=== PATIENT | female | born 1945 | race Caucasian/White ===

== ENCOUNTER 2023-10-20 17:28 | Inpatient (IN) | payer MEDICARE, SELFPAY ==
[2023-10-20 18:25] VITALS: BP 146/78; PULSE 89; RESP 18; TEMP 36.1; O2SAT 97
[2023-10-20 18:26] VITALS: BMI 17.8
--- NOTE | 2023-10-20 19:06 | PC.NURSE ---
Patient from [facility], presented with altered mental status, paranoid thoughts, concerned of her neighbor threatening to kill her. To the unit arrived via stretcher at 17:50. Signed VS. Patient 78 y.o.alert, oriented to self, date, day of the week, and situation. VS: 146/78, P 89, T 97.0, O2sat 97% on RA, Wwt 103.6 lbs, Ht 5 feet 4 inches. Speech clear. Denies pain. Denies psych symptoms. Initially anxious upon assessment then calmed done little bit after eating. Said she was hungry and thirsty. Consumed sandwiches, pudding and drank 360 ml of fluids. D/C diagnosis of HTN, Paranoid delusions, Depression, Psychosis. Patient signed consents to release info to her daughter, PCP, insurance and pharmacy. Stated, she doesn't have a psychiatrist. Skin assessment completed, bruising on upper extr. from IVs. Pt ambulates with a waker, gait steady.
[2023-10-20 20:33] VITALS: BP 105/59; PULSE 90; RESP 20; TEMP 36.2; O2SAT 97
[2023-10-20 21:49] VITALS: BP 105/59; PULSE 90; RESP 18; TEMP 36.2; O2SAT 97
[2023-10-20] MEDS: Sulfamethox/Trimeth 800/160 TABLET 1 TAB PO (22:16)
[2023-10-20] MEDS: QUEtiapine Fumarate 25 MG TABLET PO (22:16)
[2023-10-21 08:16] LABS: Estimated Average Glucose 114 mg/dL; Hemoglobin A1c % 5.6 % (<6.0)
[2023-10-21 08:25] LABS: Alanine Aminotransferase 17 U/L (0-31); Albumin Level 3.9 g/dL (3.5-5.0); Alkaline Phosphatase 51 U/L (39-117); Anion Gap 13 (12-20); Aspartate Amino Transferase 22 U/L (5-31); Bilirubin Total 0.3 mg/dL (0.0-1.0); Blood Urea Nitrogen 23 mg/dL (9-16); Calcium 9.6 mg/dL (8.4-10.2); Carbon Dioxide 23 mmol/L (22-29); Chloride 109 mmol/L (96-108); Cholesterol 169 mg/dL (<200); Creatinine Clr Calc Pharmacy 39.7; Estimated Glomerular Filt Rate > 60; Glucose Fasting 82 mg/dL (60-99); HDL Cholesterol 66 mg/dL (>40); LDL Cholesterol Calculated 87 mg/dL (<100); Potassium 4.4 mmol/L (3.3-5.1); Sodium 141 mmol/L (135-145); Total Protein 6.9 g/dL (6.5-8.0); Triglycerides 82 mg/dL (<150)
[2023-10-21 09:19] VITALS: BP 128/64; PULSE 87; RESP 16; TEMP 36.2; O2SAT 97
[2023-10-21] MEDS: Sulfamethox/Trimeth 800/160 TABLET 1 TAB PO ×2 (09:20→20:33)
[2023-10-21] MEDS: Metoprolol Succinate ER 100 MG TAB.ER.24H PO (09:20)
--- NOTE | 2023-10-21 11:15 | P.HPPS_ITS ---
HPI Date of Service: 10/21/23 Chief Complaint: Unspecified depressive disorder with psychotic fea Sources of Information: patient interviewed, chart reviewed and crisis/core team assessment reviewed HPI Subjective Notes: Briones Warning and 3 Day Medical Problems Affecting Mental Status: No Narrative: 78-year-old female direct admission from [facility]. Depression, anxiety, significant paranoia and hallucinations regarding neighbor. For psychiatric admission. Lab work and CT brain unremarkable. There has been increasing paranoia in recent months as per transfer paperwork according to daughter, Joanna. Patient has been calling the police on her neighbor. Today reports that she came from [facility], clearly aware of timeline and no obvious cognitive impairment. Feels that she is being treated okay here. Also reports wanting to go home at some point. States her something going on with her neighbor and it is not her imagination. Reports calling the police and that they know everything that is happening. Reports she can hear messages from her neighbor through the air compressor that are targeting her with a goal of getting her to leave her apartment, so her neighbor can get patient's apartment for neighbor's girlfriend. As we were talking, patient reports that she can hear people saying and repeating what is being said and therefore does not want to elaborate or talk too much. reported this has been happening since before . Has been feeling stressed. Sleep is less. Fearful that now she is in the hospital, they are in her apartment, taking over it. Did explain 3 day notice (same submitted), briones warning given. Is open to a low-dose of medications for sleep, anxiety and potential misinterpretations. Discussed Risperdal. Past Psychiatric History: First admission. Lab work and CT scans unremarkable. Experiencing psychosis for at least 6 months now. Medical Evaluation Reviewed: [facility] Medical History (Updated 10/21/23 @ 19:30 by Wallace Guthrie MD) HTN (hypertension) Social History: Lives alone. 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 Enjoys hiking and biking. Did not want to discuss family into much detail as she was concerned they might be in danger. Substance History: denied Diagnostics Vital Signs (24Hr): Vital Signs - 24 hr 10/20/23 18:25 10/20/23 20:33 10/20/23 21:49 Temperature 97.0 F 97.2 F 97.2 F Pulse Rate 89 90 90 Respiratory Rate 18 20 18 Blood Pressure 146/78 H 105/59 L 105/59 L Pulse Oximetry 97 97 97 Oxygen Delivery Method Room Air Room Air Room Air 10/21/23 09:19 Temperature 97.2 F Pulse Rate 87 Respiratory Rate 16 Blood Pressure 128/64 Pulse Oximetry 97 Oxygen Delivery Method Room Air BMI result Body Mass Index 17.8 Labs 10/21/23 07:27 Labs: Laboratory Results - last 48 hr 10/21/23 07:27 Sodium 141 Potassium 4.4 Chloride 109 H Carbon Dioxide 23 Anion Gap 13 BUN 23 H Creatinine 0.88 Estim Creat Clear Calc 39.7 Estimated GFR > 60 Fasting Glucose 82 Estimat Average Glucose 114 Hemoglobin A1c % 5.6 Calcium 9.6 Total Bilirubin 0.3 AST 22 ALT 17 Alkaline Phosphatase 51 Total Protein 6.9 Albumin 3.9 Triglycerides 82 Cholesterol 169 LDL Cholesterol, Calc 87 HDL Cholesterol 66 Meds/Allergies Meds Home Medications ?Medication ?Instructions ?Recorded ?Confirmed ?Type cyanocobalamin (vitamin B-12) 1XD 10/20/23 History metoprolol succinate 100 mg 100 mg PO DAILY 10/20/23 10/20/23 History tablet,extended release 24 hr quetiapine 25 mg tablet 25 mg PO BEDTIME 10/20/23 10/20/23 History sulfamethoxazole 800 1 tab PO BID 10/20/23 10/20/23 History mg-trimethoprim 160 mg tablet (Bactrim DS) Allergies Allergies Allergy/AdvReac Type Severity Reaction Status Date / Time No Known Allergies Allergy Verified 10/20/23 20:47 Mental Status Exam Mental Status Exam Narrative: Pleasant. Engaged. Hospital clothing. Fair self-care. Organized. No cognitive impairment. Is anxious and fearful in the context of paranoia and hallucinations. Denies depressed. No SI or HI. Insight and judgment is slightly limited Assessment & Plan Assessment & Plan (1) Psychosis: Status: Acute Code(s): F29 - Unspecified psychosis not due to a substance or known physiological condition Plan Presents with clear psychotic symptoms and time and unclear, as collateral from transfer paperwork states a few months, but patient reports perhaps longer. Also appears to be 1st episode of psychosis, but collateral will be important in confirming this. Regardless, patient has no cognitive impairment, understands 3 day notice and Briones warning. Agreed to low-dose Risperdal. Patient educated on: medication risk/benefits Reason for continued inpatient stay Substantial Risk for: inability to function Statement Statement: I have reviewed the history and physical and performed a pertinent examination on my patient. No changes have occurred unless specified. If the History and Physical was not performed prior to admission, the Hospitalist's service will be consulted for completing the admission physical. Time Spent With Patient Time: Total time managing care of this patient today ____ minutes.
--- NOTE | 2023-10-21 11:26 | P.CONHOSP_ITS ---
History of Present Illness Data of Consult Service Date: 10/21/23 Primary Care Provider: Fritz Meza MD HPI Reason for consult: Admission H&P Pt is a 78-year-old female with a PMH significant for?HTN who is admitted to [facility] for for concerns of psychotic and paranoid behavior. Patient apparently has been perseverating on her neighbor who she believes has sending her threatening messages through an air compressor. Apparently contacted police multiple times complaining of this neighbor who she could not name when asked. Medical consult for admission H&P. ?Patient approached in her room where she is sitting in a chair looking out the window in no acute distress. Patient declines interview and exam, stating ?my history has already been taken? and ?I do not want to talk right now and just want to call my daughter and go home . Of note, review of medical records indicates patient tested positive for UA and as currently being treated for UTI. Labs reviewed, grossly unremarkable. Review of Systems 2 Review of Systems: Patient declines interview and examination [facility] Medical History (Updated 10/21/23 @ 13:02 by TOMÁS Malhotra) HTN (hypertension) Social History Household Members: None Housing: Apartment Do you presently have visiting nurse or other home services: No Patient Tobacco Use Status: Never used Tobacco Use of substances other than those prescribed or required for medical reasons: No Currently Displaying Signs/Symptoms of Drug Intoxication Withdrawal: No Have you been hit, kicked, punched, or otherwise hurt by someone within the past year? If so, by whom?: No Do you feel safe in your current relationship?: No Current Relationship Is there a partner from a previous relationship who is making you feel unsafe now?: No Advance Directives: No Advance Directives Information Provided: No Do you have thoughts of harming others: None Do you have a plan to hurt others: No Plan Recently lost weight without trying: Unsure How much weight loss: Unsure Eating poorly because of decreased appetite: No Nutrition screen score: 4 Patient : No : No Poor oral hygiene: No Meds Allergies Allergy/AdvReac Type Severity Reaction Status Date / Time No Known Allergies Allergy Verified 10/20/23 20:47 Active Medications: Current Medications Acetaminophen (Acetaminophen 325 Mg Tablet) 650 mg PO Q6H PRN PRN Reason: Headache/Pain Mild Scale (1-3) Al Hydroxide/Mg Hydroxide (Magnesium Hydrox/Alum Hydrox 30 Ml Oral.Susp) 30 ml PO Q6H PRN PRN Reason: Heartburn/Nausea Magnesium Hydroxide (Milk Of Magnesia 30 Ml Oral.Susp) 30 ml PO DAILY PRN PRN Reason: Constipation Metoprolol Succinate (Metoprolol Succinate Er 100 Mg Tab.Er.24h) 100 mg PO DAILY LUPE; Protocol Last Admin: 10/21/23 09:20 Dose: 100 mg Nicotine Polacrilex (Nicotine Polacrilex 2 Mg Gum) 4 mg BUCCAL Q2H PRN PRN Reason: Nicotine Cravings Risperidone (Risperidone 0.5 Mg Tablet) 0.5 mg PO BEDTIME LUPE Risperidone (Risperidone 0.5 Mg Tablet) 0.5 mg PO BID PRN PRN Reason: paranoia Trazodone HCl (Trazodone Hcl 25 Mg Halftab) 25 mg PO BEDTIME MRX1 PRN PRN Reason: Insomnia Trimethoprim/Sulfamethoxazole (Sulfamethox/Trimeth 800/160 Tablet) 1 tab PO BID LUPE Stop: 10/23/23 23:00 Last Admin: 10/21/23 09:20 Dose: 1 tab Home Medications ?Medication ?Instructions ?Recorded ?Confirmed ?Last Taken ?Type cyanocobalamin (vitamin B-12) 1XD 10/20/23 10/20/23 History metoprolol succinate 100 mg 100 mg PO DAILY 10/20/23 10/20/23 10/20/23 History tablet,extended release 24 hr quetiapine 25 mg tablet 25 mg PO BEDTIME 10/20/23 10/20/23 10/19/23 History sulfamethoxazole 800 1 tab PO BID 10/20/23 10/20/23 10/20/23 History mg-trimethoprim 160 mg tablet (Bactrim DS) Physical Exam 2 Vital Signs and Narrative: Vital Signs: Last Vital Signs Temp 97.2 F 10/21/23 09:19 Pulse 87 10/21/23 09:19 Resp 16 10/21/23 09:19 BP 128/64 10/21/23 09:19 Pulse Ox 97 10/21/23 09:19 O2 Del Method Room Air 10/21/23 09:19 BMI result Body Mass Index 17.8 Patient declines physical Results Labs 10/21/23 07:27 Labs: Laboratory Results - last 24 hr 10/21/23 07:27 Anion Gap 13 Estim Creat Clear Calc 39.7 Estimated GFR > 60 Fasting Glucose 82 Estimat Average Glucose 114 Hemoglobin A1c % 5.6 Calcium 9.6 Total Bilirubin 0.3 AST 22 ALT 17 Alkaline Phosphatase 51 Total Protein 6.9 Albumin 3.9 Triglycerides 82 Cholesterol 169 LDL Cholesterol, Calc 87 HDL Cholesterol 66 Assessment and Plan (1) Medical clearance for psychiatric admission: Status: Acute Plan Pt is a 78-year-old female with a PMH significant for?HTN who is admitted to [facility] for for concerns of psychotic and paranoid behavior. Patient apparently has been perseverating on her neighbor who she believes has sending her threatening messages through an air compressor. Apparently contacted police multiple times complaining of this neighbor who she could not name when asked. Medical consult for admission H&P. ?Patient approached in her room where she is sitting in a chair looking out the window in no acute distress. Patient declines interview and exam. Mood disorder Plan as per Psychiatry UTI UA positive for UTI at [facility] Continue Bactrim HTN Continue metoprolol Thank you for allowing us to participate in the care of this patient. Signing off at this time. Please re-consult if any acute complaints or issues arise.
[2023-10-21 18:00] VITALS: BP 145/70; PULSE 89; RESP 17; TEMP 36.6; O2SAT 97
[2023-10-21] MEDS: risperiDONE 0.5 MG TABLET PO (20:40)
[2023-10-21] MEDS: traZODone HCL 25 MG HALFTAB PO (20:41)
[2023-10-21] MEDS: Magnesium Hydrox/Alum Hydrox 30 ML ORAL.SUSP PO (20:41)
[2023-10-22 08:15] VITALS: BP 136/63; PULSE 88; RESP 16; TEMP 36.4; O2SAT 97
[2023-10-22] MEDS: Metoprolol Succinate ER 100 MG TAB.ER.24H PO (08:51)
[2023-10-22] MEDS: Sulfamethox/Trimeth 800/160 TABLET 1 TAB PO ×2 (08:51→21:01)
--- NOTE | 2023-10-22 09:57 | HO.PSYCHPN ---
Subjective Subjective Date of Service: 10/22/23 Reason For Visit: Unspecified depressive disorder with psychosis Subjective Notes: 3 Day Interim History: met with patient. Discussed with Nursing. Overall no management issues. Adherent with medications. Year for discharge. Sleep poor. Reports today ongoing concerns around the neighbor plan to take over her apartment. Feeling that her life is in danger. Not wanting to speak with her family in case her neighbor can hear her at the hospital. adamant that she is not misinterpreting anything. No medication side effects. No SI or HI feeling supported by staff Review of Systems Review of Systems Yes all other systems are reviewed and are negative Mental Status Exam Mental Status Exam Narrative: Pleasant. Engaged. Hospital clothing. Fair self-care. Organized. No cognitive impairment. Is anxious and fearful in the context of paranoia and hallucinations. Denies depressed. No SI or HI. Insight and judgment is limited Diagnostics Vital Signs (24Hr): Vital Signs - 24 hr 10/21/23 18:00 Temperature 97.9 F Pulse Rate 89 Respiratory Rate 17 Blood Pressure 145/70 H Pulse Oximetry 97 Oxygen Delivery Method Room Air BMI result Body Mass Index 17.8 Labs 10/21/23 07:27 Labs: Laboratory Results - last 48 hr 10/21/23 07:27 Sodium 141 Potassium 4.4 Chloride 109 H Carbon Dioxide 23 Anion Gap 13 BUN 23 H Creatinine 0.88 Estim Creat Clear Calc 39.7 Estimated GFR > 60 Fasting Glucose 82 Estimat Average Glucose 114 Hemoglobin A1c % 5.6 Calcium 9.6 Total Bilirubin 0.3 AST 22 ALT 17 Alkaline Phosphatase 51 Total Protein 6.9 Albumin 3.9 Triglycerides 82 Cholesterol 169 LDL Cholesterol, Calc 87 HDL Cholesterol 66 Medications Medications Current Medications Acetaminophen (Acetaminophen 325 Mg Tablet) 650 mg PO Q6H PRN PRN Reason: Headache/Pain Mild Scale (1-3) Al Hydroxide/Mg Hydroxide (Magnesium Hydrox/Alum Hydrox 30 Ml Oral.Susp) 30 ml PO Q6H PRN PRN Reason: Heartburn/Nausea Last Admin: 10/21/23 20:41 Dose: 30 ml Magnesium Hydroxide (Milk Of Magnesia 30 Ml Oral.Susp) 30 ml PO DAILY PRN PRN Reason: Constipation Metoprolol Succinate (Metoprolol Succinate Er 100 Mg Tab.Er.24h) 100 mg PO DAILY LUPE; Protocol Last Admin: 10/22/23 08:51 Dose: 100 mg Nicotine Polacrilex (Nicotine Polacrilex 2 Mg Gum) 4 mg BUCCAL Q2H PRN PRN Reason: Nicotine Cravings Risperidone (Risperidone 0.5 Mg Tablet) 0.5 mg PO BEDTIME LUPE Last Admin: 10/21/23 20:40 Dose: 0.5 mg Risperidone (Risperidone 0.5 Mg Tablet) 0.5 mg PO BID PRN PRN Reason: paranoia Trazodone HCl (Trazodone Hcl 25 Mg Halftab) 25 mg PO BEDTIME MRX1 PRN PRN Reason: Insomnia Last Admin: 10/21/23 20:41 Dose: 25 mg Trimethoprim/Sulfamethoxazole (Sulfamethox/Trimeth 800/160 Tablet) 1 tab PO BID LUPE Stop: 10/23/23 23:00 Last Admin: 10/22/23 08:51 Dose: 1 tab Allergies Allergies Allergy/AdvReac Type Severity Reaction Status Date / Time No Known Allergies Allergy Verified 10/20/23 20:47 Assessment & Plan Assessment & Plan (1) Psychosis: Status: Acute Code(s): F29 - Unspecified psychosis not due to a substance or known physiological condition Plan Presents with clear psychotic symptoms and time and unclear, as collateral from transfer paperwork states a few months, but patient reports perhaps longer. Also appears to be 1st episode of psychosis, but collateral will be important in confirming this. Regardless, patient has no cognitive impairment, understands 3 day notice and Briones warning. Agreed to low-dose Risperdal. 10/21:no changes- just started risperdal Reason for continued inpatient stay Substantial Risk for: inability to function Time Spent With Patient Time: Total time managing care of this patient today ____ minutes.
[2023-10-22 18:00] VITALS: BP 122/76; PULSE 99; RESP 18; TEMP 36.2; O2SAT 99
[2023-10-22] MEDS: risperiDONE 0.5 MG TABLET PO (21:01)
[2023-10-22] MEDS: traZODone HCL 25 MG HALFTAB PO (21:02)
[2023-10-23 08:00] VITALS: BP 137/69; PULSE 111; RESP 18; TEMP 36.2; O2SAT 94
--- NOTE | 2023-10-23 08:26 | HO.PSYCHPN ---
Subjective Subjective Date of Service: 10/23/23 Reason For Visit: Unspecified depressive disorder with psychosis Subjective Notes: Conditional Voluntary Interim History: Per nursing, pt slept most of the night but presented as very anxious, guarded, and paranoid. She reported paranoid ideas thinking staff trying to harm her. She denies SI/HI. She was up this morning and participated in group. She appeared calmer. Diagnostics Vital Signs (24Hr): Vital Signs - 24 hr 10/22/23 18:00 Temperature 97.1 F Pulse Rate 99 Respiratory Rate 18 Blood Pressure 122/76 Pulse Oximetry 99 Oxygen Delivery Method Room Air BMI result Body Mass Index 17.8 Labs 10/21/23 07:27 Medications Medications Current Medications Acetaminophen (Acetaminophen 325 Mg Tablet) 650 mg PO Q6H PRN PRN Reason: Headache/Pain Mild Scale (1-3) Al Hydroxide/Mg Hydroxide (Magnesium Hydrox/Alum Hydrox 30 Ml Oral.Susp) 30 ml PO Q6H PRN PRN Reason: Heartburn/Nausea Last Admin: 10/21/23 20:41 Dose: 30 ml Magnesium Hydroxide (Milk Of Magnesia 30 Ml Oral.Susp) 30 ml PO DAILY PRN PRN Reason: Constipation Metoprolol Succinate (Metoprolol Succinate Er 100 Mg Tab.Er.24h) 100 mg PO DAILY LUPE; Protocol Last Admin: 10/22/23 08:51 Dose: 100 mg Nicotine Polacrilex (Nicotine Polacrilex 2 Mg Gum) 4 mg BUCCAL Q2H PRN PRN Reason: Nicotine Cravings Risperidone (Risperidone 0.5 Mg Tablet) 0.5 mg PO BEDTIME LUPE Last Admin: 10/22/23 21:01 Dose: 0.5 mg Risperidone (Risperidone 0.5 Mg Tablet) 0.5 mg PO BID PRN PRN Reason: paranoia Trazodone HCl (Trazodone Hcl 25 Mg Halftab) 25 mg PO BEDTIME MRX1 PRN PRN Reason: Insomnia Last Admin: 10/22/23 21:02 Dose: 25 mg Trimethoprim/Sulfamethoxazole (Sulfamethox/Trimeth 800/160 Tablet) 1 tab PO BID LUPE Stop: 10/23/23 23:00 Last Admin: 10/22/23 21:01 Dose: 1 tab Allergies Allergies Allergy/AdvReac Type Severity Reaction Status Date / Time No Known Allergies Allergy Verified 10/20/23 20:47 Assessment & Plan Assessment & Plan (1) Psychosis: Status: Acute Code(s): F29 - Unspecified psychosis not due to a substance or known physiological condition Plan Presents with clear psychotic symptoms and time and unclear, as collateral from transfer paperwork states a few months, but patient reports perhaps longer. Also appears to be 1st episode of psychosis, but collateral will be important in confirming this. Regardless, patient has no cognitive impairment, understands 3 day notice and Briones warning. Agreed to low-dose Risperdal. 10/22 increase risperidone 1mg po BID. may benefit from low dose clonazepam as she is less psychotic. Reason for continued inpatient stay Substantial Risk for: inability to function Time Spent With Patient Time: Total time managing care of this patient today ____ minutes.
[2023-10-23] MEDS: risperiDONE 0.5 MG TABLET PO ×2 (08:42→16:48)
[2023-10-23] MEDS: Metoprolol Succinate ER 100 MG TAB.ER.24H PO (08:42)
[2023-10-23] MEDS: Sulfamethox/Trimeth 800/160 TABLET 1 TAB PO ×2 (08:42→20:58)
[2023-10-23 13:44] VITALS: BMI 19.6
[2023-10-23 18:00] VITALS: BP 132/68; PULSE 101; RESP 18; TEMP 36.2; O2SAT 97
[2023-10-23] MEDS: risperiDONE 1 MG TABLET PO (20:58)
[2023-10-23] MEDS: traZODone HCL 25 MG HALFTAB PO (20:58)
[2023-10-24 08:35] VITALS: BP 125/60; PULSE 94; RESP 18; TEMP 36.1; O2SAT 98
[2023-10-24] MEDS: risperiDONE 1 MG TABLET PO (08:39)
[2023-10-24] MEDS: Metoprolol Succinate ER 100 MG TAB.ER.24H PO (08:39)
--- NOTE | 2023-10-24 16:30 | P.PNPSI_ITS ---
Subjective Subjective Date of Service: 10/24/23 Reason For Visit: Unspecified depressive disorder with psychosis Subjective Notes: Section 12B Interim History: The nursing staff reported the patient had been paranoid against some peers and staff. She stated that she wants to go home. The occupational therapist reported that she had auditory hallucinations suggesting that there were voices in the intercom. Her 12 be expires next . On interview the patient reports that she is doing fairly well and she wants to go back home, no insight into her condition. We will try to gather more collateral information. Mental Status Exam Mental Status Exam Patient Appearance: Appropriate Patient Orientation: Person and Situation Level of Consciousness: Awake and Appropriate Patient Behavior: Guarded and Passive Mood Description: Withdrawn Affect Description: Constricted Patient Cognition Impaired: Yes Ability to Follow Directions: Good Speech Pattern: Clear Hallucinations: None Delusions: Ideas of Reference Thought Process: Distracted and Slowed Thinking Thought Content: positive for [place] and positive for Poverty of Content Judgement: Fair Diagnostics Vital Signs (24Hr): Vital Signs - 24 hr 10/23/23 18:00 10/24/23 08:35 Temperature 97.1 F 97.0 F Pulse Rate 101 H 94 Respiratory Rate 18 18 Blood Pressure 132/68 125/60 Pulse Oximetry 97 98 Oxygen Delivery Method Room Air Room Air BMI result Body Mass Index 19.6 Labs 10/21/23 07:27 Medications Medications Current Medications Acetaminophen (Acetaminophen 325 Mg Tablet) 650 mg PO Q6H PRN PRN Reason: Headache/Pain Mild Scale (1-3) Al Hydroxide/Mg Hydroxide (Magnesium Hydrox/Alum Hydrox 30 Ml Oral.Susp) 30 ml PO Q6H PRN PRN Reason: Heartburn/Nausea Last Admin: 10/21/23 20:41 Dose: 30 ml Magnesium Hydroxide (Milk Of Magnesia 30 Ml Oral.Susp) 30 ml PO DAILY PRN PRN Reason: Constipation Metoprolol Succinate (Metoprolol Succinate Er 100 Mg Tab.Er.24h) 100 mg PO DAILY LUPE; Protocol Last Admin: 10/24/23 08:39 Dose: 100 mg Nicotine Polacrilex (Nicotine Polacrilex 2 Mg Gum) 4 mg BUCCAL Q2H PRN PRN Reason: Nicotine Cravings Risperidone (Risperidone 0.5 Mg Tablet) 0.5 mg PO BID PRN PRN Reason: paranoia Last Admin: 10/23/23 16:48 Dose: 0.5 mg Risperidone (Risperidone 1 Mg Tablet) 1 mg PO BID LUPE Last Admin: 10/24/23 08:39 Dose: 1 mg Trazodone HCl (Trazodone Hcl 25 Mg Halftab) 25 mg PO BEDTIME MRX1 PRN PRN Reason: Insomnia Last Admin: 10/23/23 20:58 Dose: 25 mg Allergies Allergies Allergy/AdvReac Type Severity Reaction Status Date / Time No Known Allergies Allergy Verified 10/20/23 20:47 Assessment & Plan Assessment & Plan (1) Psychosis: Status: Acute Code(s): F29 - Unspecified psychosis not due to a substance or known physiological condition Plan Presents with clear psychotic symptoms and time and unclear, as collateral from transfer paperwork states a few months, but patient reports perhaps longer. Also appears to be 1st episode of psychosis, but collateral will be important in confirming this. Regardless, patient has no cognitive impairment, understands 3 day notice and Briones warning. Agreed to low-dose Risperdal. Plan 1. Continue with Risperdal 1 mg p.o. b.i.d. to target psychosis. 2. Gather more collateral information. Reason for continued inpatient stay Substantial Risk for: inability to function, rapid decompensation and med/psych decompensation Time Spent With Patient Time: Total time managing care of this patient today __20__ minutes.
[2023-10-24 22:02] VITALS: BP 141/68; PULSE 97; RESP 16; TEMP 36.6; O2SAT 96
[2023-10-25 06:00] VITALS: BP 129/68; PULSE 105; RESP 16; TEMP 36.4; O2SAT 99
[2023-10-25] MEDS: Metoprolol Succinate ER 100 MG TAB.ER.24H PO (08:26)
[2023-10-25] MEDS: risperiDONE 1 MG TABLET PO ×3 (08:26→20:39)
--- NOTE | 2023-10-25 12:04 | HO.PSYCHPN ---
Subjective Subjective Date of Service: 10/25/23 Reason For Visit: Unspecified depressive disorder with psychosis Subjective Notes: Conditional Voluntary and 3 Day Interim History: The nursing staff reported the patient had been confused but less paranoid. She slept 7 hours. The occupational therapist reported that she score 4.2 on the Ghulam test and 16/30 on the [place]. She is still having auditory hallucinations. The social welfare administrator will call her daughter, apparently, according to previous contact with her daughter, the patient suffer from borderline personality disorder. On interview the patient is very anxious still paranoid, very increasing Risperdal up to 1 mg p.o. t.i.d.. Her 3 day notice expires tomorrow and she decided recanted. Mental Status Exam Mental Status Exam Patient Appearance: Appropriate Patient Orientation: Person and Situation Level of Consciousness: Awake and Restless Patient Behavior: Appropriate and Passive Mood Description: Withdrawn Affect Description: Constricted Patient Cognition Impaired: Yes Ability to Follow Directions: Good Speech Pattern: Clear Hallucinations: None Delusions: Paranoid Ideation and Ideas of Reference Thought Process: Distracted and Slowed Thinking Thought Content: positive for [place], positive for [place], positive for Poverty of Content and positive for Thought Blocking Judgement: Poor Diagnostics Vital Signs (24Hr): Vital Signs - 24 hr 10/24/23 22:02 10/25/23 06:00 Temperature 97.8 F 97.5 F Pulse Rate 97 105 H Respiratory Rate 16 16 Blood Pressure 141/68 H 129/68 Pulse Oximetry 96 99 Oxygen Delivery Method Room Air Room Air BMI result Body Mass Index 19.6 Labs 10/21/23 07:27 Medications Medications Current Medications Acetaminophen (Acetaminophen 325 Mg Tablet) 650 mg PO Q6H PRN PRN Reason: Headache/Pain Mild Scale (1-3) Al Hydroxide/Mg Hydroxide (Magnesium Hydrox/Alum Hydrox 30 Ml Oral.Susp) 30 ml PO Q6H PRN PRN Reason: Heartburn/Nausea Last Admin: 10/21/23 20:41 Dose: 30 ml Magnesium Hydroxide (Milk Of Magnesia 30 Ml Oral.Susp) 30 ml PO DAILY PRN PRN Reason: Constipation Metoprolol Succinate (Metoprolol Succinate Er 100 Mg Tab.Er.24h) 100 mg PO DAILY [facility]; Protocol Last Admin: 10/25/23 08:26 Dose: 100 mg Nicotine Polacrilex (Nicotine Polacrilex 2 Mg Gum) 4 mg BUCCAL Q2H PRN PRN Reason: Nicotine Cravings Risperidone (Risperidone 0.5 Mg Tablet) 0.5 mg PO BID PRN PRN Reason: paranoia Last Admin: 10/23/23 16:48 Dose: 0.5 mg Risperidone (Risperidone 1 Mg Tablet) 1 mg PO TID LUPE Trazodone HCl (Trazodone Hcl 25 Mg Halftab) 25 mg PO BEDTIME MRX1 PRN PRN Reason: Insomnia Last Admin: 10/23/23 20:58 Dose: 25 mg Allergies Allergies Allergy/AdvReac Type Severity Reaction Status Date / Time No Known Allergies Allergy Verified 10/20/23 20:47 Assessment & Plan Assessment & Plan (1) Psychosis: Status: Acute Code(s): F29 - Unspecified psychosis not due to a substance or known physiological condition Plan Presents with clear psychotic symptoms and time and unclear, as collateral from transfer paperwork states a few months, but patient reports perhaps longer. Also appears to be 1st episode of psychosis, but collateral will be important in confirming this. Regardless, patient has no cognitive impairment, understands 3 day notice and Briones warning. Agreed to low-dose Risperdal. Plan 1. Continue with Risperdal 1 mg p.o. b.i.d. to target psychosis. On October 24 we are increasing up to 1 mg p.o. t.i.d. since she still have some psychotic symptoms. 2. Gather more collateral information. Reason for continued inpatient stay Substantial Risk for: inability to function, rapid decompensation and med/psych decompensation Time Spent With Patient Time: Total time managing care of this patient today __20__ minutes.
[2023-10-25 20:00] VITALS: BP 127/74; PULSE 92; RESP 17; TEMP 36.1; O2SAT 96
[2023-10-26] MEDS: traZODone HCL 25 MG HALFTAB PO (00:46)
[2023-10-26 03:55] VITALS: BP 139/69; PULSE 90; RESP 20; TEMP 36.2; O2SAT 98
[2023-10-26 07:00] VITALS: BMI 17.9
[2023-10-26 09:03] VITALS: BP 137/88; PULSE 104; RESP 16; TEMP 36.6; O2SAT 98
[2023-10-26] MEDS: Metoprolol Succinate ER 100 MG TAB.ER.24H PO (09:05)
[2023-10-26] MEDS: risperiDONE 1 MG TABLET PO ×2 (09:05→16:41)
--- NOTE | 2023-10-26 11:43 | P.PNPSI_ITS ---
Subjective Subjective Date of Service: 10/26/23 Reason For Visit: Unspecified depressive disorder with psychosis Subjective Notes: Conditional Voluntary Interim History: The nursing staff reported the patient looks less paranoid. Yesterday in the evening she was tearful and self dialogue in but easily redirectable. The family welfare social work professor reported that we are going to have a family meeting tomorrow at 11:00 o'clock. She remains paranoid against her neighbor. On interview the patient is pleasant and cooperative she is aware that we are having a family meeting with her daughter tomorrow. No evidence of auditory or visual hallucinations. Mental Status Exam Mental Status Exam Patient Appearance: Well Grooomed and Appropriate Patient Orientation: Person and Situation Level of Consciousness: Awake Patient Behavior: Guarded and Passive Mood Description: Calm Affect Description: Constricted Patient Cognition Impaired: Yes Ability to Follow Directions: Good Speech Pattern: Clear Hallucinations: None Delusions: Ideas of Reference Thought Process: Distracted and Evasive Thought Content: positive for [place], positive for Poverty of Content and positive for Thought Blocking Judgement: Fair Diagnostics Vital Signs (24Hr): Vital Signs - 24 hr 10/25/23 20:00 10/26/23 09:03 Temperature 97 F 97.9 F Pulse Rate 92 104 H Respiratory Rate 17 16 Blood Pressure 127/74 137/88 Pulse Oximetry 96 98 Oxygen Delivery Method Room Air Room Air BMI result Body Mass Index 19.6 Labs 10/21/23 07:27 Medications Medications Current Medications Acetaminophen (Acetaminophen 325 Mg Tablet) 650 mg PO Q6H PRN PRN Reason: Headache/Pain Mild Scale (1-3) Al Hydroxide/Mg Hydroxide (Magnesium Hydrox/Alum Hydrox 30 Ml Oral.Susp) 30 ml PO Q6H PRN PRN Reason: Heartburn/Nausea Last Admin: 10/21/23 20:41 Dose: 30 ml Magnesium Hydroxide (Milk Of Magnesia 30 Ml Oral.Susp) 30 ml PO DAILY PRN PRN Reason: Constipation Metoprolol Succinate (Metoprolol Succinate Er 100 Mg Tab.Er.24h) 100 mg PO DAILY [facility]; Protocol Last Admin: 10/26/23 09:05 Dose: 100 mg Nicotine Polacrilex (Nicotine Polacrilex 2 Mg Gum) 4 mg BUCCAL Q2H PRN PRN Reason: Nicotine Cravings Risperidone (Risperidone 0.5 Mg Tablet) 0.5 mg PO BID PRN PRN Reason: paranoia Last Admin: 10/23/23 16:48 Dose: 0.5 mg Risperidone (Risperidone 1 Mg Tablet) 1 mg PO TID LUPE Last Admin: 10/26/23 09:05 Dose: 1 mg Trazodone HCl (Trazodone Hcl 25 Mg Halftab) 25 mg PO BEDTIME MRX1 PRN PRN Reason: Insomnia Last Admin: 10/26/23 00:46 Dose: 25 mg Allergies Allergies Allergy/AdvReac Type Severity Reaction Status Date / Time No Known Allergies Allergy Verified 10/20/23 20:47 Assessment & Plan Assessment & Plan (1) Psychosis: Status: Acute Code(s): F29 - Unspecified psychosis not due to a substance or known physiological condition Plan Presents with clear psychotic symptoms and time and unclear, as collateral from transfer paperwork states a few months, but patient reports perhaps longer. Also appears to be 1st episode of psychosis, but collateral will be important in confirming this. Regardless, patient has no cognitive impairment, understands 3 day notice and Briones warning. Agreed to low-dose Risperdal. Plan 1. Continue with Risperdal 1 mg p.o. b.i.d. to target psychosis. On October 24 we are increasing up to 1 mg p.o. t.i.d. since she still have some psychotic symptoms. 2. Gather more collateral information. Reason for continued inpatient stay Substantial Risk for: inability to function, rapid decompensation and med/psych decompensation Time Spent With Patient Time: Total time managing care of this patient today _20___ minutes.
[2023-10-26 19:40] VITALS: BP 130/61; PULSE 101; RESP 16; TEMP 36.3; O2SAT 95
[2023-10-26] MEDS: Acetaminophen 325 MG TABLET 650 MG PO (20:25)
[2023-10-27 03:50] VITALS: BP 131/67; PULSE 90; RESP 24; TEMP 36.5; O2SAT 98
--- NOTE | 2023-10-27 04:27 | PC.NURSE ---
with assistance pt was ambulated to bathroom. when returning from bathroom pt became unsteady and c/o of nausea. on examination pt is recumbent in bed and sipping on water. she states she had an episode in which she felt very weak and was briefly nauseated. pt is soft spoken and articulating herself well. she is hearing impaired. her skin is warm and dry. she is slightly tachypneic rr 22-24 bpm. sao2 98%. denies sob. denies chest discomfort. abdomen benign. pt reports nausea has gone. vital signs are stable. will continue to monitor.
[2023-10-27 08:23] VITALS: BP 130/64; PULSE 112; RESP 16; TEMP 36.8; O2SAT 96
[2023-10-27 08:25] VITALS: BP 130/64; PULSE 112
[2023-10-27] MEDS: Metoprolol Succinate ER 100 MG TAB.ER.24H PO (08:25)
[2023-10-27] MEDS: risperiDONE 1 MG TABLET PO (08:26)
--- NOTE | 2023-10-27 13:40 | HO.PSYCHPN ---
Subjective Subjective Date of Service: 10/27/23 Reason For Visit: Unspecified depressive disorder with psychosis Subjective Notes: Conditional Voluntary Interim History: The nursing staff reported the patient had being more organized less paranoid. She was asking today to the staff regarding her medications it seems that Risperdal makes her more sedated and she does not like it. On interview the patient reports some side-effects I explained the changes in her medications to minimized her side-effects. Today we had a family meeting with her daughter and explained her diagnosis of dementia and psychosis. The plan is to continue to keep her on 3 mg of risperidone a day and start Monday on Namenda since she has not eligible for anti cholinesterase as due to her advanced dementia. Mental Status Exam Mental Status Exam Patient Appearance: Appropriate Patient Orientation: Person and Situation Level of Consciousness: Awake and Appropriate Patient Behavior: Appropriate Mood Description: Calm Affect Description: Constricted Patient Cognition Impaired: Yes Ability to Follow Directions: Good Speech Pattern: Clear Hallucinations: None Delusions: Paranoid Ideation and Ideas of Reference Thought Process: Distracted Thought Content: positive for [place] and positive for Poverty of Content Judgement: Poor Diagnostics Vital Signs (24Hr): Vital Signs - 24 hr 10/26/23 19:40 10/27/23 03:50 10/27/23 08:23 Temperature 97.4 F 97.7 F 98.2 F Pulse Rate 101 H 90 112 H Respiratory Rate 16 24 H 16 Blood Pressure 130/61 131/67 130/64 Pulse Oximetry 95 98 96 Oxygen Delivery Method Room Air Room Air Room Air 10/27/23 08:25 Temperature Pulse Rate 112 H Respiratory Rate Blood Pressure 130/64 Pulse Oximetry Oxygen Delivery Method BMI result Body Mass Index 19.8 Labs 10/21/23 07:27 Medications Medications Current Medications Acetaminophen (Acetaminophen 325 Mg Tablet) 650 mg PO Q6H PRN PRN Reason: Headache/Pain Mild Scale (1-3) Last Admin: 10/26/23 20:25 Dose: 650 mg Al Hydroxide/Mg Hydroxide (Magnesium Hydrox/Alum Hydrox 30 Ml Oral.Susp) 30 ml PO Q6H PRN PRN Reason: Heartburn/Nausea Last Admin: 10/21/23 20:41 Dose: 30 ml Magnesium Hydroxide (Milk Of Magnesia 30 Ml Oral.Susp) 30 ml PO DAILY PRN PRN Reason: Constipation Metoprolol Succinate (Metoprolol Succinate Er 100 Mg Tab.Er.24h) 100 mg PO DAILY [facility]; Protocol Last Admin: 10/27/23 08:25 Dose: 100 mg Nicotine Polacrilex (Nicotine Polacrilex 2 Mg Gum) 4 mg BUCCAL Q2H PRN PRN Reason: Nicotine Cravings Risperidone (Risperidone 0.5 Mg Tablet) 0.5 mg PO BID PRN PRN Reason: paranoia Last Admin: 10/23/23 16:48 Dose: 0.5 mg Risperidone (Risperidone 1 Mg Tablet) 1 mg PO DAILY [facility] Risperidone (Risperidone 2 Mg Tablet) 2 mg PO BEDTIME [facility] Trazodone HCl (Trazodone Hcl 25 Mg Halftab) 25 mg PO BEDTIME MRX1 PRN PRN Reason: Insomnia Last Admin: 10/26/23 00:46 Dose: 25 mg Allergies Allergies Allergy/AdvReac Type Severity Reaction Status Date / Time No Known Allergies Allergy Verified 10/20/23 20:47 Assessment & Plan Assessment & Plan (1) Psychosis: Status: Acute Code(s): F29 - Unspecified psychosis not due to a substance or known physiological condition Plan Presents with clear psychotic symptoms and time and unclear, as collateral from transfer paperwork states a few months, but patient reports perhaps longer. Also appears to be 1st episode of psychosis, but collateral will be important in confirming this. Regardless, patient has no cognitive impairment, understands 3 day notice and Briones warning. Agreed to low-dose Risperdal. Plan 1. Continue with Risperdal 1 mg p.o. b.i.d. to target psychosis. On October 24 we are increasing up to 1 mg p.o. t.i.d. since she still have some psychotic symptoms. Her psychotic symptoms improved with Risperdal 3 mg a day so we are changing to 1 mg p.o. q.a.m. and 2 mg p.o. q.h.s. on October 26 due to over-sedation during the day and risperidone. 2. Gather more collateral information. 3. We had a family meeting with her daughter and we discussed treatment options and aftercare. Reason for continued inpatient stay Substantial Risk for: inability to function, rapid decompensation and med/psych decompensation Time Spent With Patient Time: Total time managing care of this patient today __20__ minutes.
[2023-10-27 20:00] VITALS: BP 124/58; PULSE 63; RESP 16; TEMP 36.3; O2SAT 94
[2023-10-28 08:00] VITALS: BP 129/64; PULSE 100; RESP 16; TEMP 36.7; O2SAT 98
[2023-10-28 08:29] VITALS: BP 175/75; PULSE 100
[2023-10-28] MEDS: Metoprolol Succinate ER 100 MG TAB.ER.24H PO (08:29)
[2023-10-28] MEDS: risperiDONE 1 MG TABLET PO (08:29)
--- NOTE | 2023-10-28 10:53 | P.PNPSI_ITS ---
Subjective Subjective Date of Service: 10/28/23 Reason For Visit: Unspecified depressive disorder with psychosis Subjective Notes: Conditional Voluntary Interim History: Patient was seen and discussed in rounds today. Records and plans were reviewed. She has been stable, compliant with medications. She had some questions about her blood pressure which was high this morning and went down to normal level after she took her medication. Eating and sleeping adequately. No changes were made today Medication Compliance: Yes Side effects from medications: No Attending Groups: Yes Review of Systems Review of Systems Yes all other systems are reviewed and are negative Mental Status Exam Mental Status Exam Patient Appearance: Appropriate Patient Orientation: Person and Situation Level of Consciousness: Awake and Appropriate Patient Behavior: Appropriate Mood Description: Calm Affect Description: Constricted Patient Cognition Impaired: Yes Ability to Follow Directions: Good Speech Pattern: Clear Hallucinations: None Delusions: Paranoid Ideation and Ideas of Reference Thought Process: Distracted Thought Content: positive for [place] and positive for Poverty of Content Judgement: Poor Diagnostics Vital Signs (24Hr): Vital Signs - 24 hr 10/27/23 20:00 10/28/23 08:00 10/28/23 08:29 Temperature 97.3 F 98.1 F Pulse Rate 63 100 100 Respiratory Rate 16 16 Blood Pressure 124/58 L 129/64 175/75 H Pulse Oximetry 94 98 Oxygen Delivery Method Room Air Room Air BMI result Body Mass Index 19.8 Labs 10/21/23 07:27 Medications Medications Current Medications Acetaminophen (Acetaminophen 325 Mg Tablet) 650 mg PO Q6H PRN PRN Reason: Headache/Pain Mild Scale (1-3) Last Admin: 10/26/23 20:25 Dose: 650 mg Al Hydroxide/Mg Hydroxide (Magnesium Hydrox/Alum Hydrox 30 Ml Oral.Susp) 30 ml PO Q6H PRN PRN Reason: Heartburn/Nausea Last Admin: 10/21/23 20:41 Dose: 30 ml Magnesium Hydroxide (Milk Of Magnesia 30 Ml Oral.Susp) 30 ml PO DAILY PRN PRN Reason: Constipation Metoprolol Succinate (Metoprolol Succinate Er 100 Mg Tab.Er.24h) 100 mg PO DAILY [facility]; Protocol Last Admin: 10/28/23 08:29 Dose: 100 mg Nicotine Polacrilex (Nicotine Polacrilex 2 Mg Gum) 4 mg BUCCAL Q2H PRN PRN Reason: Nicotine Cravings Risperidone (Risperidone 0.5 Mg Tablet) 0.5 mg PO BID PRN PRN Reason: paranoia Last Admin: 10/23/23 16:48 Dose: 0.5 mg Risperidone (Risperidone 1 Mg Tablet) 1 mg PO DAILY [facility] Last Admin: 10/28/23 08:29 Dose: 1 mg Risperidone (Risperidone 2 Mg Tablet) 2 mg PO BEDTIME LUPE Last Admin: 10/27/23 21:21 Dose: Not Given Trazodone HCl (Trazodone Hcl 25 Mg Halftab) 25 mg PO BEDTIME MRX1 PRN PRN Reason: Insomnia Last Admin: 10/26/23 00:46 Dose: 25 mg Allergies Allergies Allergy/AdvReac Type Severity Reaction Status Date / Time No Known Allergies Allergy Verified 10/20/23 20:47 Assessment & Plan Assessment & Plan (1) Psychosis: Status: Acute Code(s): F29 - Unspecified psychosis not due to a substance or known physiological condition Plan Presents with clear psychotic symptoms and time and unclear, as collateral from transfer paperwork states a few months, but patient reports perhaps longer. Also appears to be 1st episode of psychosis, but collateral will be important in confirming this. Regardless, patient has no cognitive impairment, understands 3 day notice and Briones warning. Agreed to low-dose Risperdal. Plan 1. Continue with Risperdal 1 mg p.o. b.i.d. to target psychosis. On October 24 we are increasing up to 1 mg p.o. t.i.d. since she still have some psychotic symptoms. Her psychotic symptoms improved with Risperdal 3 mg a day so we are changing to 1 mg p.o. q.a.m. and 2 mg p.o. q.h.s. on October 26 due to over- sedation during the day and risperidone. 2. Gather more collateral information. 3. We had a family meeting with her daughter and we discussed treatment options and aftercare. 10/28/2023: Continue current regimen and plans Reason for continued inpatient stay Substantial Risk for: med/psych decompensation Time Spent With Patient Time: Total time managing care of this patient today ____ minutes.
[2023-10-28 20:00] VITALS: BP 153/79; PULSE 80; RESP 16; TEMP 36.9; O2SAT 98
[2023-10-28] MEDS: risperiDONE 2 MG TABLET PO (20:31)
[2023-10-29 08:00] VITALS: BP 121/57; PULSE 88; RESP 16; TEMP 36.7; O2SAT 97
[2023-10-29 08:15] VITALS: BP 121/57; PULSE 88
[2023-10-29] MEDS: Metoprolol Succinate ER 100 MG TAB.ER.24H PO (08:15)
[2023-10-29] MEDS: risperiDONE 1 MG TABLET PO (08:16)
--- NOTE | 2023-10-29 10:04 | P.PNPSI_ITS ---
Subjective Subjective Date of Service: 10/29/23 Reason For Visit: Unspecified depressive disorder with psychosis Subjective Notes: Conditional Voluntary Interim History: Patient was seen and discussed in rounds today. Records and plans were reviewed. She has is doing well and has been stable but continues to be quite confused. Eating and sleeping adequately vital signs within range. No complaints or side effects. No behavioral issues. No changes were made today Medication Compliance: Yes Side effects from medications: No Attending Groups: Yes Review of Systems Review of Systems Yes all other systems are reviewed and are negative Mental Status Exam Mental Status Exam Patient Appearance: Appropriate Patient Orientation: Person and Situation Level of Consciousness: Awake and Appropriate Patient Behavior: Appropriate Mood Description: Calm Affect Description: Constricted Patient Cognition Impaired: Yes Ability to Follow Directions: Good Speech Pattern: Clear Hallucinations: None Delusions: Paranoid Ideation and Ideas of Reference Thought Process: Distracted Thought Content: positive for [place] and positive for Poverty of Content Judgement: Poor Diagnostics Vital Signs (24Hr): Vital Signs - 24 hr 10/28/23 20:00 10/29/23 08:00 10/29/23 08:15 Temperature 98.4 F 98.0 F Pulse Rate 80 88 88 Respiratory Rate 16 16 Blood Pressure 153/79 H 121/57 L 121/57 L Pulse Oximetry 98 97 Oxygen Delivery Method Room Air Room Air BMI result Body Mass Index 17.9 Labs 10/21/23 07:27 Medications Medications Current Medications Acetaminophen (Acetaminophen 325 Mg Tablet) 650 mg PO Q6H PRN PRN Reason: Headache/Pain Mild Scale (1-3) Last Admin: 10/26/23 20:25 Dose: 650 mg Al Hydroxide/Mg Hydroxide (Magnesium Hydrox/Alum Hydrox 30 Ml Oral.Susp) 30 ml PO Q6H PRN PRN Reason: Heartburn/Nausea Last Admin: 10/21/23 20:41 Dose: 30 ml Magnesium Hydroxide (Milk Of Magnesia 30 Ml Oral.Susp) 30 ml PO DAILY PRN PRN Reason: Constipation Metoprolol Succinate (Metoprolol Succinate Er 100 Mg Tab.Er.24h) 100 mg PO DAILY [facility]; Protocol Last Admin: 10/29/23 08:15 Dose: 100 mg Nicotine Polacrilex (Nicotine Polacrilex 2 Mg Gum) 4 mg BUCCAL Q2H PRN PRN Reason: Nicotine Cravings Risperidone (Risperidone 0.5 Mg Tablet) 0.5 mg PO BID PRN PRN Reason: paranoia Last Admin: 10/23/23 16:48 Dose: 0.5 mg Risperidone (Risperidone 1 Mg Tablet) 1 mg PO DAILY [facility] Last Admin: 10/29/23 08:16 Dose: 1 mg Risperidone (Risperidone 2 Mg Tablet) 2 mg PO BEDTIME LUPE Last Admin: 10/28/23 20:31 Dose: 2 mg Trazodone HCl (Trazodone Hcl 25 Mg Halftab) 25 mg PO BEDTIME MRX1 PRN PRN Reason: Insomnia Last Admin: 10/26/23 00:46 Dose: 25 mg Allergies Allergies Allergy/AdvReac Type Severity Reaction Status Date / Time No Known Allergies Allergy Verified 10/20/23 20:47 Assessment & Plan Assessment & Plan (1) Psychosis: Status: Acute Code(s): F29 - Unspecified psychosis not due to a substance or known physiological condition Plan Presents with clear psychotic symptoms and time and unclear, as collateral from transfer paperwork states a few months, but patient reports perhaps longer. Also appears to be 1st episode of psychosis, but collateral will be important in confirming this. Regardless, patient has no cognitive impairment, understands 3 day notice and Briones warning. Agreed to low-dose Risperdal. Plan 1. Continue with Risperdal 1 mg p.o. b.i.d. to target psychosis. On October 24 we are increasing up to 1 mg p.o. t.i.d. since she still have some psychotic symptoms. Her psychotic symptoms improved with Risperdal 3 mg a day so we are changing to 1 mg p.o. q.a.m. and 2 mg p.o. q.h.s. on October 26 due to over- sedation during the day and risperidone. 2. Gather more collateral information. 3. We had a family meeting with her daughter and we discussed treatment options and aftercare. 10/28/2023: Continue current regimen and plans 10/29/2023: Continue current regimen and plans Reason for continued inpatient stay Substantial Risk for: med/psych decompensation Time Spent With Patient Time: Total time managing care of this patient today ____ minutes.
[2023-10-29 20:00] VITALS: BP 119/67; PULSE 97; RESP 18; TEMP 36.6; O2SAT 97
[2023-10-29] MEDS: risperiDONE 2 MG TABLET PO (20:40)
[2023-10-29] MEDS: Acetaminophen 325 MG TABLET 650 MG PO (21:16)
[2023-10-30 07:55] VITALS: BP 120/62; PULSE 87; RESP 14; TEMP 36.1; O2SAT 95
[2023-10-30] MEDS: Metoprolol Succinate ER 100 MG TAB.ER.24H PO (08:20)
[2023-10-30] MEDS: risperiDONE 1 MG TABLET PO (08:21)
--- NOTE | 2023-10-30 13:58 | HO.PSYCHPN ---
Subjective Subjective Date of Service: 10/30/23 Reason For Visit: Unspecified depressive disorder with psychosis Subjective Notes: Conditional Voluntary Interim History: The nursing staff reported the patient had good appetite, he was pleasant social eating well slept 6 hours. On interview the patient reported that she is doing fine we are starting Namenda 5 mg p.o. b.i.d. to target dementia as per the plan. No evidence of EPS with Risperdal 3 mg a day. Compliant with medications. Mental Status Exam Mental Status Exam Patient Appearance: Appropriate Patient Orientation: Person and Situation Level of Consciousness: Awake and Appropriate Patient Behavior: Appropriate and Cooperative Mood Description: Withdrawn Affect Description: Constricted Patient Cognition Impaired: Yes Ability to Follow Directions: Good Speech Pattern: Clear Hallucinations: None Delusions: Not Present Thought Process: Distracted and Slowed Thinking Thought Content: positive for [place] and positive for Poverty of Content Judgement: Fair Diagnostics Vital Signs (24Hr): Vital Signs - 24 hr 10/29/23 20:00 10/30/23 07:55 Temperature 97.8 F 97 F Pulse Rate 97 87 Respiratory Rate 18 14 Blood Pressure 119/67 120/62 Pulse Oximetry 97 95 Oxygen Delivery Method Room Air Room Air BMI result Body Mass Index 17.9 Labs 10/21/23 07:27 Medications Medications Current Medications Acetaminophen (Acetaminophen 325 Mg Tablet) 650 mg PO Q6H PRN PRN Reason: Headache/Pain Mild Scale (1-3) Last Admin: 10/29/23 21:16 Dose: 650 mg Al Hydroxide/Mg Hydroxide (Magnesium Hydrox/Alum Hydrox 30 Ml Oral.Susp) 30 ml PO Q6H PRN PRN Reason: Heartburn/Nausea Last Admin: 10/21/23 20:41 Dose: 30 ml Magnesium Hydroxide (Milk Of Magnesia 30 Ml Oral.Susp) 30 ml PO DAILY PRN PRN Reason: Constipation Memantine (Memantine Hcl 5 Mg Tablet) 5 mg PO BID [facility] Last Admin: 10/30/23 09:39 Dose: Not Given Metoprolol Succinate (Metoprolol Succinate Er 100 Mg Tab.Er.24h) 100 mg PO DAILY [facility]; Protocol Last Admin: 10/30/23 08:20 Dose: 100 mg Nicotine Polacrilex (Nicotine Polacrilex 2 Mg Gum) 4 mg BUCCAL Q2H PRN PRN Reason: Nicotine Cravings Risperidone (Risperidone 0.5 Mg Tablet) 0.5 mg PO BID PRN PRN Reason: paranoia Last Admin: 10/23/23 16:48 Dose: 0.5 mg Risperidone (Risperidone 1 Mg Tablet) 1 mg PO DAILY [facility] Last Admin: 10/30/23 08:21 Dose: 1 mg Risperidone (Risperidone 2 Mg Tablet) 2 mg PO BEDTIME [facility] Last Admin: 10/29/23 20:40 Dose: 2 mg Trazodone HCl (Trazodone Hcl 25 Mg Halftab) 25 mg PO BEDTIME MRX1 PRN PRN Reason: Insomnia Last Admin: 10/26/23 00:46 Dose: 25 mg Allergies Allergies Allergy/AdvReac Type Severity Reaction Status Date / Time No Known Allergies Allergy Verified 10/20/23 20:47 Assessment & Plan Assessment & Plan (1) Psychosis: Status: Acute Code(s): F29 - Unspecified psychosis not due to a substance or known physiological condition Plan Presents with clear psychotic symptoms and time and unclear, as collateral from transfer paperwork states a few months, but patient reports perhaps longer. Also appears to be 1st episode of psychosis, but collateral will be important in confirming this. Regardless, patient has no cognitive impairment, understands 3 day notice and Briones warning. Agreed to low-dose Risperdal. Plan 1. Continue with Risperdal 1 mg p.o. b.i.d. to target psychosis. On October 24 we are increasing up to 1 mg p.o. t.i.d. since she still have some psychotic symptoms. Her psychotic symptoms improved with Risperdal 3 mg a day so we are changing to 1 mg p.o. q.a.m. and 2 mg p.o. q.h.s. on October 26 due to over-sedation during the day and risperidone. 2. Gather more collateral information. 3. We had a family meeting with her daughter and we discussed treatment options and aftercare. 4. Start Namenda 5 mg p.o. b.i.d. on October 29 Reason for continued inpatient stay Substantial Risk for: inability to function, rapid decompensation and med/psych decompensation Time Spent With Patient Time: Total time managing care of this patient today __20__ minutes.
[2023-10-30 20:00] VITALS: BP 144/70; PULSE 93; RESP 18; TEMP 36.3; O2SAT 94
[2023-10-30] MEDS: risperiDONE 2 MG TABLET PO (20:46)
[2023-10-30] MEDS: Memantine HCl 5 MG TABLET PO (20:46)
[2023-10-31 08:00] VITALS: BP 116/62; PULSE 83; RESP 18; TEMP 35.9; O2SAT 98
[2023-10-31] MEDS: Memantine HCl 5 MG TABLET PO ×2 (08:44→20:34)
[2023-10-31] MEDS: risperiDONE 1 MG TABLET PO (08:44)
[2023-10-31] MEDS: Metoprolol Succinate ER 100 MG TAB.ER.24H PO (08:44)
--- NOTE | 2023-10-31 11:48 | HO.PSYCHPN ---
Subjective Subjective Date of Service: 10/31/23 Reason For Visit: Unspecified depressive disorder with psychosis Subjective Notes: Conditional Voluntary Interim History: Pt slept through the night. She has been visible on the unit. She reports she is doing well, some concern about peer entering her room. She asks about discharged. She reports for the most part feels safe here. She reports that she has noticed that with medications, I'm less hyper. She is oriented to place, month and year. Review of Systems Review of Systems Patient declines interview and examination Yes all other systems are reviewed and are negative Mental Status Exam Mental Status Exam Patient Appearance: Appropriate Patient Orientation: Person and Situation Level of Consciousness: Awake and Appropriate Patient Behavior: Appropriate and Cooperative Mood Description: Withdrawn Affect Description: Constricted Patient Cognition Impaired: Yes Ability to Follow Directions: Good Speech Pattern: Clear Diagnostics Vital Signs (24Hr): Vital Signs - 24 hr 10/30/23 20:00 10/31/23 08:00 Temperature 97.3 F 96.7 F L Pulse Rate 93 83 Respiratory Rate 18 18 Blood Pressure 144/70 H 116/62 Pulse Oximetry 94 98 Oxygen Delivery Method Room Air Room Air BMI result Body Mass Index 17.9 Labs 10/21/23 07:27 Medications Medications Current Medications Acetaminophen (Acetaminophen 325 Mg Tablet) 650 mg PO Q6H PRN PRN Reason: Headache/Pain Mild Scale (1-3) Last Admin: 10/29/23 21:16 Dose: 650 mg Al Hydroxide/Mg Hydroxide (Magnesium Hydrox/Alum Hydrox 30 Ml Oral.Susp) 30 ml PO Q6H PRN PRN Reason: Heartburn/Nausea Last Admin: 10/21/23 20:41 Dose: 30 ml Magnesium Hydroxide (Milk Of Magnesia 30 Ml Oral.Susp) 30 ml PO DAILY PRN PRN Reason: Constipation Memantine (Memantine Hcl 5 Mg Tablet) 5 mg PO BID [facility] Last Admin: 10/31/23 08:44 Dose: 5 mg Metoprolol Succinate (Metoprolol Succinate Er 100 Mg Tab.Er.24h) 100 mg PO DAILY [facility]; Protocol Last Admin: 10/31/23 08:44 Dose: 100 mg Nicotine Polacrilex (Nicotine Polacrilex 2 Mg Gum) 4 mg BUCCAL Q2H PRN PRN Reason: Nicotine Cravings Risperidone (Risperidone 0.5 Mg Tablet) 0.5 mg PO BID PRN PRN Reason: paranoia Last Admin: 10/23/23 16:48 Dose: 0.5 mg Risperidone (Risperidone 1 Mg Tablet) 1 mg PO DAILY [facility] Last Admin: 10/31/23 08:44 Dose: 1 mg Risperidone (Risperidone 2 Mg Tablet) 2 mg PO BEDTIME [facility] Last Admin: 10/30/23 20:46 Dose: 2 mg Trazodone HCl (Trazodone Hcl 25 Mg Halftab) 25 mg PO BEDTIME MRX1 PRN PRN Reason: Insomnia Last Admin: 10/26/23 00:46 Dose: 25 mg Allergies Allergies Allergy/AdvReac Type Severity Reaction Status Date / Time No Known Allergies Allergy Verified 10/20/23 20:47 Assessment & Plan Assessment & Plan (1) Major neurocognitive disorder: Status: Acute Code(s): F03.90 - Unspecified dementia, unspecified severity, without behavioral disturbance, psychotic disturbance, mood disturbance, and anxiety Plan Presents with clear psychotic symptoms and time and unclear, as collateral from transfer paperwork states a few months, but patient reports perhaps longer. Also appears to be 1st episode of psychosis, but collateral will be important in confirming this. Regardless, patient has no cognitive impairment, understands 3 day notice and Briones warning. Agreed to low-dose Risperdal. Plan 10/30 continue current tx. Reason for continued inpatient stay Substantial Risk for: inability to function Time Spent With Patient Time: Total time managing care of this patient today ____ minutes.
[2023-10-31 20:00] VITALS: BP 116/61; PULSE 100; RESP 17; TEMP 36.2; O2SAT 95
[2023-10-31] MEDS: traZODone HCL 25 MG HALFTAB PO (20:34)
[2023-10-31] MEDS: risperiDONE 2 MG TABLET PO (20:34)
[2023-11-01 08:00] VITALS: BP 115/59; PULSE 87; RESP 16; TEMP 36.6; O2SAT 97
[2023-11-01 08:07] VITALS: BP 115/59; PULSE 87
[2023-11-01] MEDS: Metoprolol Succinate ER 100 MG TAB.ER.24H PO (08:07)
[2023-11-01] MEDS: Memantine HCl 5 MG TABLET PO ×2 (08:07→21:02)
[2023-11-01] MEDS: risperiDONE 1 MG TABLET PO (08:08)
--- NOTE | 2023-11-01 08:44 | P.PNPSI_ITS ---
Subjective Subjective Date of Service: 11/01/23 Reason For Visit: Unspecified depressive disorder with psychosis Interim History: Pt slept through the night. She has been visible on the unit. She reports she is doing well, some concern about peer entering her room. She asks about discharged. She reports for the most part feels safe here. She reports that she has noticed that with medications, I'm less hyper. She is oriented to place, month and year. Review of Systems Review of Systems Patient declines interview and examination Yes all other systems are reviewed and are negative Mental Status Exam Mental Status Exam Narrative: Pleasant. Engaged. casual clothing. good self-care. Organized. No cognitive impairment. No overt delusional or psychosis noted. Denies depressed. No SI or HI. Insight and judgment is improving. Diagnostics Vital Signs (24Hr): Vital Signs - 24 hr 10/31/23 20:00 11/01/23 08:00 11/01/23 08:07 Temperature 97.2 F 97.9 F Pulse Rate 100 87 87 Respiratory Rate 17 16 Blood Pressure 116/61 115/59 L 115/59 L Pulse Oximetry 95 97 Oxygen Delivery Method Room Air Room Air BMI result Body Mass Index 17.9 Labs 10/21/23 07:27 Medications Medications Current Medications Acetaminophen (Acetaminophen 325 Mg Tablet) 650 mg PO Q6H PRN PRN Reason: Headache/Pain Mild Scale (1-3) Last Admin: 10/29/23 21:16 Dose: 650 mg Al Hydroxide/Mg Hydroxide (Magnesium Hydrox/Alum Hydrox 30 Ml Oral.Susp) 30 ml PO Q6H PRN PRN Reason: Heartburn/Nausea Last Admin: 10/21/23 20:41 Dose: 30 ml Magnesium Hydroxide (Milk Of Magnesia 30 Ml Oral.Susp) 30 ml PO DAILY PRN PRN Reason: Constipation Memantine (Memantine Hcl 5 Mg Tablet) 5 mg PO BID [facility] Last Admin: 11/01/23 08:07 Dose: 5 mg Metoprolol Succinate (Metoprolol Succinate Er 100 Mg Tab.Er.24h) 100 mg PO DAILY [facility]; Protocol Last Admin: 11/01/23 08:07 Dose: 100 mg Nicotine Polacrilex (Nicotine Polacrilex 2 Mg Gum) 4 mg BUCCAL Q2H PRN PRN Reason: Nicotine Cravings Risperidone (Risperidone 0.5 Mg Tablet) 0.5 mg PO BID PRN PRN Reason: paranoia Last Admin: 10/23/23 16:48 Dose: 0.5 mg Risperidone (Risperidone 1 Mg Tablet) 1 mg PO DAILY [facility] Last Admin: 11/01/23 08:08 Dose: 1 mg Risperidone (Risperidone 2 Mg Tablet) 2 mg PO BEDTIME [facility] Last Admin: 10/31/23 20:34 Dose: 2 mg Trazodone HCl (Trazodone Hcl 25 Mg Halftab) 25 mg PO BEDTIME MRX1 PRN PRN Reason: Insomnia Last Admin: 10/31/23 20:34 Dose: 25 mg Allergies Allergies Allergy/AdvReac Type Severity Reaction Status Date / Time No Known Allergies Allergy Verified 10/20/23 20:47 Assessment & Plan Assessment & Plan (1) Major neurocognitive disorder: Status: Acute Code(s): F03.90 - Unspecified dementia, unspecified severity, without behavioral disturbance, psychotic disturbance, mood disturbance, and anxiety Plan Presents with clear psychotic symptoms and time and unclear, as collateral from transfer paperwork states a few months, but patient reports perhaps longer. Also appears to be 1st episode of psychosis, but collateral will be important in confirming this. Regardless, patient has no cognitive impairment, understands 3 day notice and Briones warning. Agreed to low-dose Risperdal. Plan 10/30 continue current tx. 10/31 continue tx. Reason for continued inpatient stay Substantial Risk for: inability to function Time Spent With Patient Time: Total time managing care of this patient today ____ minutes.
[2023-11-01 11:32] VITALS: BMI 19.8
[2023-11-01 20:00] VITALS: BP 159/65; PULSE 65; RESP 18; O2SAT 98
[2023-11-01] MEDS: traZODone HCL 25 MG HALFTAB PO (21:02)
[2023-11-01] MEDS: risperiDONE 2 MG TABLET PO (21:02)
[2023-11-02 07:00] VITALS: BMI 20.6
[2023-11-02 08:00] VITALS: BP 113/58; PULSE 95; RESP 18; TEMP 36.4; O2SAT 98
[2023-11-02 09:47] VITALS: BP 113/58; PULSE 95
[2023-11-02] MEDS: Memantine HCl 5 MG TABLET PO ×2 (09:47→21:11)
[2023-11-02] MEDS: Metoprolol Succinate ER 100 MG TAB.ER.24H PO (09:47)
[2023-11-02] MEDS: risperiDONE 1 MG TABLET PO (09:47)
--- NOTE | 2023-11-02 14:50 | P.PNPSI_ITS ---
Subjective Subjective Date of Service: 11/02/23 Reason For Visit: Unspecified depressive disorder with psychosis Subjective Notes: Conditional Voluntary Interim History: The nursing staff reported that she has been compliant with medications, no side effects. On interview, she feels better, aware of discharge tomorrow. Mental Status Exam Mental Status Exam Patient Appearance: Appropriate Patient Orientation: Person and Situation Level of Consciousness: Awake and Appropriate Patient Behavior: Guarded and Passive Mood Description: Withdrawn Affect Description: Constricted Patient Cognition Impaired: Yes Ability to Follow Directions: Good Speech Pattern: Clear Hallucinations: None Delusions: Not Present Thought Process: Distracted and Slowed Thinking Thought Content: positive for [place] Judgement: Fair Diagnostics Vital Signs (24Hr): Vital Signs - 24 hr 11/01/23 20:00 11/02/23 08:00 11/02/23 09:47 Temperature 97.5 F Pulse Rate 65 95 95 Respiratory Rate 18 18 Blood Pressure 159/65 H 113/58 L 113/58 L Pulse Oximetry 98 98 Oxygen Delivery Method Room Air Room Air BMI result Body Mass Index 20.6 Labs 10/21/23 07:27 Medications Medications Current Medications Acetaminophen (Acetaminophen 325 Mg Tablet) 650 mg PO Q6H PRN PRN Reason: Headache/Pain Mild Scale (1-3) Last Admin: 10/29/23 21:16 Dose: 650 mg Al Hydroxide/Mg Hydroxide (Magnesium Hydrox/Alum Hydrox 30 Ml Oral.Susp) 30 ml PO Q6H PRN PRN Reason: Heartburn/Nausea Last Admin: 10/21/23 20:41 Dose: 30 ml Magnesium Hydroxide (Milk Of Magnesia 30 Ml Oral.Susp) 30 ml PO DAILY PRN PRN Reason: Constipation Memantine (Memantine Hcl 5 Mg Tablet) 5 mg PO BID [facility] Last Admin: 11/02/23 09:47 Dose: 5 mg Metoprolol Succinate (Metoprolol Succinate Er 100 Mg Tab.Er.24h) 100 mg PO DAILY [facility]; Protocol Last Admin: 11/02/23 09:47 Dose: 100 mg Nicotine Polacrilex (Nicotine Polacrilex 2 Mg Gum) 4 mg BUCCAL Q2H PRN PRN Reason: Nicotine Cravings Risperidone (Risperidone 0.5 Mg Tablet) 0.5 mg PO BID PRN PRN Reason: paranoia Last Admin: 10/23/23 16:48 Dose: 0.5 mg Risperidone (Risperidone 1 Mg Tablet) 1 mg PO DAILY [facility] Last Admin: 11/02/23 09:47 Dose: 1 mg Risperidone (Risperidone 2 Mg Tablet) 2 mg PO BEDTIME [facility] Last Admin: 11/01/23 21:02 Dose: 2 mg Trazodone HCl (Trazodone Hcl 25 Mg Halftab) 25 mg PO BEDTIME MRX1 PRN PRN Reason: Insomnia Last Admin: 11/01/23 21:02 Dose: 25 mg Allergies Allergies Allergy/AdvReac Type Severity Reaction Status Date / Time No Known Allergies Allergy Verified 10/20/23 20:47 Assessment & Plan Assessment & Plan (1) Major neurocognitive disorder: Status: Acute Code(s): F03.90 - Unspecified dementia, unspecified severity, without behavioral disturbance, psychotic disturbance, mood disturbance, and anxiety Plan Presents with clear psychotic symptoms and time and unclear, as collateral from transfer paperwork states a few months, but patient reports perhaps longer. Also appears to be 1st episode of psychosis, but collateral will be important in confirming this. Regardless, patient has no cognitive impairment, understands 3 day notice and Briones warning. Agreed to low-dose Risperdal. Plan 1. Keep same treament. 2. Discharge tomorrow. Reason for continued inpatient stay Substantial Risk for: inability to function, rapid decompensation and med/psych decompensation Time Spent With Patient Time: Total time managing care of this patient today __20__ minutes.
[2023-11-02 20:00] VITALS: BP 108/56; PULSE 90; RESP 16; TEMP 36.2; O2SAT 93
[2023-11-02] MEDS: risperiDONE 2 MG TABLET PO (21:11)
[2023-11-03 08:00] VITALS: BP 100/55; PULSE 90; RESP 16; TEMP 36.1; O2SAT 98
[2023-11-03 08:38] VITALS: BP 100/55; PULSE 90
[2023-11-03] MEDS: Metoprolol Succinate ER 100 MG TAB.ER.24H PO (08:38)
[2023-11-03] MEDS: Memantine HCl 5 MG TABLET PO (08:39)
[2023-11-03] MEDS: risperiDONE 1 MG TABLET PO (08:39)
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
--- NOTE | 2023-11-03 12:13 | PC.NURSE ---
Patient alert and oriented. Expressed readiness for discharge. All instructions reviewed with patient and daughter. Patient denied SI/HI/AVH. Denies pain. Escorted off unit by TW at 1040.
== END 2023-11-03 10:40 | disposition home or self-care (01) | DRG 884 ==
PROVIDERS: Psychiatry & Neurology Psychiatry; Admitting Provider Psychiatry & Neurology Psychiatry; PCP Internal Medicine; Visit Provider Psychiatry & Neurology Psychiatry
DX: F03.90 Unspecified dementia, unspecified severity, without behavioral disturbance, psychotic disturbance, mood disturbance, and anxiety (principal); N39.0 Urinary tract infection, site not specified; F29 Unspecified psychosis not due to a substance or known physiological condition; I10 Essential (primary) hypertension; Z79.899 Other long term (current) drug therapy
CPT/HCPCS: 36415; 80053; 80061; 83036

== ENCOUNTER → 2023-10-20 17:28 | Outpatient (BNV) | payer MEDICARE, SELFPAY | PROVIDERS: Admitting Provider Psychiatry & Neurology Psychiatry; PCP Internal Medicine; Visit Provider Psychiatry & Neurology Psychiatry | DX: F29 Unspecified psychosis not due to a substance or known physiological condition (principal); F03.90 Unspecified dementia, unspecified severity, without behavioral disturbance, psychotic disturbance, mood disturbance, and anxiety | CPT/HCPCS: 90792; 99231; 99232; 99238 ==

== ENCOUNTER → 2023-10-20 17:28 | Outpatient (BNV) | payer MEDICARE, SELFPAY | PROVIDERS: Admitting Provider Psychiatry & Neurology Psychiatry; PCP Internal Medicine; Visit Provider Student in an Organized Health Care Education/Training Program | DX: Z02.2 Encounter for examination for admission to residential institution (principal) | CPT/HCPCS: 99429 ==

== ENCOUNTER 2024-02-13 13:30 | Inpatient (IN) | payer MEDICARE, SELFPAY ==
[2024-02-13 14:01] VITALS: BMI 16.9
[2024-02-13 15:15] LABS: Appearance Urine Clear; Color Urine Yellow; Glucose Urine UA Negative (Negative); Leukocyte Esterase Urine Negative (Negative); Nitrite Urine Negative (Negative); PH 5.5 (5.0-9.0); Specific Gravity - Urine 1.015 (1.005-1.025); UMIC TRIGGER UACC YES; Urine Blood Trace (Negative); Urine Ketones Negative (Negative); Urine Protein Negative (Neg-Trace)
[2024-02-13 15:20] LABS: Bacteria Urine None Seen (None Seen); Hyaline Casts Urine 0-2 /LPF (0-2); RBC Urine 0-2 /HPF (0-2); Squamous Epithelial Cell Urine 0-2 /HPF (0-2); WBC Urine 0-5 /HPF (0-5)
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
--- NOTE | 2024-02-13 17:13 | PC.ADMIT ---
Pt arrived on the unit at 1330 via stretcher and was a transfer from [facility]. Pt brought in due to confusion, psychosis and anxiety. When pt arrived on the unit, she was highly anxious about her bills and how they were going to get paid while she is here. During assessment, pt began to make paranoid statements: They blast things on the speakers in the apartment about me , I need to smell the water first, before I drink it . Pt then told this caption writer one minute that she doesn't have any sleep concerns, and the next that she hasn't slept in two months . After pt became less anxious, she was able to calmly complete the admission process. Pt is A&Ox2, lacks insight into situation. She is here on a 12b. UA-negative.
--- NOTE | 2024-02-13 17:56 | PHA.MEDREC ---
Addendum entered by Genoveva Viveros [facility] 02/13/24 20:23: Nursing could not confirm Namenda. Reached out to provider, alerted them according to claims this was last filled in October for a 2 week supply. Provider told us they would like to continue this medication here. Addendum entered by Genoveva Viveros [facility] 02/13/24 18:06: [facility] reviewed Original Note: Pharmacy Consult ? Medication Reconciliation Pharmacy has completed the medication reconciliation. Med rec reviewed done by nursing. Nurse (Ebony Charles) confirmed patient is on Risperidone 0.25 mg daily and 0.25 mg as needed, Trazadone 25 mg at bedtime prn , and Metoprolol succ 100 mg daily, however she couldn't confirm Memantine 5 mg bid. left unconfirmed and will notify the
[2024-02-13 20:00] VITALS: BP 173/87; PULSE 100; RESP 16; TEMP 37.3; O2SAT 97
[2024-02-13 20:02] VITALS: BP 145/74; PULSE 100
[2024-02-13] MEDS: risperiDONE 1 MG TABLET PO (20:50)
[2024-02-13] MEDS: Memantine HCl 5 MG TABLET PO (20:50)
[2024-02-13 21:45] VITALS: BP 122/70; PULSE 100
[2024-02-14 08:00] VITALS: BP 130/60; PULSE 92; RESP 18; TEMP 37.2; O2SAT 96
--- NOTE | 2024-02-14 09:35 | HO.PSYCHPN ---
Subjective Subjective Date of Service: 02/14/24 Reason For Visit: Psychosis Subjective Notes: Section 12B Interim History: The nursing staff reported the patient made paranoid statements and she was confused at times. Her outpatient provider was contacted and she reported that she has not been compliant with follow-up after discharge last October. Mental Status Exam Mental Status Exam Patient Appearance: Appropriate (On hospital gowns) Patient Orientation: Person and Situation Level of Consciousness: Awake Patient Behavior: Guarded and Passive Mood Description: Withdrawn Affect Description: Constricted and Labile Patient Cognition Impaired: Yes Ability to Follow Directions: Good Speech Pattern: Clear Hallucinations: None Delusions: Ideas of Reference Thought Process: Distracted and Slowed Thinking Thought Content: positive for [place], positive for Poverty of Content and positive for Thought Blocking Judgement: Poor Diagnostics Vital Signs (24Hr): Vital Signs - 24 hr 02/13/24 20:00 02/13/24 20:02 02/13/24 21:45 Temperature 99.1 F Pulse Rate 100 100 100 Respiratory Rate 16 Blood Pressure 173/87 H 145/74 H 122/70 Pulse Oximetry 97 Oxygen Delivery Method Room Air 02/14/24 08:00 Temperature 99.0 F Pulse Rate 92 Respiratory Rate 18 Blood Pressure 130/60 Pulse Oximetry 96 Oxygen Delivery Method Room Air BMI result Body Mass Index 16.9 Labs 02/14/24 10:14 Labs: Laboratory Results - last 48 hr 02/13/24 15:08 Urine Color Yellow Urine Appearance Clear Urine pH 5.5 Ur Specific [place] 1.015 Urine Protein Negative Urine Glucose (UA) Negative Urine Ketones Negative Urine Blood Trace H Urine Nitrite Negative Ur Leukocyte Esterase Negative Urine RBC 0-2 Urine WBC 0-5 Ur Squamous Epith Cells 0-2 Urine Bacteria None Seen Hyaline Casts 0-2 Medications Medications Current Medications Acetaminophen (Acetaminophen 325 Mg Tablet) 650 mg PO Q6H PRN PRN Reason: Headache/Pain Mild Scale (1-3) Al Hydroxide/Mg Hydroxide (Magnesium Hydrox/Alum Hydrox 30 Ml Oral.Susp) 30 ml PO Q6H PRN PRN Reason: Heartburn/Nausea Hydroxyzine HCl (Hydroxyzine Hcl 25 Mg Tablet) 25 mg PO Q6H PRN PRN Reason: Anxiety Magnesium Hydroxide (Milk Of Magnesia 30 Ml Oral.Susp) 30 ml PO DAILY PRN PRN Reason: Constipation Memantine (Memantine Hcl 5 Mg Tablet) 5 mg PO BID [facility] Last Admin: 02/13/24 20:50 Dose: 5 mg Metoprolol Succinate (Metoprolol Succinate Er 100 Mg Tab.Er.24h) 100 mg PO DAILY [facility]; Protocol Risperidone (Risperidone 0.25 Mg Tablet) 0.25 mg PO DAILY PRN PRN Reason: Anxiety Risperidone (Risperidone 0.25 Mg Tablet) 0.25 mg PO DAILY [facility] Risperidone (Risperidone 1 Mg Tablet) 1 mg PO BEDTIME [facility] Last Admin: 02/13/24 20:50 Dose: 1 mg Trazodone HCl (Trazodone Hcl 50 Mg Tablet) 50 mg PO BEDTIME MRX1 PRN PRN Reason: Insomnia Allergies Allergies Allergy/AdvReac Type Severity Reaction Status Date / Time No Known Allergies Allergy Verified 10/20/23 20:47 Assessment & Plan Assessment & Plan (1) Routine medical exam: Status: Acute Code(s): Z00.00 - Encounter for general adult medical examination without abnormal findings Plan 79-year-old female with history of hypertension admitted to Geriatric Psychiatry with consult placed hospitalist service for medical H and P. #Mood disorder/paranoia -plan per Psychiatry #Dementia -plan per Psychiatry # CKD stage 3 -renal function baseline #HTN -resume metoprolol am Plan 1. Continue 15 minute checks since the patient is able to come tract for safety. 2. Gather collateral information, we will call her daughter to get more information. Apparently her outpatient provider was contacted and she was not fully compliant with follow-up and treatment. 3. Continue with Risperdal 0.25 in the morning and 1 at night. 4. Restart Namenda 5 mg p.o. b.i.d. Reason for continued inpatient stay Substantial Risk for: inability to function, rapid decompensation and med/psych decompensation Time Spent With Patient Time: Total time managing care of this patient today __20__ minutes.
[2024-02-14 10:37] LABS: Alanine Aminotransferase 13 U/L (0-31); Alkaline Phosphatase 50 U/L (39-117); Anion Gap 13 (12-20); Aspartate Amino Transferase 17 U/L (5-31); Bilirubin Total 0.3 mg/dL (0.0-1.0); Blood Urea Nitrogen 21 mg/dL (9-16); Calcium 9.9 mg/dL (8.4-10.2); Carbon Dioxide 27 mmol/L (22-29); Chloride 102 mmol/L (96-108); Cholesterol 136 mg/dL (<200); Estimated Glomerular Filt Rate > 60; Glucose Fasting 123 mg/dL (60-99); HDL Cholesterol 53 mg/dL (>40); LDL Cholesterol Calculated 71 mg/dL (<100); Sodium 138 mmol/L (135-145); Total Protein 7.1 g/dL (6.5-8.0); Triglycerides 60 mg/dL (<150)
[2024-02-14 15:08] VITALS: BMI 18.9
[2024-02-14 15:30] VITALS: BP 122/66; PULSE 104; RESP 20; TEMP 37.3; O2SAT 98
[2024-02-14 15:51] VITALS: BMI 18.9
--- NOTE | 2024-02-14 15:57 | MHC.CLN ---
NUTRITION CONSULT FOR POOR PO AND DECREASED APPETITE. DIET=REGULAR. WEIGHT OVERALL STABLE X 4 MONTHS. ATE 100% AT LUNCH TODAY. BMI=18.9, UNDERWEIGHT. DOES NOT APPEAR TO BE MALNOURISHED. FOLLOW FOR INTAKE AND WEIGHT. SEE CLINICAL NUTRITION ASSESSMENT 02/14/24.
[2024-02-14 20:00] VITALS: BP 132/62; PULSE 92; TEMP 37.2; O2SAT 96
[2024-02-15 09:04] VITALS: BMI 19.0
[2024-02-15 09:30] VITALS: RESP 16; TEMP 36.6; O2SAT 95
[2024-02-15 10:01] VITALS: BP 117/57; PULSE 100
[2024-02-15] MEDS: Metoprolol Succinate ER 100 MG TAB.ER.24H PO (10:01)
--- NOTE | 2024-02-15 16:00 | HO.PSYCHPN ---
Subjective Subjective Date of Service: 02/15/24 Reason For Visit: Psychosis Subjective Notes: Section 12B Interim History: The nursing staff reported the patient was on one-to-one in the morning for fall risk. She had a panic attack and she refused all his medications in the morning. She has complained of auditory hallucinations and she has unsteady gait. Later on, we assessed her and she will be on 5 minutes checks. On interview the patient remains paranoid and disorganized and she wants to leave. Mental Status Exam Mental Status Exam Patient Appearance: Appropriate Patient Orientation: Person and Situation Level of Consciousness: Awake Patient Behavior: Guarded and Passive Mood Description: Withdrawn Affect Description: Constricted Patient Cognition Impaired: Yes Ability to Follow Directions: Fair Speech Pattern: Clear Hallucinations: Auditory Delusions: Paranoid Ideation Thought Process: Distracted Thought Content: positive for [place] and positive for Poverty of Content Judgement: Poor Diagnostics Vital Signs (24Hr): Vital Signs - 24 hr 02/14/24 20:00 02/15/24 09:30 02/15/24 10:01 Temperature 99 F 98 F Pulse Rate 92 100 Respiratory Rate 16 Blood Pressure 132/62 117/57 L Pulse Oximetry 96 95 Oxygen Delivery Method Room Air Room Air BMI result Body Mass Index 19.0 Labs 02/14/24 10:14 Labs: Laboratory Results - last 48 hr 02/14/24 10:14 Sodium 138 Potassium 4.0 Chloride 102 Carbon Dioxide 27 Anion Gap 13 BUN 21 H Creatinine 0.81 Estim Creat Clear Calc 41.0 Estimated GFR > 60 Fasting Glucose 123 H Calcium 9.9 Total Bilirubin 0.3 AST 17 ALT 13 Alkaline Phosphatase 50 Total Protein 7.1 Albumin 4.0 Triglycerides 60 Cholesterol 136 LDL Cholesterol, Calc 71 HDL Cholesterol 53 Medications Medications Current Medications Acetaminophen (Acetaminophen 325 Mg Tablet) 650 mg PO Q6H PRN PRN Reason: Headache/Pain Mild Scale (1-3) Al Hydroxide/Mg Hydroxide (Magnesium Hydrox/Alum Hydrox 30 Ml Oral.Susp) 30 ml PO Q6H PRN PRN Reason: Heartburn/Nausea Hydroxyzine HCl (Hydroxyzine Hcl 25 Mg Tablet) 25 mg PO Q6H PRN PRN Reason: Anxiety Magnesium Hydroxide (Milk Of Magnesia 30 Ml Oral.Susp) 30 ml PO DAILY PRN PRN Reason: Constipation Memantine (Memantine Hcl 5 Mg Tablet) 5 mg PO BID [facility] Last Admin: 02/15/24 10:03 Dose: Not Given Metoprolol Succinate (Metoprolol Succinate Er 100 Mg Tab.Er.24h) 100 mg PO DAILY [facility]; Protocol Last Admin: 02/15/24 10:01 Dose: 100 mg Risperidone (Risperidone 0.25 Mg Tablet) 0.25 mg PO DAILY PRN PRN Reason: Anxiety Risperidone (Risperidone 0.25 Mg Tablet) 0.25 mg PO DAILY [facility] Last Admin: 02/15/24 10:03 Dose: Not Given Risperidone (Risperidone 1 Mg Tablet) 1 mg PO BEDTIME [facility] Last Admin: 02/14/24 21:56 Dose: Not Given Trazodone HCl (Trazodone Hcl 50 Mg Tablet) 50 mg PO BEDTIME MRX1 PRN PRN Reason: Insomnia Allergies Allergies Allergy/AdvReac Type Severity Reaction Status Date / Time No Known Allergies Allergy Verified 10/20/23 20:47 Assessment & Plan Assessment & Plan (1) Routine medical exam: Status: Acute Code(s): Z00.00 - Encounter for general adult medical examination without abnormal findings Plan 79-year-old female with history of hypertension admitted to Geriatric Psychiatry with consult placed hospitalist service for medical H and P. #Mood disorder/paranoia -plan per Psychiatry #Dementia -plan per Psychiatry # CKD stage 3 -renal function baseline #HTN -resume metoprolol am Plan 1. Continue 15 minute checks since the patient is able to come tract for safety. 2. Gather collateral information, we will call her daughter to get more information. Apparently her outpatient provider was contacted and she was not fully compliant with follow-up and treatment. 3. Continue with Risperdal 0.25 in the morning and 1 at night. 4. Restart Namenda 5 mg p.o. b.i.d. Reason for continued inpatient stay Substantial Risk for: inability to function, rapid decompensation and med/psych decompensation Time Spent With Patient Time: Total time managing care of this patient today __20__ minutes.
[2024-02-15 20:00] VITALS: BP 118/62; PULSE 91; RESP 16; TEMP 36.8; O2SAT 98
[2024-02-16 08:00] VITALS: BP 109/64; PULSE 88; RESP 20; TEMP 36.3; O2SAT 97
[2024-02-16] MEDS: Metoprolol Succinate ER 100 MG TAB.ER.24H PO (09:59)
--- NOTE | 2024-02-16 13:19 | HO.PSYCHPN ---
Subjective Subjective Date of Service: 02/16/24 Reason For Visit: Psychosis Subjective Notes: Section 7 and Section 8 Interim History: The nursing staff reported the patient had been unable to collect a UA. She looks pale but vital signs are okay. The psychiatric social worker supervisor reported that she tried to call her daughter and left a message. She remains isolated and confused. On interview the patient looks tearful, confused stating that she has not doing well and that she has lesions in her feet but there is no injuries at all. She looks more disorganized. Today we are filing for Section 7 and 8. Mental Status Exam Mental Status Exam Patient Appearance: Appropriate Patient Orientation: Person and Situation Level of Consciousness: Awake Patient Behavior: Guarded and Passive Mood Description: Withdrawn Affect Description: Labile Patient Cognition Impaired: Yes Ability to Follow Directions: Poor Speech Pattern: Impoverished and Monotone Hallucinations: None Delusions: Paranoid Ideation and Ideas of Reference Thought Process: Illogical and Distracted Thought Content: positive for [place] and positive for Poverty of Content Judgement: Poor Diagnostics Vital Signs (24Hr): Vital Signs - 24 hr 02/15/24 20:00 02/16/24 08:00 Temperature 98.3 F 97.4 F Pulse Rate 91 88 Respiratory Rate 16 20 Blood Pressure 118/62 109/64 Pulse Oximetry 98 97 Oxygen Delivery Method Room Air Room Air BMI result Body Mass Index 19.0 Labs 02/14/24 10:14 Medications Medications Current Medications Acetaminophen (Acetaminophen 325 Mg Tablet) 650 mg PO Q6H PRN PRN Reason: Headache/Pain Mild Scale (1-3) Al Hydroxide/Mg Hydroxide (Magnesium Hydrox/Alum Hydrox 30 Ml Oral.Susp) 30 ml PO Q6H PRN PRN Reason: Heartburn/Nausea Hydroxyzine HCl (Hydroxyzine Hcl 25 Mg Tablet) 25 mg PO Q6H PRN PRN Reason: Anxiety Magnesium Hydroxide (Milk Of Magnesia 30 Ml Oral.Susp) 30 ml PO DAILY PRN PRN Reason: Constipation Memantine (Memantine Hcl 5 Mg Tablet) 5 mg PO BID [facility] Last Admin: 02/16/24 10:03 Dose: Not Given Metoprolol Succinate (Metoprolol Succinate Er 100 Mg Tab.Er.24h) 100 mg PO DAILY [facility]; Protocol Last Admin: 02/16/24 09:59 Dose: 100 mg Risperidone (Risperidone 0.25 Mg Tablet) 0.25 mg PO DAILY PRN PRN Reason: Anxiety Risperidone (Risperidone 0.25 Mg Tablet) 0.25 mg PO DAILY [facility] Last Admin: 02/16/24 10:03 Dose: Not Given Risperidone (Risperidone 1 Mg Tablet) 1 mg PO BEDTIME [facility] Last Admin: 02/15/24 22:46 Dose: Not Given Trazodone HCl (Trazodone Hcl 50 Mg Tablet) 50 mg PO BEDTIME MRX1 PRN PRN Reason: Insomnia Allergies Allergies Allergy/AdvReac Type Severity Reaction Status Date / Time No Known Allergies Allergy Verified 10/20/23 20:47 Assessment & Plan Assessment & Plan (1) Routine medical exam: Status: Acute Code(s): Z00.00 - Encounter for general adult medical examination without abnormal findings Plan 79-year-old female with history of hypertension admitted to Geriatric Psychiatry with consult placed hospitalist service for medical H and P. #Mood disorder/paranoia -plan per Psychiatry #Dementia -plan per Psychiatry # CKD stage 3 -renal function baseline #HTN -resume metoprolol am Plan 1. Continue 15 minute checks since the patient is able to come tract for safety. 2. Gather collateral information, we will call her daughter to get more information. Apparently her outpatient provider was contacted and she was not fully compliant with follow-up and treatment. 3. Continue with Risperdal 0.25 in the morning and 1 at night. On February 15 we are going to increase the Risperdal 0.5 in the morning for the next day. 4. Restart Namenda 5 mg p.o. b.i.d. 5. Filing for Section 7 and 8 since the patient can not sign herself into the hospital but she wants to leave Reason for continued inpatient stay Substantial Risk for: inability to function, rapid decompensation and med/psych decompensation Time Spent With Patient Time: Total time managing care of this patient today __20__ minutes.
--- NOTE | 2024-02-16 13:51 | MHC.CLN ---
F/U DIET=REGULAR. ATE 100% AT BREAKFAST TODAY AND DID NOT EAT LUNCH. BMI=19.0. FOLLOW FOR INTAKE AND WEIGHT. RD TO FOLLOW UP WEEKLY.
[2024-02-16 20:00] VITALS: BP 154/85; PULSE 94; RESP 18; TEMP 37.3; O2SAT 97
--- NOTE | 2024-02-16 21:57 | PC.NURSE ---
patient had refused lab draw at 1000, phlebotomy tried again at 2130. patient refused again, patient too confused, delusional and deregulated to respond to education.
[2024-02-17 08:00] VITALS: BP 154/84; PULSE 111; RESP 18; TEMP 36; O2SAT 96
--- NOTE | 2024-02-17 08:47 | HO.PSYCHPN ---
Subjective Subjective Date of Service: 02/17/24 Reason For Visit: Psychosis Subjective Notes: Section 7 and Section 8 Interim History: The nursing staff reported the patient had been confused and disorganized exit seeking. She has refused her medications in the blood work. She slept 7 hours. Yesterday we filed for Section 7 and 8 still disorganized wanted to be discharged. On interview the patient looks confused and psychotic. She wants to be discharged and she signed a 3 day notice letter eventhough that she has not signed CV. Mental Status Exam Mental Status Exam Patient Appearance: Unkempt Patient Orientation: Person and Situation Level of Consciousness: Awake Patient Behavior: Guarded Mood Description: Withdrawn Affect Description: Labile Patient Cognition Impaired: Yes Ability to Follow Directions: Fair Speech Pattern: Clear Hallucinations: None Delusions: Paranoid Ideation and Ideas of Reference Thought Process: Distracted and Slowed Thinking Thought Content: positive for [place], positive for [place], positive for Poverty of Content and positive for Thought Blocking Judgement: Poor Diagnostics Vital Signs (24Hr): Vital Signs - 24 hr 02/16/24 20:00 Temperature 99.1 F Pulse Rate 94 Respiratory Rate 18 Blood Pressure 154/85 H Pulse Oximetry 97 Oxygen Delivery Method Room Air BMI result Body Mass Index 19.0 Labs 02/14/24 10:14 Medications Medications Current Medications Acetaminophen (Acetaminophen 325 Mg Tablet) 650 mg PO Q6H PRN PRN Reason: Headache/Pain Mild Scale (1-3) Al Hydroxide/Mg Hydroxide (Magnesium Hydrox/Alum Hydrox 30 Ml Oral.Susp) 30 ml PO Q6H PRN PRN Reason: Heartburn/Nausea Hydroxyzine HCl (Hydroxyzine Hcl 25 Mg Tablet) 25 mg PO Q6H PRN PRN Reason: Anxiety Magnesium Hydroxide (Milk Of Magnesia 30 Ml Oral.Susp) 30 ml PO DAILY PRN PRN Reason: Constipation Memantine (Memantine Hcl 5 Mg Tablet) 5 mg PO BID [facility] Last Admin: 02/16/24 20:44 Dose: Not Given Metoprolol Succinate (Metoprolol Succinate Er 100 Mg Tab.Er.24h) 100 mg PO DAILY [facility]; Protocol Last Admin: 02/16/24 09:59 Dose: 100 mg Risperidone (Risperidone 0.25 Mg Tablet) 0.25 mg PO DAILY PRN PRN Reason: Anxiety Risperidone (Risperidone 1 Mg Tablet) 1 mg PO BEDTIME [facility] Last Admin: 02/16/24 20:44 Dose: Not Given Risperidone (Risperidone 0.25 Mg Tablet) 0.5 mg PO DAILY [facility] Trazodone HCl (Trazodone Hcl 50 Mg Tablet) 50 mg PO BEDTIME MRX1 PRN PRN Reason: Insomnia Allergies Allergies Allergy/AdvReac Type Severity Reaction Status Date / Time No Known Allergies Allergy Verified 10/20/23 20:47 Assessment & Plan Assessment & Plan (1) Routine medical exam: Status: Acute Code(s): Z00.00 - Encounter for general adult medical examination without abnormal findings Plan 79-year-old female with history of hypertension admitted to [facility] Psych[facility]ry with consult placed hospitalist service for medical H and P. #Mood disorder/paranoia -plan per Psychiatry #Dementia -plan per Psychiatry # CKD stage 3 -renal function baseline #HTN -resume metoprolol am Plan 1. Continue 15 minute checks since the patient is able to come tract for safety. 2. Gather collateral information, we will call her daughter to get more information. Apparently her outpatient provider was contacted and she was not fully compliant with follow-up and treatment. 3. Continue with Risperdal 0.25 in the morning and 1 at night. On February 15 we are going to increase the Risperdal 0.5 in the morning for the next day. 4. Restart Namenda 5 mg p.o. b.i.d. 5. Filing for Section 7 and 8 since the patient can not sign herself into the hospital but she wants to leave Reason for continued inpatient stay Substantial Risk for: inability to function, rapid decompensation and med/psych decompensation Time Spent With Patient Time: Total time managing care of this patient today __20__ minutes.
[2024-02-17 10:12] VITALS: BP 154/84; PULSE 111
[2024-02-17] MEDS: Metoprolol Succinate ER 100 MG TAB.ER.24H PO (10:12)
--- NOTE | 2024-02-17 10:16 | PC.NURSE ---
Patient refused all her am medications, then after several attempts decided to take Metoprolol. Exit seeking, frequently standing in a hallway wanting to leave. At times irritable. Pt pleasant on approach, delusional and disorganized. VS: 96.8, P 111, BP 154/84, O2sat 96% on RA. Dr Boyd notified. Will continue to monitor.
[2024-02-17 16:46] LABS: Appearance Urine Clear; Color Urine Yellow; Glucose Urine UA Negative (Negative); Leukocyte Esterase Urine Negative (Negative); Nitrite Urine Negative (Negative); PH 5.5 (5.0-9.0); Specific Gravity - Urine 1.015 (1.005-1.025); Urine Blood Negative (Negative); Urine Ketones 15 mg/dL (Negative); Urine Protein Negative (Neg-Trace)
[2024-02-17 16:48] LABS: Bacteria Urine None Seen (None Seen); RBC Urine 0-2 /HPF (0-2); Squamous Epithelial Cell Urine 0-2 /HPF (0-2); WBC Urine 0-5 /HPF (0-5)
--- NOTE | 2024-02-17 17:03 | PC.NURSE ---
Urine sample collected for U/A, awaiting results.
[2024-02-17 20:00] VITALS: BP 127/66; PULSE 92; RESP 18; TEMP 36.8; O2SAT 97
[2024-02-18 08:06] VITALS: BP 123/65; PULSE 85; RESP 18; TEMP 36; O2SAT 95
--- NOTE | 2024-02-18 08:06 | P.PNPSI_ITS ---
Subjective Subjective Date of Service: 02/18/24 Reason For Visit: Psychosis Subjective Notes: Section 7 and Section 8 Interim History: The nursing staff reported the patient refused his medications night, she was seen crying in her room. She had been looking for her daughter. The staff has noticed the patient had been responding to internal stimuli talking in the hallway by herself. She is also nonsensical when people approach to her. On interview the patient reported that she wants to leave, she can not understand why she is here she looks grossly disorganized. Mental Status Exam Mental Status Exam Patient Appearance: Appropriate Patient Orientation: Person and Situation Level of Consciousness: Awake and Appropriate Patient Behavior: Guarded Mood Description: Withdrawn and Hostile Affect Description: Labile Patient Cognition Impaired: Yes Ability to Follow Directions: Good Speech Pattern: Difficulty Finding Words and Rapid Hallucinations: Auditory Delusions: Paranoid Ideation Thought Process: Distracted and Slowed Thinking Thought Content: positive for [place] and positive for Circumstantial Judgement: Poor Diagnostics Vital Signs (24Hr): Vital Signs - 24 hr 02/17/24 10:12 02/17/24 20:00 Temperature 98.3 F Pulse Rate 111 H 92 Respiratory Rate 18 Blood Pressure 154/84 H 127/66 Pulse Oximetry 97 Oxygen Delivery Method Room Air BMI result Body Mass Index 19.0 Labs 02/14/24 10:14 Labs: Laboratory Results - last 48 hr 02/17/24 16:25 Urine Color Yellow Urine Appearance Clear Urine pH 5.5 Ur Specific [place] 1.015 Urine Protein Negative Urine Glucose (UA) Negative Urine Ketones 15 Urine Blood Negative Urine Nitrite Negative Ur Leukocyte Esterase Negative Urine RBC 0-2 Urine WBC 0-5 Ur Squamous Epith Cells 0-2 Urine Bacteria None Seen Hyaline Casts 3-5 Medications Medications Current Medications Acetaminophen (Acetaminophen 325 Mg Tablet) 650 mg PO Q6H PRN PRN Reason: Headache/Pain Mild Scale (1-3) Al Hydroxide/Mg Hydroxide (Magnesium Hydrox/Alum Hydrox 30 Ml Oral.Susp) 30 ml PO Q6H PRN PRN Reason: Heartburn/Nausea Hydroxyzine HCl (Hydroxyzine Hcl 25 Mg Tablet) 25 mg PO Q6H PRN PRN Reason: Anxiety Magnesium Hydroxide (Milk Of Magnesia 30 Ml Oral.Susp) 30 ml PO DAILY PRN PRN Reason: Constipation Memantine (Memantine Hcl 5 Mg Tablet) 5 mg PO BID [facility] Last Admin: 02/17/24 21:13 Dose: Not Given Metoprolol Succinate (Metoprolol Succinate Er 100 Mg Tab.Er.24h) 100 mg PO DAILY [facility]; Protocol Last Admin: 02/17/24 10:12 Dose: 100 mg Risperidone (Risperidone 0.25 Mg Tablet) 0.25 mg PO DAILY PRN PRN Reason: Anxiety Risperidone (Risperidone 1 Mg Tablet) 1 mg PO BEDTIME [facility] Last Admin: 02/17/24 21:14 Dose: Not Given Risperidone (Risperidone 0.25 Mg Tablet) 0.5 mg PO DAILY [facility] Last Admin: 02/17/24 09:59 Dose: Not Given Trazodone HCl (Trazodone Hcl 50 Mg Tablet) 50 mg PO BEDTIME MRX1 PRN PRN Reason: Insomnia Allergies Allergies Allergy/AdvReac Type Severity Reaction Status Date / Time No Known Allergies Allergy Verified 10/20/23 20:47 Assessment & Plan Assessment & Plan (1) Routine medical exam: Status: Acute Code(s): Z00.00 - Encounter for general adult medical examination without abnormal findings Plan 79-year-old female with history of hypertension admitted to Geriatric Psychiatry with consult placed hospitalist service for medical H and P. #Mood disorder/paranoia -plan per Psychiatry #Dementia -plan per Psychiatry # CKD stage 3 -renal function baseline #HTN -resume metoprolol am Plan 1. Continue 15 minute checks since the patient is able to come tract for safety. 2. Gather collateral information, we will call her daughter to get more information. Apparently her outpatient provider was contacted and she was not fully compliant with follow-up and treatment. 3. Continue with Risperdal 0.25 in the morning and 1 at night. On February 15 we are going to increase the Risperdal 0.5 in the morning for the next day. 4. Restart Namenda 5 mg p.o. b.i.d. 5. Filing for Section 7 and 8 since the patient can not sign herself into the hospital but she wants to leave Reason for continued inpatient stay Substantial Risk for: inability to function, rapid decompensation and med/psych decompensation Time Spent With Patient Time: Total time managing care of this patient today __20__ minutes.
[2024-02-18] MEDS: Metoprolol Succinate ER 100 MG TAB.ER.24H PO (08:09)
--- NOTE | 2024-02-18 08:30 | PC.NURSE ---
Carly declined Risperdal and Namenda despite encouragement and education. She is quite paranoid and continued to decline medications. Dr. Richter notified.
[2024-02-18 20:00] VITALS: BP 165/81; PULSE 80; RESP 18; TEMP 36.4; O2SAT 97
[2024-02-19 08:00] VITALS: BP 124/56; PULSE 84; RESP 18; TEMP 36.3; O2SAT 99
[2024-02-19] MEDS: Metoprolol Succinate ER 100 MG TAB.ER.24H PO (09:10)
--- NOTE | 2024-02-19 14:53 | P.PNPSI_ITS ---
Subjective Subjective Date of Service: 02/19/24 Reason For Visit: Psychosis Subjective Notes: Section 7 and Section 8 Interim History: The patient remains very confused, she had been refusing her Risperdal in the morning. She is guarded confused. On interview the patient is unable to process she denies any medical or psychiatric problems and she wants to be discharged. We are filing for Section 7 and 8. Mental Status Exam Mental Status Exam Patient Appearance: Appropriate Patient Orientation: Person and Situation Level of Consciousness: Awake and Appropriate Patient Behavior: Guarded and Passive Mood Description: Withdrawn Affect Description: Constricted Patient Cognition Impaired: Yes Ability to Follow Directions: Good Speech Pattern: Clear Hallucinations: Auditory Delusions: Paranoid Ideation and Ideas of Reference Thought Process: Distracted and Slowed Thinking Thought Content: positive for [place] and positive for Poverty of Content Judgement: Poor Diagnostics Vital Signs (24Hr): Vital Signs - 24 hr 02/18/24 20:00 02/19/24 08:00 Temperature 97.6 F 97.4 F Pulse Rate 80 84 Respiratory Rate 18 18 Blood Pressure 165/81 H 124/56 L Pulse Oximetry 97 99 Oxygen Delivery Method Room Air Room Air BMI result Body Mass Index 19.0 Labs 02/14/24 10:14 Labs: Laboratory Results - last 48 hr 02/17/24 16:25 Urine Color Yellow Urine Appearance Clear Urine pH 5.5 Ur Specific [place] 1.015 Urine Protein Negative Urine Glucose (UA) Negative Urine Ketones 15 Urine Blood Negative Urine Nitrite Negative Ur Leukocyte Esterase Negative Urine RBC 0-2 Urine WBC 0-5 Ur Squamous Epith Cells 0-2 Urine Bacteria None Seen Hyaline Casts 3-5 Medications Medications Current Medications Acetaminophen (Acetaminophen 325 Mg Tablet) 650 mg PO Q6H PRN PRN Reason: Headache/Pain Mild Scale (1-3) Al Hydroxide/Mg Hydroxide (Magnesium Hydrox/Alum Hydrox 30 Ml Oral.Susp) 30 ml PO Q6H PRN PRN Reason: Heartburn/Nausea Hydroxyzine HCl (Hydroxyzine Hcl 25 Mg Tablet) 25 mg PO Q6H PRN PRN Reason: Anxiety Magnesium Hydroxide (Milk Of Magnesia 30 Ml Oral.Susp) 30 ml PO DAILY PRN PRN Reason: Constipation Memantine (Memantine Hcl 5 Mg Tablet) 5 mg PO BID [facility] Last Admin: 02/19/24 09:12 Dose: Not Given Metoprolol Succinate (Metoprolol Succinate Er 100 Mg Tab.Er.24h) 100 mg PO DAILY [facility]; Protocol Last Admin: 02/19/24 09:10 Dose: 100 mg Risperidone (Risperidone 0.25 Mg Tablet) 0.25 mg PO DAILY PRN PRN Reason: Anxiety Risperidone (Risperidone 1 Mg Tablet) 1 mg PO BEDTIME [facility] Last Admin: 02/18/24 19:41 Dose: Not Given Risperidone (Risperidone 0.25 Mg Tablet) 0.5 mg PO DAILY [facility] Last Admin: 02/19/24 09:12 Dose: Not Given Trazodone HCl (Trazodone Hcl 50 Mg Tablet) 50 mg PO BEDTIME MRX1 PRN PRN Reason: Insomnia Allergies Allergies Allergy/AdvReac Type Severity Reaction Status Date / Time No Known Allergies Allergy Verified 10/20/23 20:47 Assessment & Plan Assessment & Plan (1) Routine medical exam: Status: Acute Code(s): Z00.00 - Encounter for general adult medical examination without abnormal findings Plan 79-year-old female with history of hypertension admitted to Geriatric Psychiatry with consult placed hospitalist service for medical H and P. #Mood disorder/paranoia -plan per Psychiatry #Dementia -plan per Psychiatry # CKD stage 3 -renal function baseline #HTN -resume metoprolol am Plan 1. Continue 15 minute checks since the patient is able to come tract for safety. 2. Gather collateral information, we will call her daughter to get more information. Apparently her outpatient provider was contacted and she was not fully compliant with follow-up and treatment. 3. Continue with Risperdal 0.25 in the morning and 1 at night. On February 15 we are going to increase the Risperdal 0.5 in the morning for the next day. 4. Restart Namenda 5 mg p.o. b.i.d. 5. Filing for Section 7 and 8 since the patient can not sign herself into the hospital but she wants to leave Reason for continued inpatient stay Substantial Risk for: inability to function, rapid decompensation and med/psych decompensation Time Spent With Patient Time: Total time managing care of this patient today __20__ minutes.
[2024-02-19 20:00] VITALS: BP 139/71; PULSE 80; RESP 18; TEMP 36.6; O2SAT 95
[2024-02-19] MEDS: Memantine HCl 5 MG TABLET PO (20:49)
[2024-02-19] MEDS: risperiDONE 1 MG TABLET PO (20:49)
[2024-02-20 08:31] VITALS: BP 137/70; PULSE 100; RESP 15; TEMP 36.6; O2SAT 100
[2024-02-20] MEDS: risperiDONE 0.25 MG TABLET 0.5 MG PO (08:33)
[2024-02-20] MEDS: Metoprolol Succinate ER 100 MG TAB.ER.24H PO (08:33)
[2024-02-20] MEDS: Memantine HCl 5 MG TABLET PO ×2 (08:34→20:32)
--- NOTE | 2024-02-20 16:37 | HO.PSYCHPN ---
Subjective Subjective Date of Service: 02/20/24 Reason For Visit: Psychosis Subjective Notes: Section 7 and Section 8 Interim History: The nursing staff reported the patient had been compliant with medications since last night. For the 1st time she started taking antipsychotics. On interview the patient was confused and redirectable she stated that she had been taking all her medications and wants to go back home. Still confused. We will try to stabilize the patient and start working on discharge planning. Mental Status Exam Mental Status Exam Patient Appearance: Appropriate Patient Orientation: Person and Situation Level of Consciousness: Awake Patient Behavior: Guarded and Passive Mood Description: Withdrawn Affect Description: Constricted Patient Cognition Impaired: Yes Ability to Follow Directions: Good Speech Pattern: Clear Hallucinations: None Delusions: Paranoid Ideation and Ideas of Reference Thought Process: Distracted and Slowed Thinking Thought Content: positive for [place] and positive for Poverty of Content Judgement: Poor Diagnostics Vital Signs (24Hr): Vital Signs - 24 hr 02/19/24 20:00 02/20/24 08:31 Temperature 97.8 F 97.9 F Pulse Rate 80 100 Respiratory Rate 18 15 Blood Pressure 139/71 137/70 Pulse Oximetry 95 100 Oxygen Delivery Method Room Air Room Air BMI result Body Mass Index 19.0 Labs 02/14/24 10:14 Medications Medications Current Medications Acetaminophen (Acetaminophen 325 Mg Tablet) 650 mg PO Q6H PRN PRN Reason: Headache/Pain Mild Scale (1-3) Al Hydroxide/Mg Hydroxide (Magnesium Hydrox/Alum Hydrox 30 Ml Oral.Susp) 30 ml PO Q6H PRN PRN Reason: Heartburn/Nausea Hydroxyzine HCl (Hydroxyzine Hcl 25 Mg Tablet) 25 mg PO Q6H PRN PRN Reason: Anxiety Magnesium Hydroxide (Milk Of Magnesia 30 Ml Oral.Susp) 30 ml PO DAILY PRN PRN Reason: Constipation Memantine (Memantine Hcl 5 Mg Tablet) 5 mg PO BID [facility] Last Admin: 02/20/24 08:34 Dose: 5 mg Metoprolol Succinate (Metoprolol Succinate Er 100 Mg Tab.Er.24h) 100 mg PO DAILY [facility]; Protocol Last Admin: 02/20/24 08:33 Dose: 100 mg Risperidone (Risperidone 0.25 Mg Tablet) 0.25 mg PO DAILY PRN PRN Reason: Anxiety Risperidone (Risperidone 1 Mg Tablet) 1 mg PO BEDTIME [facility] Last Admin: 02/19/24 20:49 Dose: 1 mg Risperidone (Risperidone 0.25 Mg Tablet) 0.5 mg PO DAILY [facility] Last Admin: 02/20/24 08:33 Dose: 0.5 mg Trazodone HCl (Trazodone Hcl 50 Mg Tablet) 50 mg PO BEDTIME MRX1 PRN PRN Reason: Insomnia Allergies Allergies Allergy/AdvReac Type Severity Reaction Status Date / Time No Known Allergies Allergy Verified 10/20/23 20:47 Assessment & Plan Assessment & Plan (1) Routine medical exam: Status: Acute Code(s): Z00.00 - Encounter for general adult medical examination without abnormal findings Plan 79-year-old female with history of hypertension admitted to Geriatric Psychiatry with consult placed hospitalist service for medical H and P. #Mood disorder/paranoia -plan per Psychiatry #Dementia -plan per Psychiatry # CKD stage 3 -renal function baseline #HTN -resume metoprolol am Plan 1. Continue 15 minute checks since the patient is able to come tract for safety. 2. Gather collateral information, we will call her daughter to get more information. Apparently her outpatient provider was contacted and she was not fully compliant with follow-up and treatment. 3. Continue with Risperdal 0.25 in the morning and 1 at night. On February 15 we are going to increase the Risperdal 0.5 in the morning for the next day. 4. Restart Namenda 5 mg p.o. b.i.d. 5. Filing for Section 7 and 8 since the patient can not sign herself into the hospital but she wants to leave Reason for continued inpatient stay Substantial Risk for: inability to function, rapid decompensation and med/psych decompensation Time Spent With Patient Time: Total time managing care of this patient today __20__ minutes.
[2024-02-20 20:00] VITALS: BP 146/75; PULSE 87; RESP 17; TEMP 36.4; O2SAT 97
[2024-02-20] MEDS: risperiDONE 1 MG TABLET PO (20:32)
[2024-02-21 07:55] VITALS: BP 143/77; PULSE 81; RESP 18; TEMP 36.8; O2SAT 98
[2024-02-21] MEDS: Memantine HCl 5 MG TABLET PO ×2 (08:05→20:02)
[2024-02-21] MEDS: risperiDONE 0.25 MG TABLET 0.5 MG PO (08:05)
[2024-02-21] MEDS: Metoprolol Succinate ER 100 MG TAB.ER.24H PO (08:05)
--- NOTE | 2024-02-21 13:46 | MHC.CLN ---
F/U DIET=REGULAR. INTAKE AT MEALS USUALLY GOOD, 50-100%. FOLLOW FOR INTAKE AND WEIGHT. NO NEW NUTRITION INTERVENTIONS AT THIS TIME. RD TO FOLLOW UP WEEKLY.
--- NOTE | 2024-02-21 15:19 | HO.PSYCHPN ---
Subjective Subjective Date of Service: 02/21/24 Reason For Visit: Psychosis Subjective Notes: Section 7 and Section 8 Interim History: The nursing staff reported the patient had been compliant with her Risperdal today. She remains very confused and irritable. She slept 8 hours. On interview the patient stated that she wants to go home, she is unable to understand that we filed for Section 7 and 8. The social media manager reported will have a family meeting tomorrow. Mental Status Exam Mental Status Exam Patient Appearance: Appropriate Patient Orientation: Person and Situation Level of Consciousness: Awake and Appropriate Patient Behavior: Guarded and Passive Mood Description: Withdrawn Affect Description: Labile Patient Cognition Impaired: Yes Ability to Follow Directions: Good Speech Pattern: Clear Hallucinations: None Delusions: Paranoid Ideation and Ideas of Reference Thought Process: Distracted and Slowed Thinking Thought Content: positive for [place] and positive for Poverty of Content Judgement: Poor Diagnostics Vital Signs (24Hr): Vital Signs - 24 hr 02/20/24 20:00 02/21/24 07:55 Temperature 97.6 F 98.2 F Pulse Rate 87 81 Respiratory Rate 17 18 Blood Pressure 146/75 H 143/77 H Pulse Oximetry 97 98 Oxygen Delivery Method Room Air Room Air BMI result Body Mass Index 19.0 Labs 02/14/24 10:14 Medications Medications Current Medications Acetaminophen (Acetaminophen 325 Mg Tablet) 650 mg PO Q6H PRN PRN Reason: Headache/Pain Mild Scale (1-3) Al Hydroxide/Mg Hydroxide (Magnesium Hydrox/Alum Hydrox 30 Ml Oral.Susp) 30 ml PO Q6H PRN PRN Reason: Heartburn/Nausea Magnesium Hydroxide (Milk Of Magnesia 30 Ml Oral.Susp) 30 ml PO DAILY PRN PRN Reason: Constipation Memantine (Memantine Hcl 5 Mg Tablet) 5 mg PO BID [facility] Last Admin: 02/21/24 08:05 Dose: 5 mg Metoprolol Succinate (Metoprolol Succinate Er 100 Mg Tab.Er.24h) 100 mg PO DAILY [facility]; Protocol Last Admin: 02/21/24 08:05 Dose: 100 mg Risperidone (Risperidone 0.25 Mg Tablet) 0.25 mg PO DAILY PRN PRN Reason: Anxiety Risperidone (Risperidone 1 Mg Tablet) 1 mg PO BEDTIME [facility] Last Admin: 02/20/24 20:32 Dose: 1 mg Risperidone (Risperidone 0.25 Mg Tablet) 0.5 mg PO DAILY [facility] Last Admin: 02/21/24 08:05 Dose: 0.25 mg Trazodone HCl (Trazodone Hcl 50 Mg Tablet) 50 mg PO BEDTIME MRX1 PRN PRN Reason: Insomnia Allergies Allergies Allergy/AdvReac Type Severity Reaction Status Date / Time No Known Allergies Allergy Verified 10/20/23 20:47 Assessment & Plan Assessment & Plan (1) Routine medical exam: Status: Acute Code(s): Z00.00 - Encounter for general adult medical examination without abnormal findings Plan 79-year-old female with history of hypertension admitted to Geriatric Psychiatry with consult placed hospitalist service for medical H and P. #Mood disorder/paranoia -plan per Psychiatry #Dementia -plan per Psychiatry # CKD stage 3 -renal function baseline #HTN -resume metoprolol am Plan 1. Continue 15 minute checks since the patient is able to come tract for safety. 2. Gather collateral information, we will call her daughter to get more information. Apparently her outpatient provider was contacted and she was not fully compliant with follow-up and treatment. 3. Continue with Risperdal 0.25 in the morning and 1 at night. On February 15 we are going to increase the Risperdal 0.5 in the morning for the next day. 4. Restart Namenda 5 mg p.o. b.i.d. 5. Filing for Section 7 and 8 since the patient can not sign herself into the hospital but she wants to leave Reason for continued inpatient stay Substantial Risk for: inability to function, rapid decompensation and med/psych decompensation Time Spent With Patient Time: Total time managing care of this patient today __20__ minutes.
[2024-02-21 19:39] VITALS: BP 144/79; PULSE 86; RESP 18; TEMP 36.1; O2SAT 94
[2024-02-21] MEDS: risperiDONE 1 MG TABLET PO (20:02)
[2024-02-22 07:00] VITALS: BMI 19.5
[2024-02-22 07:42] VITALS: BP 133/63; PULSE 70; RESP 16; TEMP 36.3; O2SAT 96
[2024-02-22] MEDS: Metoprolol Succinate ER 100 MG TAB.ER.24H PO (07:52)
[2024-02-22] MEDS: Memantine HCl 5 MG TABLET PO ×2 (07:52→20:18)
[2024-02-22] MEDS: risperiDONE 0.25 MG TABLET 0.5 MG PO (07:53)
--- NOTE | 2024-02-22 12:53 | HO.PSYCHPN ---
Subjective Subjective Date of Service: 02/22/24 Reason For Visit: Psychosis Subjective Notes: Conditional Voluntary Interim History: The nursing staff reported the patient remains paranoid but she is eating well compliant with medications for the last 3 days. Overall she looks better today in the morning as per the occupational therapist. Today we had a family meeting with her daughter who is overwhelmed and stated that after discharge in October she was noncompliant with medications and her disorganization and psychosis worsen it with police involvement. On interview the patient was asking about her discharge unable to process information. Mental Status Exam Mental Status Exam Patient Appearance: Appropriate Patient Orientation: Person and Situation Level of Consciousness: Awake and Appropriate Patient Behavior: Guarded and Passive Mood Description: Withdrawn Affect Description: Constricted Patient Cognition Impaired: Yes Ability to Follow Directions: Good Speech Pattern: Clear Hallucinations: None Delusions: Paranoid Ideation Thought Process: Distracted and Slowed Thinking Thought Content: positive for [place] and positive for Poverty of Content Judgement: Poor Diagnostics Vital Signs (24Hr): Vital Signs - 24 hr 02/21/24 19:39 02/22/24 07:42 Temperature 97 F 97.4 F Pulse Rate 86 70 Respiratory Rate 18 16 Blood Pressure 144/79 H 133/63 Pulse Oximetry 94 96 Oxygen Delivery Method Room Air Room Air BMI result Body Mass Index 19.0 Labs 02/14/24 10:14 Medications Medications Current Medications Acetaminophen (Acetaminophen 325 Mg Tablet) 650 mg PO Q6H PRN PRN Reason: Headache/Pain Mild Scale (1-3) Al Hydroxide/Mg Hydroxide (Magnesium Hydrox/Alum Hydrox 30 Ml Oral.Susp) 30 ml PO Q6H PRN PRN Reason: Heartburn/Nausea Magnesium Hydroxide (Milk Of Magnesia 30 Ml Oral.Susp) 30 ml PO DAILY PRN PRN Reason: Constipation Memantine (Memantine Hcl 5 Mg Tablet) 5 mg PO BID [facility] Last Admin: 02/22/24 07:52 Dose: 5 mg Metoprolol Succinate (Metoprolol Succinate Er 100 Mg Tab.Er.24h) 100 mg PO DAILY [facility]; Protocol Last Admin: 02/22/24 07:52 Dose: 100 mg Risperidone (Risperidone 0.25 Mg Tablet) 0.25 mg PO DAILY PRN PRN Reason: Anxiety Risperidone (Risperidone 1 Mg Tablet) 1 mg PO BEDTIME [facility] Last Admin: 02/21/24 20:02 Dose: 1 mg Risperidone (Risperidone 0.25 Mg Tablet) 0.5 mg PO DAILY [facility] Last Admin: 02/22/24 07:53 Dose: 0.5 mg Trazodone HCl (Trazodone Hcl 50 Mg Tablet) 50 mg PO BEDTIME MRX1 PRN PRN Reason: Insomnia Allergies Allergies Allergy/AdvReac Type Severity Reaction Status Date / Time No Known Allergies Allergy Verified 10/20/23 20:47 Assessment & Plan Assessment & Plan (1) Routine medical exam: Status: Acute Code(s): Z00.00 - Encounter for general adult medical examination without abnormal findings Plan 79-year-old female with history of hypertension admitted to Geriatric Psychiatry with consult placed hospitalist service for medical H and P. #Mood disorder/paranoia -plan per Psychiatry #Dementia -plan per Psychiatry # CKD stage 3 -renal function baseline #HTN -resume metoprolol am Plan 1. Continue 15 minute checks since the patient is able to come tract for safety. 2. Gather collateral information, we will call her daughter to get more information. Apparently her outpatient provider was contacted and she was not fully compliant with follow-up and treatment. 3. Continue with Risperdal 0.25 in the morning and 1 at night. On February 15 we are going to increase the Risperdal 0.5 in the morning for the next day. 4. Restart Namenda 5 mg p.o. b.i.d. 5. Filing for Section 7 and 8 since the patient can not sign herself into the hospital but she wants to leave. 6. We are going to file for fear mention of healthcare proxy and conservatorship. Reason for continued inpatient stay Substantial Risk for: inability to function, rapid decompensation and med/psych decompensation Time Spent With Patient Time: Total time managing care of this patient today ___20_ minutes.
[2024-02-22 19:51] VITALS: BP 147/71; PULSE 92; RESP 16; TEMP 36.4; O2SAT 96
[2024-02-22] MEDS: risperiDONE 1 MG TABLET PO (20:18)
[2024-02-23 08:01] VITALS: BP 106/62; PULSE 81; RESP 16; TEMP 35.8; O2SAT 95
--- NOTE | 2024-02-23 08:40 | HO.PSYCHPN ---
Subjective Subjective Date of Service: 02/23/24 Reason For Visit: Psychosis Subjective Notes: Section 7 Interim History: Pt sleeping most of the night. She continues to present as paranoid and guarded. She asks about discharge. She is selective as to what medications she takes. No behavioral concerns. Review of Systems Review of Systems Yes all other systems are reviewed and are negative and Other (Unable to obtain) Mental Status Exam Mental Status Exam Patient Appearance: Appropriate Patient Orientation: Person and Situation Level of Consciousness: Awake and Appropriate Patient Behavior: Guarded and Passive Mood Description: Withdrawn Affect Description: Constricted Patient Cognition Impaired: Yes Ability to Follow Directions: Good Speech Pattern: Clear Diagnostics Vital Signs (24Hr): Vital Signs - 24 hr 02/22/24 19:51 02/23/24 08:01 Temperature 97.5 F 96.4 F L Pulse Rate 92 81 Respiratory Rate 16 16 Blood Pressure 147/71 H 106/62 Pulse Oximetry 96 95 Oxygen Delivery Method Room Air Room Air BMI result Body Mass Index 19.5 Labs 02/14/24 10:14 Medications Medications Current Medications Acetaminophen (Acetaminophen 325 Mg Tablet) 650 mg PO Q6H PRN PRN Reason: Headache/Pain Mild Scale (1-3) Al Hydroxide/Mg Hydroxide (Magnesium Hydrox/Alum Hydrox 30 Ml Oral.Susp) 30 ml PO Q6H PRN PRN Reason: Heartburn/Nausea Magnesium Hydroxide (Milk Of Magnesia 30 Ml Oral.Susp) 30 ml PO DAILY PRN PRN Reason: Constipation Memantine (Memantine Hcl 5 Mg Tablet) 5 mg PO BID [facility] Last Admin: 02/22/24 20:18 Dose: 5 mg Metoprolol Succinate (Metoprolol Succinate Er 100 Mg Tab.Er.24h) 100 mg PO DAILY [facility]; Protocol Last Admin: 02/22/24 07:52 Dose: 100 mg Risperidone (Risperidone 0.25 Mg Tablet) 0.25 mg PO DAILY PRN PRN Reason: Anxiety Risperidone (Risperidone 1 Mg Tablet) 1 mg PO BEDTIME [facility] Last Admin: 02/22/24 20:18 Dose: 1 mg Risperidone (Risperidone 0.25 Mg Tablet) 0.5 mg PO DAILY [facility] Last Admin: 02/22/24 07:53 Dose: 0.5 mg Trazodone HCl (Trazodone Hcl 50 Mg Tablet) 50 mg PO BEDTIME MRX1 PRN PRN Reason: Insomnia Allergies Allergies Allergy/AdvReac Type Severity Reaction Status Date / Time No Known Allergies Allergy Verified 10/20/23 20:47 Assessment & Plan Assessment & Plan (1) Major neurocognitive disorder: Status: Acute Code(s): F03.90 - Unspecified dementia, unspecified severity, without behavioral disturbance, psychotic disturbance, mood disturbance, and anxiety Plan 79-year-old female with history of hypertension admitted to Geriatric Psychiatry with consult placed hospitalist service for medical H and P. #Mood disorder/paranoia -plan per Psychiatry #Dementia -plan per Psychiatry # CKD stage 3 -renal function baseline #HTN -resume metoprolol am Plan 1. Continue 15 minute checks 2. continue tx. Reason for continued inpatient stay Substantial Risk for: inability to function Time Spent With Patient Time: Total time managing care of this patient today ____ minutes.
[2024-02-23] MEDS: Metoprolol Succinate ER 100 MG TAB.ER.24H PO (08:58)
[2024-02-23] MEDS: Memantine HCl 5 MG TABLET PO ×2 (08:58→20:36)
[2024-02-23] MEDS: risperiDONE 0.25 MG TABLET 0.5 MG PO (08:58)
[2024-02-23] MEDS: bisacodyL 10 MG SUPP.RECT PR (10:05)
[2024-02-23 20:34] VITALS: BP 127/78; PULSE 74; RESP 16; TEMP 36.4; O2SAT 94
[2024-02-23] MEDS: risperiDONE 1 MG TABLET PO (20:36)
[2024-02-24 07:55] VITALS: BP 145/74; PULSE 69; RESP 18; TEMP 36.6; O2SAT 98
[2024-02-24] MEDS: risperiDONE 0.25 MG TABLET 0.5 MG PO (08:10)
[2024-02-24] MEDS: Memantine HCl 5 MG TABLET PO ×2 (08:10→20:22)
[2024-02-24] MEDS: Metoprolol Succinate ER 100 MG TAB.ER.24H PO (08:10)
--- NOTE | 2024-02-24 16:07 | P.PNPSI_ITS ---
Subjective Subjective Date of Service: 02/24/24 Reason For Visit: Psychosis Interim History: observed wandering the unit yelling about leaving. calm and cooperative with MD, but focussed on discharge. per staff, irritable, angey, wants D/C. awaiting commitment hearing. psychotic. Mental Status Exam Mental Status Exam Patient Appearance: Appropriate Patient Orientation: Person and Situation Level of Consciousness: Awake and Appropriate Patient Behavior: Guarded, Restless and Wandering Mood Description: Withdrawn Affect Description: Constricted Patient Cognition Impaired: Yes Ability to Follow Directions: Good Speech Pattern: Clear Diagnostics Vital Signs (24Hr): Vital Signs - 24 hr 02/23/24 20:34 02/24/24 07:55 Temperature 97.5 F 97.9 F Pulse Rate 74 69 Respiratory Rate 16 18 Blood Pressure 127/78 145/74 H Pulse Oximetry 94 98 Oxygen Delivery Method Room Air Room Air BMI result Body Mass Index 19.5 Labs 02/14/24 10:14 Medications Medications Current Medications Acetaminophen (Acetaminophen 325 Mg Tablet) 650 mg PO Q6H PRN PRN Reason: Headache/Pain Mild Scale (1-3) Al Hydroxide/Mg Hydroxide (Magnesium Hydrox/Alum Hydrox 30 Ml Oral.Susp) 30 ml PO Q6H PRN PRN Reason: Heartburn/Nausea Bisacodyl (Bisacodyl 10 Mg Supp.Rect) 10 mg [place] BEDTIME PRN PRN Reason: Constipation Last Admin: 02/23/24 10:05 Dose: 10 mg Magnesium Hydroxide (Milk Of Magnesia 30 Ml Oral.Susp) 30 ml PO DAILY PRN PRN Reason: Constipation Memantine (Memantine Hcl 5 Mg Tablet) 5 mg PO BID [facility] Last Admin: 02/24/24 08:10 Dose: 5 mg Metoprolol Succinate (Metoprolol Succinate Er 100 Mg Tab.Er.24h) 100 mg PO DAILY [facility]; Protocol Last Admin: 02/24/24 08:10 Dose: 100 mg Risperidone (Risperidone 0.25 Mg Tablet) 0.25 mg PO DAILY PRN PRN Reason: Anxiety Risperidone (Risperidone 1 Mg Tablet) 1 mg PO BEDTIME [facility] Last Admin: 02/23/24 20:36 Dose: 1 mg Risperidone (Risperidone 0.25 Mg Tablet) 0.5 mg PO DAILY [facility] Last Admin: 02/24/24 08:10 Dose: 0.5 mg Trazodone HCl (Trazodone Hcl 50 Mg Tablet) 50 mg PO BEDTIME MRX1 PRN PRN Reason: Insomnia Allergies Allergies Allergy/AdvReac Type Severity Reaction Status Date / Time No Known Allergies Allergy Verified 10/20/23 20:47 Assessment & Plan Assessment & Plan (1) Major neurocognitive disorder: Status: Acute Code(s): F03.90 - Unspecified dementia, unspecified severity, without behavioral disturbance, psychotic disturbance, mood disturbance, and anxiety Assessment and Plan: 79-year-old female with history of hypertension admitted to Geriatric Psychiatry with consult placed hospitalist service for medical H and P. #Mood disorder/paranoia -plan per Psychiatry #Dementia -plan per Psychiatry # CKD stage 3 -renal function baseline #HTN -resume metoprolol am Plan Plan 1. Continue 15 minute checks 2. continue current mgmt. 3. commitment hearing pending. Reason for continued inpatient stay Substantial Risk for: inability to function Time Spent With Patient Time: Total time managing care of this patient today ____ minutes.
[2024-02-24 20:00] VITALS: BP 116/55; PULSE 73; RESP 16; TEMP 36.7; O2SAT 96
[2024-02-24] MEDS: risperiDONE 1 MG TABLET PO (20:22)
[2024-02-25 07:50] VITALS: BP 128/56; PULSE 71; RESP 18; TEMP 36.8; O2SAT 97
[2024-02-25] MEDS: risperiDONE 0.25 MG TABLET 0.5 MG PO (08:19)
[2024-02-25] MEDS: Memantine HCl 5 MG TABLET PO ×2 (08:19→20:38)
[2024-02-25] MEDS: Metoprolol Succinate ER 100 MG TAB.ER.24H PO (08:46)
--- NOTE | 2024-02-25 15:35 | P.PNPSI_ITS ---
Subjective Subjective Date of Service: 02/25/24 Reason For Visit: Psychosis Interim History: pleasant, asking about discharge. no other complaints or requests. per staff, no issues. has calmed a lot since yesterday. slept 8 hours. Mental Status Exam Mental Status Exam Patient Appearance: Appropriate Patient Orientation: Person and Situation Level of Consciousness: Awake and Appropriate Patient Behavior: Guarded, Restless and Wandering Mood Description: Withdrawn Affect Description: Constricted Patient Cognition Impaired: Yes Ability to Follow Directions: Good Speech Pattern: Clear Diagnostics Vital Signs (24Hr): Vital Signs - 24 hr 02/24/24 20:00 02/25/24 07:50 Temperature 98.1 F 98.2 F Pulse Rate 73 71 Respiratory Rate 16 18 Blood Pressure 116/55 L 128/56 L Pulse Oximetry 96 97 Oxygen Delivery Method Room Air Room Air BMI result Body Mass Index 19.5 Labs 02/14/24 10:14 Medications Medications Current Medications Acetaminophen (Acetaminophen 325 Mg Tablet) 650 mg PO Q6H PRN PRN Reason: Headache/Pain Mild Scale (1-3) Al Hydroxide/Mg Hydroxide (Magnesium Hydrox/Alum Hydrox 30 Ml Oral.Susp) 30 ml PO Q6H PRN PRN Reason: Heartburn/Nausea Bisacodyl (Bisacodyl 10 Mg Supp.Rect) 10 mg [place] BEDTIME PRN PRN Reason: Constipation Last Admin: 02/23/24 10:05 Dose: 10 mg Magnesium Hydroxide (Milk Of Magnesia 30 Ml Oral.Susp) 30 ml PO DAILY PRN PRN Reason: Constipation Memantine (Memantine Hcl 5 Mg Tablet) 5 mg PO BID [facility] Last Admin: 02/25/24 08:19 Dose: 5 mg Metoprolol Succinate (Metoprolol Succinate Er 100 Mg Tab.Er.24h) 100 mg PO DAILY [facility]; Protocol Last Admin: 02/25/24 08:46 Dose: 100 mg Risperidone (Risperidone 0.25 Mg Tablet) 0.25 mg PO DAILY PRN PRN Reason: Anxiety Risperidone (Risperidone 1 Mg Tablet) 1 mg PO BEDTIME [facility] Last Admin: 02/24/24 20:22 Dose: 1 mg Risperidone (Risperidone 0.25 Mg Tablet) 0.5 mg PO DAILY [facility] Last Admin: 02/25/24 08:19 Dose: 0.5 mg Trazodone HCl (Trazodone Hcl 50 Mg Tablet) 50 mg PO BEDTIME MRX1 PRN PRN Reason: Insomnia Allergies Allergies Allergy/AdvReac Type Severity Reaction Status Date / Time No Known Allergies Allergy Verified 10/20/23 20:47 Assessment & Plan Assessment & Plan (1) Major neurocognitive disorder: Status: Acute Code(s): F03.90 - Unspecified dementia, unspecified severity, without behavioral disturbance, psychotic disturbance, mood disturbance, and anxiety Assessment and Plan: 79-year-old female with history of hypertension admitted to Geriatric Psychiatry with consult placed hospitalist service for medical H and P. #Mood disorder/paranoia -plan per Psychiatry #Dementia -plan per Psychiatry # CKD stage 3 -renal function baseline #HTN -resume metoprolol am Plan Plan 1. Continue 15 minute checks 2. continue current mgmt. 3. commitment hearing pending. Reason for continued inpatient stay Substantial Risk for: inability to function Time Spent With Patient Time: Total time managing care of this patient today ____ minutes.
[2024-02-25 20:00] VITALS: BP 139/77; PULSE 83; RESP 18; TEMP 36.4; O2SAT 96
[2024-02-25] MEDS: risperiDONE 1 MG TABLET PO (20:38)
[2024-02-25] MEDS: traZODone HCL 50 MG TABLET PO (20:38)
[2024-02-26 08:00] VITALS: BP 113/58; PULSE 70; RESP 16; TEMP 36.5; O2SAT 95
[2024-02-26] MEDS: risperiDONE 0.25 MG TABLET 0.5 MG PO (08:42)
[2024-02-26] MEDS: Memantine HCl 5 MG TABLET PO ×2 (08:43→20:28)
[2024-02-26] MEDS: Metoprolol Succinate ER 100 MG TAB.ER.24H PO (08:43)
--- NOTE | 2024-02-26 13:33 | HO.PSYCHPN ---
Subjective Subjective Date of Service: 02/26/24 Reason For Visit: Psychosis Subjective Notes: Section 7 and Section 8 Interim History: The nursing staff reported the patient stated that she wants to go home, she remains paranoid. The occupational therapist reported that on Monday she was threatening to leave and had been difficult to redirect. Today we decided to affirmed healthcare proxy and we filed the affidavit. On interview the patient remains paranoid, disorganized very increasing Risperdal up to 2 mg p.o. q.h.s. today Mental Status Exam Mental Status Exam Patient Appearance: Appropriate Patient Orientation: Person and Situation Level of Consciousness: Awake and Appropriate Patient Behavior: Guarded and Passive Mood Description: Withdrawn Affect Description: Constricted Patient Cognition Impaired: Yes Ability to Follow Directions: Good Speech Pattern: Clear Hallucinations: None Delusions: Ideas of Reference Thought Process: Illogical and Distracted Thought Content: positive for [place], positive for Poverty of Content and positive for Thought Blocking Judgement: Poor Diagnostics Vital Signs (24Hr): Vital Signs - 24 hr 02/25/24 20:00 02/26/24 08:00 Temperature 97.6 F 97.7 F Pulse Rate 83 70 Respiratory Rate 18 16 Blood Pressure 139/77 113/58 L Pulse Oximetry 96 95 Oxygen Delivery Method Room Air Room Air BMI result Body Mass Index 19.5 Labs 02/14/24 10:14 Medications Medications Current Medications Acetaminophen (Acetaminophen 325 Mg Tablet) 650 mg PO Q6H PRN PRN Reason: Headache/Pain Mild Scale (1-3) Al Hydroxide/Mg Hydroxide (Magnesium Hydrox/Alum Hydrox 30 Ml Oral.Susp) 30 ml PO Q6H PRN PRN Reason: Heartburn/Nausea Bisacodyl (Bisacodyl 10 Mg Supp.Rect) 10 mg [place] BEDTIME PRN PRN Reason: Constipation Last Admin: 02/23/24 10:05 Dose: 10 mg Magnesium Hydroxide (Milk Of Magnesia 30 Ml Oral.Susp) 30 ml PO DAILY PRN PRN Reason: Constipation Memantine (Memantine Hcl 5 Mg Tablet) 5 mg PO BID [facility] Last Admin: 02/26/24 08:43 Dose: 5 mg Metoprolol Succinate (Metoprolol Succinate Er 100 Mg Tab.Er.24h) 100 mg PO DAILY [facility]; Protocol Last Admin: 02/26/24 08:43 Dose: 100 mg Risperidone (Risperidone 0.25 Mg Tablet) 0.25 mg PO DAILY PRN PRN Reason: Anxiety Risperidone (Risperidone 0.25 Mg Tablet) 0.5 mg PO DAILY [facility] Last Admin: 02/26/24 08:42 Dose: 0.5 mg Risperidone (Risperidone 2 Mg Tablet) 2 mg PO BEDTIME [facility] Trazodone HCl (Trazodone Hcl 50 Mg Tablet) 50 mg PO BEDTIME MRX1 PRN PRN Reason: Insomnia Last Admin: 02/25/24 20:38 Dose: 50 mg Allergies Allergies Allergy/AdvReac Type Severity Reaction Status Date / Time No Known Allergies Allergy Verified 10/20/23 20:47 Assessment & Plan Assessment & Plan (1) Major neurocognitive disorder: Status: Acute Code(s): F03.90 - Unspecified dementia, unspecified severity, without behavioral disturbance, psychotic disturbance, mood disturbance, and anxiety Assessment and Plan: 79-year-old female with history of hypertension admitted to Geriatric Psychiatry with consult placed hospitalist service for medical H and P. #Mood disorder/paranoia -plan per Psychiatry #Dementia -plan per Psychiatry # CKD stage 3 -renal function baseline #HTN -resume metoprolol am Plan Plan 1. Continue 15 minute checks 2. continue current mgmt. 3. commitment hearing pending. 4. Increase Risperdal to 2 mg p.o. q.h.s. and keep 0.5 in the morning on February 25. Patient educated on: diagnosis Reason for continued inpatient stay Substantial Risk for: inability to function, rapid decompensation and med/psych decompensation Time Spent With Patient Time: Total time managing care of this patient today __20__ minutes.
[2024-02-26 20:00] VITALS: BP 121/64; PULSE 67; RESP 18; TEMP 36.6; O2SAT 96
[2024-02-26] MEDS: traZODone HCL 50 MG TABLET PO (20:28)
[2024-02-26] MEDS: risperiDONE 2 MG TABLET PO (20:28)
[2024-02-27 08:18] VITALS: BP 118/55; PULSE 62; RESP 16; TEMP 36.3; O2SAT 97
[2024-02-27] MEDS: Memantine HCl 5 MG TABLET PO ×2 (08:21→20:45)
[2024-02-27] MEDS: risperiDONE 0.25 MG TABLET 0.5 MG PO (08:21)
--- NOTE | 2024-02-27 13:15 | HO.PSYCHPN ---
Subjective Subjective Date of Service: 02/27/24 Reason For Visit: Psychosis Subjective Notes: Conditional Voluntary Interim History: The nursing staff reports that she has been paranoid, guarded, took medications. She slept 6 hours. The child welfare social worker reported that we started the affirmation of HCP and the family is working for [facility] referral. On interview, she denies active suicidal thoughts, she has been compliant with medications with Risperdal 2 mg that was increased yesterday. Mental Status Exam Mental Status Exam Patient Appearance: Well Grooomed Patient Orientation: Person and Situation Level of Consciousness: Awake Patient Behavior: Guarded and Passive Mood Description: Withdrawn Affect Description: Constricted Patient Cognition Impaired: Yes Ability to Follow Directions: Good Speech Pattern: Clear Hallucinations: None Delusions: Ideas of Reference Thought Process: Distracted and Slowed Thinking Thought Content: positive for [place] and positive for Poverty of Content Judgement: Fair Diagnostics Vital Signs (24Hr): Vital Signs - 24 hr 02/26/24 20:00 02/27/24 08:18 Temperature 97.8 F 97.3 F Pulse Rate 67 62 Respiratory Rate 18 16 Blood Pressure 121/64 118/55 L Pulse Oximetry 96 97 Oxygen Delivery Method Room Air Room Air BMI result Body Mass Index 19.5 Labs 02/14/24 10:14 Medications Medications Current Medications Acetaminophen (Acetaminophen 325 Mg Tablet) 650 mg PO Q6H PRN PRN Reason: Headache/Pain Mild Scale (1-3) Al Hydroxide/Mg Hydroxide (Magnesium Hydrox/Alum Hydrox 30 Ml Oral.Susp) 30 ml PO Q6H PRN PRN Reason: Heartburn/Nausea Bisacodyl (Bisacodyl 10 Mg Supp.Rect) 10 mg [place] BEDTIME PRN PRN Reason: Constipation Last Admin: 02/23/24 10:05 Dose: 10 mg Magnesium Hydroxide (Milk Of Magnesia 30 Ml Oral.Susp) 30 ml PO DAILY PRN PRN Reason: Constipation Memantine (Memantine Hcl 5 Mg Tablet) 5 mg PO BID [facility] Last Admin: 02/27/24 08:21 Dose: 5 mg Metoprolol Succinate (Metoprolol Succinate Er 100 Mg Tab.Er.24h) 100 mg PO DAILY [facility]; Protocol Last Admin: 02/27/24 08:23 Dose: Not Given Risperidone (Risperidone 0.25 Mg Tablet) 0.25 mg PO DAILY PRN PRN Reason: Anxiety Risperidone (Risperidone 0.25 Mg Tablet) 0.5 mg PO DAILY [facility] Last Admin: 02/27/24 08:21 Dose: 0.5 mg Risperidone (Risperidone 2 Mg Tablet) 2 mg PO BEDTIME [facility] Last Admin: 02/26/24 20:28 Dose: 2 mg Trazodone HCl (Trazodone Hcl 50 Mg Tablet) 50 mg PO BEDTIME MRX1 PRN PRN Reason: Insomnia Last Admin: 02/26/24 20:28 Dose: 50 mg Allergies Allergies Allergy/AdvReac Type Severity Reaction Status Date / Time No Known Allergies Allergy Verified 10/20/23 20:47 Assessment & Plan Assessment & Plan (1) Major neurocognitive disorder: Status: Acute Code(s): F03.90 - Unspecified dementia, unspecified severity, without behavioral disturbance, psychotic disturbance, mood disturbance, and anxiety Assessment and Plan: 79-year-old female with history of hypertension admitted to Geriatric Psychiatry with consult placed hospitalist service for medical H and P. #Mood disorder/paranoia -plan per Psychiatry #Dementia -plan per Psychiatry # CKD stage 3 -renal function baseline #HTN -resume metoprolol am Plan Plan 1. Continue 15 minute checks 2. continue current mgmt. 3. commitment hearing pending. 4. Increase Risperdal to 2 mg p.o. q.h.s. and keep 0.5 in the morning on February 25. Reason for continued inpatient stay Substantial Risk for: inability to function, rapid decompensation and med/psych decompensation Time Spent With Patient Time: Total time managing care of this patient today __20__ minutes.
[2024-02-27 20:00] VITALS: BP 144/69; PULSE 75; RESP 18; TEMP 36.2; O2SAT 97
[2024-02-27] MEDS: risperiDONE 2 MG TABLET PO (20:45)
[2024-02-28 08:00] VITALS: BP 113/65; PULSE 75; RESP 18; TEMP 36.8; O2SAT 97
[2024-02-28] MEDS: risperiDONE 0.25 MG TABLET 0.5 MG PO (08:06)
[2024-02-28] MEDS: Metoprolol Succinate ER 100 MG TAB.ER.24H PO (08:06)
[2024-02-28] MEDS: Memantine HCl 5 MG TABLET PO ×2 (08:06→20:47)
--- NOTE | 2024-02-28 12:26 | MHC.CLN ---
F/U DIET=REGULAR. INTAKE AT MEALS USUALLY GOOD, 50-100%. SHOWS FAVORABLE WEIGHT GAIN WITH BMI=19.5. RD TO FOLLOW POTENTIAL NUTRITIONAL RISK.
--- NOTE | 2024-02-28 16:08 | P.PNPSI_ITS ---
Subjective Subjective Date of Service: 02/28/24 Reason For Visit: Psychosis Subjective Notes: Conditional Voluntary Interim History: The nursing staff reported the patient had been paranoid isolative in her room. The social work coordinator reported that they are waiting for the information of the healthcare proxy. On interview the patient remains internally preoccupied but with some signs and symptoms of EPS. We are going to lower the Risperdal to 2 mg a day. Mental Status Exam Mental Status Exam Patient Appearance: Appropriate Patient Orientation: Person and Situation Level of Consciousness: Awake and Appropriate Patient Behavior: Guarded and Passive Mood Description: Withdrawn Affect Description: Constricted Patient Cognition Impaired: Yes Ability to Follow Directions: Good Speech Pattern: Clear Hallucinations: None Delusions: Paranoid Ideation Thought Process: Distracted Thought Content: positive for [place], positive for [place], positive for Poverty of Content and positive for Thought Blocking Judgement: Poor Diagnostics Vital Signs (24Hr): Vital Signs - 24 hr 02/27/24 20:00 02/28/24 08:00 Temperature 97.1 F 98.2 F Pulse Rate 75 75 Respiratory Rate 18 18 Blood Pressure 144/69 H 113/65 Pulse Oximetry 97 97 Oxygen Delivery Method Room Air Room Air BMI result Body Mass Index 19.5 Labs 02/14/24 10:14 Medications Medications Current Medications Acetaminophen (Acetaminophen 325 Mg Tablet) 650 mg PO Q6H PRN PRN Reason: Headache/Pain Mild Scale (1-3) Al Hydroxide/Mg Hydroxide (Magnesium Hydrox/Alum Hydrox 30 Ml Oral.Susp) 30 ml PO Q6H PRN PRN Reason: Heartburn/Nausea Bisacodyl (Bisacodyl 10 Mg Supp.Rect) 10 mg [place] BEDTIME PRN PRN Reason: Constipation Last Admin: 02/23/24 10:05 Dose: 10 mg Magnesium Hydroxide (Milk Of Magnesia 30 Ml Oral.Susp) 30 ml PO DAILY PRN PRN Reason: Constipation Memantine (Memantine Hcl 5 Mg Tablet) 5 mg PO BID [facility] Last Admin: 02/28/24 08:06 Dose: 5 mg Metoprolol Succinate (Metoprolol Succinate Er 100 Mg Tab.Er.24h) 100 mg PO DAILY [facility]; Protocol Last Admin: 02/28/24 08:06 Dose: 100 mg Risperidone (Risperidone 0.25 Mg Tablet) 0.25 mg PO DAILY PRN PRN Reason: Anxiety Risperidone (Risperidone 2 Mg Tablet) 2 mg PO BEDTIME [facility] Last Admin: 02/27/24 20:45 Dose: 2 mg Trazodone HCl (Trazodone Hcl 50 Mg Tablet) 50 mg PO BEDTIME MRX1 PRN PRN Reason: Insomnia Last Admin: 02/26/24 20:28 Dose: 50 mg Allergies Allergies Allergy/AdvReac Type Severity Reaction Status Date / Time No Known Allergies Allergy Verified 10/20/23 20:47 Assessment & Plan Assessment & Plan (1) Major neurocognitive disorder: Status: Acute Code(s): F03.90 - Unspecified dementia, unspecified severity, without behavioral disturbance, psychotic disturbance, mood disturbance, and anxiety Assessment and Plan: 79-year-old female with history of hypertension admitted to Geriatric Psychiatry with consult placed hospitalist service for medical H and P. #Mood disorder/paranoia -plan per Psychiatry #Dementia -plan per Psychiatry # CKD stage 3 -renal function baseline #HTN -resume metoprolol am Plan Plan 1. Continue 15 minute checks 2. continue current mgmt. 3. Information of healthcare proxy hearing pending. 4. Increase Risperdal to 2 mg p.o. q.h.s. and keep 0.5 in the morning on February 25. On February 27 we kept it only on Risperdal 2 mg at bedtime and discontinue Risperdal in the morning due to over-sedation. Reason for continued inpatient stay Substantial Risk for: inability to function, rapid decompensation and med/psych decompensation Time Spent With Patient Time: Total time managing care of this patient today __20__ minutes.
[2024-02-28 20:00] VITALS: BP 150/86; PULSE 90; RESP 16; TEMP 35.9; O2SAT 93
[2024-02-28] MEDS: risperiDONE 2 MG TABLET PO (20:47)
[2024-02-29 07:00] VITALS: BMI 19.3
[2024-02-29 07:55] VITALS: BP 120/62; PULSE 71; RESP 18; TEMP 36.6; O2SAT 97
[2024-02-29] MEDS: Memantine HCl 5 MG TABLET PO ×2 (08:18→20:03)
[2024-02-29] MEDS: Metoprolol Succinate ER 100 MG TAB.ER.24H PO (08:18)
--- NOTE | 2024-02-29 09:11 | P.PNPSI_ITS ---
Subjective Subjective Date of Service: 02/29/24 Reason For Visit: Psychosis Subjective Notes: Section 7 Interim History: Pt slept through the night. She asks this telegraphic typewriter operator chief why she has been here for so long, this telegraphic typewriter operator chief explained concern in terms of her memory/cog and confusion and safety in the community. Pt continues to report that here is a girl who keeps following her and trying to harm her but she is able to care for myself. She has been taking medications. No side effects noted or reported. she met with deputy attorney general. Diagnostics Vital Signs (24Hr): Vital Signs - 24 hr 02/28/24 20:00 Temperature 96.6 F L Pulse Rate 90 Respiratory Rate 16 Blood Pressure 150/86 H Pulse Oximetry 93 Oxygen Delivery Method Room Air BMI result Body Mass Index 19.5 Labs 02/14/24 10:14 Medications Medications Current Medications Acetaminophen (Acetaminophen 325 Mg Tablet) 650 mg PO Q6H PRN PRN Reason: Headache/Pain Mild Scale (1-3) Al Hydroxide/Mg Hydroxide (Magnesium Hydrox/Alum Hydrox 30 Ml Oral.Susp) 30 ml PO Q6H PRN PRN Reason: Heartburn/Nausea Bisacodyl (Bisacodyl 10 Mg Supp.Rect) 10 mg [place] BEDTIME PRN PRN Reason: Constipation Last Admin: 02/23/24 10:05 Dose: 10 mg Magnesium Hydroxide (Milk Of Magnesia 30 Ml Oral.Susp) 30 ml PO DAILY PRN PRN Reason: Constipation Memantine (Memantine Hcl 5 Mg Tablet) 5 mg PO BID [facility] Last Admin: 02/29/24 08:18 Dose: 5 mg Metoprolol Succinate (Metoprolol Succinate Er 100 Mg Tab.Er.24h) 100 mg PO DAILY [facility]; Protocol Last Admin: 02/29/24 08:18 Dose: 100 mg Risperidone (Risperidone 0.25 Mg Tablet) 0.25 mg PO DAILY PRN PRN Reason: Anxiety Risperidone (Risperidone 2 Mg Tablet) 2 mg PO BEDTIME [facility] Last Admin: 02/28/24 20:47 Dose: 2 mg Trazodone HCl (Trazodone Hcl 50 Mg Tablet) 50 mg PO BEDTIME MRX1 PRN PRN Reason: Insomnia Last Admin: 02/26/24 20:28 Dose: 50 mg Allergies Allergies Allergy/AdvReac Type Severity Reaction Status Date / Time No Known Allergies Allergy Verified 10/20/23 20:47 Assessment & Plan Assessment & Plan (1) Major neurocognitive disorder: Status: Acute Code(s): F03.90 - Unspecified dementia, unspecified severity, without behavioral disturbance, psychotic disturbance, mood disturbance, and anxiety Assessment and Plan: 79-year-old female with history of hypertension admitted to Geriatric Psychiatry with consult placed hospitalist service for medical H and P. #Mood disorder/paranoia -plan per Psychiatry #Dementia -plan per Psychiatry # CKD stage 3 -renal function baseline #HTN -resume metoprolol am Plan Plan 02/28 continue current medications. VS stable. Reason for continued inpatient stay Substantial Risk for: inability to function Time Spent With Patient Time: Total time managing care of this patient today ____ minutes.
[2024-02-29] MEDS: risperiDONE 2 MG TABLET PO (20:03)
[2024-02-29 20:04] VITALS: BP 127/64; PULSE 86; RESP 16; TEMP 36; O2SAT 96
--- NOTE | 2024-03-01 08:29 | P.PNPSI_ITS ---
Subjective Subjective Date of Service: 03/01/24 Reason For Visit: Psychosis Subjective Notes: Section 7 Interim History: Pt slept through the night. She asks this medical underwriter why she has been here for so long, this medical underwriter explained concern in terms of her memory/cog and confusion and safety in the community. Pt continues to report that here is a girl who keeps following her and trying to harm her but she is able to care for myself. She has been taking medications. No side effects noted or reported. she met with loom overhauler. Review of Systems Review of Systems Yes all other systems are reviewed and are negative and Other (Unable to obtain) Mental Status Exam Mental Status Exam Patient Appearance: Appropriate Patient Orientation: Person and Situation Level of Consciousness: Awake and Appropriate Patient Behavior: Guarded and Passive Mood Description: Withdrawn Affect Description: Constricted Patient Cognition Impaired: Yes Ability to Follow Directions: Good Speech Pattern: Clear Diagnostics Vital Signs (24Hr): Vital Signs - 24 hr 02/29/24 20:04 Temperature 96.8 F Pulse Rate 86 Respiratory Rate 16 Blood Pressure 127/64 Pulse Oximetry 96 Oxygen Delivery Method Room Air BMI result Body Mass Index 19.3 Labs 02/14/24 10:14 Medications Medications Current Medications Acetaminophen (Acetaminophen 325 Mg Tablet) 650 mg PO Q6H PRN PRN Reason: Headache/Pain Mild Scale (1-3) Al Hydroxide/Mg Hydroxide (Magnesium Hydrox/Alum Hydrox 30 Ml Oral.Susp) 30 ml PO Q6H PRN PRN Reason: Heartburn/Nausea Bisacodyl (Bisacodyl 10 Mg Supp.Rect) 10 mg [place] BEDTIME PRN PRN Reason: Constipation Last Admin: 02/23/24 10:05 Dose: 10 mg Magnesium Hydroxide (Milk Of Magnesia 30 Ml Oral.Susp) 30 ml PO DAILY PRN PRN Reason: Constipation Memantine (Memantine Hcl 5 Mg Tablet) 5 mg PO BID [facility] Last Admin: 02/29/24 20:03 Dose: 5 mg Metoprolol Succinate (Metoprolol Succinate Er 100 Mg Tab.Er.24h) 100 mg PO DAILY [facility]; Protocol Last Admin: 02/29/24 08:18 Dose: 100 mg Risperidone (Risperidone 0.25 Mg Tablet) 0.25 mg PO DAILY PRN PRN Reason: Anxiety Risperidone (Risperidone 2 Mg Tablet) 2 mg PO BEDTIME [facility] Last Admin: 02/29/24 20:03 Dose: 2 mg Trazodone HCl (Trazodone Hcl 50 Mg Tablet) 50 mg PO BEDTIME MRX1 PRN PRN Reason: Insomnia Last Admin: 02/26/24 20:28 Dose: 50 mg Allergies Allergies Allergy/AdvReac Type Severity Reaction Status Date / Time No Known Allergies Allergy Verified 10/20/23 20:47 Assessment & Plan Assessment & Plan (1) Major neurocognitive disorder: Status: Acute Code(s): F03.90 - Unspecified dementia, unspecified severity, without behavioral disturbance, psychotic disturbance, mood disturbance, and anxiety Assessment and Plan: 79-year-old female with history of hypertension admitted to Geriatric Psychiatry with consult placed hospitalist service for medical H and P. #Mood disorder/paranoia -plan per Psychiatry #Dementia -plan per Psychiatry # CKD stage 3 -renal function baseline #HTN -resume metoprolol am Plan Plan 03/01 continue current medications. VS stable. Reason for continued inpatient stay Substantial Risk for: inability to function Time Spent With Patient Time: Total time managing care of this patient today ____ minutes.
[2024-03-01 08:58] VITALS: BP 103/59; PULSE 82; RESP 20; TEMP 36.1; O2SAT 97
[2024-03-01] MEDS: Metoprolol Succinate ER 100 MG TAB.ER.24H PO (09:02)
[2024-03-01] MEDS: Memantine HCl 5 MG TABLET PO ×2 (09:03→20:21)
[2024-03-01 20:00] VITALS: BP 149/72; PULSE 78; RESP 16; TEMP 36.2; O2SAT 98
[2024-03-01] MEDS: risperiDONE 2 MG TABLET PO (20:21)
[2024-03-02 08:20] VITALS: BP 136/70; PULSE 73; RESP 20; TEMP 36.6; O2SAT 98
[2024-03-02 09:14] VITALS: BP 136/70; PULSE 73
[2024-03-02] MEDS: Metoprolol Succinate ER 100 MG TAB.ER.24H PO (09:14)
[2024-03-02] MEDS: Memantine HCl 5 MG TABLET PO ×2 (09:14→20:43)
[2024-03-02] MEDS: Loratadine 10 MG TABLET PO (16:26)
--- NOTE | 2024-03-02 17:54 | HO.PSYCHPN ---
Subjective Subjective Date of Service: 03/02/24 Reason For Visit: Psychosis Interim History: Met with patient; discussed with team Patient pleasant and calm on approach. Talked about how she has allergies and would like to take an allergy pill; agreed to Claritin. Staff reports that she has been pleasant and taking medications. She says she is dying to get the Heck out of here... But that the food is good Mental Status Exam Mental Status Exam Patient Appearance: Appropriate Patient Orientation: Person and Situation Level of Consciousness: Awake and Appropriate Patient Behavior: Guarded and Passive Mood Description: Withdrawn Affect Description: Constricted Patient Cognition Impaired: Yes Ability to Follow Directions: Good Speech Pattern: Clear Diagnostics Vital Signs (24Hr): Vital Signs - 24 hr 03/01/24 20:00 03/02/24 08:20 03/02/24 09:14 Temperature 97.1 F 97.8 F Pulse Rate 78 73 73 Respiratory Rate 16 20 Blood Pressure 149/72 H 136/70 136/70 Pulse Oximetry 98 98 Oxygen Delivery Method Room Air Room Air BMI result Body Mass Index 19.3 Labs 02/14/24 10:14 Medications Medications Current Medications Acetaminophen (Acetaminophen 325 Mg Tablet) 650 mg PO Q6H PRN PRN Reason: Headache/Pain Mild Scale (1-3) Al Hydroxide/Mg Hydroxide (Magnesium Hydrox/Alum Hydrox 30 Ml Oral.Susp) 30 ml PO Q6H PRN PRN Reason: Heartburn/Nausea Bisacodyl (Bisacodyl 10 Mg Supp.Rect) 10 mg [place] BEDTIME PRN PRN Reason: Constipation Last Admin: 02/23/24 10:05 Dose: 10 mg Loratadine (Loratadine 10 Mg Tablet) 10 mg PO DAILY [facility] Magnesium Hydroxide (Milk Of Magnesia 30 Ml Oral.Susp) 30 ml PO DAILY PRN PRN Reason: Constipation Memantine (Memantine Hcl 5 Mg Tablet) 5 mg PO BID [facility] Last Admin: 03/02/24 09:14 Dose: 5 mg Metoprolol Succinate (Metoprolol Succinate Er 100 Mg Tab.Er.24h) 100 mg PO DAILY [facility]; Protocol Last Admin: 03/02/24 09:14 Dose: 100 mg Risperidone (Risperidone 0.25 Mg Tablet) 0.25 mg PO DAILY PRN PRN Reason: Anxiety Risperidone (Risperidone 2 Mg Tablet) 2 mg PO BEDTIME [facility] Last Admin: 03/01/24 20:21 Dose: 2 mg Trazodone HCl (Trazodone Hcl 50 Mg Tablet) 50 mg PO BEDTIME MRX1 PRN PRN Reason: Insomnia Last Admin: 02/26/24 20:28 Dose: 50 mg Allergies Allergies Allergy/AdvReac Type Severity Reaction Status Date / Time No Known Allergies Allergy Verified 10/20/23 20:47 Assessment & Plan Assessment & Plan (1) Major neurocognitive disorder: Status: Acute Code(s): F03.90 - Unspecified dementia, unspecified severity, without behavioral disturbance, psychotic disturbance, mood disturbance, and anxiety Assessment and Plan: 79-year-old female with history of hypertension admitted to Geriatric Psychiatry with consult placed hospitalist service for medical H and P. #Mood disorder/paranoia -plan per Psychiatry #Dementia -plan per Psychiatry # CKD stage 3 -renal function baseline #HTN -resume metoprolol am Plan Plan 03/01 continue current medications. VS stable. 03/02 added Claritin Patient educated on: diagnosis and medical condition Informed Consent: understands, does not understand and further education needed Reason for continued inpatient stay Substantial Risk for: rapid decompensation Time Spent With Patient Time: Total time managing care of this patient today ____ minutes.
[2024-03-02 20:00] VITALS: BP 144/71; PULSE 83; RESP 17; TEMP 36.6; O2SAT 97
[2024-03-02] MEDS: risperiDONE 2 MG TABLET PO (20:43)
[2024-03-03 10:42] VITALS: BP 117/57; PULSE 77; RESP 18; TEMP 36.5; O2SAT 97
[2024-03-03] MEDS: Memantine HCl 5 MG TABLET PO ×2 (10:59→20:12)
[2024-03-03] MEDS: Loratadine 10 MG TABLET PO (10:59)
--- NOTE | 2024-03-03 18:38 | HO.PSYCHPN ---
Subjective Subjective Date of Service: 03/03/24 Reason For Visit: Psychosis Interim History: Met with patient; discussed with team Patient remains pleasant and calm on approach. Taking medication. Thankful for Carmela added Mental Status Exam Mental Status Exam Patient Appearance: Appropriate Patient Orientation: Person and Situation Level of Consciousness: Awake and Appropriate Patient Behavior: Guarded and Passive Mood Description: Withdrawn Affect Description: Constricted Patient Cognition Impaired: Yes Ability to Follow Directions: Good Speech Pattern: Clear Diagnostics Vital Signs (24Hr): Vital Signs - 24 hr 03/02/24 20:00 03/03/24 10:42 Temperature 97.8 F 97.7 F Pulse Rate 83 77 Respiratory Rate 17 18 Blood Pressure 144/71 H 117/57 L Pulse Oximetry 97 97 Oxygen Delivery Method Room Air Room Air BMI result Body Mass Index 19.3 Labs 02/14/24 10:14 Medications Medications Current Medications Acetaminophen (Acetaminophen 325 Mg Tablet) 650 mg PO Q6H PRN PRN Reason: Headache/Pain Mild Scale (1-3) Al Hydroxide/Mg Hydroxide (Magnesium Hydrox/Alum Hydrox 30 Ml Oral.Susp) 30 ml PO Q6H PRN PRN Reason: Heartburn/Nausea Bisacodyl (Bisacodyl 10 Mg Supp.Rect) 10 mg [place] BEDTIME PRN PRN Reason: Constipation Last Admin: 02/23/24 10:05 Dose: 10 mg Loratadine (Loratadine 10 Mg Tablet) 10 mg PO DAILY [facility] Last Admin: 03/03/24 10:59 Dose: 10 mg Magnesium Hydroxide (Milk Of Magnesia 30 Ml Oral.Susp) 30 ml PO DAILY PRN PRN Reason: Constipation Memantine (Memantine Hcl 5 Mg Tablet) 5 mg PO BID [facility] Last Admin: 03/03/24 10:59 Dose: 5 mg Metoprolol Succinate (Metoprolol Succinate Er 100 Mg Tab.Er.24h) 100 mg PO DAILY [facility]; Protocol Last Admin: 03/03/24 11:00 Dose: Not Given Risperidone (Risperidone 0.25 Mg Tablet) 0.25 mg PO DAILY PRN PRN Reason: Anxiety Risperidone (Risperidone 2 Mg Tablet) 2 mg PO BEDTIME [facility] Last Admin: 03/02/24 20:43 Dose: 2 mg Trazodone HCl (Trazodone Hcl 50 Mg Tablet) 50 mg PO BEDTIME MRX1 PRN PRN Reason: Insomnia Last Admin: 02/26/24 20:28 Dose: 50 mg Allergies Allergies Allergy/AdvReac Type Severity Reaction Status Date / Time No Known Allergies Allergy Verified 10/20/23 20:47 Assessment & Plan Assessment & Plan (1) Major neurocognitive disorder: Status: Acute Code(s): F03.90 - Unspecified dementia, unspecified severity, without behavioral disturbance, psychotic disturbance, mood disturbance, and anxiety Assessment and Plan: 79-year-old female with history of hypertension admitted to Geriatric Psychiatry with consult placed hospitalist service for medical H and P. #Mood disorder/paranoia -plan per Psychiatry #Dementia -plan per Psychiatry # CKD stage 3 -renal function baseline #HTN -resume metoprolol am Plan Plan 03/01 continue current medications. VS stable. 03/02 added Claritin Patient educated on: medical condition Informed Consent: understands Reason for continued inpatient stay Substantial Risk for: rapid decompensation Time Spent With Patient Time: Total time managing care of this patient today ____ minutes.
[2024-03-03] MEDS: risperiDONE 2 MG TABLET PO (20:12)
[2024-03-03 20:40] VITALS: BP 115/59; PULSE 82; RESP 16; TEMP 36.1; O2SAT 97
[2024-03-04 08:27] VITALS: BP 130/62; PULSE 77; RESP 16; TEMP 36; O2SAT 97
[2024-03-04] MEDS: Loratadine 10 MG TABLET PO (08:29)
[2024-03-04] MEDS: Memantine HCl 5 MG TABLET PO ×2 (08:29→19:43)
[2024-03-04] MEDS: Metoprolol Succinate ER 100 MG TAB.ER.24H PO (08:29)
--- NOTE | 2024-03-04 14:52 | P.PNPSI_ITS ---
Subjective Subjective Date of Service: 03/04/24 Reason For Visit: Psychosis Subjective Notes: Section 7, Section 8 and Conditional Voluntary Interim History: The nursing staff reported the patient remains suspicious but less psychotic than before. Information of healthcare proxy soon process. On interview the patient denies new symptoms, she wants to be discharged looks confused at times. Mental Status Exam Mental Status Exam Patient Appearance: Appropriate Patient Orientation: Person and Situation Level of Consciousness: Awake and Appropriate Patient Behavior: Guarded and Passive Mood Description: Withdrawn Affect Description: Constricted Patient Cognition Impaired: Yes Ability to Follow Directions: Good Speech Pattern: Clear Hallucinations: None Delusions: Paranoid Ideation Thought Process: Distracted and Slowed Thinking Thought Content: positive for [employer] and positive for Poverty of Content Judgement: Fair Diagnostics Vital Signs (24Hr): Vital Signs - 24 hr 03/03/24 20:40 03/04/24 08:27 Temperature 97 F 96.8 F Pulse Rate 82 77 Respiratory Rate 16 16 Blood Pressure 115/59 L 130/62 Pulse Oximetry 97 97 Oxygen Delivery Method Room Air Room Air BMI result Body Mass Index 19.3 Labs 02/14/24 10:14 Medications Medications Current Medications Acetaminophen (Acetaminophen 325 Mg Tablet) 650 mg PO Q6H PRN PRN Reason: Headache/Pain Mild Scale (1-3) Al Hydroxide/Mg Hydroxide (Magnesium Hydrox/Alum Hydrox 30 Ml Oral.Susp) 30 ml PO Q6H PRN PRN Reason: Heartburn/Nausea Bisacodyl (Bisacodyl 10 Mg Supp.Rect) 10 mg [place] BEDTIME PRN PRN Reason: Constipation Last Admin: 02/23/24 10:05 Dose: 10 mg Loratadine (Loratadine 10 Mg Tablet) 10 mg PO DAILY [facility] Last Admin: 03/04/24 08:29 Dose: 10 mg Magnesium Hydroxide (Milk Of Magnesia 30 Ml Oral.Susp) 30 ml PO DAILY PRN PRN Reason: Constipation Memantine (Memantine Hcl 5 Mg Tablet) 5 mg PO BID [facility] Last Admin: 03/04/24 08:29 Dose: 5 mg Metoprolol Succinate (Metoprolol Succinate Er 100 Mg Tab.Er.24h) 100 mg PO DAILY [facility]; Protocol Last Admin: 03/04/24 08:29 Dose: 100 mg Risperidone (Risperidone 0.25 Mg Tablet) 0.25 mg PO DAILY PRN PRN Reason: Anxiety Risperidone (Risperidone 2 Mg Tablet) 2 mg PO BEDTIME [facility] Last Admin: 03/03/24 20:12 Dose: 2 mg Trazodone HCl (Trazodone Hcl 50 Mg Tablet) 50 mg PO BEDTIME MRX1 PRN PRN Reason: Insomnia Last Admin: 02/26/24 20:28 Dose: 50 mg Allergies Allergies Allergy/AdvReac Type Severity Reaction Status Date / Time No Known Allergies Allergy Verified 10/20/23 20:47 Assessment & Plan Assessment & Plan (1) Major neurocognitive disorder: Status: Acute Code(s): F03.90 - Unspecified dementia, unspecified severity, without behavioral disturbance, psychotic disturbance, mood disturbance, and anxiety Assessment and Plan: 79-year-old female with history of hypertension admitted to Geriatric Psychiatry with consult placed hospitalist service for medical H and P. #Mood disorder/paranoia -plan per Psychiatry #Dementia -plan per Psychiatry # CKD stage 3 -renal function baseline #HTN -resume metoprolol am Plan Plan 1. Continue with Risperdal and Namenda. 2. Information of healthcare proxy. 3. Start working on discharge planning. Reason for continued inpatient stay Substantial Risk for: inability to function, rapid decompensation and med/psych decompensation Time Spent With Patient Time: Total time managing care of this patient today _20___ minutes.
[2024-03-04] MEDS: risperiDONE 2 MG TABLET PO (19:43)
[2024-03-04] MEDS: traZODone HCL 50 MG TABLET PO (19:44)
[2024-03-04 20:00] VITALS: BP 135/65; PULSE 82; RESP 16; TEMP 35.9; O2SAT 97
[2024-03-05 09:33] VITALS: BP 110/59; PULSE 74; RESP 18; TEMP 36; O2SAT 94
[2024-03-05] MEDS: Metoprolol Succinate ER 100 MG TAB.ER.24H PO (09:35)
[2024-03-05] MEDS: Loratadine 10 MG TABLET PO (09:36)
[2024-03-05] MEDS: Memantine HCl 5 MG TABLET PO ×2 (09:36→20:43)
--- NOTE | 2024-03-05 16:41 | HO.PSYCHPN ---
Subjective Subjective Date of Service: 03/05/24 Reason For Visit: Psychosis Subjective Notes: Conditional Voluntary Interim History: The nursing staff reported the patient showed a better affect brighter confused at times but easily redirectable. She slept 8 hours. The psychiatric social worker reported that we are still working on information her healthcare proxy. On interview the patient denies new symptoms, pleasantly confused easily redirectable. Mental Status Exam Mental Status Exam Patient Appearance: Appropriate Patient Orientation: Person and Situation Level of Consciousness: Awake and Appropriate Patient Behavior: Guarded and Passive Mood Description: Withdrawn Affect Description: Constricted Patient Cognition Impaired: Yes Ability to Follow Directions: Good Speech Pattern: Clear Hallucinations: None Delusions: Ideas of Reference Thought Process: Distracted and Slowed Thinking Thought Content: positive for [place] and positive for Poverty of Content Judgement: Fair Diagnostics Vital Signs (24Hr): Vital Signs - 24 hr 03/04/24 20:00 03/05/24 09:33 Temperature 96.6 F L 96.8 F Pulse Rate 82 74 Respiratory Rate 16 18 Blood Pressure 135/65 110/59 L Pulse Oximetry 97 94 Oxygen Delivery Method Room Air Room Air BMI result Body Mass Index 19.3 Labs 02/14/24 10:14 Medications Medications Current Medications Acetaminophen (Acetaminophen 325 Mg Tablet) 650 mg PO Q6H PRN PRN Reason: Headache/Pain Mild Scale (1-3) Al Hydroxide/Mg Hydroxide (Magnesium Hydrox/Alum Hydrox 30 Ml Oral.Susp) 30 ml PO Q6H PRN PRN Reason: Heartburn/Nausea Bisacodyl (Bisacodyl 10 Mg Supp.Rect) 10 mg [place] BEDTIME PRN PRN Reason: Constipation Last Admin: 02/23/24 10:05 Dose: 10 mg Loratadine (Loratadine 10 Mg Tablet) 10 mg PO DAILY [facility] Last Admin: 03/05/24 09:36 Dose: 10 mg Magnesium Hydroxide (Milk Of Magnesia 30 Ml Oral.Susp) 30 ml PO DAILY PRN PRN Reason: Constipation Memantine (Memantine Hcl 5 Mg Tablet) 5 mg PO BID [facility] Last Admin: 03/05/24 09:36 Dose: 5 mg Metoprolol Succinate (Metoprolol Succinate Er 100 Mg Tab.Er.24h) 100 mg PO DAILY [facility]; Protocol Last Admin: 03/05/24 09:35 Dose: 100 mg Risperidone (Risperidone 0.25 Mg Tablet) 0.25 mg PO DAILY PRN PRN Reason: Anxiety Risperidone (Risperidone 2 Mg Tablet) 2 mg PO BEDTIME [facility] Last Admin: 03/04/24 19:43 Dose: 2 mg Trazodone HCl (Trazodone Hcl 50 Mg Tablet) 50 mg PO BEDTIME MRX1 PRN PRN Reason: Insomnia Last Admin: 03/04/24 19:44 Dose: 50 mg Allergies Allergies Allergy/AdvReac Type Severity Reaction Status Date / Time No Known Allergies Allergy Verified 10/20/23 20:47 Assessment & Plan Assessment & Plan (1) Major neurocognitive disorder: Status: Acute Code(s): F03.90 - Unspecified dementia, unspecified severity, without behavioral disturbance, psychotic disturbance, mood disturbance, and anxiety Assessment and Plan: 79-year-old female with history of hypertension admitted to Geriatric Psychiatry with consult placed hospitalist service for medical H and P. #Mood disorder/paranoia -plan per Psychiatry #Dementia -plan per Psychiatry # CKD stage 3 -renal function baseline #HTN -resume metoprolol am Plan Plan 1. Continue with Risperdal and Namenda. 2. Information of healthcare proxy. 3. Start working on discharge planning. Reason for continued inpatient stay Substantial Risk for: inability to function, rapid decompensation and med/psych decompensation Time Spent With Patient Time: Total time managing care of this patient today __20__ minutes.
[2024-03-05 20:00] VITALS: BP 112/60; PULSE 81; RESP 16; TEMP 36.4; O2SAT 94
[2024-03-05] MEDS: risperiDONE 2 MG TABLET PO (20:43)
[2024-03-06 08:39] VITALS: BP 115/56; PULSE 82; RESP 15; TEMP 36.9; O2SAT 97
[2024-03-06] MEDS: Memantine HCl 5 MG TABLET PO ×2 (08:40→20:15)
[2024-03-06] MEDS: Metoprolol Succinate ER 100 MG TAB.ER.24H PO (08:40)
[2024-03-06] MEDS: Loratadine 10 MG TABLET PO (08:40)
--- NOTE | 2024-03-06 14:13 | HO.PSYCHPN ---
Subjective Subjective Date of Service: 03/06/24 Reason For Visit: Psychosis Subjective Notes: Conditional Voluntary Interim History: The nursing staff reported the patient has brighter affect she looks more organized. The occupational therapist reported that she has participate much better on groups. On interview the patient is pleasantly confused easily redirectable. Mental Status Exam Mental Status Exam Patient Appearance: Appropriate Patient Orientation: Person and Situation Level of Consciousness: Awake and Appropriate Patient Behavior: Guarded and Passive Mood Description: Withdrawn Affect Description: Constricted Patient Cognition Impaired: Yes Ability to Follow Directions: Good Speech Pattern: Clear Hallucinations: None Delusions: Paranoid Ideation and Ideas of Reference Thought Process: Distracted and Slowed Thinking Thought Content: positive for [place] and positive for Poverty of Content Judgement: Fair Diagnostics Vital Signs (24Hr): Vital Signs - 24 hr 03/05/24 20:00 03/06/24 08:39 Temperature 97.5 F 98.5 F Pulse Rate 81 82 Respiratory Rate 16 15 Blood Pressure 112/60 115/56 L Pulse Oximetry 94 97 Oxygen Delivery Method Room Air Room Air BMI result Body Mass Index 19.3 Labs 02/14/24 10:14 Medications Medications Current Medications Acetaminophen (Acetaminophen 325 Mg Tablet) 650 mg PO Q6H PRN PRN Reason: Headache/Pain Mild Scale (1-3) Al Hydroxide/Mg Hydroxide (Magnesium Hydrox/Alum Hydrox 30 Ml Oral.Susp) 30 ml PO Q6H PRN PRN Reason: Heartburn/Nausea Bisacodyl (Bisacodyl 10 Mg Supp.Rect) 10 mg [place] BEDTIME PRN PRN Reason: Constipation Last Admin: 02/23/24 10:05 Dose: 10 mg Loratadine (Loratadine 10 Mg Tablet) 10 mg PO DAILY [facility] Last Admin: 03/06/24 08:40 Dose: 10 mg Magnesium Hydroxide (Milk Of Magnesia 30 Ml Oral.Susp) 30 ml PO DAILY PRN PRN Reason: Constipation Memantine (Memantine Hcl 5 Mg Tablet) 5 mg PO BID [facility] Last Admin: 03/06/24 08:40 Dose: 5 mg Metoprolol Succinate (Metoprolol Succinate Er 100 Mg Tab.Er.24h) 100 mg PO DAILY [facility]; Protocol Last Admin: 03/06/24 08:40 Dose: 100 mg Risperidone (Risperidone 0.25 Mg Tablet) 0.25 mg PO DAILY PRN PRN Reason: Anxiety Risperidone (Risperidone 2 Mg Tablet) 2 mg PO BEDTIME [facility] Last Admin: 03/05/24 20:43 Dose: 2 mg Trazodone HCl (Trazodone Hcl 50 Mg Tablet) 50 mg PO BEDTIME MRX1 PRN PRN Reason: Insomnia Last Admin: 03/04/24 19:44 Dose: 50 mg Allergies Allergies Allergy/AdvReac Type Severity Reaction Status Date / Time No Known Allergies Allergy Verified 10/20/23 20:47 Assessment & Plan Assessment & Plan (1) Major neurocognitive disorder: Status: Acute Code(s): F03.90 - Unspecified dementia, unspecified severity, without behavioral disturbance, psychotic disturbance, mood disturbance, and anxiety Assessment and Plan: 79-year-old female with history of hypertension admitted to Geriatric Psychiatry with consult placed hospitalist service for medical H and P. #Mood disorder/paranoia -plan per Psychiatry #Dementia -plan per Psychiatry # CKD stage 3 -renal function baseline #HTN -resume metoprolol am Plan Plan 1. Continue with Risperdal and Namenda. 2. Information of healthcare proxy. 3. Start working on discharge planning. Reason for continued inpatient stay Substantial Risk for: inability to function, rapid decompensation and med/psych decompensation Time Spent With Patient Time: Total time managing care of this patient today _20___ minutes.
[2024-03-06 20:00] VITALS: BP 145/70; PULSE 72; RESP 16; TEMP 36.1; O2SAT 96
[2024-03-06] MEDS: risperiDONE 2 MG TABLET PO (20:15)
[2024-03-07 07:00] VITALS: BMI 20.4
[2024-03-07 08:05] VITALS: BP 111/61; PULSE 74; RESP 16; TEMP 36.3; O2SAT 95
[2024-03-07 08:55] VITALS: BP 111/61; PULSE 74
[2024-03-07] MEDS: Metoprolol Succinate ER 100 MG TAB.ER.24H PO (08:55)
[2024-03-07] MEDS: Loratadine 10 MG TABLET PO (08:55)
[2024-03-07] MEDS: Memantine HCl 5 MG TABLET PO ×2 (08:55→20:17)
--- NOTE | 2024-03-07 15:15 | P.PNPSI_ITS ---
Subjective Subjective Date of Service: 03/07/24 Reason For Visit: Psychosis Interim History: no questions or complaints. calm, pleasant. per staff, psychotic. variable affect. cheerful, social. awaiting placement. Mental Status Exam Mental Status Exam Patient Appearance: Appropriate Patient Orientation: Person and Situation Level of Consciousness: Awake and Appropriate Patient Behavior: Guarded and Passive Mood Description: Withdrawn Affect Description: Constricted Patient Cognition Impaired: Yes Ability to Follow Directions: Good Speech Pattern: Clear Hallucinations: None Delusions: Paranoid Ideation and Ideas of Reference Thought Process: Distracted and Slowed Thinking Thought Content: positive for [place] and positive for Poverty of Content Judgement: Fair Diagnostics Vital Signs (24Hr): Vital Signs - 24 hr 03/06/24 20:00 03/07/24 08:05 03/07/24 08:55 Temperature 96.9 F 97.4 F Pulse Rate 72 74 74 Respiratory Rate 16 16 Blood Pressure 145/70 H 111/61 111/61 Pulse Oximetry 96 95 Oxygen Delivery Method Room Air Room Air BMI result Body Mass Index 20.4 Labs 02/14/24 10:14 Medications Medications Current Medications Acetaminophen (Acetaminophen 325 Mg Tablet) 650 mg PO Q6H PRN PRN Reason: Headache/Pain Mild Scale (1-3) Al Hydroxide/Mg Hydroxide (Magnesium Hydrox/Alum Hydrox 30 Ml Oral.Susp) 30 ml PO Q6H PRN PRN Reason: Heartburn/Nausea Bisacodyl (Bisacodyl 10 Mg Supp.Rect) 10 mg [place] BEDTIME PRN PRN Reason: Constipation Last Admin: 02/23/24 10:05 Dose: 10 mg Loratadine (Loratadine 10 Mg Tablet) 10 mg PO DAILY [facility] Last Admin: 03/07/24 08:55 Dose: 10 mg Magnesium Hydroxide (Milk Of Magnesia 30 Ml Oral.Susp) 30 ml PO DAILY PRN PRN Reason: Constipation Memantine (Memantine Hcl 5 Mg Tablet) 5 mg PO BID [facility] Last Admin: 03/07/24 08:55 Dose: 5 mg Metoprolol Succinate (Metoprolol Succinate Er 100 Mg Tab.Er.24h) 100 mg PO DAILY [facility]; Protocol Last Admin: 03/07/24 08:55 Dose: 100 mg Risperidone (Risperidone 0.25 Mg Tablet) 0.25 mg PO DAILY PRN PRN Reason: Anxiety Risperidone (Risperidone 2 Mg Tablet) 2 mg PO BEDTIME [facility] Last Admin: 03/06/24 20:15 Dose: 2 mg Trazodone HCl (Trazodone Hcl 50 Mg Tablet) 50 mg PO BEDTIME MRX1 PRN PRN Reason: Insomnia Last Admin: 03/04/24 19:44 Dose: 50 mg Allergies Allergies Allergy/AdvReac Type Severity Reaction Status Date / Time No Known Allergies Allergy Verified 10/20/23 20:47 Assessment & Plan Assessment & Plan (1) Major neurocognitive disorder: Status: Acute Code(s): F03.90 - Unspecified dementia, unspecified severity, without behavioral disturbance, psychotic disturbance, mood disturbance, and anxiety Assessment and Plan: 79-year-old female with history of hypertension admitted to Geriatric Psychiatry with consult placed hospitalist service for medical H and P. #Mood disorder/paranoia -plan per Psychiatry #Dementia -plan per Psychiatry # CKD stage 3 -renal function baseline #HTN -resume metoprolol am Plan Plan 1. Continue with Risperdal and Namenda. 2. Information of healthcare proxy. 3. Start working on discharge planning. Reason for continued inpatient stay Substantial Risk for: inability to function Time Spent With Patient Time: Total time managing care of this patient today ____ minutes.
[2024-03-07 20:00] VITALS: BP 116/55; PULSE 76; RESP 16; TEMP 36.2; O2SAT 96
[2024-03-07] MEDS: risperiDONE 2 MG TABLET PO (20:17)
[2024-03-07] MEDS: traZODone HCL 50 MG TABLET PO (20:17)
--- NOTE | 2024-03-08 07:52 | HO.PSYCHPN ---
Subjective Subjective Date of Service: 03/08/24 Reason For Visit: Psychosis Subjective Notes: Conditional Voluntary Healthcare Proxy: Yes Interim History: Pt slept through the night. She presents as much less psychotic and paranoid. She smiles and is pleasant on approach. No insight into cognitive impairments but agreeing with tx. No behavioral concerns. takes medications as prescribed. Review of Systems Review of Systems Yes all other systems are reviewed and are negative and Other (Unable to obtain) Mental Status Exam Mental Status Exam Patient Appearance: Appropriate Patient Orientation: Person and Situation Level of Consciousness: Awake and Appropriate Patient Behavior: Guarded and Passive Mood Description: Withdrawn Affect Description: Constricted Patient Cognition Impaired: Yes Ability to Follow Directions: Good Speech Pattern: Clear Diagnostics Vital Signs (24Hr): Vital Signs - 24 hr 03/07/24 08:05 03/07/24 08:55 03/07/24 20:00 Temperature 97.4 F 97.1 F Pulse Rate 74 74 76 Respiratory Rate 16 16 Blood Pressure 111/61 111/61 116/55 L Pulse Oximetry 95 96 Oxygen Delivery Method Room Air Room Air BMI result Body Mass Index 20.4 Labs 02/14/24 10:14 Medications Medications Current Medications Acetaminophen (Acetaminophen 325 Mg Tablet) 650 mg PO Q6H PRN PRN Reason: Headache/Pain Mild Scale (1-3) Al Hydroxide/Mg Hydroxide (Magnesium Hydrox/Alum Hydrox 30 Ml Oral.Susp) 30 ml PO Q6H PRN PRN Reason: Heartburn/Nausea Bisacodyl (Bisacodyl 10 Mg Supp.Rect) 10 mg [place] BEDTIME PRN PRN Reason: Constipation Last Admin: 02/23/24 10:05 Dose: 10 mg Loratadine (Loratadine 10 Mg Tablet) 10 mg PO DAILY [facility] Last Admin: 03/07/24 08:55 Dose: 10 mg Magnesium Hydroxide (Milk Of Magnesia 30 Ml Oral.Susp) 30 ml PO DAILY PRN PRN Reason: Constipation Memantine (Memantine Hcl 5 Mg Tablet) 5 mg PO BID [facility] Last Admin: 03/07/24 20:17 Dose: 5 mg Metoprolol Succinate (Metoprolol Succinate Er 100 Mg Tab.Er.24h) 100 mg PO DAILY [facility]; Protocol Last Admin: 03/07/24 08:55 Dose: 100 mg Risperidone (Risperidone 0.25 Mg Tablet) 0.25 mg PO DAILY PRN PRN Reason: Anxiety Risperidone (Risperidone 2 Mg Tablet) 2 mg PO BEDTIME [facility] Last Admin: 03/07/24 20:17 Dose: 2 mg Trazodone HCl (Trazodone Hcl 50 Mg Tablet) 50 mg PO BEDTIME MRX1 PRN PRN Reason: Insomnia Last Admin: 03/07/24 20:17 Dose: 50 mg Allergies Allergies Allergy/AdvReac Type Severity Reaction Status Date / Time No Known Allergies Allergy Verified 10/20/23 20:47 Assessment & Plan Assessment & Plan (1) Major neurocognitive disorder: Status: Acute Code(s): F03.90 - Unspecified dementia, unspecified severity, without behavioral disturbance, psychotic disturbance, mood disturbance, and anxiety Assessment and Plan: 79-year-old female with history of hypertension admitted to Geriatric Psychiatry with consult placed hospitalist service for medical H and P. #Mood disorder/paranoia -plan per Psychiatry #Dementia -plan per Psychiatry # CKD stage 3 -renal function baseline #HTN -resume metoprolol am Plan Plan 1. Continue with Risperdal and Namenda. 2. Information of healthcare proxy. 3. Start working on discharge planning. Reason for continued inpatient stay Substantial Risk for: inability to function Time Spent With Patient Time: Total time managing care of this patient today ____ minutes.
[2024-03-08 08:56] VITALS: BP 115/61; PULSE 78; RESP 18; TEMP 36.4; O2SAT 96
[2024-03-08] MEDS: Metoprolol Succinate ER 100 MG TAB.ER.24H PO (08:57)
[2024-03-08] MEDS: Loratadine 10 MG TABLET PO (08:57)
[2024-03-08] MEDS: Memantine HCl 5 MG TABLET PO ×2 (08:57→20:20)
[2024-03-08 20:00] VITALS: BP 140/66; PULSE 72; RESP 16; TEMP 36.8; O2SAT 97
[2024-03-08] MEDS: risperiDONE 2 MG TABLET PO (20:20)
[2024-03-09 08:47] VITALS: BP 106/58; PULSE 76; RESP 16; TEMP 36.1; O2SAT 97
--- NOTE | 2024-03-09 09:10 | P.PNPSI_ITS ---
Subjective Subjective Date of Service: 03/09/24 Reason For Visit: Psychosis Interim History: No behavioral concerns. Compliant with treatment. Guarded but pleasant and cooperative. Takes medications as prescribed. Sleep is good. No SI. Review of Systems Review of Systems Yes all other systems are reviewed and are negative and Other (Unable to obtain) Mental Status Exam Mental Status Exam Patient Appearance: Appropriate Patient Orientation: Person and Situation Level of Consciousness: Awake and Appropriate Patient Behavior: Guarded and Passive Mood Description: Withdrawn Affect Description: Constricted Patient Cognition Impaired: Yes Ability to Follow Directions: Good Speech Pattern: Clear Diagnostics Vital Signs (24Hr): Vital Signs - 24 hr 03/08/24 20:00 03/09/24 08:47 Temperature 98.2 F 96.9 F Pulse Rate 72 76 Respiratory Rate 16 16 Blood Pressure 140/66 H 106/58 L Pulse Oximetry 97 97 Oxygen Delivery Method Room Air Room Air BMI result Body Mass Index 20.4 Labs 02/14/24 10:14 Medications Medications Current Medications Acetaminophen (Acetaminophen 325 Mg Tablet) 650 mg PO Q6H PRN PRN Reason: Headache/Pain Mild Scale (1-3) Al Hydroxide/Mg Hydroxide (Magnesium Hydrox/Alum Hydrox 30 Ml Oral.Susp) 30 ml PO Q6H PRN PRN Reason: Heartburn/Nausea Bisacodyl (Bisacodyl 10 Mg Supp.Rect) 10 mg [place] BEDTIME PRN PRN Reason: Constipation Last Admin: 02/23/24 10:05 Dose: 10 mg Loratadine (Loratadine 10 Mg Tablet) 10 mg PO DAILY [facility] Last Admin: 03/08/24 08:57 Dose: 10 mg Magnesium Hydroxide (Milk Of Magnesia 30 Ml Oral.Susp) 30 ml PO DAILY PRN PRN Reason: Constipation Memantine (Memantine Hcl 5 Mg Tablet) 5 mg PO BID [facility] Last Admin: 03/08/24 20:20 Dose: 5 mg Metoprolol Succinate (Metoprolol Succinate Er 100 Mg Tab.Er.24h) 100 mg PO DAILY [facility]; Protocol Last Admin: 03/08/24 08:57 Dose: 100 mg Risperidone (Risperidone 0.25 Mg Tablet) 0.25 mg PO DAILY PRN PRN Reason: Anxiety Risperidone (Risperidone 2 Mg Tablet) 2 mg PO BEDTIME [facility] Last Admin: 03/08/24 20:20 Dose: 2 mg Trazodone HCl (Trazodone Hcl 50 Mg Tablet) 50 mg PO BEDTIME MRX1 PRN PRN Reason: Insomnia Last Admin: 03/07/24 20:17 Dose: 50 mg Allergies Allergies Allergy/AdvReac Type Severity Reaction Status Date / Time No Known Allergies Allergy Verified 10/20/23 20:47 Assessment & Plan Assessment & Plan (1) Major neurocognitive disorder: Status: Acute Code(s): F03.90 - Unspecified dementia, unspecified severity, without behavioral disturbance, psychotic disturbance, mood disturbance, and anxiety Assessment and Plan: 79-year-old female with history of hypertension admitted to Geriatric Psychiatry with consult placed hospitalist service for medical H and P. #Mood disorder/paranoia -plan per Psychiatry #Dementia -plan per Psychiatry # CKD stage 3 -renal function baseline #HTN -resume metoprolol am Plan Plan 1. Continue with Risperdal and Namenda. 2. Information of healthcare proxy. 3. Start working on discharge planning. 03/09: continue current management and treatment plan. Reason for continued inpatient stay Substantial Risk for: inability to function, rapid decompensation and med/psych decompensation Time Spent With Patient Time: Total time managing care of this patient today ____ minutes.
[2024-03-09] MEDS: Metoprolol Succinate ER 100 MG TAB.ER.24H PO (09:19)
[2024-03-09] MEDS: Loratadine 10 MG TABLET PO (09:19)
[2024-03-09] MEDS: Memantine HCl 5 MG TABLET PO ×2 (09:19→20:22)
[2024-03-09 20:00] VITALS: BP 152/68; PULSE 82; RESP 16; TEMP 36.4; O2SAT 93
[2024-03-09] MEDS: risperiDONE 2 MG TABLET PO (20:22)
[2024-03-10 09:03] VITALS: BP 140/66; PULSE 80; RESP 18; TEMP 36; O2SAT 96
[2024-03-10] MEDS: Loratadine 10 MG TABLET PO (09:12)
[2024-03-10] MEDS: Memantine HCl 5 MG TABLET PO ×2 (09:12→20:16)
[2024-03-10] MEDS: Metoprolol Succinate ER 100 MG TAB.ER.24H PO (09:12)
--- NOTE | 2024-03-10 11:39 | HO.PSYCHPN ---
Subjective Subjective Date of Service: 03/10/24 Reason For Visit: Psychosis Interim History: No behavioral concerns. Compliant with treatment. More visible on the unit. Guarded but pleasant and cooperative. Takes medications as prescribed. Sleep is good. No SI. Review of Systems Review of Systems Yes all other systems are reviewed and are negative and Other (Unable to obtain) Mental Status Exam Mental Status Exam Patient Appearance: Appropriate Patient Orientation: Person and Situation Level of Consciousness: Awake and Appropriate Patient Behavior: Guarded and Passive Mood Description: Withdrawn Affect Description: Constricted Patient Cognition Impaired: Yes Ability to Follow Directions: Good Speech Pattern: Clear Diagnostics Vital Signs (24Hr): Vital Signs - 24 hr 03/09/24 20:00 03/10/24 09:03 Temperature 97.6 F 96.8 F Pulse Rate 82 80 Respiratory Rate 16 18 Blood Pressure 152/68 H 140/66 H Pulse Oximetry 93 96 Oxygen Delivery Method Room Air Room Air BMI result Body Mass Index 20.4 Labs 02/14/24 10:14 Medications Medications Current Medications Acetaminophen (Acetaminophen 325 Mg Tablet) 650 mg PO Q6H PRN PRN Reason: Headache/Pain Mild Scale (1-3) Al Hydroxide/Mg Hydroxide (Magnesium Hydrox/Alum Hydrox 30 Ml Oral.Susp) 30 ml PO Q6H PRN PRN Reason: Heartburn/Nausea Bisacodyl (Bisacodyl 10 Mg Supp.Rect) 10 mg [place] BEDTIME PRN PRN Reason: Constipation Last Admin: 02/23/24 10:05 Dose: 10 mg Loratadine (Loratadine 10 Mg Tablet) 10 mg PO DAILY [facility] Last Admin: 03/10/24 09:12 Dose: 10 mg Magnesium Hydroxide (Milk Of Magnesia 30 Ml Oral.Susp) 30 ml PO DAILY PRN PRN Reason: Constipation Memantine (Memantine Hcl 5 Mg Tablet) 5 mg PO BID [facility] Last Admin: 03/10/24 09:12 Dose: 5 mg Metoprolol Succinate (Metoprolol Succinate Er 100 Mg Tab.Er.24h) 100 mg PO DAILY [facility]; Protocol Last Admin: 03/10/24 09:12 Dose: 100 mg Risperidone (Risperidone 0.25 Mg Tablet) 0.25 mg PO DAILY PRN PRN Reason: Anxiety Risperidone (Risperidone 2 Mg Tablet) 2 mg PO BEDTIME [facility] Last Admin: 03/09/24 20:22 Dose: 2 mg Trazodone HCl (Trazodone Hcl 50 Mg Tablet) 50 mg PO BEDTIME MRX1 PRN PRN Reason: Insomnia Last Admin: 03/07/24 20:17 Dose: 50 mg Allergies Allergies Allergy/AdvReac Type Severity Reaction Status Date / Time No Known Allergies Allergy Verified 10/20/23 20:47 Assessment & Plan Assessment & Plan (1) Major neurocognitive disorder: Status: Acute Code(s): F03.90 - Unspecified dementia, unspecified severity, without behavioral disturbance, psychotic disturbance, mood disturbance, and anxiety Assessment and Plan: 79-year-old female with history of hypertension admitted to Geriatric Psychiatry with consult placed hospitalist service for medical H and P. #Mood disorder/paranoia -plan per Psychiatry #Dementia -plan per Psychiatry # CKD stage 3 -renal function baseline #HTN -resume metoprolol am Plan Plan 1. Continue with Risperdal and Namenda. 2. Information of healthcare proxy. 3. Start working on discharge planning. 03/09: continue current management and treatment plan. 03/10: Continue current management and treatment plan. Reason for continued inpatient stay Substantial Risk for: inability to function and rapid decompensation Time Spent With Patient Time: Total time managing care of this patient today ____ minutes.
[2024-03-10 20:00] VITALS: BP 127/73; PULSE 84; RESP 16; TEMP 36.1; O2SAT 95
[2024-03-10] MEDS: risperiDONE 2 MG TABLET PO (20:16)
[2024-03-11 08:13] VITALS: BP 142/72; PULSE 71; RESP 16; TEMP 36.2; O2SAT 96
[2024-03-11] MEDS: Metoprolol Succinate ER 100 MG TAB.ER.24H PO (08:14)
[2024-03-11] MEDS: Memantine HCl 5 MG TABLET PO ×2 (08:14→20:30)
[2024-03-11] MEDS: Loratadine 10 MG TABLET PO (08:14)
--- NOTE | 2024-03-11 16:14 | P.PNPSI_ITS ---
Subjective Subjective Date of Service: 03/11/24 Reason For Visit: Psychosis Interim History: No behavioral concerns. Compliant with treatment. More visible on the unit. Asking about going home because she wants to take care of bills. Then remembers you are trying to find me a place to live.. Pleasant and cooperative. Takes medications as prescribed. Sleep is good. No SI. Review of Systems Review of Systems Yes all other systems are reviewed and are negative and Other (Unable to obtain) Mental Status Exam Mental Status Exam Patient Appearance: Appropriate Patient Orientation: Person and Situation Level of Consciousness: Awake and Appropriate Patient Behavior: Guarded and Passive Mood Description: Withdrawn Affect Description: Constricted Patient Cognition Impaired: Yes Ability to Follow Directions: Good Speech Pattern: Clear Diagnostics Vital Signs (24Hr): Vital Signs - 24 hr 03/10/24 20:00 03/11/24 08:13 Temperature 97 F 97.1 F Pulse Rate 84 71 Respiratory Rate 16 16 Blood Pressure 127/73 142/72 H Pulse Oximetry 95 96 Oxygen Delivery Method Room Air Room Air BMI result Body Mass Index 20.4 Labs 02/14/24 10:14 Medications Medications Current Medications Acetaminophen (Acetaminophen 325 Mg Tablet) 650 mg PO Q6H PRN PRN Reason: Headache/Pain Mild Scale (1-3) Al Hydroxide/Mg Hydroxide (Magnesium Hydrox/Alum Hydrox 30 Ml Oral.Susp) 30 ml PO Q6H PRN PRN Reason: Heartburn/Nausea Bisacodyl (Bisacodyl 10 Mg Supp.Rect) [address] BEDTIME PRN PRN Reason: Constipation Last Admin: 02/23/24 10:05 Dose: 10 mg Loratadine (Loratadine 10 Mg Tablet) 10 mg PO DAILY [facility] Last Admin: 03/11/24 08:14 Dose: 10 mg Magnesium Hydroxide (Milk Of Magnesia 30 Ml Oral.Susp) 30 ml PO DAILY PRN PRN Reason: Constipation Memantine (Memantine Hcl 5 Mg Tablet) 5 mg PO BID [facility] Last Admin: 03/11/24 08:14 Dose: 5 mg Metoprolol Succinate (Metoprolol Succinate Er 100 Mg Tab.Er.24h) 100 mg PO DAILY [facility]; Protocol Last Admin: 03/11/24 08:14 Dose: 100 mg Risperidone (Risperidone 0.25 Mg Tablet) 0.25 mg PO DAILY PRN PRN Reason: Anxiety Risperidone (Risperidone 2 Mg Tablet) 2 mg PO BEDTIME [facility] Last Admin: 03/10/24 20:16 Dose: 2 mg Trazodone HCl (Trazodone Hcl 50 Mg Tablet) 50 mg PO BEDTIME MRX1 PRN PRN Reason: Insomnia Last Admin: 03/07/24 20:17 Dose: 50 mg Allergies Allergies Allergy/AdvReac Type Severity Reaction Status Date / Time No Known Allergies Allergy Verified 10/20/23 20:47 Assessment & Plan Assessment & Plan (1) Major neurocognitive disorder: Status: Acute Code(s): F03.90 - Unspecified dementia, unspecified severity, without behavioral disturbance, psychotic disturbance, mood disturbance, and anxiety Assessment and Plan: 79-year-old female with history of hypertension admitted to Geriatric Psychiatry with consult placed hospitalist service for medical H and P. #Mood disorder/paranoia -plan per Psychiatry #Dementia -plan per Psychiatry # CKD stage 3 -renal function baseline #HTN -resume metoprolol am Plan Plan 1. Continue with Risperdal and Namenda. 2. Information of healthcare proxy. 3. Start working on discharge planning. 03/09: continue current management and treatment plan. 03/10: Continue current management and treatment plan. 03/11: Continue current management and treatment plan. Reason for continued inpatient stay Substantial Risk for: inability to function and rapid decompensation Time Spent With Patient Time: Total time managing care of this patient today ____ minutes.
[2024-03-11 20:00] VITALS: BP 127/68; PULSE 75; RESP 17; TEMP 36.6; O2SAT 94
[2024-03-11] MEDS: risperiDONE 2 MG TABLET PO (20:30)
[2024-03-12 08:41] VITALS: BP 146/71; PULSE 71; RESP 16; TEMP 36.6; O2SAT 97
[2024-03-12] MEDS: Memantine HCl 5 MG TABLET PO ×2 (08:42→20:15)
[2024-03-12] MEDS: Metoprolol Succinate ER 100 MG TAB.ER.24H PO (08:42)
[2024-03-12] MEDS: Loratadine 10 MG TABLET PO (08:43)
--- NOTE | 2024-03-12 12:41 | HO.PSYCHPN ---
Subjective Subjective Date of Service: 03/12/24 Reason For Visit: Psychosis Subjective Notes: Conditional Voluntary Healthcare Proxy: Yes Interim History: The nursing staff reported the patient slept 8 hours she had been compliant with treatment. The occupational therapist reported that she has been pleasant engaging attending to groups. The marriage and family social worker reported the information of healthcare proxy still in process but we do not have a day of the hearing. On interview the patient is pleasantly confused, easily redirectable. Mental Status Exam Mental Status Exam Patient Appearance: Appropriate Patient Orientation: Person and Situation Level of Consciousness: Awake and Appropriate Patient Behavior: Guarded Mood Description: Calm Affect Description: Constricted Patient Cognition Impaired: Yes Ability to Follow Directions: Good Speech Pattern: Clear Hallucinations: None Delusions: Ideas of Reference Thought Process: Distracted and Slowed Thinking Thought Content: positive for [place] and positive for Thought Blocking Judgement: Fair Diagnostics Vital Signs (24Hr): Vital Signs - 24 hr 03/11/24 20:00 03/12/24 08:41 Temperature 97.8 F 97.9 F Pulse Rate 75 71 Respiratory Rate 17 16 Blood Pressure 127/68 146/71 H Pulse Oximetry 94 97 Oxygen Delivery Method Room Air Room Air BMI result Body Mass Index 20.4 Labs 02/14/24 10:14 Medications Medications Current Medications Acetaminophen (Acetaminophen 325 Mg Tablet) 650 mg PO Q6H PRN PRN Reason: Headache/Pain Mild Scale (1-3) Al Hydroxide/Mg Hydroxide (Magnesium Hydrox/Alum Hydrox 30 Ml Oral.Susp) 30 ml PO Q6H PRN PRN Reason: Heartburn/Nausea Bisacodyl (Bisacodyl 10 Mg Supp.Rect) 10 mg [place] BEDTIME PRN PRN Reason: Constipation Last Admin: 02/23/24 10:05 Dose: 10 mg Loratadine (Loratadine 10 Mg Tablet) 10 mg PO DAILY [facility] Last Admin: 03/12/24 08:43 Dose: 10 mg Magnesium Hydroxide (Milk Of Magnesia 30 Ml Oral.Susp) 30 ml PO DAILY PRN PRN Reason: Constipation Memantine (Memantine Hcl 5 Mg Tablet) 5 mg PO BID [facility] Last Admin: 03/12/24 08:42 Dose: 5 mg Metoprolol Succinate (Metoprolol Succinate Er 100 Mg Tab.Er.24h) 100 mg PO DAILY [facility]; Protocol Last Admin: 03/12/24 08:42 Dose: 100 mg Risperidone (Risperidone 0.25 Mg Tablet) 0.25 mg PO DAILY PRN PRN Reason: Anxiety Risperidone (Risperidone 2 Mg Tablet) 2 mg PO BEDTIME [facility] Last Admin: 03/11/24 20:30 Dose: 2 mg Trazodone HCl (Trazodone Hcl 50 Mg Tablet) 50 mg PO BEDTIME MRX1 PRN PRN Reason: Insomnia Last Admin: 03/07/24 20:17 Dose: 50 mg Allergies Allergies Allergy/AdvReac Type Severity Reaction Status Date / Time No Known Allergies Allergy Verified 10/20/23 20:47 Assessment & Plan Assessment & Plan (1) Major neurocognitive disorder: Status: Acute Code(s): F03.90 - Unspecified dementia, unspecified severity, without behavioral disturbance, psychotic disturbance, mood disturbance, and anxiety Assessment and Plan: 79-year-old female with history of hypertension admitted to Geriatric Psychiatry with consult placed hospitalist service for medical H and P. #Mood disorder/paranoia -plan per Psychiatry #Dementia -plan per Psychiatry # CKD stage 3 -renal function baseline #HTN -resume metoprolol am Plan Plan 1. Continue with Risperdal and Namenda. 2. Information of healthcare proxy. We have filed for a fair admission of healthcare proxy 3. Start working on discharge planning. Reason for continued inpatient stay Substantial Risk for: inability to function, rapid decompensation and med/psych decompensation Time Spent With Patient Time: Total time managing care of this patient today _20___ minutes.
[2024-03-12 20:00] VITALS: BP 141/79; PULSE 80; RESP 18; TEMP 36.7; O2SAT 96
[2024-03-12] MEDS: risperiDONE 2 MG TABLET PO (20:15)
[2024-03-12] MEDS: traZODone HCL 50 MG TABLET PO (20:15)
[2024-03-13 08:04] VITALS: BP 110/55; PULSE 70; RESP 19; TEMP 36.3; O2SAT 95
[2024-03-13] MEDS: Loratadine 10 MG TABLET PO (08:21)
[2024-03-13] MEDS: Metoprolol Succinate ER 100 MG TAB.ER.24H PO (08:21)
[2024-03-13] MEDS: Memantine HCl 5 MG TABLET PO ×2 (08:21→20:32)
[2024-03-13] MEDS: Acetaminophen 325 MG TABLET 650 MG PO (12:03)
--- NOTE | 2024-03-13 14:21 | P.PNPSI_ITS ---
Subjective Subjective Date of Service: 03/13/24 Reason For Visit: Psychosis Subjective Notes: Conditional Voluntary Interim History: The nursing staff reported the patient had been pleasantly confused, easily redirectable. She slept 8 hours. On interview the patient was confused, she asked about going to a facility, I explained her that the social services analyst and her family are working on a safe discharge plan. Mental Status Exam Mental Status Exam Patient Appearance: Appropriate Patient Orientation: Person and Situation Level of Consciousness: Awake and Appropriate Patient Behavior: Guarded and Passive Mood Description: Calm Affect Description: Constricted Patient Cognition Impaired: Yes Ability to Follow Directions: Good Speech Pattern: Clear Hallucinations: None Delusions: Ideas of Reference Thought Process: Distracted and Slowed Thinking Thought Content: positive for [place] and positive for Poverty of Content Judgement: Fair Diagnostics Vital Signs (24Hr): Vital Signs - 24 hr 03/12/24 20:00 03/13/24 08:04 Temperature 98.0 F 97.3 F Pulse Rate 80 70 Respiratory Rate 18 19 Blood Pressure 141/79 H 110/55 L Pulse Oximetry 96 95 Oxygen Delivery Method Room Air Room Air BMI result Body Mass Index 20.4 Labs 02/14/24 10:14 Medications Medications Current Medications Acetaminophen (Acetaminophen 325 Mg Tablet) 650 mg PO Q6H PRN PRN Reason: Headache/Pain Mild Scale (1-3) Last Admin: 03/13/24 12:03 Dose: 650 mg Al Hydroxide/Mg Hydroxide (Magnesium Hydrox/Alum Hydrox 30 Ml Oral.Susp) 30 ml PO Q6H PRN PRN Reason: Heartburn/Nausea Bisacodyl (Bisacodyl 10 Mg Supp.Rect) 10 mg [place] BEDTIME PRN PRN Reason: Constipation Last Admin: 02/23/24 10:05 Dose: 10 mg Loratadine (Loratadine 10 Mg Tablet) 10 mg PO DAILY [facility] Last Admin: 03/13/24 08:21 Dose: 10 mg Magnesium Hydroxide (Milk Of Magnesia 30 Ml Oral.Susp) 30 ml PO DAILY PRN PRN Reason: Constipation Memantine (Memantine Hcl 5 Mg Tablet) 5 mg PO BID [facility] Last Admin: 03/13/24 08:21 Dose: 5 mg Metoprolol Succinate (Metoprolol Succinate Er 100 Mg Tab.Er.24h) 100 mg PO DAILY [facility]; Protocol Last Admin: 03/13/24 08:21 Dose: 100 mg Risperidone (Risperidone 0.25 Mg Tablet) 0.25 mg PO DAILY PRN PRN Reason: Anxiety Risperidone (Risperidone 2 Mg Tablet) 2 mg PO BEDTIME [facility] Last Admin: 03/12/24 20:15 Dose: 2 mg Trazodone HCl (Trazodone Hcl 50 Mg Tablet) 50 mg PO BEDTIME MRX1 PRN PRN Reason: Insomnia Last Admin: 03/12/24 20:15 Dose: 50 mg Allergies Allergies Allergy/AdvReac Type Severity Reaction Status Date / Time No Known Allergies Allergy Verified 10/20/23 20:47 Assessment & Plan Assessment & Plan (1) Major neurocognitive disorder: Status: Acute Code(s): F03.90 - Unspecified dementia, unspecified severity, without behavioral disturbance, psychotic disturbance, mood disturbance, and anxiety Assessment and Plan: 79-year-old female with history of hypertension admitted to Geriatric Psychiatry with consult placed hospitalist service for medical H and P. #Mood disorder/paranoia -plan per Psychiatry #Dementia -plan per Psychiatry # CKD stage 3 -renal function baseline #HTN -resume metoprolol am Plan Plan 1. Continue with Risperdal and Namenda. 2. Information of healthcare proxy. We have filed for a fair admission of healthcare proxy 3. Start working on discharge planning. Reason for continued inpatient stay Substantial Risk for: inability to function, rapid decompensation and med/psych decompensation Time Spent With Patient Time: Total time managing care of this patient today __20__ minutes.
[2024-03-13 20:00] VITALS: BP 102/55; PULSE 75; RESP 18; TEMP 36.9; O2SAT 93
[2024-03-13] MEDS: risperiDONE 2 MG TABLET PO (20:32)
[2024-03-14 08:00] VITALS: BP 109/61; PULSE 82; RESP 18; TEMP 2.7; TEMP 36.9; O2SAT 94
[2024-03-14] MEDS: Memantine HCl 5 MG TABLET PO ×2 (08:44→20:54)
[2024-03-14] MEDS: Metoprolol Succinate ER 100 MG TAB.ER.24H PO (08:44)
[2024-03-14] MEDS: Loratadine 10 MG TABLET PO (08:44)
[2024-03-14 11:30] VITALS: BMI 20.9
--- NOTE | 2024-03-14 13:14 | P.PNPSI_ITS ---
Subjective Subjective Date of Service: 03/14/24 Reason For Visit: Psychosis Subjective Notes: Conditional Voluntary Interim History: The nursing staff reported the patient had been pleasant, cooperative cheerful attending to groups and slept 8 hours. The social and human services assistant reported that they have hold at least 6 [place] [facility] facilities and waiting for proper placement. On interview the patient denies new symptoms, waiting for placement. Mental Status Exam Mental Status Exam Patient Appearance: Appropriate Patient Orientation: Person and Situation Level of Consciousness: Awake and Appropriate Patient Behavior: Guarded and Passive Mood Description: Withdrawn Affect Description: Constricted Patient Cognition Impaired: Yes Ability to Follow Directions: Good Speech Pattern: Clear Hallucinations: None Delusions: Ideas of Reference Thought Process: Distracted and Slowed Thinking Thought Content: positive for [place] and positive for Poverty of Content Judgement: Fair Diagnostics Vital Signs (24Hr): Vital Signs - 24 hr 03/13/24 20:00 03/14/24 08:00 Temperature 98.4 F 36.9 F L Pulse Rate 75 82 Respiratory Rate 18 18 Blood Pressure 102/55 L 109/61 Pulse Oximetry 93 94 Oxygen Delivery Method Room Air Room Air BMI result Body Mass Index 20.9 Labs 02/14/24 10:14 Medications Medications Current Medications Acetaminophen (Acetaminophen 325 Mg Tablet) 650 mg PO Q6H PRN PRN Reason: Headache/Pain Mild Scale (1-3) Last Admin: 03/13/24 12:03 Dose: 650 mg Al Hydroxide/Mg Hydroxide (Magnesium Hydrox/Alum Hydrox 30 Ml Oral.Susp) 30 ml PO Q6H PRN PRN Reason: Heartburn/Nausea Bisacodyl (Bisacodyl 10 Mg Supp.Rect) 10 mg [place] BEDTIME PRN PRN Reason: Constipation Last Admin: 02/23/24 10:05 Dose: 10 mg Loratadine (Loratadine 10 Mg Tablet) 10 mg PO DAILY [facility] Last Admin: 03/14/24 08:44 Dose: 10 mg Magnesium Hydroxide (Milk Of Magnesia 30 Ml Oral.Susp) 30 ml PO DAILY PRN PRN Reason: Constipation Memantine (Memantine Hcl 5 Mg Tablet) 5 mg PO BID [facility] Last Admin: 03/14/24 08:44 Dose: 5 mg Metoprolol Succinate (Metoprolol Succinate Er 100 Mg Tab.Er.24h) 100 mg PO DAILY [facility]; Protocol Last Admin: 03/14/24 08:44 Dose: 100 mg Risperidone (Risperidone 0.25 Mg Tablet) 0.25 mg PO DAILY PRN PRN Reason: Anxiety Risperidone (Risperidone 2 Mg Tablet) 2 mg PO BEDTIME [facility] Last Admin: 03/13/24 20:32 Dose: 2 mg Trazodone HCl (Trazodone Hcl 50 Mg Tablet) 50 mg PO BEDTIME MRX1 PRN PRN Reason: Insomnia Last Admin: 03/12/24 20:15 Dose: 50 mg Allergies Allergies Allergy/AdvReac Type Severity Reaction Status Date / Time No Known Allergies Allergy Verified 10/20/23 20:47 Assessment & Plan Assessment & Plan (1) Major neurocognitive disorder: Status: Acute Code(s): F03.90 - Unspecified dementia, unspecified severity, without behavioral disturbance, psychotic disturbance, mood disturbance, and anxiety Assessment and Plan: 79-year-old female with history of hypertension admitted to Geriatric Psychiatry with consult placed hospitalist service for medical H and P. #Mood disorder/paranoia -plan per Psychiatry #Dementia -plan per Psychiatry # CKD stage 3 -renal function baseline #HTN -resume metoprolol am Plan Plan 1. Continue with Risperdal and Namenda. 2. Information of healthcare proxy. We have filed for a fair admission of healthcare proxy 3. Start working on discharge planning. Reason for continued inpatient stay Substantial Risk for: inability to function, rapid decompensation and med/psych decompensation Time Spent With Patient Time: Total time managing care of this patient today __20__ minutes.
[2024-03-14 20:00] VITALS: BP 102/50; PULSE 77; RESP 18; TEMP 36.2; O2SAT 95
[2024-03-14] MEDS: traZODone HCL 50 MG TABLET PO (20:54)
[2024-03-14] MEDS: risperiDONE 2 MG TABLET PO (20:54)
[2024-03-15 08:00] VITALS: BP 130/67; PULSE 73; RESP 16; TEMP 36.4; O2SAT 95
[2024-03-15] MEDS: Loratadine 10 MG TABLET PO (08:36)
[2024-03-15] MEDS: Metoprolol Succinate ER 100 MG TAB.ER.24H PO (08:36)
[2024-03-15] MEDS: Memantine HCl 5 MG TABLET PO ×2 (08:36→20:19)
--- NOTE | 2024-03-15 14:50 | HO.PSYCHPN ---
Subjective Subjective Date of Service: 03/15/24 Reason For Visit: Psychosis Subjective Notes: Conditional Voluntary Interim History: The nursing staff reported the patient had been pleasant cooperative, attended to groups slept 8 hours. The information of her healthcare proxy would be on March 21. On interview the patient denies new symptoms easily redirectable. Mental Status Exam Mental Status Exam Patient Appearance: Well Grooomed and Appropriate Patient Orientation: Person and Situation Level of Consciousness: Awake and Appropriate Patient Behavior: Guarded and Passive Mood Description: Withdrawn and Constricted Affect Description: Calm Patient Cognition Impaired: Yes Ability to Follow Directions: Good Speech Pattern: Clear Hallucinations: None Delusions: Not Present Thought Process: Distracted and Evasive Thought Content: positive for [place] and positive for Poverty of Content Judgement: Fair Diagnostics Vital Signs (24Hr): Vital Signs - 24 hr 03/14/24 20:00 03/15/24 08:00 Temperature 97.2 F 97.6 F Pulse Rate 77 73 Respiratory Rate 18 16 Blood Pressure 102/50 L 130/67 Pulse Oximetry 95 95 Oxygen Delivery Method Room Air Room Air BMI result Body Mass Index 20.9 Labs 02/14/24 10:14 Medications Medications Current Medications Acetaminophen (Acetaminophen 325 Mg Tablet) 650 mg PO Q6H PRN PRN Reason: Headache/Pain Mild Scale (1-3) Last Admin: 03/13/24 12:03 Dose: 650 mg Al Hydroxide/Mg Hydroxide (Magnesium Hydrox/Alum Hydrox 30 Ml Oral.Susp) 30 ml PO Q6H PRN PRN Reason: Heartburn/Nausea Bisacodyl (Bisacodyl 10 Mg Supp.Rect) 10 mg [place] BEDTIME PRN PRN Reason: Constipation Last Admin: 02/23/24 10:05 Dose: 10 mg Loratadine (Loratadine 10 Mg Tablet) 10 mg PO DAILY [facility] Last Admin: 03/15/24 08:36 Dose: 10 mg Magnesium Hydroxide (Milk Of Magnesia 30 Ml Oral.Susp) 30 ml PO DAILY PRN PRN Reason: Constipation Memantine (Memantine Hcl 5 Mg Tablet) 5 mg PO BID [facility] Last Admin: 03/15/24 08:36 Dose: 5 mg Metoprolol Succinate (Metoprolol Succinate Er 100 Mg Tab.Er.24h) 100 mg PO DAILY [facility]; Protocol Last Admin: 03/15/24 08:36 Dose: 100 mg Risperidone (Risperidone 0.25 Mg Tablet) 0.25 mg PO DAILY PRN PRN Reason: Anxiety Risperidone (Risperidone 2 Mg Tablet) 2 mg PO BEDTIME [facility] Last Admin: 03/14/24 20:54 Dose: 2 mg Trazodone HCl (Trazodone Hcl 50 Mg Tablet) 50 mg PO BEDTIME MRX1 PRN PRN Reason: Insomnia Last Admin: 03/14/24 20:54 Dose: 50 mg Allergies Allergies Allergy/AdvReac Type Severity Reaction Status Date / Time No Known Allergies Allergy Verified 10/20/23 20:47 Assessment & Plan Assessment & Plan (1) Major neurocognitive disorder: Status: Acute Code(s): F03.90 - Unspecified dementia, unspecified severity, without behavioral disturbance, psychotic disturbance, mood disturbance, and anxiety Assessment and Plan: 79-year-old female with history of hypertension admitted to Geriatric Psychiatry with consult placed hospitalist service for medical H and P. #Mood disorder/paranoia -plan per Psychiatry #Dementia -plan per Psychiatry # CKD stage 3 -renal function baseline #HTN -resume metoprolol am Plan Plan 1. Continue with Risperdal and Namenda. 2. Information of healthcare proxy. We have filed for a fair admission of healthcare proxy 3. Start working on discharge planning. Reason for continued inpatient stay Substantial Risk for: inability to function, rapid decompensation and med/psych decompensation Time Spent With Patient Time: Total time managing care of this patient today __20__ minutes.
[2024-03-15 20:00] VITALS: BP 118/57; PULSE 75; RESP 16; TEMP 36.6; O2SAT 95
[2024-03-15] MEDS: risperiDONE 2 MG TABLET PO (20:19)
[2024-03-15] MEDS: traZODone HCL 50 MG TABLET PO (20:19)
[2024-03-16 08:49] VITALS: BP 110/57; PULSE 70; RESP 16; TEMP 36.5; O2SAT 95
[2024-03-16] MEDS: Loratadine 10 MG TABLET PO (08:52)
[2024-03-16] MEDS: Metoprolol Succinate ER 100 MG TAB.ER.24H PO (08:52)
[2024-03-16] MEDS: Memantine HCl 5 MG TABLET PO ×2 (08:52→20:08)
--- NOTE | 2024-03-16 09:51 | P.PNPSI_ITS ---
Subjective Subjective Date of Service: 03/16/24 Reason For Visit: Psychosis Subjective Notes: Conditional Voluntary Interim History: The nursing staff reported that she had been fully compliant with treatment, she was not bed yesterday but today she is more active and awake. She denies new symptoms waiting for placement. Mental Status Exam Mental Status Exam Patient Appearance: Well Grooomed and Appropriate Patient Orientation: Person and Situation Level of Consciousness: Awake and Appropriate Patient Behavior: Guarded and Passive Mood Description: Withdrawn Affect Description: Constricted Patient Cognition Impaired: Yes Ability to Follow Directions: Good Speech Pattern: Clear Hallucinations: None Delusions: Ideas of Reference Thought Process: Distracted and Slowed Thinking Thought Content: positive for [place] and positive for Poverty of Content Judgement: Fair Diagnostics Vital Signs (24Hr): Vital Signs - 24 hr 03/15/24 20:00 03/16/24 08:49 Temperature 97.9 F 97.7 F Pulse Rate 75 70 Respiratory Rate 16 16 Blood Pressure 118/57 L 110/57 L Pulse Oximetry 95 95 Oxygen Delivery Method Room Air Room Air BMI result Body Mass Index 20.9 Labs 02/14/24 10:14 Medications Medications Current Medications Acetaminophen (Acetaminophen 325 Mg Tablet) 650 mg PO Q6H PRN PRN Reason: Headache/Pain Mild Scale (1-3) Last Admin: 03/13/24 12:03 Dose: 650 mg Al Hydroxide/Mg Hydroxide (Magnesium Hydrox/Alum Hydrox 30 Ml Oral.Susp) 30 ml PO Q6H PRN PRN Reason: Heartburn/Nausea Bisacodyl (Bisacodyl 10 Mg Supp.Rect) [address] BEDTIME PRN PRN Reason: Constipation Last Admin: 02/23/24 10:05 Dose: 10 mg Loratadine (Loratadine 10 Mg Tablet) 10 mg PO DAILY [facility] Last Admin: 03/16/24 08:52 Dose: 10 mg Magnesium Hydroxide (Milk Of Magnesia 30 Ml Oral.Susp) 30 ml PO DAILY PRN PRN Reason: Constipation Memantine (Memantine Hcl 5 Mg Tablet) 5 mg PO BID [facility] Last Admin: 03/16/24 08:52 Dose: 5 mg Metoprolol Succinate (Metoprolol Succinate Er 100 Mg Tab.Er.24h) 100 mg PO DAILY [facility]; Protocol Last Admin: 03/16/24 08:52 Dose: 100 mg Risperidone (Risperidone 0.25 Mg Tablet) 0.25 mg PO DAILY PRN PRN Reason: Anxiety Risperidone (Risperidone 2 Mg Tablet) 2 mg PO BEDTIME [facility] Last Admin: 03/15/24 20:19 Dose: 2 mg Trazodone HCl (Trazodone Hcl 50 Mg Tablet) 50 mg PO BEDTIME MRX1 PRN PRN Reason: Insomnia Last Admin: 03/15/24 20:19 Dose: 50 mg Allergies Allergies Allergy/AdvReac Type Severity Reaction Status Date / Time No Known Allergies Allergy Verified 10/20/23 20:47 Assessment & Plan Assessment & Plan (1) Major neurocognitive disorder: Status: Acute Code(s): F03.90 - Unspecified dementia, unspecified severity, without behavioral disturbance, psychotic disturbance, mood disturbance, and anxiety Assessment and Plan: 79-year-old female with history of hypertension admitted to Geriatric Psychiatry with consult placed hospitalist service for medical H and P. #Mood disorder/paranoia -plan per Psychiatry #Dementia -plan per Psychiatry # CKD stage 3 -renal function baseline #HTN -resume metoprolol am Plan Plan 1. Continue with Risperdal and Namenda. 2. Information of healthcare proxy. We have filed for a fair admission of healthcare proxy 3. Start working on discharge planning. Reason for continued inpatient stay Substantial Risk for: inability to function, rapid decompensation and med/psych decompensation Time Spent With Patient Time: Total time managing care of this patient today __20__ minutes.
[2024-03-16 20:00] VITALS: BP 116/58; PULSE 83; RESP 16; TEMP 36.2; O2SAT 94
[2024-03-16] MEDS: risperiDONE 2 MG TABLET PO (20:08)
[2024-03-16] MEDS: traZODone HCL 50 MG TABLET PO (20:08)
[2024-03-17] MEDS: Loratadine 10 MG TABLET PO (08:33)
[2024-03-17] MEDS: Memantine HCl 5 MG TABLET PO ×2 (08:33→20:17)
[2024-03-17] MEDS: Metoprolol Succinate ER 100 MG TAB.ER.24H PO (08:33)
--- NOTE | 2024-03-17 10:51 | P.PNPSI_ITS ---
Subjective Subjective Date of Service: 03/17/24 Reason For Visit: Psychosis Subjective Notes: Conditional Voluntary Interim History: The nursing staff reported the patient had been pleasant cooperative easily redirectable. On interview the patient denies new symptoms, waiting for placement Mental Status Exam Mental Status Exam Patient Appearance: Well Grooomed and Appropriate Patient Orientation: Person and Situation Level of Consciousness: Awake and Appropriate Patient Behavior: Guarded and Passive Mood Description: Withdrawn Affect Description: Constricted Patient Cognition Impaired: Yes Ability to Follow Directions: Good Speech Pattern: Clear Hallucinations: None Delusions: Not Present Thought Process: Distracted and Slowed Thinking Thought Content: positive for [place] and positive for Poverty of Content Judgement: Fair Diagnostics Vital Signs (24Hr): Vital Signs - 24 hr 03/16/24 20:00 03/17/24 08:31 Temperature 97.1 F Pulse Rate 83 Respiratory Rate 16 Blood Pressure 116/58 L Pulse Oximetry 94 Oxygen Delivery Method Room Air Room Air BMI result Body Mass Index 20.9 Labs 02/14/24 10:14 Medications Medications Current Medications Acetaminophen (Acetaminophen 325 Mg Tablet) 650 mg PO Q6H PRN PRN Reason: Headache/Pain Mild Scale (1-3) Last Admin: 03/13/24 12:03 Dose: 650 mg Al Hydroxide/Mg Hydroxide (Magnesium Hydrox/Alum Hydrox 30 Ml Oral.Susp) 30 ml PO Q6H PRN PRN Reason: Heartburn/Nausea Bisacodyl (Bisacodyl 10 Mg Supp.Rect) 10 mg [place] BEDTIME PRN PRN Reason: Constipation Last Admin: 02/23/24 10:05 Dose: 10 mg Loratadine (Loratadine 10 Mg Tablet) 10 mg PO DAILY [facility] Last Admin: 03/17/24 08:33 Dose: 10 mg Magnesium Hydroxide (Milk Of Magnesia 30 Ml Oral.Susp) 30 ml PO DAILY PRN PRN Reason: Constipation Memantine (Memantine Hcl 5 Mg Tablet) 5 mg PO BID [facility] Last Admin: 03/17/24 08:33 Dose: 5 mg Metoprolol Succinate (Metoprolol Succinate Er 100 Mg Tab.Er.24h) 100 mg PO DAILY [facility]; Protocol Last Admin: 03/17/24 08:33 Dose: 100 mg Risperidone (Risperidone 0.25 Mg Tablet) 0.25 mg PO DAILY PRN PRN Reason: Anxiety Risperidone (Risperidone 2 Mg Tablet) 2 mg PO BEDTIME [facility] Last Admin: 03/16/24 20:08 Dose: 2 mg Trazodone HCl (Trazodone Hcl 50 Mg Tablet) 50 mg PO BEDTIME MRX1 PRN PRN Reason: Insomnia Last Admin: 03/16/24 20:08 Dose: 50 mg Allergies Allergies Allergy/AdvReac Type Severity Reaction Status Date / Time No Known Allergies Allergy Verified 10/20/23 20:47 Assessment & Plan Assessment & Plan (1) Major neurocognitive disorder: Status: Acute Code(s): F03.90 - Unspecified dementia, unspecified severity, without behavioral disturbance, psychotic disturbance, mood disturbance, and anxiety Assessment and Plan: 79-year-old female with history of hypertension admitted to Geriatric Psychiatry with consult placed hospitalist service for medical H and P. #Mood disorder/paranoia -plan per Psychiatry #Dementia -plan per Psychiatry # CKD stage 3 -renal function baseline #HTN -resume metoprolol am Plan Plan 1. Continue with Risperdal and Namenda. 2. Information of healthcare proxy. We have filed for a fair admission of healthcare proxy 3. Start working on discharge planning. Reason for continued inpatient stay Substantial Risk for: inability to function, rapid decompensation and med/psych decompensation Time Spent With Patient Time: Total time managing care of this patient today _20___ minutes.
[2024-03-17 20:00] VITALS: BP 141/78; PULSE 75; RESP 18; TEMP 36.4; O2SAT 94
[2024-03-17] MEDS: risperiDONE 2 MG TABLET PO (20:17)
[2024-03-17] MEDS: traZODone HCL 50 MG TABLET PO (20:17)
[2024-03-18 08:11] VITALS: BP 111/56; PULSE 71; RESP 20; TEMP 36.4; O2SAT 95
[2024-03-18] MEDS: Loratadine 10 MG TABLET PO (08:14)
[2024-03-18] MEDS: Metoprolol Succinate ER 100 MG TAB.ER.24H PO (08:14)
[2024-03-18] MEDS: Memantine HCl 5 MG TABLET PO ×2 (08:14→20:33)
[2024-03-18 13:42] LABS: Appearance Urine Clear; Color Urine Yellow; Glucose Urine UA Negative (Negative); Leukocyte Esterase Urine Negative (Negative); Nitrite Urine Negative (Negative); PH 5.5 (5.0-9.0); Urine Blood Negative (Negative); Urine Ketones Negative (Negative); Urine Protein Negative (Neg-Trace)
[2024-03-18 13:44] LABS: Bacteria Urine None Seen (None Seen); Hyaline Casts Urine 0-2 /LPF (0-2); RBC Urine 0-2 /HPF (0-2); Squamous Epithelial Cell Urine 0-2 /HPF (0-2); WBC Urine 0-5 /HPF (0-5)
--- NOTE | 2024-03-18 15:42 | HO.PSYCHPN ---
Subjective Subjective Date of Service: 03/18/24 Reason For Visit: Psychosis Subjective Notes: Conditional Voluntary Interim History: The nursing staff reported no changes in her mental status she slept 6 hours. The high school social science teacher is working on placement and has contact the family. On interview the patient denies new symptoms, waiting for placement Mental Status Exam Mental Status Exam Patient Appearance: Appropriate Patient Orientation: Person and Situation Level of Consciousness: Awake and Appropriate Patient Behavior: Guarded and Passive Mood Description: Withdrawn Affect Description: Constricted Patient Cognition Impaired: Yes Ability to Follow Directions: Good Speech Pattern: Clear Hallucinations: None Delusions: Not Present Thought Process: Distracted and Slowed Thinking Thought Content: positive for [place] and positive for Poverty of Content Judgement: Fair Diagnostics Vital Signs (24Hr): Vital Signs - 24 hr 03/17/24 20:00 03/18/24 08:11 Temperature 97.6 F 97.5 F Pulse Rate 75 71 Respiratory Rate 18 20 Blood Pressure 141/78 H 111/56 L Pulse Oximetry 94 95 Oxygen Delivery Method Room Air Room Air BMI result Body Mass Index 20.9 Labs 02/14/24 10:14 Labs: Laboratory Results - last 48 hr 03/18/24 13:30 Urine Color Yellow Urine Appearance Clear Urine pH 5.5 Ur Specific [place] 1.010 Urine Protein Negative Urine Glucose (UA) Negative Urine Ketones Negative Urine Blood Negative Urine Nitrite Negative Ur Leukocyte Esterase Negative Urine RBC 0-2 Urine WBC 0-5 Ur Squamous Epith Cells 0-2 Urine Bacteria None Seen Hyaline Casts 0-2 Medications Medications Current Medications Acetaminophen (Acetaminophen 325 Mg Tablet) 650 mg PO Q6H PRN PRN Reason: Headache/Pain Mild Scale (1-3) Last Admin: 03/13/24 12:03 Dose: 650 mg Al Hydroxide/Mg Hydroxide (Magnesium Hydrox/Alum Hydrox 30 Ml Oral.Susp) 30 ml PO Q6H PRN PRN Reason: Heartburn/Nausea Bisacodyl (Bisacodyl 10 Mg Supp.Rect) 10 mg [place] BEDTIME PRN PRN Reason: Constipation Last Admin: 02/23/24 10:05 Dose: 10 mg Loratadine (Loratadine 10 Mg Tablet) 10 mg PO DAILY [facility] Last Admin: 03/18/24 08:14 Dose: 10 mg Magnesium Hydroxide (Milk Of Magnesia 30 Ml Oral.Susp) 30 ml PO DAILY PRN PRN Reason: Constipation Memantine (Memantine Hcl 5 Mg Tablet) 5 mg PO BID [facility] Last Admin: 03/18/24 08:14 Dose: 5 mg Metoprolol Succinate (Metoprolol Succinate Er 100 Mg Tab.Er.24h) 100 mg PO DAILY [facility]; Protocol Last Admin: 03/18/24 08:14 Dose: 100 mg Risperidone (Risperidone 0.25 Mg Tablet) 0.25 mg PO DAILY PRN PRN Reason: Anxiety Risperidone (Risperidone 2 Mg Tablet) 2 mg PO BEDTIME [facility] Last Admin: 03/17/24 20:17 Dose: 2 mg Trazodone HCl (Trazodone Hcl 50 Mg Tablet) 50 mg PO BEDTIME MRX1 PRN PRN Reason: Insomnia Last Admin: 03/17/24 20:17 Dose: 50 mg Allergies Allergies Allergy/AdvReac Type Severity Reaction Status Date / Time No Known Allergies Allergy Verified 10/20/23 20:47 Assessment & Plan Assessment & Plan (1) Major neurocognitive disorder: Status: Acute Code(s): F03.90 - Unspecified dementia, unspecified severity, without behavioral disturbance, psychotic disturbance, mood disturbance, and anxiety Assessment and Plan: 79-year-old female with history of hypertension admitted to Geriatric Psychiatry with consult placed hospitalist service for medical H and P. #Mood disorder/paranoia -plan per Psychiatry #Dementia -plan per Psychiatry # CKD stage 3 -renal function baseline #HTN -resume metoprolol am Plan Plan 1. Continue with Risperdal and Namenda. 2. Information of healthcare proxy. We have filed for a fair admission of healthcare proxy 3. Start working on discharge planning. Reason for continued inpatient stay Substantial Risk for: inability to function, rapid decompensation and med/psych decompensation Time Spent With Patient Time: Total time managing care of this patient today __20__ minutes.
[2024-03-18 20:00] VITALS: BP 108/52; PULSE 71; RESP 18; TEMP 36.6; O2SAT 95
[2024-03-18] MEDS: traZODone HCL 50 MG TABLET PO (20:33)
[2024-03-18] MEDS: risperiDONE 2 MG TABLET PO (20:33)
[2024-03-19 08:00] VITALS: BP 97/55; PULSE 73; RESP 18; TEMP 36.1; O2SAT 94
[2024-03-19] MEDS: Loratadine 10 MG TABLET PO (08:49)
[2024-03-19] MEDS: Memantine HCl 5 MG TABLET PO ×2 (08:49→20:10)
[2024-03-19] MEDS: Acetaminophen 325 MG TABLET 650 MG PO ×2 (10:08→20:10)
--- NOTE | 2024-03-19 12:43 | HO.PSYCHPN ---
Subjective Subjective Date of Service: 03/19/24 Reason For Visit: Psychosis Subjective Notes: Conditional Voluntary Interim History: The nursing staff reported no change on mental status, her U/A came back negative. On interview, she is pleasantly confused, easily redirectable, waiting for placement. Mental Status Exam Mental Status Exam Patient Appearance: Well Grooomed and Appropriate Patient Orientation: Person and Situation Level of Consciousness: Awake and Appropriate Patient Behavior: Guarded and Passive Mood Description: Withdrawn Affect Description: Constricted Patient Cognition Impaired: Yes Ability to Follow Directions: Good Speech Pattern: Clear Hallucinations: None Delusions: Not Present Thought Process: Distracted Thought Content: positive for [place] and positive for Poverty of Content Judgement: Fair Diagnostics Vital Signs (24Hr): Vital Signs - 24 hr 03/18/24 20:00 03/19/24 08:00 Temperature 97.8 F 96.9 F Pulse Rate 71 73 Respiratory Rate 18 18 Blood Pressure 108/52 L 97/55 L Pulse Oximetry 95 94 Oxygen Delivery Method Room Air Room Air BMI result Body Mass Index 20.9 Labs 02/14/24 10:14 Labs: Laboratory Results - last 48 hr 03/18/24 13:30 Urine Color Yellow Urine Appearance Clear Urine pH 5.5 Ur Specific [place] 1.010 Urine Protein Negative Urine Glucose (UA) Negative Urine Ketones Negative Urine Blood Negative Urine Nitrite Negative Ur Leukocyte Esterase Negative Urine RBC 0-2 Urine WBC 0-5 Ur Squamous Epith Cells 0-2 Urine Bacteria None Seen Hyaline Casts 0-2 Medications Medications Current Medications Acetaminophen (Acetaminophen 325 Mg Tablet) 650 mg PO Q6H PRN PRN Reason: Headache/Pain Mild Scale (1-3) Last Admin: 03/19/24 10:08 Dose: 650 mg Al Hydroxide/Mg Hydroxide (Magnesium Hydrox/Alum Hydrox 30 Ml Oral.Susp) 30 ml PO Q6H PRN PRN Reason: Heartburn/Nausea Bisacodyl (Bisacodyl 10 Mg Supp.Rect) 10 mg [place] BEDTIME PRN PRN Reason: Constipation Last Admin: 02/23/24 10:05 Dose: 10 mg Loratadine (Loratadine 10 Mg Tablet) 10 mg PO DAILY COUNTS [facility]CLUDE 234 BEDS AT THE [facility] Last Admin: 03/19/24 08:49 Dose: 10 mg Magnesium Hydroxide (Milk Of Magnesia 30 Ml Oral.Susp) 30 ml PO DAILY PRN PRN Reason: Constipation Memantine (Memantine Hcl 5 Mg Tablet) 5 mg PO BID COUNTS INCLUDE 234 BEDS AT THE [facility] Last Admin: 03/19/24 08:49 Dose: 5 mg Metoprolol Succinate (Metoprolol Succinate Er 100 Mg Tab.Er.24h) 100 mg PO DAILY [facility]; Protocol Last Admin: 03/19/24 08:57 Dose: Not Given Risperidone (Risperidone 0.25 Mg Tablet) 0.25 mg PO DAILY PRN PRN Reason: Anxiety Risperidone (Risperidone 2 Mg Tablet) 2 mg PO BEDTIME [facility] Last Admin: 03/18/24 20:33 Dose: 2 mg Trazodone HCl (Trazodone Hcl 50 Mg Tablet) 50 mg PO BEDTIME MRX1 PRN PRN Reason: Insomnia Last Admin: 03/18/24 20:33 Dose: 50 mg Allergies Allergies Allergy/AdvReac Type Severity Reaction Status Date / Time No Known Allergies Allergy Verified 10/20/23 20:47 Assessment & Plan Assessment & Plan (1) Major neurocognitive disorder: Status: Acute Code(s): F03.90 - Unspecified dementia, unspecified severity, without behavioral disturbance, psychotic disturbance, mood disturbance, and anxiety Assessment and Plan: 79-year-old female with history of hypertension admitted to Geriatric Psychiatry with consult placed hospitalist service for medical H and P. #Mood disorder/paranoia -plan per Psychiatry #Dementia -plan per Psychiatry # CKD stage 3 -renal function baseline #HTN -resume metoprolol am Plan Plan 1. Continue with Risperdal and Namenda. 2. Information of healthcare proxy. We have filed for a fair admission of healthcare proxy 3. Start working on discharge planning. Reason for continued inpatient stay Substantial Risk for: inability to function, rapid decompensation and med/psych decompensation Time Spent With Patient Time: Total time managing care of this patient today __20__ minutes.
[2024-03-19 20:00] VITALS: BP 99/55; PULSE 79; RESP 16; TEMP 36.2; O2SAT 94
[2024-03-19] MEDS: traZODone HCL 50 MG TABLET PO (20:10)
[2024-03-19] MEDS: risperiDONE 2 MG TABLET PO (20:10)
[2024-03-20 08:15] VITALS: BP 141/68; PULSE 83; RESP 16; TEMP 36.4; O2SAT 93
[2024-03-20] MEDS: Metoprolol Succinate ER 100 MG TAB.ER.24H PO (08:25)
[2024-03-20] MEDS: Loratadine 10 MG TABLET PO (08:25)
[2024-03-20] MEDS: Memantine HCl 5 MG TABLET PO ×2 (08:25→20:20)
[2024-03-20] MEDS: Acetaminophen 325 MG TABLET 650 MG PO ×2 (12:30→20:20)
--- NOTE | 2024-03-20 12:40 | P.PNPSI_ITS ---
Subjective Subjective Date of Service: 03/20/24 Reason For Visit: Psychosis Subjective Notes: Conditional Voluntary Interim History: The nursing staff reported the patient complained of pain due to her arthritis. She was brighter in the afternoon yesterday. Slept 6 hours. The social media marketer reported that her daughter was contacted and they are working with discharge planning. The staff has noticed the patient had been very hypoactive so we are ordering a CBC with basic metabolic panel today. On interview the patient denies new symptoms she attended to the morning group. Waiting for placement. Mental Status Exam Mental Status Exam Patient Appearance: Well Grooomed and Appropriate Patient Orientation: Person and Situation Level of Consciousness: Awake and Appropriate Patient Behavior: Guarded and Passive Mood Description: Withdrawn Affect Description: Constricted Patient Cognition Impaired: Yes Ability to Follow Directions: Good Speech Pattern: Clear Hallucinations: None Delusions: Not Present Thought Process: Distracted and Slowed Thinking Thought Content: positive for [place] and positive for Poverty of Content Judgement: Fair Diagnostics Vital Signs (24Hr): Vital Signs - 24 hr 03/19/24 20:00 03/20/24 08:15 Temperature 97.1 F 97.6 F Pulse Rate 79 83 Respiratory Rate 16 16 Blood Pressure 99/55 L 141/68 H Pulse Oximetry 94 93 Oxygen Delivery Method Room Air Room Air BMI result Body Mass Index 20.9 Labs 02/14/24 10:14 Labs: Laboratory Results - last 48 hr 03/18/24 13:30 Urine Color Yellow Urine Appearance Clear Urine pH 5.5 Ur Specific [place] 1.010 Urine Protein Negative Urine Glucose (UA) Negative Urine Ketones Negative Urine Blood Negative Urine Nitrite Negative Ur Leukocyte Esterase Negative Urine RBC 0-2 Urine WBC 0-5 Ur Squamous Epith Cells 0-2 Urine Bacteria None Seen Hyaline Casts 0-2 Medications Medications Current Medications Acetaminophen (Acetaminophen 325 Mg Tablet) 650 mg PO Q6H PRN PRN Reason: Headache/Pain Mild Scale (1-3) Last Admin: 03/20/24 12:30 Dose: 650 mg Al Hydroxide/Mg Hydroxide (Magnesium Hydrox/Alum Hydrox 30 Ml Oral.Susp) 30 ml PO Q6H PRN PRN Reason: Heartburn/Nausea Bisacodyl (Bisacodyl 10 Mg Supp.Rect) 10 mg [place] BEDTIME PRN PRN Reason: Constipation Last Admin: 02/23/24 10:05 Dose: 10 mg Loratadine (Loratadine 10 Mg Tablet) 10 mg PO DAILY [facility] Last Admin: 03/20/24 08:25 Dose: 10 mg Magnesium Hydroxide (Milk Of Magnesia 30 Ml Oral.Susp) 30 ml PO DAILY PRN PRN Reason: Constipation Memantine (Memantine Hcl 5 Mg Tablet) 5 mg PO BID [facility] Last Admin: 03/20/24 08:25 Dose: 5 mg Metoprolol Succinate (Metoprolol Succinate Er 100 Mg Tab.Er.24h) 100 mg PO DAILY [facility]; Protocol Last Admin: 03/20/24 08:25 Dose: 100 mg Risperidone (Risperidone 0.25 Mg Tablet) 0.25 mg PO DAILY PRN PRN Reason: Anxiety Risperidone (Risperidone 2 Mg Tablet) 2 mg PO BEDTIME [facility] Last Admin: 03/19/24 20:10 Dose: 2 mg Trazodone HCl (Trazodone Hcl 50 Mg Tablet) 50 mg PO BEDTIME MRX1 PRN PRN Reason: Insomnia Last Admin: 03/19/24 20:10 Dose: 50 mg Allergies Allergies Allergy/AdvReac Type Severity Reaction Status Date / Time No Known Allergies Allergy Verified 10/20/23 20:47 Assessment & Plan Assessment & Plan (1) Major neurocognitive disorder: Status: Acute Code(s): F03.90 - Unspecified dementia, unspecified severity, without behavioral disturbance, psychotic disturbance, mood disturbance, and anxiety Assessment and Plan: 79-year-old female with history of hypertension admitted to Geriatric Psychiatry with consult placed hospitalist service for medical H and P. #Mood disorder/paranoia -plan per Psychiatry #Dementia -plan per Psychiatry # CKD stage 3 -renal function baseline #HTN -resume metoprolol am Plan Plan 1. Continue with Risperdal and Namenda. 2. Information of healthcare proxy. We have filed for a fair admission of healthcare proxy 3. Start working on discharge planning. Reason for continued inpatient stay Substantial Risk for: inability to function, rapid decompensation and med/psych decompensation Time Spent With Patient Time: Total time managing care of this patient today ___20_ minutes.
[2024-03-20 20:00] VITALS: BP 139/65; PULSE 67; RESP 16; TEMP 36.2; O2SAT 95
[2024-03-20] MEDS: risperiDONE 2 MG TABLET PO (20:20)
[2024-03-20] MEDS: traZODone HCL 50 MG TABLET PO (20:22)
[2024-03-21 08:00] VITALS: BP 124/66; PULSE 68; RESP 18; TEMP 36; O2SAT 95
[2024-03-21 08:06] LABS: MANUAL DIFF FLAG NO
[2024-03-21 08:10] LABS: Basophils Percent Auto 0.7 % (0-2); Eosinophils Absolute Auto 0.2 X10*3/uL (0.0-0.4); Eosinophils Percent Auto 4.6 % (0-4); Hematocrit 38.3 % (37.0-47.0); Hemoglobin 12.9 g/dl (12.0-16.0); Imm Gran Abs Auto 0.01 X10*3/uL (0.00-0.03); Imm Gran Pct Auto 0.2 % (0.0-0.4); Lymphocytes Absolute Auto 1.1 X10*3/uL (1.2-4.9); Lymphocytes Percent Auto 26.4 % (20-40); Mean Corpuscular HGB Conc 33.7 g/dl (31.0-35.0); Mean Corpuscular Hemoglobin 30.3 pg (27.0-33.0); Mean Corpuscular Volume 89.9 fL (80.0-98.0); Mean Platelet Volume 9.3 fL (9.4-12.3); Monocytes Absolute Auto 0.4 X10*3/uL (0.1-1.2); Monocytes Percent Auto 8.8 % (2-11); Neutrophils Absolute Auto 2.6 x10*3/uL (2.0-8.3); Neutrophils Percent Auto 59.3 % (45-73); Platelet Count 181 X10*3/uL (160-400); Red Blood Count 4.26 X10*6/uL (4.20-5.50); Red Cell Distribution Width 13.4 % (11.0-16.0); White Blood Count 4.3 X10*3/uL (4.8-10.8)
[2024-03-21] MEDS: Memantine HCl 5 MG TABLET PO ×2 (08:17→20:37)
[2024-03-21] MEDS: Loratadine 10 MG TABLET PO (08:17)
[2024-03-21] MEDS: Metoprolol Succinate ER 100 MG TAB.ER.24H PO (08:17)
[2024-03-21 08:24] LABS: Alanine Aminotransferase 14 U/L (0-31); Albumin Level 4.1 g/dL (3.5-5.0); Alkaline Phosphatase 55 U/L (39-117); Anion Gap 13 (12-20); Aspartate Amino Transferase 16 U/L (5-31); Bilirubin Total 0.3 mg/dL (0.0-1.0); Blood Urea Nitrogen 18 mg/dL (9-16); Calcium 9.8 mg/dL (8.4-10.2); Carbon Dioxide 24 mmol/L (22-29); Chloride 107 mmol/L (96-108); Creatinine Clr Calc Pharmacy 45.4; Estimated Glomerular Filt Rate > 60; Glucose Fasting 97 mg/dL (60-99); Sodium 140 mmol/L (135-145)
[2024-03-21 09:22] VITALS: BMI 21.1
--- NOTE | 2024-03-21 11:15 | P.PNPSI_ITS ---
Subjective Subjective Date of Service: 03/21/24 Reason For Visit: Psychosis Subjective Notes: Conditional Voluntary Interim History: The nursing staff reported the patient had been pleasant cooperative. Today the patient had a visitor and she was tearful with the possibility of going to a prison facility. We talked at length and she was more calm after that. No changes in her mental status. Mental Status Exam Mental Status Exam Patient Appearance: Appropriate Patient Orientation: Person and Situation Level of Consciousness: Awake and Appropriate Patient Behavior: Guarded and Passive Mood Description: Withdrawn Affect Description: Constricted Patient Cognition Impaired: Yes Ability to Follow Directions: Good Speech Pattern: Clear Hallucinations: None Delusions: Not Present Thought Process: Distracted and Slowed Thinking Thought Content: positive for [place] and positive for Poverty of Content Judgement: Fair Diagnostics Vital Signs (24Hr): Vital Signs - 24 hr 03/20/24 20:00 03/21/24 08:00 Temperature 97.2 F 96.8 F Pulse Rate 67 68 Respiratory Rate 16 18 Blood Pressure 139/65 124/66 Pulse Oximetry 95 95 Oxygen Delivery Method Room Air Room Air BMI result Body Mass Index 21.1 Labs 03/21/24 08:00 03/21/24 08:00 Labs: Laboratory Results - last 48 hr 03/21/24 08:00 WBC 4.3 L RBC 4.26 Hgb 12.9 Hct 38.3 MCV 89.9 MCH 30.3 MCHC 33.7 RDW 13.4 Plt Count 181 MPV 9.3 L Immature Gran % (Auto) 0.2 Neut % (Auto) 59.3 Lymph % (Auto) 26.4 [place] % (Auto) 8.8 Eos % (Auto) 4.6 H Baso % (Auto) 0.7 Lymph # (Auto) 1.1 L [place] # (Auto) 0.4 Eos # (Auto) 0.2 Baso # (Auto) 0.0 Abs Immat Gran (auto) 0.01 Absolute Neuts (auto) 2.6 Absolute Nucleated RBC 0.000 Nucleated RBC % (auto) 0.0 Sodium 140 Potassium 4.0 Chloride 107 Carbon Dioxide 24 Anion Gap 13 BUN 18 H Creatinine 0.77 Estim Creat Clear Calc 45.4 Estimated GFR > 60 Fasting Glucose 97 Calcium 9.8 Total Bilirubin 0.3 AST 16 ALT 14 Alkaline Phosphatase 55 Total Protein 7.0 Albumin 4.1 Medications Medications Current Medications Acetaminophen (Acetaminophen 325 Mg Tablet) 650 mg PO Q6H PRN PRN Reason: Headache/Pain Mild Scale (1-3) Last Admin: 03/20/24 20:20 Dose: 325 mg Al Hydroxide/Mg Hydroxide (Magnesium Hydrox/Alum Hydrox 30 Ml Oral.Susp) 30 ml PO Q6H PRN PRN Reason: Heartburn/Nausea Bisacodyl (Bisacodyl 10 Mg Supp.Rect) 10 mg [place] BEDTIME PRN PRN Reason: Constipation Last Admin: 02/23/24 10:05 Dose: 10 mg Loratadine (Loratadine 10 Mg Tablet) 10 mg PO DAILY [facility] Last Admin: 03/21/24 08:17 Dose: 10 mg Magnesium Hydroxide (Milk Of Magnesia 30 Ml Oral.Susp) 30 ml PO DAILY PRN PRN Reason: Constipation Memantine (Memantine Hcl 5 Mg Tablet) 5 mg PO BID [facility] Last Admin: 03/21/24 08:17 Dose: 5 mg Metoprolol Succinate (Metoprolol Succinate Er 100 Mg Tab.Er.24h) 100 mg PO DAILY [facility]; Protocol Last Admin: 03/21/24 08:17 Dose: 100 mg Risperidone (Risperidone 0.25 Mg Tablet) 0.25 mg PO DAILY PRN PRN Reason: Anxiety Risperidone (Risperidone 2 Mg Tablet) 2 mg PO BEDTIME [facility] Last Admin: 03/20/24 20:20 Dose: 2 mg Trazodone HCl (Trazodone Hcl 50 Mg Tablet) 50 mg PO BEDTIME MRX1 PRN PRN Reason: Insomnia Last Admin: 03/20/24 20:22 Dose: 50 mg Allergies Allergies Allergy/AdvReac Type Severity Reaction Status Date / Time No Known Allergies Allergy Verified 10/20/23 20:47 Assessment & Plan Assessment & Plan (1) Major neurocognitive disorder: Status: Acute Code(s): F03.90 - Unspecified dementia, unspecified severity, without behavioral disturbance, psychotic disturbance, mood disturbance, and anxiety Assessment and Plan: 79-year-old female with history of hypertension admitted to Geriatric Psychiatry with consult placed hospitalist service for medical H and P. #Mood disorder/paranoia -plan per Psychiatry #Dementia -plan per Psychiatry # CKD stage 3 -renal function baseline #HTN -resume metoprolol am Plan Plan 1. Continue with Risperdal and Namenda. 2. Information of healthcare proxy. We have filed for a fair admission of healthcare proxy 3. Start working on discharge planning. Reason for continued inpatient stay Substantial Risk for: inability to function, rapid decompensation and med/psych decompensation Time Spent With Patient Time: Total time managing care of this patient today __20__ minutes.
[2024-03-21 20:00] VITALS: BP 144/75; PULSE 73; RESP 18; TEMP 36.3; O2SAT 94
[2024-03-21] MEDS: risperiDONE 2 MG TABLET PO (20:37)
[2024-03-22 08:23] VITALS: BP 120/62; PULSE 66; RESP 16; TEMP 36.8; O2SAT 96
[2024-03-22] MEDS: Loratadine 10 MG TABLET PO (08:35)
[2024-03-22] MEDS: Metoprolol Succinate ER 100 MG TAB.ER.24H PO (08:35)
[2024-03-22] MEDS: Memantine HCl 5 MG TABLET PO ×2 (08:35→20:47)
--- NOTE | 2024-03-22 08:48 | HO.PSYCHPN ---
Subjective Subjective Date of Service: 03/22/24 Reason For Visit: Psychosis Subjective Notes: Conditional Voluntary Interim History: Pt slept 8hrs. She denies any physical concerns. She reports food this morning was good. She denies SI/HI. No overt psychosis or delusions. She has been more visible on the unit. She is taking all medications as prescribed. VS stable. Diagnostics Vital Signs (24Hr): Vital Signs - 24 hr 03/21/24 20:00 03/22/24 08:23 Temperature 97.3 F 98.2 F Pulse Rate 73 66 Respiratory Rate 18 16 Blood Pressure 144/75 H 120/62 Pulse Oximetry 94 96 Oxygen Delivery Method Room Air Room Air BMI result Body Mass Index 21.1 Labs 03/21/24 08:00 03/21/24 08:00 Labs: Laboratory Results - last 48 hr 03/21/24 08:00 WBC 4.3 L RBC 4.26 Hgb 12.9 Hct 38.3 MCV 89.9 MCH 30.3 MCHC 33.7 RDW 13.4 Plt Count 181 MPV 9.3 L Immature Gran % (Auto) 0.2 Neut % (Auto) 59.3 Lymph % (Auto) 26.4 [place] % (Auto) 8.8 Eos % (Auto) 4.6 H Baso % (Auto) 0.7 Lymph # (Auto) 1.1 L [place] # (Auto) 0.4 Eos # (Auto) 0.2 Baso # (Auto) 0.0 Abs Immat Gran (auto) 0.01 Absolute Neuts (auto) 2.6 Absolute Nucleated RBC 0.000 Nucleated RBC % (auto) 0.0 Sodium 140 Potassium 4.0 Chloride 107 Carbon Dioxide 24 Anion Gap 13 BUN 18 H Creatinine 0.77 Estim Creat Clear Calc 45.4 Estimated GFR > 60 Fasting Glucose 97 Calcium 9.8 Total Bilirubin 0.3 AST 16 ALT 14 Alkaline Phosphatase 55 Total Protein 7.0 Albumin 4.1 Medications Medications Current Medications Acetaminophen (Acetaminophen 325 Mg Tablet) 650 mg PO Q6H PRN PRN Reason: Headache/Pain Mild Scale (1-3) Last Admin: 03/20/24 20:20 Dose: 325 mg Al Hydroxide/Mg Hydroxide (Magnesium Hydrox/Alum Hydrox 30 Ml Oral.Susp) 30 ml PO Q6H PRN PRN Reason: Heartburn/Nausea Bisacodyl (Bisacodyl 10 Mg Supp.Rect) 10 mg [place] BEDTIME PRN PRN Reason: Constipation Last Admin: 02/23/24 10:05 Dose: 10 mg Loratadine (Loratadine 10 Mg Tablet) 10 mg PO DAILY [facility] Last Admin: 03/22/24 08:35 Dose: 10 mg Magnesium Hydroxide (Milk Of Magnesia 30 Ml Oral.Susp) 30 ml PO DAILY PRN PRN Reason: Constipation Memantine (Memantine Hcl 5 Mg Tablet) 5 mg PO BID [facility] Last Admin: 03/22/24 08:35 Dose: 5 mg Metoprolol Succinate (Metoprolol Succinate Er 100 Mg Tab.Er.24h) 100 mg PO DAILY [facility]; Protocol Last Admin: 03/22/24 08:35 Dose: 100 mg Risperidone (Risperidone 0.25 Mg Tablet) 0.25 mg PO DAILY PRN PRN Reason: Anxiety Risperidone (Risperidone 2 Mg Tablet) 2 mg PO BEDTIME [facility] Last Admin: 03/21/24 20:37 Dose: 2 mg Trazodone HCl (Trazodone Hcl 50 Mg Tablet) 50 mg PO BEDTIME MRX1 PRN PRN Reason: Insomnia Last Admin: 03/20/24 20:22 Dose: 50 mg Allergies Allergies Allergy/AdvReac Type Severity Reaction Status Date / Time No Known Allergies Allergy Verified 10/20/23 20:47 Assessment & Plan Assessment & Plan (1) Major neurocognitive disorder: Status: Acute Code(s): F03.90 - Unspecified dementia, unspecified severity, without behavioral disturbance, psychotic disturbance, mood disturbance, and anxiety Assessment and Plan: 79-year-old female with history of hypertension admitted to Geriatric Psychiatry with consult placed hospitalist service for medical H and P. #Mood disorder/paranoia -plan per Psychiatry #Dementia -plan per Psychiatry # CKD stage 3 -renal function baseline #HTN -resume metoprolol am Plan Plan 1. Continue with Risperdal and Namenda. 2. Information of healthcare proxy. We have filed for a fair admission of healthcare proxy 3. Start working on discharge planning. Reason for continued inpatient stay Substantial Risk for: inability to function Time Spent With Patient Time: Total time managing care of this patient today ____ minutes.
[2024-03-22 20:00] VITALS: BP 124/60; PULSE 74; TEMP 36.1; O2SAT 95
[2024-03-22] MEDS: risperiDONE 2 MG TABLET PO (20:47)
[2024-03-22] MEDS: traZODone HCL 50 MG TABLET PO (20:47)
[2024-03-23 08:06] VITALS: BP 131/62; PULSE 73; RESP 16; TEMP 36; O2SAT 95
[2024-03-23] MEDS: Memantine HCl 5 MG TABLET PO ×2 (08:25→20:23)
[2024-03-23] MEDS: Metoprolol Succinate ER 100 MG TAB.ER.24H PO (08:25)
[2024-03-23] MEDS: Loratadine 10 MG TABLET PO (08:25)
--- NOTE | 2024-03-23 09:29 | HO.PSYCHPN ---
Subjective Subjective Date of Service: 03/23/24 Reason For Visit: Psychosis Interim History: Pt slept 8hrs. She denies any physical concerns. She reports food this morning was good. She denies SI/HI. No overt psychosis or delusions. She has been more visible on the unit. She is taking all medications as prescribed. VS stable. Review of Systems Review of Systems Yes all other systems are reviewed and are negative and Other (Unable to obtain) Mental Status Exam Mental Status Exam Patient Appearance: Appropriate Patient Orientation: Person and Situation Level of Consciousness: Awake and Appropriate Patient Behavior: Guarded and Passive Mood Description: Withdrawn Affect Description: Constricted Patient Cognition Impaired: Yes Ability to Follow Directions: Good Speech Pattern: Clear Diagnostics Vital Signs (24Hr): Vital Signs - 24 hr 03/22/24 20:00 03/23/24 08:06 Temperature 97 F 96.8 F Pulse Rate 74 73 Respiratory Rate 16 Blood Pressure 124/60 131/62 Pulse Oximetry 95 95 Oxygen Delivery Method Room Air Room Air BMI result Body Mass Index 21.1 Labs 03/21/24 08:00 03/21/24 08:00 Medications Medications Current Medications Acetaminophen (Acetaminophen 325 Mg Tablet) 650 mg PO Q6H PRN PRN Reason: Headache/Pain Mild Scale (1-3) Last Admin: 03/20/24 20:20 Dose: 325 mg Al Hydroxide/Mg Hydroxide (Magnesium Hydrox/Alum Hydrox 30 Ml Oral.Susp) 30 ml PO Q6H PRN PRN Reason: Heartburn/Nausea Bisacodyl (Bisacodyl 10 Mg Supp.Rect) 10 mg [place] BEDTIME PRN PRN Reason: Constipation Last Admin: 02/23/24 10:05 Dose: 10 mg Loratadine (Loratadine 10 Mg Tablet) 10 mg PO DAILY [facility] Last Admin: 03/23/24 08:25 Dose: 10 mg Magnesium Hydroxide (Milk Of Magnesia 30 Ml Oral.Susp) 30 ml PO DAILY PRN PRN Reason: Constipation Memantine (Memantine Hcl 5 Mg Tablet) 5 mg PO BID [facility] Last Admin: 03/23/24 08:25 Dose: 5 mg Metoprolol Succinate (Metoprolol Succinate Er 100 Mg Tab.Er.24h) 100 mg PO DAILY [facility]; Protocol Last Admin: 03/23/24 08:25 Dose: 100 mg Risperidone (Risperidone 0.25 Mg Tablet) 0.25 mg PO DAILY PRN PRN Reason: Anxiety Risperidone (Risperidone 2 Mg Tablet) 2 mg PO BEDTIME [facility] Last Admin: 03/22/24 20:47 Dose: 2 mg Trazodone HCl (Trazodone Hcl 50 Mg Tablet) 50 mg PO BEDTIME MRX1 PRN PRN Reason: Insomnia Last Admin: 03/22/24 20:47 Dose: 50 mg Allergies Allergies Allergy/AdvReac Type Severity Reaction Status Date / Time Penicillins Allergy Difficulty Verified 03/22/24 11:10 Breathing Assessment & Plan Assessment & Plan (1) Major neurocognitive disorder: Status: Acute Code(s): F03.90 - Unspecified dementia, unspecified severity, without behavioral disturbance, psychotic disturbance, mood disturbance, and anxiety Assessment and Plan: 79-year-old female with history of hypertension admitted to Geriatric Psychiatry with consult placed hospitalist service for medical H and P. #Mood disorder/paranoia -plan per Psychiatry #Dementia -plan per Psychiatry # CKD stage 3 -renal function baseline #HTN -resume metoprolol am Plan Plan 1. Continue with Risperdal and Namenda. 2. Information of healthcare proxy. We have filed for a fair admission of healthcare proxy 3. Start working on discharge planning. Reason for continued inpatient stay Substantial Risk for: inability to function Time Spent With Patient Time: Total time managing care of this patient today ____ minutes.
[2024-03-23 20:00] VITALS: BP 138/62; PULSE 80; RESP 16; TEMP 36.7; O2SAT 94
[2024-03-23] MEDS: risperiDONE 2 MG TABLET PO (20:23)
[2024-03-24 08:19] VITALS: BP 130/61; PULSE 65; RESP 17; TEMP 36.6; O2SAT 94
[2024-03-24] MEDS: Metoprolol Succinate ER 100 MG TAB.ER.24H PO (08:20)
[2024-03-24] MEDS: Loratadine 10 MG TABLET PO (08:20)
[2024-03-24] MEDS: Memantine HCl 5 MG TABLET PO ×2 (08:20→20:27)
--- NOTE | 2024-03-24 11:13 | P.PNPSI_ITS ---
Subjective Subjective Date of Service: 03/24/24 Reason For Visit: Psychosis Subjective Notes: Conditional Voluntary Interim History: Pt slept 8hrs. She denies any physical concerns. She reports food this morning was good. She denies SI/HI. No overt psychosis or delusions. She has been more visible on the unit. She is taking all medications as prescribed. VS stable. Review of Systems Review of Systems Yes all other systems are reviewed and are negative and Other (Unable to obtain) Mental Status Exam Mental Status Exam Patient Appearance: Appropriate Patient Orientation: Person and Situation Level of Consciousness: Awake and Appropriate Patient Behavior: Guarded and Passive Mood Description: Withdrawn Affect Description: Constricted Patient Cognition Impaired: Yes Ability to Follow Directions: Good Speech Pattern: Clear Diagnostics Vital Signs (24Hr): Vital Signs - 24 hr 03/23/24 20:00 03/24/24 08:19 Temperature 98.1 F 98 F Pulse Rate 80 65 Respiratory Rate 16 17 Blood Pressure 138/62 130/61 Pulse Oximetry 94 94 Oxygen Delivery Method Room Air Room Air BMI result Body Mass Index 21.1 Labs 03/21/24 08:00 03/21/24 08:00 Medications Medications Current Medications Acetaminophen (Acetaminophen 325 Mg Tablet) 650 mg PO Q6H PRN PRN Reason: Headache/Pain Mild Scale (1-3) Last Admin: 03/20/24 20:20 Dose: 325 mg Al Hydroxide/Mg Hydroxide (Magnesium Hydrox/Alum Hydrox 30 Ml Oral.Susp) 30 ml PO Q6H PRN PRN Reason: Heartburn/Nausea Bisacodyl (Bisacodyl 10 Mg Supp.Rect) 10 mg [place] BEDTIME PRN PRN Reason: Constipation Last Admin: 02/23/24 10:05 Dose: 10 mg Loratadine (Loratadine 10 Mg Tablet) 10 mg PO DAILY [facility] Last Admin: 03/24/24 08:20 Dose: 10 mg Magnesium Hydroxide (Milk Of Magnesia 30 Ml Oral.Susp) 30 ml PO DAILY PRN PRN Reason: Constipation Memantine (Memantine Hcl 5 Mg Tablet) 5 mg PO BID [facility] Last Admin: 03/24/24 08:20 Dose: 5 mg Metoprolol Succinate (Metoprolol Succinate Er 100 Mg Tab.Er.24h) 100 mg PO DAILY [facility]; Protocol Last Admin: 03/24/24 08:20 Dose: 100 mg Risperidone (Risperidone 0.25 Mg Tablet) 0.25 mg PO DAILY PRN PRN Reason: Anxiety Risperidone (Risperidone 2 Mg Tablet) 2 mg PO BEDTIME [facility] Last Admin: 03/23/24 20:23 Dose: 2 mg Trazodone HCl (Trazodone Hcl 50 Mg Tablet) 50 mg PO BEDTIME MRX1 PRN PRN Reason: Insomnia Last Admin: 03/22/24 20:47 Dose: 50 mg Allergies Allergies Allergy/AdvReac Type Severity Reaction Status Date / Time Penicillins Allergy Difficulty Verified 03/22/24 11:10 Breathing Assessment & Plan Assessment & Plan (1) Major neurocognitive disorder: Status: Acute Code(s): F03.90 - Unspecified dementia, unspecified severity, without behavioral disturbance, psychotic disturbance, mood disturbance, and anxiety Assessment and Plan: 79-year-old female with history of hypertension admitted to Geriatric Psychiatry with consult placed hospitalist service for medical H and P. #Mood disorder/paranoia -plan per Psychiatry #Dementia -plan per Psychiatry # CKD stage 3 -renal function baseline #HTN -resume metoprolol am Plan Plan 1. Continue with Risperdal and Namenda. 2. Information of healthcare proxy. We have filed for a fair admission of healthcare proxy 3. Start working on discharge planning. Reason for continued inpatient stay Substantial Risk for: inability to function Time Spent With Patient Time: Total time managing care of this patient today ____ minutes.
[2024-03-24 20:00] VITALS: BP 153/74; PULSE 69; RESP 16; TEMP 36.4; O2SAT 96
[2024-03-24] MEDS: traZODone HCL 50 MG TABLET PO (20:27)
[2024-03-24] MEDS: risperiDONE 2 MG TABLET PO (20:27)
[2024-03-25 09:50] VITALS: BP 133/65; PULSE 71; RESP 18; TEMP 36.4; O2SAT 95
[2024-03-25] MEDS: Metoprolol Succinate ER 100 MG TAB.ER.24H PO (09:54)
[2024-03-25] MEDS: Memantine HCl 5 MG TABLET PO ×2 (10:01→20:21)
[2024-03-25] MEDS: Loratadine 10 MG TABLET PO (10:08)
--- NOTE | 2024-03-25 14:24 | P.PNPSI_ITS ---
Subjective Subjective Date of Service: 03/25/24 Reason For Visit: Psychosis Subjective Notes: Conditional Voluntary Interim History: The nursing staff reported the patient had been pleasant cooperative fully compliant with treatment. On interview the patient remains pleasantly confused, waiting for placement Mental Status Exam Mental Status Exam Patient Appearance: Appropriate Patient Orientation: Person and Situation Level of Consciousness: Awake and Appropriate Patient Behavior: Guarded and Passive Mood Description: Withdrawn Affect Description: Constricted Patient Cognition Impaired: Yes Ability to Follow Directions: Good Speech Pattern: Clear Hallucinations: None Delusions: Not Present Thought Process: Distracted and Slowed Thinking Thought Content: positive for [place] and positive for Poverty of Content Judgement: Fair Diagnostics Vital Signs (24Hr): Vital Signs - 24 hr 03/24/24 20:00 03/25/24 09:50 Temperature 97.5 F 97.5 F Pulse Rate 69 71 Respiratory Rate 16 18 Blood Pressure 153/74 H 133/65 Pulse Oximetry 96 95 Oxygen Delivery Method Room Air Room Air BMI result Body Mass Index 21.1 Labs 03/21/24 08:00 03/21/24 08:00 Medications Medications Current Medications Acetaminophen (Acetaminophen 325 Mg Tablet) 650 mg PO Q6H PRN PRN Reason: Headache/Pain Mild Scale (1-3) Last Admin: 03/20/24 20:20 Dose: 325 mg Al Hydroxide/Mg Hydroxide (Magnesium Hydrox/Alum Hydrox 30 Ml Oral.Susp) 30 ml PO Q6H PRN PRN Reason: Heartburn/Nausea Bisacodyl (Bisacodyl 10 Mg Supp.Rect) 10 mg [place] BEDTIME PRN PRN Reason: Constipation Last Admin: 02/23/24 10:05 Dose: 10 mg Loratadine (Loratadine 10 Mg Tablet) 10 mg PO DAILY [facility] Last Admin: 03/25/24 10:08 Dose: 10 mg Magnesium Hydroxide (Milk Of Magnesia 30 Ml Oral.Susp) 30 ml PO DAILY PRN PRN Reason: Constipation Memantine (Memantine Hcl 5 Mg Tablet) 5 mg PO BID [facility] Last Admin: 03/25/24 10:01 Dose: 5 mg Metoprolol Succinate (Metoprolol Succinate Er 100 Mg Tab.Er.24h) 100 mg PO DAILY [facility]; Protocol Last Admin: 03/25/24 09:54 Dose: 100 mg Risperidone (Risperidone 0.25 Mg Tablet) 0.25 mg PO DAILY PRN PRN Reason: Anxiety Risperidone (Risperidone 2 Mg Tablet) 2 mg PO BEDTIME [facility] Last Admin: 03/24/24 20:27 Dose: 2 mg Trazodone HCl (Trazodone Hcl 50 Mg Tablet) 50 mg PO BEDTIME MRX1 PRN PRN Reason: Insomnia Last Admin: 03/24/24 20:27 Dose: 50 mg Allergies Allergies Allergy/AdvReac Type Severity Reaction Status Date / Time Penicillins Allergy Difficulty Verified 03/22/24 11:10 Breathing Assessment & Plan Assessment & Plan (1) Major neurocognitive disorder: Status: Acute Code(s): F03.90 - Unspecified dementia, unspecified severity, without behavioral disturbance, psychotic disturbance, mood disturbance, and anxiety Assessment and Plan: 79-year-old female with history of hypertension admitted to Geriatric Psychiatry with consult placed hospitalist service for medical H and P. #Mood disorder/paranoia -plan per Psychiatry #Dementia -plan per Psychiatry # CKD stage 3 -renal function baseline #HTN -resume metoprolol am Plan Plan 1. Continue with Risperdal and Namenda. 2. Information of healthcare proxy. We have filed for a fair admission of healthcare proxy 3. Start working on discharge planning. Reason for continued inpatient stay Substantial Risk for: inability to function, rapid decompensation and med/psych decompensation Time Spent With Patient Time: Total time managing care of this patient today __20__ minutes.
[2024-03-25 20:00] VITALS: BP 125/68; PULSE 80; RESP 16; TEMP 36.2; O2SAT 95
[2024-03-25] MEDS: risperiDONE 2 MG TABLET PO (20:21)
[2024-03-25] MEDS: traZODone HCL 50 MG TABLET PO (20:21)
[2024-03-26 08:10] VITALS: BP 141/70; PULSE 70; RESP 18; TEMP 36.6; O2SAT 95
[2024-03-26] MEDS: Loratadine 10 MG TABLET PO (08:14)
[2024-03-26] MEDS: Metoprolol Succinate ER 100 MG TAB.ER.24H PO (08:14)
[2024-03-26] MEDS: Memantine HCl 5 MG TABLET PO ×2 (08:14→20:43)
--- NOTE | 2024-03-26 12:32 | HO.PSYCHPN ---
Subjective Subjective Date of Service: 03/26/24 Reason For Visit: Psychosis Subjective Notes: Conditional Voluntary Interim History: The nursing staff reported the patient had been pleasant, cooperative no changes in her mental status. On interview the patient denies new symptoms, waiting for placement Mental Status Exam Mental Status Exam Patient Appearance: Appropriate Patient Orientation: Person and Situation Level of Consciousness: Awake and Appropriate Patient Behavior: Guarded and Passive Mood Description: Withdrawn Affect Description: Constricted Patient Cognition Impaired: Yes Ability to Follow Directions: Good Speech Pattern: Clear Hallucinations: None Delusions: Not Present Thought Process: Distracted and Evasive Thought Content: positive for [place] and positive for Poverty of Content Judgement: Poor Diagnostics Vital Signs (24Hr): Vital Signs - 24 hr 03/25/24 20:00 03/26/24 08:10 Temperature 97.1 F 97.9 F Pulse Rate 80 70 Respiratory Rate 16 18 Blood Pressure 125/68 141/70 H Pulse Oximetry 95 95 Oxygen Delivery Method Room Air Room Air BMI result Body Mass Index 21.1 Labs 03/21/24 08:00 03/21/24 08:00 Medications Medications Current Medications Acetaminophen (Acetaminophen 325 Mg Tablet) 650 mg PO Q6H PRN PRN Reason: Headache/Pain Mild Scale (1-3) Last Admin: 03/20/24 20:20 Dose: 325 mg Al Hydroxide/Mg Hydroxide (Magnesium Hydrox/Alum Hydrox 30 Ml Oral.Susp) 30 ml PO Q6H PRN PRN Reason: Heartburn/Nausea Bisacodyl (Bisacodyl 10 Mg Supp.Rect) 10 mg [place] BEDTIME PRN PRN Reason: Constipation Last Admin: 02/23/24 10:05 Dose: 10 mg Loratadine (Loratadine 10 Mg Tablet) 10 mg PO DAILY [facility] Last Admin: 03/26/24 08:14 Dose: 10 mg Magnesium Hydroxide (Milk Of Magnesia 30 Ml Oral.Susp) 30 ml PO DAILY PRN PRN Reason: Constipation Memantine (Memantine Hcl 5 Mg Tablet) 5 mg PO BID [facility] Last Admin: 03/26/24 08:14 Dose: 5 mg Metoprolol Succinate (Metoprolol Succinate Er 100 Mg Tab.Er.24h) 100 mg PO DAILY [facility]; Protocol Last Admin: 03/26/24 08:14 Dose: 100 mg Risperidone (Risperidone 0.25 Mg Tablet) 0.25 mg PO DAILY PRN PRN Reason: Anxiety Risperidone (Risperidone 2 Mg Tablet) 2 mg PO BEDTIME [facility] Last Admin: 03/25/24 20:21 Dose: 2 mg Trazodone HCl (Trazodone Hcl 50 Mg Tablet) 50 mg PO BEDTIME MRX1 PRN PRN Reason: Insomnia Last Admin: 03/25/24 20:21 Dose: 50 mg Allergies Allergies Allergy/AdvReac Type Severity Reaction Status Date / Time Penicillins Allergy Difficulty Verified 03/22/24 11:10 Breathing Assessment & Plan Assessment & Plan (1) Major neurocognitive disorder: Status: Acute Code(s): F03.90 - Unspecified dementia, unspecified severity, without behavioral disturbance, psychotic disturbance, mood disturbance, and anxiety Assessment and Plan: 79-year-old female with history of hypertension admitted to Geriatric Psychiatry with consult placed hospitalist service for medical H and P. #Mood disorder/paranoia -plan per Psychiatry #Dementia -plan per Psychiatry # CKD stage 3 -renal function baseline #HTN -resume metoprolol am Plan Plan 1. Continue with Risperdal and Namenda. 2. Information of healthcare proxy. We have filed for a fair admission of healthcare proxy 3. Start working on discharge planning. Reason for continued inpatient stay Substantial Risk for: inability to function, rapid decompensation and med/psych decompensation Time Spent With Patient Time: Total time managing care of this patient today ___20_ minutes.
[2024-03-26 20:00] VITALS: BP 141/68; PULSE 80; RESP 16; TEMP 36.6; O2SAT 96
[2024-03-26] MEDS: traZODone HCL 50 MG TABLET PO (20:43)
[2024-03-26] MEDS: risperiDONE 2 MG TABLET PO (20:43)
[2024-03-27 08:00] VITALS: BP 120/84; PULSE 72; RESP 18; TEMP 36.6; O2SAT 95
[2024-03-27] MEDS: Metoprolol Succinate ER 100 MG TAB.ER.24H PO (08:20)
[2024-03-27] MEDS: Loratadine 10 MG TABLET PO (08:20)
[2024-03-27] MEDS: Memantine HCl 5 MG TABLET PO ×2 (08:21→20:18)
--- NOTE | 2024-03-27 16:37 | HO.PSYCHPN ---
Subjective Subjective Date of Service: 03/27/24 Reason For Visit: Psychosis Subjective Notes: Conditional Voluntary Interim History: The nursing staff reported no changes in mental status compliant with treatment. On interview the patient is pleasantly confused easily redirectable, waiting for placement. Mental Status Exam Mental Status Exam Patient Appearance: Well Grooomed and Appropriate Patient Orientation: Person and Situation Level of Consciousness: Awake and Appropriate Patient Behavior: Guarded and Passive Mood Description: Withdrawn Affect Description: Constricted Patient Cognition Impaired: Yes Ability to Follow Directions: Good Speech Pattern: Clear Hallucinations: None Delusions: Not Present Thought Process: Distracted and Slowed Thinking Thought Content: positive for [place] and positive for Poverty of Content Judgement: Fair Diagnostics Vital Signs (24Hr): Vital Signs - 24 hr 03/26/24 20:00 03/27/24 08:00 Temperature 97.8 F 97.9 F Pulse Rate 80 72 Respiratory Rate 16 18 Blood Pressure 141/68 H 120/84 Pulse Oximetry 96 95 Oxygen Delivery Method Room Air Room Air BMI result Body Mass Index 21.1 Labs 03/21/24 08:00 03/21/24 08:00 Medications Medications Current Medications Acetaminophen (Acetaminophen 325 Mg Tablet) 650 mg PO Q6H PRN PRN Reason: Headache/Pain Mild Scale (1-3) Last Admin: 03/20/24 20:20 Dose: 325 mg Al Hydroxide/Mg Hydroxide (Magnesium Hydrox/Alum Hydrox 30 Ml Oral.Susp) 30 ml PO Q6H PRN PRN Reason: Heartburn/Nausea Bisacodyl (Bisacodyl 10 Mg Supp.Rect) 10 mg [place] BEDTIME PRN PRN Reason: Constipation Last Admin: 02/23/24 10:05 Dose: 10 mg Loratadine (Loratadine 10 Mg Tablet) 10 mg PO DAILY [facility] Last Admin: 03/27/24 08:20 Dose: 10 mg Magnesium Hydroxide (Milk Of Magnesia 30 Ml Oral.Susp) 30 ml PO DAILY PRN PRN Reason: Constipation Memantine (Memantine Hcl 5 Mg Tablet) 5 mg PO BID [facility] Last Admin: 03/27/24 08:21 Dose: 5 mg Metoprolol Succinate (Metoprolol Succinate Er 100 Mg Tab.Er.24h) 100 mg PO DAILY [facility]; Protocol Last Admin: 03/27/24 08:20 Dose: 100 mg Risperidone (Risperidone 0.25 Mg Tablet) 0.25 mg PO DAILY PRN PRN Reason: Anxiety Risperidone (Risperidone 2 Mg Tablet) 2 mg PO BEDTIME [facility] Last Admin: 03/26/24 20:43 Dose: 2 mg Trazodone HCl (Trazodone Hcl 50 Mg Tablet) 50 mg PO BEDTIME MRX1 PRN PRN Reason: Insomnia Last Admin: 03/26/24 20:43 Dose: 50 mg Allergies Allergies Allergy/AdvReac Type Severity Reaction Status Date / Time Penicillins Allergy Difficulty Verified 03/22/24 11:10 Breathing Assessment & Plan Assessment & Plan (1) Major neurocognitive disorder: Status: Acute Code(s): F03.90 - Unspecified dementia, unspecified severity, without behavioral disturbance, psychotic disturbance, mood disturbance, and anxiety Assessment and Plan: 79-year-old female with history of hypertension admitted to Geriatric Psychiatry with consult placed hospitalist service for medical H and P. #Mood disorder/paranoia -plan per Psychiatry #Dementia -plan per Psychiatry # CKD stage 3 -renal function baseline #HTN -resume metoprolol am Plan Plan 1. Continue with Risperdal and Namenda. 2. Information of healthcare proxy. We have filed for a fair admission of healthcare proxy 3. Start working on discharge planning. Reason for continued inpatient stay Substantial Risk for: inability to function, rapid decompensation and med/psych decompensation Time Spent With Patient Time: Total time managing care of this patient today __20__ minutes.
[2024-03-27 20:00] VITALS: BP 103/53; PULSE 80; RESP 16; TEMP 36; O2SAT 93
[2024-03-27] MEDS: risperiDONE 2 MG TABLET PO (20:18)
[2024-03-28 08:00] VITALS: BP 115/65; PULSE 75; RESP 16; TEMP 36; O2SAT 95
[2024-03-28] MEDS: Metoprolol Succinate ER 100 MG TAB.ER.24H PO (08:29)
[2024-03-28] MEDS: Loratadine 10 MG TABLET PO (08:29)
[2024-03-28] MEDS: Memantine HCl 5 MG TABLET PO ×2 (08:29→20:31)
[2024-03-28 08:56] VITALS: BMI 21.4
--- NOTE | 2024-03-28 09:21 | P.PNPSI_ITS ---
Subjective Subjective Date of Service: 03/28/24 Reason For Visit: Psychosis Subjective Notes: Conditional Voluntary Interim History: The nursing staff reported the patient had been fully compliant with treatment, no changes in her mental status. The high school social studies tutor reported that the application for [facility] is in progress and so far there is no bed available for [facility]. On interview the patient denies new symptoms, waiting for placement. Mental Status Exam Mental Status Exam Patient Appearance: Appropriate Patient Orientation: Person and Situation Level of Consciousness: Awake and Appropriate Patient Behavior: Guarded and Passive Mood Description: Calm Affect Description: Constricted Patient Cognition Impaired: Yes Ability to Follow Directions: Good Speech Pattern: Clear Hallucinations: None Delusions: Not Present Thought Process: Distracted and Slowed Thinking Thought Content: positive for [place] and positive for Poverty of Content Judgement: Fair Diagnostics Vital Signs (24Hr): Vital Signs - 24 hr 03/27/24 20:00 03/28/24 08:00 Temperature 96.8 F 96.8 F Pulse Rate 80 75 Respiratory Rate 16 16 Blood Pressure 103/53 L 115/65 Pulse Oximetry 93 95 Oxygen Delivery Method Room Air Room Air BMI result Body Mass Index 21.4 Labs 03/21/24 08:00 03/21/24 08:00 Medications Medications Current Medications Acetaminophen (Acetaminophen 325 Mg Tablet) 650 mg PO Q6H PRN PRN Reason: Headache/Pain Mild Scale (1-3) Last Admin: 03/20/24 20:20 Dose: 325 mg Al Hydroxide/Mg Hydroxide (Magnesium Hydrox/Alum Hydrox 30 Ml Oral.Susp) 30 ml PO Q6H PRN PRN Reason: Heartburn/Nausea Bisacodyl (Bisacodyl 10 Mg Supp.Rect) 10 mg [place] BEDTIME PRN PRN Reason: Constipation Last Admin: 02/23/24 10:05 Dose: 10 mg Loratadine (Loratadine 10 Mg Tablet) 10 mg PO DAILY [facility] Last Admin: 03/28/24 08:29 Dose: 10 mg Magnesium Hydroxide (Milk Of Magnesia 30 Ml Oral.Susp) 30 ml PO DAILY PRN PRN Reason: Constipation Memantine (Memantine Hcl 5 Mg Tablet) 5 mg PO BID [facility] Last Admin: 03/28/24 08:29 Dose: 5 mg Metoprolol Succinate (Metoprolol Succinate Er 100 Mg Tab.Er.24h) 100 mg PO DAILY [facility]; Protocol Last Admin: 03/28/24 08:29 Dose: 100 mg Risperidone (Risperidone 0.25 Mg Tablet) 0.25 mg PO DAILY PRN PRN Reason: Anxiety Risperidone (Risperidone 2 Mg Tablet) 2 mg PO BEDTIME [facility] Last Admin: 03/27/24 20:18 Dose: 2 mg Trazodone HCl (Trazodone Hcl 50 Mg Tablet) 50 mg PO BEDTIME MRX1 PRN PRN Reason: Insomnia Last Admin: 03/26/24 20:43 Dose: 50 mg Allergies Allergies Allergy/AdvReac Type Severity Reaction Status Date / Time Penicillins Allergy Difficulty Verified 03/22/24 11:10 Breathing Assessment & Plan Assessment & Plan (1) Major neurocognitive disorder: Status: Acute Code(s): F03.90 - Unspecified dementia, unspecified severity, without behavioral disturbance, psychotic disturbance, mood disturbance, and anxiety Assessment and Plan: 79-year-old female with history of hypertension admitted to Geriatric Psychiatry with consult placed hospitalist service for medical H and P. #Mood disorder/paranoia -plan per Psychiatry #Dementia -plan per Psychiatry # CKD stage 3 -renal function baseline #HTN -resume metoprolol am Plan Plan 1. Continue with Risperdal and Namenda. 2. Information of healthcare proxy. We have filed for a fair admission of healthcare proxy 3. Start working on discharge planning. Reason for continued inpatient stay Substantial Risk for: inability to function, rapid decompensation and med/psych decompensation Time Spent With Patient Time: Total time managing care of this patient today __20__ minutes.
[2024-03-28] MEDS: Acetaminophen 325 MG TABLET 650 MG PO (17:43)
[2024-03-28 20:00] VITALS: BP 117/61; PULSE 88; RESP 18; TEMP 36.1; O2SAT 94
[2024-03-28] MEDS: risperiDONE 2 MG TABLET PO (20:31)
[2024-03-29 08:00] VITALS: BP 139/63; PULSE 86; RESP 17; TEMP 36.1; O2SAT 97
[2024-03-29] MEDS: Memantine HCl 5 MG TABLET PO ×2 (08:43→19:41)
[2024-03-29] MEDS: Metoprolol Succinate ER 100 MG TAB.ER.24H PO (08:43)
[2024-03-29] MEDS: Loratadine 10 MG TABLET PO (08:44)
--- NOTE | 2024-03-29 16:18 | HO.PSYCHPN ---
Subjective Subjective Date of Service: 03/29/24 Reason For Visit: Psychosis Subjective Notes: Conditional Voluntary Interim History: The nursing staff reported no changes in her mental status fully compliant with treatment. The social work administrator reported that she had been applied for long term facility and we are waiting for response. On interview the patient denies new symptoms, waiting for placement Mental Status Exam Mental Status Exam Patient Appearance: Appropriate Patient Orientation: Person and Situation Level of Consciousness: Awake and Appropriate Patient Behavior: Guarded and Passive Mood Description: Withdrawn Affect Description: Constricted Patient Cognition Impaired: Yes Ability to Follow Directions: Good Speech Pattern: Clear Hallucinations: None Delusions: Not Present Thought Process: Distracted and Slowed Thinking Thought Content: positive for [place] and positive for Poverty of Content Judgement: Fair Diagnostics Vital Signs (24Hr): Vital Signs - 24 hr 03/28/24 20:00 03/29/24 08:00 Temperature 97 F 96.9 F Pulse Rate 88 86 Respiratory Rate 18 17 Blood Pressure 117/61 139/63 Pulse Oximetry 94 97 Oxygen Delivery Method Room Air Room Air BMI result Body Mass Index 21.4 Labs 03/21/24 08:00 03/21/24 08:00 Medications Medications Current Medications Acetaminophen (Acetaminophen 325 Mg Tablet) 650 mg PO Q6H PRN PRN Reason: Headache/Pain Mild Scale (1-3) Last Admin: 03/28/24 17:43 Dose: 650 mg Al Hydroxide/Mg Hydroxide (Magnesium Hydrox/Alum Hydrox 30 Ml Oral.Susp) 30 ml PO Q6H PRN PRN Reason: Heartburn/Nausea Bisacodyl (Bisacodyl 10 Mg Supp.Rect) 10 mg [place] BEDTIME PRN PRN Reason: Constipation Last Admin: 02/23/24 10:05 Dose: 10 mg Loratadine (Loratadine 10 Mg Tablet) 10 mg PO DAILY [facility] Last Admin: 03/29/24 08:44 Dose: 10 mg Magnesium Hydroxide (Milk Of Magnesia 30 Ml Oral.Susp) 30 ml PO DAILY PRN PRN Reason: Constipation Memantine (Memantine Hcl 5 Mg Tablet) 5 mg PO BID [facility] Last Admin: 03/29/24 08:43 Dose: 5 mg Metoprolol Succinate (Metoprolol Succinate Er 100 Mg Tab.Er.24h) 100 mg PO DAILY [facility]; Protocol Last Admin: 03/29/24 08:43 Dose: 100 mg Risperidone (Risperidone 0.25 Mg Tablet) 0.25 mg PO DAILY PRN PRN Reason: Anxiety Risperidone (Risperidone 2 Mg Tablet) 2 mg PO BEDTIME [facility] Last Admin: 03/28/24 20:31 Dose: 2 mg Trazodone HCl (Trazodone Hcl 50 Mg Tablet) 50 mg PO BEDTIME MRX1 PRN PRN Reason: Insomnia Last Admin: 03/26/24 20:43 Dose: 50 mg Allergies Allergies Allergy/AdvReac Type Severity Reaction Status Date / Time Penicillins Allergy Difficulty Verified 03/22/24 11:10 Breathing Assessment & Plan Assessment & Plan (1) Major neurocognitive disorder: Status: Acute Code(s): F03.90 - Unspecified dementia, unspecified severity, without behavioral disturbance, psychotic disturbance, mood disturbance, and anxiety Assessment and Plan: 79-year-old female with history of hypertension admitted to Geriatric Psychiatry with consult placed hospitalist service for medical H and P. #Mood disorder/paranoia -plan per Psychiatry #Dementia -plan per Psychiatry # CKD stage 3 -renal function baseline #HTN -resume metoprolol am Plan Plan 1. Continue with Risperdal and Namenda. 2. Information of healthcare proxy. We have filed for a fair admission of healthcare proxy 3. Start working on discharge planning. Reason for continued inpatient stay Substantial Risk for: inability to function, rapid decompensation and med/psych decompensation Time Spent With Patient Time: Total time managing care of this patient today __20__ minutes.
[2024-03-29 19:38] VITALS: BP 153/70; PULSE 78; RESP 14; TEMP 35.9; O2SAT 93
[2024-03-29] MEDS: risperiDONE 2 MG TABLET PO (19:41)
[2024-03-30] MEDS: Memantine HCl 5 MG TABLET PO ×2 (09:05→20:14)
[2024-03-30] MEDS: Metoprolol Succinate ER 100 MG TAB.ER.24H PO (09:05)
[2024-03-30] MEDS: Loratadine 10 MG TABLET PO (09:05)
--- NOTE | 2024-03-30 17:31 | HO.PSYCHPN ---
Subjective Subjective Date of Service: 03/30/24 Reason For Visit: Psychosis Interim History: Met with patient; discussed with team Patient pleasant on approach. When questioned she asks when can I get out of here.. No other complaints or requests. Taking medications as prescribed. Currently no delusions thinking expressed. Mental Status Exam Mental Status Exam Patient Appearance: Appropriate Patient Orientation: Person and Situation Level of Consciousness: Awake and Appropriate Patient Behavior: Cooperative, Passive and Good Eye Contact Mood Description: Appropriate Affect Description: Constricted Patient Cognition Impaired: Yes Ability to Follow Directions: Good Speech Pattern: Clear Hallucinations: None Delusions: Paranoid Ideation (Intermittent thoughts that her daughter is kidnapped per staff) Thought Process: Distracted and Slowed Thinking Thought Content: positive for [place] Judgement and Insight: Impaired Diagnostics Vital Signs (24Hr): Vital Signs - 24 hr 03/29/24 19:38 03/30/24 09:04 Temperature 96.7 F L Pulse Rate 78 Respiratory Rate 14 Blood Pressure 153/70 H Pulse Oximetry 93 Oxygen Delivery Method Room Air BMI result Body Mass Index 21.4 Labs 03/21/24 08:00 03/21/24 08:00 Medications Medications Current Medications Acetaminophen (Acetaminophen 325 Mg Tablet) 650 mg PO Q6H PRN PRN Reason: Headache/Pain Mild Scale (1-3) Last Admin: 03/28/24 17:43 Dose: 650 mg Al Hydroxide/Mg Hydroxide (Magnesium Hydrox/Alum Hydrox 30 Ml Oral.Susp) 30 ml PO Q6H PRN PRN Reason: Heartburn/Nausea Bisacodyl (Bisacodyl 10 Mg Supp.Rect) 10 mg [place] BEDTIME PRN PRN Reason: Constipation Last Admin: 02/23/24 10:05 Dose: 10 mg Loratadine (Loratadine 10 Mg Tablet) 10 mg PO DAILY [facility] Last Admin: 03/30/24 09:05 Dose: 10 mg Magnesium Hydroxide (Milk Of Magnesia 30 Ml Oral.Susp) 30 ml PO DAILY PRN PRN Reason: Constipation Memantine (Memantine Hcl 5 Mg Tablet) 5 mg PO BID [facility] Last Admin: 03/30/24 09:05 Dose: 5 mg Metoprolol Succinate (Metoprolol Succinate Er 100 Mg Tab.Er.24h) 100 mg PO DAILY [facility]; Protocol Last Admin: 03/30/24 09:05 Dose: 100 mg Risperidone (Risperidone 0.25 Mg Tablet) 0.25 mg PO DAILY PRN PRN Reason: Anxiety Risperidone (Risperidone 2 Mg Tablet) 2 mg PO BEDTIME [facility] Last Admin: 03/29/24 19:41 Dose: 2 mg Trazodone HCl (Trazodone Hcl 50 Mg Tablet) 50 mg PO BEDTIME MRX1 PRN PRN Reason: Insomnia Last Admin: 03/26/24 20:43 Dose: 50 mg Allergies Allergies Allergy/AdvReac Type Severity Reaction Status Date / Time Penicillins Allergy Difficulty Verified 03/22/24 11:10 Breathing Assessment & Plan Assessment & Plan (1) Major neurocognitive disorder: Status: Acute Code(s): F03.90 - Unspecified dementia, unspecified severity, without behavioral disturbance, psychotic disturbance, mood disturbance, and anxiety Assessment and Plan: 79-year-old female with history of hypertension admitted to Geriatric Psychiatry with consult placed hospitalist service for medical H and P. #Mood disorder/paranoia -plan per Psychiatry #Dementia -plan per Psychiatry # CKD stage 3 -renal function baseline #HTN -resume metoprolol am Plan 03/30 continue treatment plan Plan 1. Continue with Risperdal and Namenda. 2. Information of healthcare proxy. We have filed for a fair admission of healthcare proxy 3. Start working on discharge planning. Reason for continued inpatient stay Substantial Risk for: rapid decompensation Time Spent With Patient Time: Total time managing care of this patient today ____ minutes.
[2024-03-30 20:00] VITALS: BP 147/79; PULSE 89; RESP 16; TEMP 36.8; O2SAT 93
[2024-03-30] MEDS: risperiDONE 2 MG TABLET PO (20:13)
[2024-03-30] MEDS: traZODone HCL 50 MG TABLET PO (20:13)
[2024-03-31 08:00] VITALS: BP 115/65; PULSE 69; RESP 16; TEMP 36; O2SAT 94
[2024-03-31 08:11] VITALS: BP 115/65; PULSE 69
[2024-03-31] MEDS: Memantine HCl 5 MG TABLET PO ×2 (08:11→20:50)
[2024-03-31] MEDS: Metoprolol Succinate ER 100 MG TAB.ER.24H PO (08:11)
[2024-03-31] MEDS: Loratadine 10 MG TABLET PO (08:11)
[2024-03-31 20:00] VITALS: BP 160/77; PULSE 79; RESP 16; TEMP 36.4; O2SAT 96
[2024-03-31] MEDS: risperiDONE 2 MG TABLET PO (20:50)
[2024-04-01 08:00] VITALS: BP 130/64; PULSE 75; RESP 17; TEMP 36.3; O2SAT 96
[2024-04-01] MEDS: Metoprolol Succinate ER 100 MG TAB.ER.24H PO (08:30)
[2024-04-01] MEDS: Loratadine 10 MG TABLET PO (08:30)
[2024-04-01] MEDS: Memantine HCl 5 MG TABLET PO ×2 (08:30→20:35)
--- NOTE | 2024-04-01 11:23 | P.PNPSI_ITS ---
Subjective Subjective Date of Service: 03/31/24 Reason For Visit: Psychosis Interim History: Late entry note for patient seen on 03/31/24; discussed with team Patient pleasant on approach, coloring. No complaints and no request; she continues to ask when she will be able to discharge. No delusional thinking expressed Mental Status Exam Mental Status Exam Patient Appearance: Appropriate Patient Orientation: Person and Situation Level of Consciousness: Awake and Appropriate Patient Behavior: Appropriate, Cooperative, Passive and Good Eye Contact Mood Description: Calm and Appropriate Affect Description: Calm and Appropriate Patient Cognition Impaired: Yes Ability to Follow Directions: Good Speech Pattern: Clear Hallucinations: None Delusions: Paranoid Ideation (Intermittent thoughts that her daughter is kidnapped per staff) Thought Process: Distracted and Slowed Thinking Thought Content: positive for [place] Judgement and Insight: Impaired Diagnostics Vital Signs (24Hr): Vital Signs - 24 hr 03/31/24 20:00 04/01/24 08:00 Temperature 97.6 F 97.3 F Pulse Rate 79 75 Respiratory Rate 16 17 Blood Pressure 160/77 H 130/64 Pulse Oximetry 96 96 Oxygen Delivery Method Room Air Room Air BMI result Body Mass Index 21.4 Labs 03/21/24 08:00 03/21/24 08:00 Medications Medications Current Medications Acetaminophen (Acetaminophen 325 Mg Tablet) 650 mg PO Q6H PRN PRN Reason: Headache/Pain Mild Scale (1-3) Last Admin: 03/28/24 17:43 Dose: 650 mg Al Hydroxide/Mg Hydroxide (Magnesium Hydrox/Alum Hydrox 30 Ml Oral.Susp) 30 ml PO Q6H PRN PRN Reason: Heartburn/Nausea Bisacodyl (Bisacodyl 10 Mg Supp.Rect) 10 mg [place] BEDTIME PRN PRN Reason: Constipation Last Admin: 02/23/24 10:05 Dose: 10 mg Loratadine (Loratadine 10 Mg Tablet) 10 mg PO DAILY [facility] Last Admin: 04/01/24 08:30 Dose: 10 mg Magnesium Hydroxide (Milk Of Magnesia 30 Ml Oral.Susp) 30 ml PO DAILY PRN PRN Reason: Constipation Memantine (Memantine Hcl 5 Mg Tablet) 5 mg PO BID [facility] Last Admin: 04/01/24 08:30 Dose: 5 mg Metoprolol Succinate (Metoprolol Succinate Er 100 Mg Tab.Er.24h) 100 mg PO DAILY [facility]; Protocol Last Admin: 04/01/24 08:30 Dose: 100 mg Risperidone (Risperidone 0.25 Mg Tablet) 0.25 mg PO DAILY PRN PRN Reason: Anxiety Risperidone (Risperidone 2 Mg Tablet) 2 mg PO BEDTIME [facility] Last Admin: 03/31/24 20:50 Dose: 2 mg Trazodone HCl (Trazodone Hcl 50 Mg Tablet) 50 mg PO BEDTIME MRX1 PRN PRN Reason: Insomnia Last Admin: 03/30/24 20:13 Dose: 50 mg Allergies Allergies Allergy/AdvReac Type Severity Reaction Status Date / Time Penicillins Allergy Difficulty Verified 03/22/24 11:10 Breathing Assessment & Plan Assessment & Plan (1) Major neurocognitive disorder: Status: Acute Code(s): F03.90 - Unspecified dementia, unspecified severity, without behavioral disturbance, psychotic disturbance, mood disturbance, and anxiety Assessment and Plan: 79-year-old female with history of hypertension admitted to Geriatric Psychiatry with consult placed hospitalist service for medical H and P. #Mood disorder/paranoia -plan per Psychiatry #Dementia -plan per Psychiatry # CKD stage 3 -renal function baseline #HTN -resume metoprolol am Plan 03/30 continue treatment plan 03/31 continue treatment plan Plan 1. Continue with Risperdal and Namenda. 2. Information of healthcare proxy. We have filed for a fair admission of healthcare proxy 3. Start working on discharge planning. Reason for continued inpatient stay Substantial Risk for: rapid decompensation Time Spent With Patient Time: Total time managing care of this patient today ____ minutes.
--- NOTE | 2024-04-01 14:11 | HO.PSYCHPN ---
Subjective Subjective Date of Service: 04/01/24 Reason For Visit: Psychosis Subjective Notes: Conditional Voluntary Interim History: The nursing staff reported no changes in her mental status confused easily redirectable. On interview the patient denies new symptoms. The social science professor reported the application for placement was already done. On interview the patient denies new symptoms, waiting for placement. Mental Status Exam Mental Status Exam Patient Appearance: Well Grooomed and Appropriate Patient Orientation: Person and Situation Level of Consciousness: Awake and Appropriate Patient Behavior: Guarded and Passive Mood Description: Withdrawn Affect Description: Constricted Patient Cognition Impaired: Yes Ability to Follow Directions: Good Speech Pattern: Clear Hallucinations: None Delusions: Not Present Thought Process: Linear Thought Content: positive for [place] and positive for Poverty of Content Judgement: Fair Diagnostics Vital Signs (24Hr): Vital Signs - 24 hr 03/31/24 20:00 04/01/24 08:00 Temperature 97.6 F 97.3 F Pulse Rate 79 75 Respiratory Rate 16 17 Blood Pressure 160/77 H 130/64 Pulse Oximetry 96 96 Oxygen Delivery Method Room Air Room Air BMI result Body Mass Index 21.4 Labs 03/21/24 08:00 03/21/24 08:00 Medications Medications Current Medications Acetaminophen (Acetaminophen 325 Mg Tablet) 650 mg PO Q6H PRN PRN Reason: Headache/Pain Mild Scale (1-3) Last Admin: 03/28/24 17:43 Dose: 650 mg Al Hydroxide/Mg Hydroxide (Magnesium Hydrox/Alum Hydrox 30 Ml Oral.Susp) 30 ml PO Q6H PRN PRN Reason: Heartburn/Nausea Bisacodyl (Bisacodyl 10 Mg Supp.Rect) 10 mg [place] BEDTIME PRN PRN Reason: Constipation Last Admin: 02/23/24 10:05 Dose: 10 mg Loratadine (Loratadine 10 Mg Tablet) 10 mg PO DAILY [facility] Last Admin: 04/01/24 08:30 Dose: 10 mg Magnesium Hydroxide (Milk Of Magnesia 30 Ml Oral.Susp) 30 ml PO DAILY PRN PRN Reason: Constipation Memantine (Memantine Hcl 5 Mg Tablet) 5 mg PO BID [facility] Last Admin: 04/01/24 08:30 Dose: 5 mg Metoprolol Succinate (Metoprolol Succinate Er 100 Mg Tab.Er.24h) 100 mg PO DAILY [facility]; Protocol Last Admin: 04/01/24 08:30 Dose: 100 mg Risperidone (Risperidone 0.25 Mg Tablet) 0.25 mg PO DAILY PRN PRN Reason: Anxiety Risperidone (Risperidone 2 Mg Tablet) 2 mg PO BEDTIME [facility] Last Admin: 03/31/24 20:50 Dose: 2 mg Trazodone HCl (Trazodone Hcl 50 Mg Tablet) 50 mg PO BEDTIME MRX1 PRN PRN Reason: Insomnia Last Admin: 03/30/24 20:13 Dose: 50 mg Allergies Allergies Allergy/AdvReac Type Severity Reaction Status Date / Time Penicillins Allergy Difficulty Verified 03/22/24 11:10 Breathing Assessment & Plan Assessment & Plan (1) Major neurocognitive disorder: Status: Acute Code(s): F03.90 - Unspecified dementia, unspecified severity, without behavioral disturbance, psychotic disturbance, mood disturbance, and anxiety Assessment and Plan: 79-year-old female with history of hypertension admitted to Geriatric Psychiatry with consult placed hospitalist service for medical H and P. #Mood disorder/paranoia -plan per Psychiatry #Dementia -plan per Psychiatry # CKD stage 3 -renal function baseline #HTN -resume metoprolol am Plan 03/30 continue treatment plan 03/31 continue treatment plan Plan 1. Continue with Risperdal and Namenda. 2. Information of healthcare proxy. We have filed for a fair admission of healthcare proxy 3. Start working on discharge planning. Reason for continued inpatient stay Substantial Risk for: inability to function, rapid decompensation and med/psych decompensation Time Spent With Patient Time: Total time managing care of this patient today _20___ minutes.
[2024-04-01 20:00] VITALS: BP 127/58; PULSE 81; RESP 16; TEMP 36.3; O2SAT 92
[2024-04-01] MEDS: risperiDONE 2 MG TABLET PO (20:36)
[2024-04-02 08:00] VITALS: BP 141/61; PULSE 77; RESP 16; TEMP 36.1; O2SAT 96
[2024-04-02] MEDS: Memantine HCl 5 MG TABLET PO ×2 (08:36→20:31)
[2024-04-02] MEDS: Metoprolol Succinate ER 100 MG TAB.ER.24H PO (08:37)
[2024-04-02] MEDS: Loratadine 10 MG TABLET PO (08:37)
--- NOTE | 2024-04-02 14:00 | HO.PSYCHPN ---
Subjective Subjective Date of Service: 04/02/24 Reason For Visit: Psychosis Subjective Notes: Conditional Voluntary Interim History: The nursing staff reported no changes in mental status compliant with treatment. On interview the patient denies new symptoms. Mental Status Exam Mental Status Exam Patient Appearance: Well Grooomed and Appropriate Patient Orientation: Person and Situation Level of Consciousness: Awake and Appropriate Patient Behavior: Guarded and Passive Mood Description: Withdrawn Affect Description: Constricted Patient Cognition Impaired: Yes Ability to Follow Directions: Good Speech Pattern: Clear Hallucinations: None Delusions: Not Present Thought Process: Distracted and Slowed Thinking Thought Content: positive for [place] and positive for Poverty of Content Judgement: Fair Diagnostics Vital Signs (24Hr): Vital Signs - 24 hr 04/01/24 20:00 04/02/24 08:00 Temperature 97.3 F 97 F Pulse Rate 81 77 Respiratory Rate 16 16 Blood Pressure 127/58 L 141/61 H Pulse Oximetry 92 96 Oxygen Delivery Method Room Air Room Air BMI result Body Mass Index 21.4 Labs 03/21/24 08:00 03/21/24 08:00 Medications Medications Current Medications Acetaminophen (Acetaminophen 325 Mg Tablet) 650 mg PO Q6H PRN PRN Reason: Headache/Pain Mild Scale (1-3) Last Admin: 03/28/24 17:43 Dose: 650 mg Al Hydroxide/Mg Hydroxide (Magnesium Hydrox/Alum Hydrox 30 Ml Oral.Susp) 30 ml PO Q6H PRN PRN Reason: Heartburn/Nausea Bisacodyl (Bisacodyl 10 Mg Supp.Rect) 10 mg [place] BEDTIME PRN PRN Reason: Constipation Last Admin: 02/23/24 10:05 Dose: 10 mg Loratadine (Loratadine 10 Mg Tablet) 10 mg PO DAILY [facility] Last Admin: 04/02/24 08:37 Dose: 10 mg Magnesium Hydroxide (Milk Of Magnesia 30 Ml Oral.Susp) 30 ml PO DAILY PRN PRN Reason: Constipation Memantine (Memantine Hcl 5 Mg Tablet) 5 mg PO BID [facility] Last Admin: 04/02/24 08:36 Dose: 5 mg Metoprolol Succinate (Metoprolol Succinate Er 100 Mg Tab.Er.24h) 100 mg PO DAILY [facility]; Protocol Last Admin: 04/02/24 08:37 Dose: 100 mg Risperidone (Risperidone 0.25 Mg Tablet) 0.25 mg PO DAILY PRN PRN Reason: Anxiety Risperidone (Risperidone 2 Mg Tablet) 2 mg PO BEDTIME [facility] Last Admin: 04/01/24 20:36 Dose: 2 mg Trazodone HCl (Trazodone Hcl 50 Mg Tablet) 50 mg PO BEDTIME MRX1 PRN PRN Reason: Insomnia Last Admin: 03/30/24 20:13 Dose: 50 mg Allergies Allergies Allergy/AdvReac Type Severity Reaction Status Date / Time Penicillins Allergy Difficulty Verified 03/22/24 11:10 Breathing Assessment & Plan Assessment & Plan (1) Major neurocognitive disorder: Status: Acute Code(s): F03.90 - Unspecified dementia, unspecified severity, without behavioral disturbance, psychotic disturbance, mood disturbance, and anxiety Assessment and Plan: 79-year-old female with history of hypertension admitted to Geriatric Psychiatry with consult placed hospitalist service for medical H and P. #Mood disorder/paranoia -plan per Psychiatry #Dementia -plan per Psychiatry # CKD stage 3 -renal function baseline #HTN -resume metoprolol am Plan 03/30 continue treatment plan 03/31 continue treatment plan Plan 1. Continue with Risperdal and Namenda. 2. Information of healthcare proxy. We have filed for a fair admission of healthcare proxy 3. Start working on discharge planning. Reason for continued inpatient stay Substantial Risk for: inability to function, rapid decompensation and med/psych decompensation Time Spent With Patient Time: Total time managing care of this patient today _20___ minutes.
[2024-04-02 20:00] VITALS: BP 161/74; PULSE 76; RESP 16; TEMP 36.3; O2SAT 97
[2024-04-02] MEDS: risperiDONE 2 MG TABLET PO (20:30)
[2024-04-02] MEDS: traZODone HCL 50 MG TABLET PO (20:31)
[2024-04-03 09:01] VITALS: BP 125/66; PULSE 69; RESP 16; TEMP 36.6; O2SAT 97
[2024-04-03] MEDS: Memantine HCl 5 MG TABLET PO ×2 (09:01→20:09)
[2024-04-03] MEDS: Loratadine 10 MG TABLET PO (09:01)
[2024-04-03] MEDS: Metoprolol Succinate ER 100 MG TAB.ER.24H PO (09:01)
--- NOTE | 2024-04-03 16:07 | P.PNPSI_ITS ---
Subjective Subjective Date of Service: 04/03/24 Reason For Visit: Psychosis Subjective Notes: Conditional Voluntary Interim History: The nursing staff reported the patient had been compliant with treatment no changes in mental status. The director social reported that she was denied from nursing home facility remains on right. Ten more facilities were applied. On interview the patient denies new symptoms, waiting for placement Mental Status Exam Mental Status Exam Patient Appearance: Well Grooomed and Appropriate Patient Orientation: Person and Situation Level of Consciousness: Awake and Appropriate Patient Behavior: Guarded and Passive Mood Description: Calm Affect Description: Constricted Patient Cognition Impaired: Yes Ability to Follow Directions: Good Speech Pattern: Clear Hallucinations: None Delusions: Not Present Thought Process: Distracted and Slowed Thinking Thought Content: positive for [place] and positive for Poverty of Content Judgement: Fair Diagnostics Vital Signs (24Hr): Vital Signs - 24 hr 04/02/24 20:00 04/03/24 09:01 Temperature 97.3 F 97.8 F Pulse Rate 76 69 Respiratory Rate 16 16 Blood Pressure 161/74 H 125/66 Pulse Oximetry 97 97 Oxygen Delivery Method Room Air Room Air BMI result Body Mass Index 21.4 Labs 03/21/24 08:00 03/21/24 08:00 Medications Medications Current Medications Acetaminophen (Acetaminophen 325 Mg Tablet) 650 mg PO Q6H PRN PRN Reason: Headache/Pain Mild Scale (1-3) Last Admin: 03/28/24 17:43 Dose: 650 mg Al Hydroxide/Mg Hydroxide (Magnesium Hydrox/Alum Hydrox 30 Ml Oral.Susp) 30 ml PO Q6H PRN PRN Reason: Heartburn/Nausea Bisacodyl (Bisacodyl 10 Mg Supp.Rect) 10 mg [place] BEDTIME PRN PRN Reason: Constipation Last Admin: 02/23/24 10:05 Dose: 10 mg Loratadine (Loratadine 10 Mg Tablet) 10 mg PO DAILY [facility] Last Admin: 04/03/24 09:01 Dose: 10 mg Magnesium Hydroxide (Milk Of Magnesia 30 Ml Oral.Susp) 30 ml PO DAILY PRN PRN Reason: Constipation Memantine (Memantine Hcl 5 Mg Tablet) 5 mg PO BID [facility] Last Admin: 04/03/24 09:01 Dose: 5 mg Metoprolol Succinate (Metoprolol Succinate Er 100 Mg Tab.Er.24h) 100 mg PO DAILY [facility]; Protocol Last Admin: 04/03/24 09:01 Dose: 100 mg Risperidone (Risperidone 0.25 Mg Tablet) 0.25 mg PO DAILY PRN PRN Reason: Anxiety Risperidone (Risperidone 2 Mg Tablet) 2 mg PO BEDTIME [facility] Last Admin: 04/02/24 20:30 Dose: 2 mg Trazodone HCl (Trazodone Hcl 50 Mg Tablet) 50 mg PO BEDTIME MRX1 PRN PRN Reason: Insomnia Last Admin: 04/02/24 20:31 Dose: 50 mg Allergies Allergies Allergy/AdvReac Type Severity Reaction Status Date / Time Penicillins Allergy Difficulty Verified 03/22/24 11:10 Breathing Assessment & Plan Assessment & Plan (1) Major neurocognitive disorder: Status: Acute Code(s): F03.90 - Unspecified dementia, unspecified severity, without behavioral disturbance, psychotic disturbance, mood disturbance, and anxiety Assessment and Plan: 79-year-old female with history of hypertension admitted to Geriatric Psychiatry with consult placed hospitalist service for medical H and P. #Mood disorder/paranoia -plan per Psychiatry #Dementia -plan per Psychiatry # CKD stage 3 -renal function baseline #HTN -resume metoprolol am Plan 03/30 continue treatment plan 03/31 continue treatment plan Plan 1. Continue with Risperdal and Namenda. 2. Information of healthcare proxy. We have filed for a fair admission of healthcare proxy 3. Start working on discharge planning. Reason for continued inpatient stay Substantial Risk for: inability to function, rapid decompensation and med/psych decompensation Time Spent With Patient Time: Total time managing care of this patient today __20__ minutes.
[2024-04-03 20:00] VITALS: BP 123/58; PULSE 76; RESP 16; TEMP 35.9; O2SAT 95
[2024-04-03] MEDS: risperiDONE 2 MG TABLET PO (20:09)
[2024-04-04 08:52] VITALS: BP 122/65; PULSE 71; RESP 18; TEMP 35.8; O2SAT 93
[2024-04-04] MEDS: Memantine HCl 5 MG TABLET PO ×2 (08:54→21:01)
[2024-04-04] MEDS: Metoprolol Succinate ER 100 MG TAB.ER.24H PO (08:54)
[2024-04-04] MEDS: Loratadine 10 MG TABLET PO (08:54)
[2024-04-04 13:15] VITALS: BMI 21.7
--- NOTE | 2024-04-04 15:21 | HO.PSYCHPN ---
Subjective Subjective Date of Service: 04/04/24 Reason For Visit: Psychosis Subjective Notes: Conditional Voluntary Interim History: The nursing staff reported the patient has no changes in her mental status compliant with treatment. The social science instructor reported that [facility] is looking into her. On interview the patient denies new symptoms, waiting for placement. Mental Status Exam Mental Status Exam Patient Appearance: Appropriate Patient Orientation: Person and Situation Level of Consciousness: Awake and Appropriate Patient Behavior: Passive Mood Description: Calm Affect Description: Calm Patient Cognition Impaired: Yes Ability to Follow Directions: Good Speech Pattern: Clear Hallucinations: None Delusions: Not Present Thought Process: Linear Thought Content: positive for [place] Judgement: Fair Diagnostics Vital Signs (24Hr): Vital Signs - 24 hr 04/03/24 20:00 04/04/24 08:52 Temperature 96.6 F L 96.4 F L Pulse Rate 76 71 Respiratory Rate 16 18 Blood Pressure 123/58 L 122/65 Pulse Oximetry 95 93 Oxygen Delivery Method Room Air Room Air BMI result Body Mass Index 21.7 Labs 03/21/24 08:00 03/21/24 08:00 Medications Medications Current Medications Acetaminophen (Acetaminophen 325 Mg Tablet) 650 mg PO Q6H PRN PRN Reason: Headache/Pain Mild Scale (1-3) Last Admin: 03/28/24 17:43 Dose: 650 mg Al Hydroxide/Mg Hydroxide (Magnesium Hydrox/Alum Hydrox 30 Ml Oral.Susp) 30 ml PO Q6H PRN PRN Reason: Heartburn/Nausea Bisacodyl (Bisacodyl 10 Mg Supp.Rect) 10 mg [place] BEDTIME PRN PRN Reason: Constipation Last Admin: 02/23/24 10:05 Dose: 10 mg Loratadine (Loratadine 10 Mg Tablet) 10 mg PO DAILY [facility] Last Admin: 04/04/24 08:54 Dose: 10 mg Magnesium Hydroxide (Milk Of Magnesia 30 Ml Oral.Susp) 30 ml PO DAILY PRN PRN Reason: Constipation Memantine (Memantine Hcl 5 Mg Tablet) 5 mg PO BID [facility] Last Admin: 04/04/24 08:54 Dose: 5 mg Metoprolol Succinate (Metoprolol Succinate Er 100 Mg Tab.Er.24h) 100 mg PO DAILY [facility]; Protocol Last Admin: 04/04/24 08:54 Dose: 100 mg Risperidone (Risperidone 0.25 Mg Tablet) 0.25 mg PO DAILY PRN PRN Reason: Anxiety Risperidone (Risperidone 2 Mg Tablet) 2 mg PO BEDTIME [facility] Last Admin: 04/03/24 20:09 Dose: 2 mg Trazodone HCl (Trazodone Hcl 50 Mg Tablet) 50 mg PO BEDTIME MRX1 PRN PRN Reason: Insomnia Last Admin: 04/02/24 20:31 Dose: 50 mg Allergies Allergies Allergy/AdvReac Type Severity Reaction Status Date / Time Penicillins Allergy Difficulty Verified 03/22/24 11:10 Breathing Assessment & Plan Assessment & Plan (1) Major neurocognitive disorder: Status: Acute Code(s): F03.90 - Unspecified dementia, unspecified severity, without behavioral disturbance, psychotic disturbance, mood disturbance, and anxiety Assessment and Plan: 79-year-old female with history of hypertension admitted to Geriatric Psychiatry with consult placed hospitalist service for medical H and P. #Mood disorder/paranoia -plan per Psychiatry #Dementia -plan per Psychiatry # CKD stage 3 -renal function baseline #HTN -resume metoprolol am Plan 03/30 continue treatment plan 03/31 continue treatment plan Plan 1. Continue with Risperdal and Namenda. 2. Information of healthcare proxy. We have filed for a fair admission of healthcare proxy 3. Start working on discharge planning. Reason for continued inpatient stay Substantial Risk for: inability to function, rapid decompensation and med/psych decompensation Time Spent With Patient Time: Total time managing care of this patient today __20__ minutes.
[2024-04-04 20:00] VITALS: BP 162/77; PULSE 84; RESP 18; TEMP 36.5; O2SAT 95
[2024-04-04] MEDS: risperiDONE 2 MG TABLET PO (21:01)
[2024-04-05 08:13] VITALS: BP 138/73; PULSE 76; RESP 17; TEMP 36.1; O2SAT 96
[2024-04-05] MEDS: Metoprolol Succinate ER 100 MG TAB.ER.24H PO (08:14)
[2024-04-05] MEDS: Memantine HCl 5 MG TABLET PO ×2 (08:14→20:18)
[2024-04-05] MEDS: Loratadine 10 MG TABLET PO (08:14)
--- NOTE | 2024-04-05 16:33 | HO.PSYCHPN ---
Subjective Subjective Date of Service: 04/05/24 Reason For Visit: Psychosis Subjective Notes: Conditional Voluntary Interim History: The nursing staff reported the patient had been fully compliant with treatment, no changes in mental status. On interview the patient denies new symptoms, waiting for placement. The family is working on discharge planning. Mental Status Exam Mental Status Exam Patient Appearance: Appropriate Patient Orientation: Person and Situation Level of Consciousness: Awake Patient Behavior: Guarded and Passive Mood Description: Withdrawn Affect Description: Constricted Patient Cognition Impaired: Yes Ability to Follow Directions: Good Speech Pattern: Clear Hallucinations: None Delusions: Not Present Thought Process: Distracted and Slowed Thinking Thought Content: positive for [place] and positive for Poverty of Content Judgement: Fair Diagnostics Vital Signs (24Hr): Vital Signs - 24 hr 04/04/24 20:00 04/05/24 08:13 Temperature 97.7 F 97 F Pulse Rate 84 76 Respiratory Rate 18 17 Blood Pressure 162/77 H 138/73 Pulse Oximetry 95 96 Oxygen Delivery Method Room Air Room Air BMI result Body Mass Index 21.7 Labs 03/21/24 08:00 03/21/24 08:00 Medications Medications Current Medications Acetaminophen (Acetaminophen 325 Mg Tablet) 650 mg PO Q6H PRN PRN Reason: Headache/Pain Mild Scale (1-3) Last Admin: 03/28/24 17:43 Dose: 650 mg Al Hydroxide/Mg Hydroxide (Magnesium Hydrox/Alum Hydrox 30 Ml Oral.Susp) 30 ml PO Q6H PRN PRN Reason: Heartburn/Nausea Bisacodyl (Bisacodyl 10 Mg Supp.Rect) 10 mg [place] BEDTIME PRN PRN Reason: Constipation Last Admin: 02/23/24 10:05 Dose: 10 mg Loratadine (Loratadine 10 Mg Tablet) 10 mg PO DAILY [facility] Last Admin: 04/05/24 08:14 Dose: 10 mg Magnesium Hydroxide (Milk Of Magnesia 30 Ml Oral.Susp) 30 ml PO DAILY PRN PRN Reason: Constipation Memantine (Memantine Hcl 5 Mg Tablet) 5 mg PO BID [facility] Last Admin: 04/05/24 08:14 Dose: 5 mg Metoprolol Succinate (Metoprolol Succinate Er 100 Mg Tab.Er.24h) 100 mg PO DAILY [facility]; Protocol Last Admin: 04/05/24 08:14 Dose: 100 mg Risperidone (Risperidone 0.25 Mg Tablet) 0.25 mg PO DAILY PRN PRN Reason: Anxiety Risperidone (Risperidone 2 Mg Tablet) 2 mg PO BEDTIME [facility] Last Admin: 04/04/24 21:01 Dose: 2 mg Trazodone HCl (Trazodone Hcl 50 Mg Tablet) 50 mg PO BEDTIME MRX1 PRN PRN Reason: Insomnia Last Admin: 04/02/24 20:31 Dose: 50 mg Allergies Allergies Allergy/AdvReac Type Severity Reaction Status Date / Time Penicillins Allergy Difficulty Verified 03/22/24 11:10 Breathing Assessment & Plan Assessment & Plan (1) Major neurocognitive disorder: Status: Acute Code(s): F03.90 - Unspecified dementia, unspecified severity, without behavioral disturbance, psychotic disturbance, mood disturbance, and anxiety Assessment and Plan: 79-year-old female with history of hypertension admitted to Geriatric Psychiatry with consult placed hospitalist service for medical H and P. #Mood disorder/paranoia -plan per Psychiatry #Dementia -plan per Psychiatry # CKD stage 3 -renal function baseline #HTN -resume metoprolol am Plan 03/30 continue treatment plan 03/31 continue treatment plan Plan 1. Continue with Risperdal and Namenda. 2. Information of healthcare proxy. We have filed for a fair admission of healthcare proxy 3. Start working on discharge planning. Reason for continued inpatient stay Substantial Risk for: inability to function, rapid decompensation and med/psych decompensation Time Spent With Patient Time: Total time managing care of this patient today __20__ minutes.
[2024-04-05 20:00] VITALS: BP 148/78; PULSE 69; RESP 17; TEMP 36.1; O2SAT 96
[2024-04-05] MEDS: risperiDONE 2 MG TABLET PO (20:18)
[2024-04-06 08:20] VITALS: BP 130/70; PULSE 72; RESP 18; TEMP 36.1; O2SAT 96
[2024-04-06] MEDS: Metoprolol Succinate ER 100 MG TAB.ER.24H PO (08:52)
[2024-04-06] MEDS: Loratadine 10 MG TABLET PO (08:53)
[2024-04-06] MEDS: Memantine HCl 5 MG TABLET PO ×2 (08:53→20:19)
--- NOTE | 2024-04-06 11:14 | P.PNPSI_ITS ---
Subjective Subjective Date of Service: 04/06/24 Reason For Visit: Psychosis Subjective Notes: Conditional Voluntary Interim History: The nursing staff reported the patient had been fully compliant with treatment, no changes in mental status. Continue on Risperdal and Namenda Medication Compliance: Yes Mental Status Exam Mental Status Exam Patient Appearance: Appropriate Patient Orientation: Person and Situation Level of Consciousness: Awake Patient Behavior: Guarded and Passive Mood Description: Calm and Constricted Affect Description: Constricted Patient Cognition Impaired: Yes Ability to Follow Directions: Good Speech Pattern: Clear Hallucinations: None Delusions: Not Present Thought Process: Distracted and Slowed Thinking Thought Content: positive for [place] and positive for Poverty of Content Judgement: Fair Diagnostics Vital Signs (24Hr): Vital Signs - 24 hr 04/05/24 20:00 04/06/24 08:20 Temperature 97 F 96.9 F Pulse Rate 69 72 Respiratory Rate 17 18 Blood Pressure 148/78 H 130/70 Pulse Oximetry 96 96 Oxygen Delivery Method Room Air Room Air BMI result Body Mass Index 21.7 Labs 03/21/24 08:00 03/21/24 08:00 Medications Medications Current Medications Acetaminophen (Acetaminophen 325 Mg Tablet) 650 mg PO Q6H PRN PRN Reason: Headache/Pain Mild Scale (1-3) Last Admin: 03/28/24 17:43 Dose: 650 mg Al Hydroxide/Mg Hydroxide (Magnesium Hydrox/Alum Hydrox 30 Ml Oral.Susp) 30 ml PO Q6H PRN PRN Reason: Heartburn/Nausea Bisacodyl (Bisacodyl 10 Mg Supp.Rect) 10 mg [place] BEDTIME PRN PRN Reason: Constipation Last Admin: 02/23/24 10:05 Dose: 10 mg Loratadine (Loratadine 10 Mg Tablet) 10 mg PO DAILY [facility] Last Admin: 04/06/24 08:53 Dose: 10 mg Magnesium Hydroxide (Milk Of Magnesia 30 Ml Oral.Susp) 30 ml PO DAILY PRN PRN Reason: Constipation Memantine (Memantine Hcl 5 Mg Tablet) 5 mg PO BID [facility] Last Admin: 04/06/24 08:53 Dose: 5 mg Metoprolol Succinate (Metoprolol Succinate Er 100 Mg Tab.Er.24h) 100 mg PO DAILY [facility]; Protocol Last Admin: 04/06/24 08:52 Dose: 100 mg Risperidone (Risperidone 0.25 Mg Tablet) 0.25 mg PO DAILY PRN PRN Reason: Anxiety Risperidone (Risperidone 2 Mg Tablet) 2 mg PO BEDTIME [facility] Last Admin: 04/05/24 20:18 Dose: 2 mg Trazodone HCl (Trazodone Hcl 50 Mg Tablet) 50 mg PO BEDTIME MRX1 PRN PRN Reason: Insomnia Last Admin: 04/02/24 20:31 Dose: 50 mg Allergies Allergies Allergy/AdvReac Type Severity Reaction Status Date / Time Penicillins Allergy Difficulty Verified 03/22/24 11:10 Breathing Assessment & Plan Assessment & Plan (1) Major neurocognitive disorder: Status: Acute Code(s): F03.90 - Unspecified dementia, unspecified severity, without behavioral disturbance, psychotic disturbance, mood disturbance, and anxiety Assessment and Plan: 79-year-old female with history of hypertension admitted to Geriatric Psychiatry with consult placed hospitalist service for medical H and P. #Mood disorder/paranoia -plan per Psychiatry #Dementia -plan per Psychiatry # CKD stage 3 -renal function baseline #HTN -resume metoprolol am Plan 03/30 continue treatment plan 03/31 continue treatment plan Plan 1. Continue with Risperdal and Namenda. 2. Information of healthcare proxy. We have filed for a fair admission of healthcare proxy 3. Start working on discharge planning. 04/06/2024 Continue Risperdal had Namenda no side effects noted. Continue discharge planning Reason for continued inpatient stay Substantial Risk for: inability to function and rapid decompensation Time Spent With Patient Time: Total time managing care of this patient today __16__ minutes.
[2024-04-06 20:00] VITALS: BP 125/59; PULSE 78; RESP 16; TEMP 36.2; O2SAT 97
[2024-04-06] MEDS: risperiDONE 2 MG TABLET PO (20:19)
[2024-04-07 08:00] VITALS: BP 116/61; PULSE 70; RESP 18; TEMP 36.2; O2SAT 95
[2024-04-07] MEDS: Memantine HCl 5 MG TABLET PO ×2 (08:20→20:39)
[2024-04-07] MEDS: Loratadine 10 MG TABLET PO (08:20)
[2024-04-07] MEDS: Metoprolol Succinate ER 100 MG TAB.ER.24H PO (08:20)
[2024-04-07 20:00] VITALS: BP 143/69; PULSE 84; RESP 18; TEMP 36.7; O2SAT 96
[2024-04-07] MEDS: traZODone HCL 50 MG TABLET PO (20:39)
[2024-04-07] MEDS: risperiDONE 2 MG TABLET PO (20:39)
--- NOTE | 2024-04-07 22:55 | P.PNPSI_ITS ---
Subjective Subjective Date of Service: 04/07/24 Reason For Visit: Psychosis Subjective Notes: Conditional Voluntary Interim History: The nursing staff reported the patient had been fully compliant with treatment, no changes in mental status. Continue on Risperdal and Namenda Medication Compliance: Yes Mental Status Exam Mental Status Exam Patient Appearance: Appropriate Patient Orientation: Person and Situation Level of Consciousness: Awake Patient Behavior: Guarded and Passive Mood Description: Calm and Constricted Affect Description: Constricted Patient Cognition Impaired: Yes Ability to Follow Directions: Good Speech Pattern: Clear Hallucinations: None Delusions: Not Present Thought Process: Distracted and Slowed Thinking Thought Content: positive for [place] and positive for Poverty of Content Judgement: Fair Diagnostics Vital Signs (24Hr): Vital Signs - 24 hr 04/07/24 08:00 04/07/24 20:00 Temperature 97.1 F 98.1 F Pulse Rate 70 84 Respiratory Rate 18 18 Blood Pressure 116/61 143/69 H Pulse Oximetry 95 96 Oxygen Delivery Method Room Air Room Air BMI result Body Mass Index 21.7 Labs 03/21/24 08:00 03/21/24 08:00 Medications Medications Current Medications Acetaminophen (Acetaminophen 325 Mg Tablet) 650 mg PO Q6H PRN PRN Reason: Headache/Pain Mild Scale (1-3) Last Admin: 03/28/24 17:43 Dose: 650 mg Al Hydroxide/Mg Hydroxide (Magnesium Hydrox/Alum Hydrox 30 Ml Oral.Susp) 30 ml PO Q6H PRN PRN Reason: Heartburn/Nausea Bisacodyl (Bisacodyl 10 Mg Supp.Rect) 10 mg [place] BEDTIME PRN PRN Reason: Constipation Last Admin: 02/23/24 10:05 Dose: 10 mg Loratadine (Loratadine 10 Mg Tablet) 10 mg PO DAILY [facility] Last Admin: 04/07/24 08:20 Dose: 10 mg Magnesium Hydroxide (Milk Of Magnesia 30 Ml Oral.Susp) 30 ml PO DAILY PRN PRN Reason: Constipation Memantine (Memantine Hcl 5 Mg Tablet) 5 mg PO BID [facility] Last Admin: 04/07/24 20:39 Dose: 5 mg Metoprolol Succinate (Metoprolol Succinate Er 100 Mg Tab.Er.24h) 100 mg PO DAILY [facility]; Protocol Last Admin: 04/07/24 08:20 Dose: 100 mg Risperidone (Risperidone 0.25 Mg Tablet) 0.25 mg PO DAILY PRN PRN Reason: Anxiety Risperidone (Risperidone 2 Mg Tablet) 2 mg PO BEDTIME [facility] Last Admin: 04/07/24 20:39 Dose: 2 mg Trazodone HCl (Trazodone Hcl 50 Mg Tablet) 50 mg PO BEDTIME MRX1 PRN PRN Reason: Insomnia Last Admin: 04/07/24 20:39 Dose: 50 mg Allergies Allergies Allergy/AdvReac Type Severity Reaction Status Date / Time Penicillins Allergy Difficulty Verified 03/22/24 11:10 Breathing Assessment & Plan Assessment & Plan (1) Major neurocognitive disorder: Status: Acute Code(s): F03.90 - Unspecified dementia, unspecified severity, without behavioral disturbance, psychotic disturbance, mood disturbance, and anxiety Assessment and Plan: 79-year-old female with history of hypertension admitted to Geriatric Psychiatry with consult placed hospitalist service for medical H and P. #Mood disorder/paranoia -plan per Psychiatry #Dementia -plan per Psychiatry # CKD stage 3 -renal function baseline #HTN -resume metoprolol am Plan 03/30 continue treatment plan 03/31 continue treatment plan Plan 1. Continue with Risperdal and Namenda. 2. Information of healthcare proxy. We have filed for a fair admission of healthcare proxy 3. Start working on discharge planning. 04/06/2024 Continue Risperdal had Namenda no side effects noted. Continue discharge planning 04/07/2024 Continue plan of care Reason for continued inpatient stay Substantial Risk for: inability to function and rapid decompensation Time Spent With Patient Time: Total time managing care of this patient today ____ minutes.
[2024-04-08] VITALS (7 sets, daily range): BP systolic 99–153; BP diastolic 53–71; PULSE 79–88; RESP 15–18; TEMP 36.7; O2SAT 94–96
--- NOTE | 2024-04-08 | ECG_ITS ---
Test Reason : chest pain Blood Pressure : / mmHG Vent. Rate : 082 BPM Atrial Rate : 082 BPM P-R Int : 198 ms QRS Dur : 090 ms QT Int : 344 ms P-R-T Axes : 036 -20 143 degrees QTc Int : 401 ms Normal sinus rhythm Left ventricular hypertrophy with repolarization abnormality ( R in aVL ) Abnormal ECG No previous ECGs available Referred By: Bairon Richter Electronically Signed By:YANIQUE VIZCAINO
[2024-04-08] MEDS: Memantine HCl 5 MG TABLET PO (08:25)
[2024-04-08] MEDS: Loratadine 10 MG TABLET PO (08:25)
--- NOTE | 2024-04-08 09:08 | P.DS_ITS ---
DS: Providers Provider Date of Service: 04/08/24 Date of admission: 02/13/24 13:30 Date of discharge: 04/08/24 Primary care physician: Fritz Meza MD Consults: 02/13/24 14:00 Consult to Hospitalist Routine Comment: Consulting Provider: Hospitalist Reason For Exam: direct admission DS: Diagnosis Discharge Diagnosis (1) Major neurocognitive disorder: Status: Acute DS: Medications Discharge Medications Home Medications: Home Medications ?Medication ?Instructions ?Recorded ?Confirmed risperidone 0.25 mg tablet 0.25 mg PO DAILY 02/13/24 02/13/24 risperidone 0.25 mg tablet 0.25 mg PO DAILY PRN Anxiety 02/13/24 02/13/24 Previous Rx's ?Medication ?Instructions ?Recorded memantine 5 mg tablet 5 mg PO BID 30 days #60 tabs 11/03/23 metoprolol succinate 100 mg 100 mg PO DAILY 30 days #30 tabs 11/03/23 tablet,extended release 24 hr trazodone 50 mg tablet 25 mg (1/2 x 50 mg) PO BEDTIME PRN 11/03/23 insomnia #30 tabs Mental Status Exam Mental Status Exam Patient Appearance: Well Grooomed Patient Orientation: Person, Place and Situation Level of Consciousness: Awake and Appropriate Patient Behavior: Guarded Mood Description: Calm Affect Description: Constricted Patient Cognition Impaired: Yes Ability to Follow Directions: Good Speech Pattern: Clear Hallucinations: None Delusions: Not Present Thought Process: Distracted and Slowed Thinking Thought Content: positive for [place] and positive for Poverty of Content Judgement: Fair DS: Summary Hospital Course Hospital Course: The patient is a 79 year old female wiht dementia and psychosis who was admitted after relapsing on psychosis on the context of non-compliance. RE- started on her medications, improved and she was waiting for placement. Today AM, she was feeling weak, her BP meds were held due to hypotension and later complained of chest pain. A code was called and the medical team asked to be transferred to telemetry for assessment. Time spent discussing smoking cessation with patient: 3 to 10 minutes Status at Discharge Cognitive/behavioral status at discharge: Impaired at baseline Functional status at discharge: independent ambulation Overall status at discharge: patient is progressing back to baseline Time Spent with Patient Time attestation: Total time managing care of this patient today __30__ minutes. Time spent: Less than 30 minutes Discharge Plan Discharge Anticipated Discharge Date/Time: 04/08/24 09:11 Patient Disposition: Xfer Acute Care Hospital Discharge Diagnosis: Dementia Psychosis Chest pain Referrals: Fritz Meza MD [Primary Care Provider] - 1 Week Discharge Medications: New loratadine 10 mg Tablet 10 mg PO DAILY Qty: 30 0RF trazodone 50 mg Tablet 50 mg PO BEDTIME MRX1 PRN (Reason: Insomnia) 30 Days Qty: 30 0RF risperidone 2 mg Tablet 2 mg PO BEDTIME 30 Days Qty: 30 0RF bisacodyl [Gentle Laxative (bisacodyl)] 10 mg Suppository 10 mg VT BEDTIME PRN (Reason: Constipation) Qty: 30 0RF Continued metoprolol succinate 100 mg tablet extended release 24 hr 100 mg PO DAILY 30 Days Qty: 30 0RF memantine 5 mg Tablet 5 mg PO BID 30 Days Qty: 60 0RF Discontinued trazodone 50 mg tablet 25 mg PO BEDTIME PRN (Reason: insomnia) Qty: 30 0RF risperidone 0.25 mg tablet 0.25 mg PO DAILY PRN (Reason: Anxiety) risperidone 0.25 mg tablet 0.25 mg PO DAILY Discharge Orders: Discharge Order (Routine); Ordered 04/08/24 Ordered By: Bairon Richter Diet: Advance to usual diet Activity on Discharge: As tolerated Stand Alone Forms: Patient Portal Discharge page Print Language: Ethiopian Care Plan Goals: PATIENT TRANSFERRED TO MEDICINE Health Concerns: PATIENT TRANSFERRED TO MEDICINE Plan of Treatment: PATIENT TRANSFERRED TO MEDICINE Assessment: Elderly female with dementia and psychosis readmitted after non- compliance with medications in the community. RE-started on meds and stable, [id number] for placement until today that complained of chest pain and the medical team recommended to go to telemetry.
[2024-04-08 09:36] LABS: Glucose, Whole Blood 88 mg/dL (60-115)
--- NOTE | 2024-04-08 09:41 | PC.NURSE ---
Pt BP was 97/53 during morning medication pass, so her metoprolol was held. Pt was educated on rising slowly from a seated position, and fluids were encouraged. Pt denied any pain or discomfort. Pt was then walking down the hallway, and she reported that she had chest pain last night. She appeared unsteady on her feet. She was assisted by this junior technical writer and another staff, back to her bed. A rapid response was called at this point. IV access started, pt was intermittently starting to become unconscious and was spoken to by staff to remain conscious. BP was more stable at this point. BG=88. Pt transported to [facility].
== END 2024-04-08 09:25 | disposition short-term general hospital (02) | DRG 885 ==
PROVIDERS: Psychiatry & Neurology Psychiatry; Admitting Provider Social Worker; PCP Internal Medicine; Visit Provider Social Worker
DX: F29 Unspecified psychosis not due to a substance or known physiological condition (principal); F03.90 Unspecified dementia, unspecified severity, without behavioral disturbance, psychotic disturbance, mood disturbance, and anxiety; R07.9 Chest pain, unspecified; I12.9 Hypertensive chronic kidney disease with stage 1 through stage 4 chronic kidney disease, or unspecified chronic kidney disease; N18.30 Chronic kidney disease, stage 3 unspecified; Z91.148 Patient's other noncompliance with medication regimen for other reason; Z79.899 Other long term (current) drug therapy
CPT/HCPCS: 36415; 80053; 80061; 81001; 82947; 85025; 93005

== ENCOUNTER → 2024-02-13 13:30 | Outpatient (BNV) | payer MEDICARE, SELFPAY | PROVIDERS: Admitting Provider Social Worker; PCP Internal Medicine; Visit Provider Psychiatry & Neurology Psychiatry | DX: F03.90 Unspecified dementia, unspecified severity, without behavioral disturbance, psychotic disturbance, mood disturbance, and anxiety (principal) | CPT/HCPCS: 99222; 99231; 99232; 99238 ==

== ENCOUNTER → 2024-02-13 13:30 | Outpatient (BNV) | payer MEDICARE, SELFPAY | PROVIDERS: Admitting Provider Social Worker; PCP Internal Medicine; Visit Provider Physician Assistant | DX: Z02.2 Encounter for examination for admission to residential institution (principal) | CPT/HCPCS: 99429 ==

== ENCOUNTER → 2024-02-13 13:30 | Outpatient (BNV) | payer MEDICARE, SELFPAY | PROVIDERS: Admitting Provider Social Worker; PCP Internal Medicine; Visit Provider Psychiatry & Neurology Psychiatry | DX: F03.90 Unspecified dementia, unspecified severity, without behavioral disturbance, psychotic disturbance, mood disturbance, and anxiety (principal) | CPT/HCPCS: 99231 ==

== ENCOUNTER → 2024-04-08 09:19 | Outpatient (BNV) | payer MEDICARE, SELFPAY | PROVIDERS: Admitting Provider Hospitalist; Visit Provider Hospitalist | DX: F03.C2 Unspecified dementia, severe, with psychotic disturbance (principal) | CPT/HCPCS: 99223; 99231; 99232; 99239 ==

== ENCOUNTER 2024-04-08 10:02 | Inpatient (IN) | payer MEDICARE, SELFPAY ==
[2024-04-08] VITALS (11 sets, daily range): BP systolic 122–162; BP diastolic 65–86; PULSE 72–89; RESP 14–18; TEMP 36–36.7; O2SAT 75–97; BMI 20.3
--- NOTE | ~2024-04-08 | XR_ITS ---
EXAMINATION: XR CHEST CLINICAL INFORMATION: Syncope. COMPARISON: None available. TECHNIQUE: Portable AP view of the chest was obtained. FINDINGS: The study is limited by portable technique, suboptimal inspiration, kyphotic positioning, and rotation. No gross acute focal infiltrate, effusion, or pneumothorax is seen. Linear density at the left base suggests fibrotic streaks and/or atelectasis. Cannot entirely exclude hiatus hernia. Suspect coronary arterial stent placement and/or calcification. Heart appears normal in size. Mildly atherosclerotic aorta. Mild degenerative changes of the spine. Question old, healed fracture left clavicle. Left axillary surgical clips. Question postsurgical changes of the left breast. XR/XR chest 1V IMPRESSION: Findings as above. Electronically signed by: Wallace Arana MD 04/08/2024 10:51 AM EDT RP
--- NOTE | 2024-04-08 09:36 | P.HPHOSP_ITS ---
History of Present Illness Date of Service: 04/08/24 Chief Complaint: syncope 79-year-old female, living in the community referred from the emergency room of another hospital since a neighbor called 911 apparently she was trying to get into and others people's cars and she was disorganized. She was rushed to the emergency room, she was diagnosed with a UTI and treated and she had been chemically restrained in the emergency room several times. Was admitted to [facility] pending safe placement. Called to [facility] for rapid response question syncope versus chest pain. Patient was confused but apparently at baseline. Initial evaluation was essentially unremarkable. Attempted to sit patient up.. Complaining of extreme dizziness.. Returned to supine position. Given such she will be transferred to telemetry for further workup Review of Systems Review of Systems: Confused at baseline; Denies chest pain Denies shortness of breath Denies nausea vomiting diarrhea Denies fever chills (Verified with staff) [facility] Medical History (Updated 04/08/24 @ 09:44 by Federico Berrios DO) HTN (hypertension) Social History Household Members: None Housing: Apartment Do you presently have visiting nurse or other home services: No Comment: q 5 min checks Patient Tobacco Use Status: Never used Tobacco service: No Sexual orientation: Straight/Heterosexual Meds Allergies Allergy/AdvReac Type Severity Reaction Status Date / Time Penicillins Allergy Difficulty Verified 03/22/24 11:10 Breathing Active Medications: Current Medications Enoxaparin Sodium (Enoxaparin Sodium 30 Mg/0.3 Ml Syringe) 30 mg SUBCUT Q24H [facility] Sodium Chloride (Ns) 500 mls @ 500 mls/hr IV .Q1H ONE Stop: 04/08/24 10:34 Sodium Chloride (0.9 % Sodium Chloride Flush 3 Ml Syringe) 3 ml IVFLUSH QSHIFT [facility] Physical Exam Const: Other: Awake confused no acute distress Resp: Other: Clear to auscultation bilaterally (anterior examination only) Cardio: Other: No S4; positive S1-S2; no S3 murmurs rubs or gallops. RRR GI: Other: Soft nontender nondistended normoactive bowel sounds Neuro: Other: Limited exam. Moves all extremities with equal power Extrem: Other: No edema Assessment and Plan (1) Syncope: Qualifiers: Syncope type: unspecified Qualified Code(s): R55 - Syncope and collapse Status: Acute (2) Major neurocognitive disorder: Status: Acute (3) HTN (hypertension): Qualifiers: Hypertension type: primary hypertension Qualified Code(s): I10 - Essential (primary) hypertension Status: Acute Plan 79-year-old female admitted to [facility] 02/13/2024 with diagnosis of dementia with psychotic features. Was awaiting placement. Call to floor for questionable syncopal episode. Patient awake confused but at baseline. EKG with no acute findings. 1. Syncope -admit to telemetry; code status unclear will make full code until conversation with daughter. Message left on phone -check CMP/CBC/D-dimer -portable chest x-ray; 2D echo -await results; will order CTA of head and neck if creatinine is acceptable 2. Hypertension -per history... new diagnosis -hold workup pending results of 1. 3. Dementia with psychotic features -will resume all psychiatric medicine as taken on [facility] -adjust as clinically indicated Full code Ritax Will require 2 midnights of inpatient stay to further workup syncopal episode; potential of specialist consultation. This can not be achieved a lesser acute setting Quality Stroke Does the patient have a stroke diagnosis?: No VTE Prior VTE?: No VTE Risk Level:: Medical - moderate - high VTE Device Contraindication: Treatment Not Indicated VTE Drug Contraindication: N/A - Med Ordered
[2024-04-08] MEDS: 0.9 % Sodium Chloride 500 ML IV (10:29)
--- NOTE | 2024-04-08 10:31 | PHA.MEDREC ---
Pharmacy Consult ? Medication Reconciliation Pharmacy has completed the medication reconciliation. Pt just transferred from psych floor to 4th floor.
[2024-04-08 10:57] LABS: MANUAL DIFF FLAG NO
[2024-04-08 11:02] LABS: Basophils Percent Auto 0.7 % (0-2); Eosinophils Absolute Auto 0.1 X10*3/uL (0.0-0.4); Eosinophils Percent Auto 2.6 % (0-4); Hematocrit 37.8 % (37.0-47.0); Hemoglobin 12.8 g/dl (12.0-16.0); Imm Gran Abs Auto 0.03 X10*3/uL (0.00-0.03); Imm Gran Pct Auto 0.7 % (0.0-0.4); Lymphocytes Absolute Auto 1.1 X10*3/uL (1.2-4.9); Lymphocytes Percent Auto 26.7 % (20-40); Mean Corpuscular HGB Conc 33.9 g/dl (31.0-35.0); Mean Corpuscular Hemoglobin 30.8 pg (27.0-33.0); Mean Corpuscular Volume 91.1 fL (80.0-98.0); Mean Platelet Volume 9.3 fL (9.4-12.3); Monocytes Absolute Auto 0.4 X10*3/uL (0.1-1.2); Monocytes Percent Auto 9.1 % (2-11); Neutrophils Absolute Auto 2.5 x10*3/uL (2.0-8.3); Neutrophils Percent Auto 60.2 % (45-73); Platelet Count 190 X10*3/uL (160-400); Red Blood Count 4.15 X10*6/uL (4.20-5.50); Red Cell Distribution Width 13.3 % (11.0-16.0); White Blood Count 4.2 X10*3/uL (4.8-10.8)
[2024-04-08 11:07] LABS: D Dimer High Sensitivity 215 NG/ML
[2024-04-08 11:26] LABS: Alanine Aminotransferase 10 U/L (0-31); Albumin Level 3.9 g/dL (3.5-5.0); Alkaline Phosphatase 59 U/L (39-117); Anion Gap 10 (12-20); Aspartate Amino Transferase 16 U/L (5-31); Bilirubin Total 0.3 mg/dL (0.0-1.0); Blood Urea Nitrogen 21 mg/dL (9-16); Calcium 9.3 mg/dL (8.4-10.2); Carbon Dioxide 25 mmol/L (22-29); Chloride 110 mmol/L (96-108); Creatinine Clr Calc Pharmacy 47.3; Estimated Glomerular Filt Rate > 60; Glucose Random 89 mg/dL (60-115); Potassium 4.1 mmol/L (3.3-5.1); Sodium 141 mmol/L (135-145); Total Protein 6.6 g/dL (6.5-8.0)
--- NOTE | 2024-04-08 12:00 | CA_ITS ---
Transthoracic Echocardiogram Patient (Last, First, Middle): Carly Frances, Gender: Female Date of : 1945 Age: 79 Procedure Date: 04/08/2024 Procedure Type: Transthoracic Echocardiogram Location: [facility] [place] Height: 162.56 cm Weight: 53.52 kg BSA: 1.56 m2 Heart Rate: 85 bpm BP: 122 / 65 mmHg Balance Recesser: SB Referring MD: Federico Berrios DO Symptoms: syncope Study Quality: Adequate w contrast ECG Rhythm: Sinus Conclusions: - Normal left ventricular cavity size. There is normal left ventricular wall thickness. The left ventricular systolic function is borderline reduced. The visually estimated ejection fraction is between 45-50%. - The apical anterior segment is akinetic. - Elevated filling pressures. Findings Procedure Information Contrast agent, definity, is being given per protocol without apparent complications. Left Ventricle Normal left ventricular cavity size. There is normal left ventricular wall thickness. The left ventricular systolic function is borderline reduced. The visually estimated ejection fraction is between 45-50%. There is evidence of regional wall motion abnormalities. Abnormal diastolic function is noted. Spectral Doppler is indicative of an impaired relaxation filling pattern. Elevated filling pressures. Wall Motion Rest Echo Findings The apical anterior segment is akinetic. Right Ventricle Normal right ventricular cavity size and systolic function. Atria The left atrium is normal in size. The right atrium is normal in size. Aortic Valve Normal aortic valve structure and function. There is no aortic valve stenosis. There is no aortic valve regurgitation. Mitral Valve The mitral valve appears normal. There is no mitral valve regurgitation. There is no mitral valve stenosis. Pulmonic Valve The pulmonic valve is normal. There is trace pulmonic valve regurgitation. Tricuspid Valve Normal tricuspid valve structure. There is no tricuspid valve regurgitation. Tricuspid regurgitation envelope is inadequate for calculation of right ventricular systolic pressure. Indeterminate right atrial pressure. Great Vessels All visible segments of the aorta are normal in size. The visualized portions of the pulmonary artery and branches are normal. Venous The inferior vena cava was not well visualized. Pericardium/Pleural There is no evidence of pericardial effusion. Prior Study Comparison No prior study available for comparison. Measurements 2D Linear Measurements IVSd: 0.89 0.6-0.9/0.6-1.0 cm LVIDd: 4.52 3.9-5.3/4.2-5.9 cm LVIDd Index: 2.90 2.4-3.2/2.2-3.1 cm/m2 LVIDs: 3.08 2.0-3.6 cm LVPWd: 0.60 0.7-1.1 cm Ao Root: 2.90 2.1-3.5 cm LA Diam: 3.60 2.7-3.8/3.0-4.0 cm LAIDs Index: 2.31 1.5-2.3 cm/m2 LV Mass: 129.73 67-162/88-224 g LV Mass Index: 83.16 43-95/49-115 g/m2 LVOT Diam: 1.90 3.0+(-)1.3 cm 2D Systolic Function EF 4C: 51.80 >55% EF 2C: 36.30 >55% EF BiP: 47.90 >55% Mitral Valve MV VTI: 0.22 MV Pk Conor: 1.11 MV Mn Conor: 0.71 MV Pk Grad: 5.00 MV Mn Grad: 2.00 MV Pk E: 0.85 MV PK A: 1.11 MV Decel Time: 151.00 E/A: 0.80 E'Lateral: 7.18 E'Medial: 2.72 E/E' Med: 31.30 E/E' Lat: 11.90 PHT: 44.00 MVA PHT: 5.00 MVA Continuity: 2.28 Decel [place]: 5.62 Aortic Valve AoV Pk Conor: 1.20 AoV Pk Grad: 6.00 SAMANTHA: 2.10 LVOT LVOT Pk Conor: 0.89 LVOT Mn Conor: 0.64 LVOT VTI: 0.18 LVOT Pk Grad: 3.00 LVOT Mn Grad: 2.00 LVOT Diam: 1.90 LVOT Area: 2.84 Diastolic Function MV Pk E: 0.85 MV Pk A: 1.11 E/A: 0.80 E'Medial: 2.72 E/E' Med: 31.30 E' Laterial: 7.18 E/E' Lat: 11.90 Right Ventricle TAPSE (mm): 19.50 TVS' Conor: 12.10 Tricuspid Valve TR Pk Conor: 1.97 TR Pk Grad: 16.00 Great Vessels Aorta Ao Root-2D: 2.90 2.0-3.7 cm Ao Asc: 2.90 2.1-3.4 cm Pulmonary Veins Pulm Vein S/D 1.60 Pulmonary Valve PV Pk Conor: 0.85 Peak PV Grad: 3.00 Updated in Other Vendor System with Status of Final Abel Campbell MD electronically signed on 04/09/2024 7:15:20 PM with status of Final
[2024-04-08] MEDS: Enoxaparin Sodium 40 MG/0.4 ML SYRINGE SUBCUT (12:05)
[2024-04-08 12:41] LABS: Creatinine Clr Calc Pharmacy 47.9; Estimated Glomerular Filt Rate > 60
[2024-04-08] MEDS: 0.9 % Sodium Chloride Flush 3 ML SYRINGE IVFLUSH ×2 (17:50→21:52)
[2024-04-08] MEDS: risperiDONE 2 MG TABLET PO (21:51)
[2024-04-08] MEDS: traZODone HCL 50 MG TABLET PO (21:52)
[2024-04-08] MEDS: Memantine HCl 5 MG TABLET PO (21:52)
[2024-04-09 03:36] VITALS: BP 156/75; PULSE 84; RESP 17; TEMP 36.1; O2SAT 96
[2024-04-09 08:00] VITALS: BP 120/73; PULSE 75; RESP 20; TEMP 36.1; O2SAT 97
--- NOTE | 2024-04-09 08:32 | MHC.CM.PN ---
IMM 04/09/24 diccussed with dtr / HCP Joanna on the phone. Pt came to unit from [facility], where she has been since 02/13/24. HCP is on file and confirmed: Joanna. Pt lived in an apt. and was indepedent, but was in hosp and dx with Dementia. Psych staff were working on [facility] care placement. DCP: care team eval. CM will follow for DC needs.
[2024-04-09] MEDS: Memantine HCl 5 MG TABLET PO ×2 (08:33→21:08)
[2024-04-09] MEDS: 0.9 % Sodium Chloride Flush 3 ML SYRINGE IVFLUSH ×3 (08:33→23:56)
[2024-04-09 11:51] VITALS: BP 117/79; PULSE 108; RESP 16; TEMP 36.1; O2SAT 96
[2024-04-09] MEDS: Enoxaparin Sodium 40 MG/0.4 ML SYRINGE SUBCUT (13:23)
--- NOTE | 2024-04-09 14:58 | P.PNIM_ITS ---
Subjective Subjective Date of Service: 04/09/24 Interval History: Doing well since transfer. No acute issues. No further syncope Review of Systems Confused at baseline; Denies chest pain Denies shortness of breath Denies nausea vomiting diarrhea Denies fever chills (Verified with staff) Physical Exam 2 Vital Signs: Vital Signs: Last Vital Signs Temp 97.0 F 04/09/24 11:51 Pulse 108 H 04/09/24 11:51 Resp 16 04/09/24 11:51 BP 117/79 04/09/24 11:51 Pulse Ox 96 04/09/24 11:51 O2 Del Method Room Air 04/09/24 11:51 BMI result Body Mass Index 20.3 Const: Other: Awake confused no acute distress Resp: Other: Clear to auscultation bilaterally (anterior examination only) Cardio: Other: No S4; positive S1-S2; no S3 murmurs rubs or gallops. RRR GI: Other: Soft nontender nondistended normoactive bowel sounds Neuro: Other: Limited exam. Moves all extremities with equal power Extrem: Other: No edema Objective Data Active Medications Bisacodyl (Bisacodyl 10 Mg Supp.Rect) 10 mg [place] BEDTIME PRN PRN Reason: Constipation Enoxaparin Sodium (Enoxaparin Sodium 40 Mg/0.4 Ml Syringe) 40 mg SUBCUT Q24H [facility] Last Admin: 04/09/24 13:23 Dose: 40 mg Documented By: ALEJANDRA Memantine (Memantine Hcl 5 Mg Tablet) 5 mg PO BID [facility] Last Admin: 04/09/24 08:33 Dose: 5 mg Documented By: ALEJANDRA Risperidone (Risperidone 2 Mg Tablet) 2 mg PO BEDTIME [facility] Last Admin: 04/08/24 21:51 Dose: 2 mg Documented By: MICHELL Sodium Chloride (0.9 % Sodium Chloride Flush 3 Ml Syringe) 3 ml IVFLUSH QSHIFT [facility] Last Admin: 04/09/24 08:33 Dose: 3 ml Documented By: ALEJANDRA Trazodone HCl (Trazodone Hcl 50 Mg Tablet) 50 mg PO BEDTIME MRX1 PRN PRN Reason: Insomnia Last Admin: 04/08/24 21:52 Dose: 50 mg Documented By: MICHELL Labs 04/08/24 10:34 04/08/24 12:12 Assessment and Plan (1) Syncope: Status: Acute (2) HTN (hypertension): Status: Acute Plan 79-year-old female admitted to [facility] 02/13/2024 with diagnosis of dementia with psychotic features. Was awaiting placement. Call to floor for questionable syncopal episode. Patient awake confused but at baseline. EKG with no acute findings. 1. Syncope -no acute issues on telemetry. Monitor quiet -workup unremarkable; likely volume related -responded well to volume repletion 2. Hypertension -per history... new diagnosis -hold workup pending results of 1. 3. Dementia with psychotic features -will resume all psychiatric medicine as taken on [facility] psych -adjust as clinically indicated Full code Lovenox Quality Stroke Does the patient have a stroke diagnosis?: No VTE Prior VTE?: No VTE Risk Level:: Medical - moderate - high VTE Device Contraindication: Treatment Not Indicated VTE Drug Contraindication: N/A - Med Ordered
[2024-04-09 15:48] VITALS: BP 116/69; PULSE 90; RESP 20; TEMP 36.6; O2SAT 95
[2024-04-09 20:00] VITALS: BP 143/70; PULSE 80; RESP 20; TEMP 36.4; O2SAT 96
[2024-04-09] MEDS: risperiDONE 2 MG TABLET PO (21:08)
[2024-04-09 23:38] VITALS: BP 130/70; PULSE 91; RESP 16; TEMP 36.2; O2SAT 96
[2024-04-10] VITALS (7 sets, daily range): BP systolic 116–157; BP diastolic 63–87; PULSE 77–104; RESP 16–22; TEMP 36.1–36.7; O2SAT 94–98
[2024-04-10] MEDS: Memantine HCl 5 MG TABLET PO ×2 (08:08→20:40)
[2024-04-10] MEDS: 0.9 % Sodium Chloride Flush 3 ML SYRINGE IVFLUSH ×3 (08:10→20:40)
--- NOTE | 2024-04-10 12:51 | P.PNIM_ITS ---
Subjective Subjective Date of Service: 04/10/24 Interval History: No acute issues overnight. Remains normotensive. Confused at baseline Review of Systems Confused at baseline; Denies chest pain Denies shortness of breath Denies nausea vomiting diarrhea Denies fever chills (Verified with staff) Physical Exam 2 Vital Signs: Vital Signs: Last Vital Signs Temp 97 F 04/10/24 12:00 Pulse 90 04/10/24 12:00 Resp 20 04/10/24 12:00 BP 141/81 H 04/10/24 12:00 Pulse Ox 98 04/10/24 12:00 O2 Del Method Room Air 04/10/24 12:00 O2 Flow Rate 2 04/09/24 15:48 BMI result Body Mass Index 20.3 Const: Other: Awake confused no acute distress Resp: Other: Clear to auscultation bilaterally (anterior examination only) Cardio: Other: No S4; positive S1-S2; no S3 murmurs rubs or gallops. RRR GI: Other: Soft nontender nondistended normoactive bowel sounds Neuro: Other: Limited exam. Moves all extremities with equal power Extrem: Other: No edema Objective Data Active Medications Bisacodyl (Bisacodyl 10 Mg Supp.Rect) 10 mg [place] BEDTIME PRN PRN Reason: Constipation Enoxaparin Sodium (Enoxaparin Sodium 40 Mg/0.4 Ml Syringe) 40 mg SUBCUT Q24H [facility] Last Admin: 04/09/24 13:23 Dose: 40 mg Documented By: ALEJANDRA Memantine (Memantine Hcl 5 Mg Tablet) 5 mg PO BID [facility] Last Admin: 04/10/24 08:08 Dose: 5 mg Documented By: ALEJANDRA Risperidone (Risperidone 2 Mg Tablet) 2 mg PO BEDTIME [facility] Last Admin: 04/09/24 21:08 Dose: 2 mg Documented By: JUAN CARLOS Sodium Chloride (0.9 % Sodium Chloride Flush 3 Ml Syringe) 3 ml IVFLUSH QSHIFT [facility] Last Admin: 04/10/24 08:10 Dose: 3 ml Documented By: ALEJANDRA Trazodone HCl (Trazodone Hcl 50 Mg Tablet) 50 mg PO BEDTIME MRX1 PRN PRN Reason: Insomnia Last Admin: 04/08/24 21:52 Dose: 50 mg Documented By: SUPPLEK Labs 04/08/24 10:34 04/08/24 12:12 Assessment and Plan (1) Major neurocognitive disorder: Status: Acute Plan 79-year-old female admitted to [facility] psych 02/13/2024 with diagnosis of dementia with psychotic features. Was awaiting placement. Call to floor for questionable syncopal episode. Patient awake confused but at baseline. EKG with no acute findings. 1. Syncope -no acute issues on telemetry. Monitor quiet -workup unremarkable; likely volume related -responded well to volume repletion... Follow clinically -echo without acute findings; LVEF 45-50% 2. Hypertension -no indication to treat at this time -follow clinically 3. Dementia with psychotic features -will resume all psychiatric medicine as taken on [facility] -adjust as clinically indicated Full code Lovenox Patient will require ongoing hospitalization pending safe placement Quality Stroke Does the patient have a stroke diagnosis?: No VTE Prior VTE?: No VTE Risk Level:: Medical - moderate - high VTE Device Contraindication: Treatment Not Indicated VTE Drug Contraindication: N/A - Med Ordered
--- NOTE | 2024-04-10 13:22 | MHC.CM.PN ---
CM spoke with pt.'s daughter to discuss DCP. Pt had been on [facility], and SW there was working on DCP to [facility] with memory care unit. Barriers to DC were finances, pt does not have cost to cover [facility], or behavioral issues, she has at times become agitated. CROW spoke with pt.'s dtr, Joanna to discuss next steps. DCP will be to DC to LTC in a SNF that accepts pt.s with Dementia. Referral submitted for financial services to assist dtr with LTC [facility]. CM to place referrals when LTC [facility] is obtained.
[2024-04-10] MEDS: Magnesium Hydrox/Alum Hydrox 30 ML ORAL.SUSP PO (14:16)
[2024-04-10] MEDS: risperiDONE 2 MG TABLET PO (20:40)
[2024-04-11] VITALS (7 sets, daily range): BP systolic 112–169; BP diastolic 60–88; PULSE 68–118; RESP 16–20; TEMP 36.1–37.1; O2SAT 96–98
[2024-04-11 06:17] LABS: MANUAL DIFF FLAG NO
[2024-04-11 06:39] LABS: Alanine Aminotransferase 11 U/L (0-31); Albumin Level 3.8 g/dL (3.5-5.0); Alkaline Phosphatase 52 U/L (39-117); Anion Gap 12 (12-20); Aspartate Amino Transferase 16 U/L (5-31); Bilirubin Total 0.4 mg/dL (0.0-1.0); Blood Urea Nitrogen 21 mg/dL (9-16); Calcium 9.4 mg/dL (8.4-10.2); Carbon Dioxide 24 mmol/L (22-29); Chloride 108 mmol/L (96-108); Estimated Glomerular Filt Rate > 60; Glucose Fasting 82 mg/dL (60-99); Potassium 4.2 mmol/L (3.3-5.1); Sodium 140 mmol/L (135-145); Total Protein 6.6 g/dL (6.5-8.0)
[2024-04-11 07:02] LABS: Basophils Percent Auto 0.4 % (0-2); Eosinophils Absolute Auto 0.2 X10*3/uL (0.0-0.4); Eosinophils Percent Auto 5.2 % (0-4); Hematocrit 38.5 % (37.0-47.0); Hemoglobin 12.8 g/dl (12.0-16.0); Imm Gran Abs Auto 0.01 X10*3/uL (0.00-0.03); Imm Gran Pct Auto 0.2 % (0.0-0.4); Lymphocytes Absolute Auto 1.7 X10*3/uL (1.2-4.9); Lymphocytes Percent Auto 38.2 % (20-40); Mean Corpuscular HGB Conc 33.2 g/dl (31.0-35.0); Mean Corpuscular Hemoglobin 30.1 pg (27.0-33.0); Mean Corpuscular Volume 90.6 fL (80.0-98.0); Mean Platelet Volume 9.6 fL (9.4-12.3); Monocytes Absolute Auto 0.5 X10*3/uL (0.1-1.2); Monocytes Percent Auto 10.1 % (2-11); Neutrophils Percent Auto 45.9 % (45-73); Platelet Count 185 X10*3/uL (160-400); Red Blood Count 4.25 X10*6/uL (4.20-5.50); Red Cell Distribution Width 13.4 % (11.0-16.0); White Blood Count 4.5 X10*3/uL (4.8-10.8)
[2024-04-11] MEDS: Memantine HCl 5 MG TABLET PO ×2 (09:15→20:42)
[2024-04-11] MEDS: 0.9 % Sodium Chloride Flush 3 ML SYRINGE IVFLUSH ×3 (09:15→20:42)
[2024-04-11] MEDS: Enoxaparin Sodium 40 MG/0.4 ML SYRINGE SUBCUT (11:31)
--- NOTE | 2024-04-11 11:45 | MHC.CM.PN ---
Addendum entered by Melinda Livingston 04/11/24 11:47: SNF REFERRALS WILL BE MADE ONCE MH IS PENDING Original Note: CM SPOKE TO FIN[employer]CIAL SERVICES, [facility] SUBMITTED ON 04/01/24 AND IS IN PROCESS
--- NOTE | 2024-04-11 15:12 | PC.NURSE ---
GERA Amaya checked all patient belongings listed from [facility] ,stated all belongins are present.
--- NOTE | 2024-04-11 16:35 | P.PNIM_ITS ---
Subjective Subjective Date of Service: 04/11/24 Interval History: Seen and examined this morning Follow-up for orthostatic hypotension no longer symptomatic Review of Systems Review of Systems: Yes all other systems are reviewed and are negative Constitutional Constitutional: Denies fever(s) ENT Ears, Nose, Mouth, and Throat: Denies dizziness Cardiovascular Cardiovascular: Denies chest pain Gastrointestinal Gastrointestinal: Denies abdominal pain Neurologic Neurologic: Denies dizziness Physical Exam 2 Vital Signs: Vital Signs: Last Vital Signs Temp 98.3 F 04/11/24 14:56 Pulse 116 H 04/11/24 14:56 Resp 20 04/11/24 14:56 BP 130/76 04/11/24 14:56 Pulse Ox 96 04/11/24 14:56 O2 Del Method Room Air 04/11/24 14:56 O2 Flow Rate 2 04/09/24 15:48 BMI result Body Mass Index 20.3 Const: General: cooperative, comfortable, alert and awake Nutritional Appearance: thin Resp: Effort & Inspection: normal respiratory effort, able to speak in complete sentences, no respiratory distress and no use of accessory muscles Cardio: Rate: regular rate GI: Inspection: No distended Palpation (GI): Soft to palpation and nontender Neuro: General: moves all extremities and CN's II-XI intact bilaterally Extrem: General: Yes no pedal edema Objective Data Active Medications Al Hydroxide/Mg Hydroxide (Magnesium Hydrox/Alum Hydrox 30 Ml Oral.Susp) 30 ml PO Q4H PRN PRN Reason: Heartburn Last Admin: 04/10/24 14:16 Dose: 30 ml Documented By: ALEJANDRA Bisacodyl (Bisacodyl 10 Mg Supp.Rect) 10 mg [place] BEDTIME PRN PRN Reason: Constipation Enoxaparin Sodium (Enoxaparin Sodium 40 Mg/0.4 Ml Syringe) 40 mg SUBCUT Q24H [facility] Last Admin: 04/11/24 11:31 Dose: 40 mg Documented By: JOSE RAMON Memantine (Memantine Hcl 5 Mg Tablet) 5 mg PO BID [facility] Last Admin: 04/11/24 09:15 Dose: 5 mg Documented By: JOSE RAMON Risperidone (Risperidone 2 Mg Tablet) 2 mg PO BEDTIME [facility] Last Admin: 04/10/24 20:40 Dose: 2 mg Documented By: LYSZ Sodium Chloride (0.9 % Sodium Chloride Flush 3 Ml Syringe) 3 ml IVFLUSH QSHIFT [facility] Last Admin: 04/11/24 15:02 Dose: 3 ml Documented By: JOSE RAMON Trazodone HCl (Trazodone Hcl 50 Mg Tablet) 50 mg PO BEDTIME MRX1 PRN PRN Reason: Insomnia Last Admin: 04/08/24 21:52 Dose: 50 mg Documented By: KAMILAK Labs 04/11/24 05:22 04/11/24 05:22 Labs: Laboratory Results - last 24 hr 04/11/24 05:22 MCV 90.6 MCH 30.1 MCHC 33.2 RDW 13.4 Plt Count 185 MPV 9.6 Immature Gran % (Auto) 0.2 Neut % (Auto) 45.9 Lymph % (Auto) 38.2 [place] % (Auto) 10.1 Eos % (Auto) 5.2 H Baso % (Auto) 0.4 Lymph # (Auto) 1.7 [place] # (Auto) 0.5 Eos # (Auto) 0.2 Baso # (Auto) 0.0 Abs Immat Gran (auto) 0.01 Absolute Neuts (auto) 2.0 Absolute Nucleated RBC 0.000 Nucleated RBC % (auto) 0.0 Anion Gap 12 Estim Creat Clear Calc 53.0 Estimated GFR > 60 Fasting Glucose 82 Calcium 9.4 Total Bilirubin 0.4 AST 16 ALT 11 Alkaline Phosphatase 52 Total Protein 6.6 Albumin 3.8 Assessment and Plan (1) Dementia: Status: Acute Plan 79-year-old female [facility]24 with diagnosis of dementia with psychotic features. Was awaiting placement. Call to floor for questionable syncopal episode. Patient awake confused but at baseline. EKG with no acute findings. Syncope -no acute issues on telemetry -workup unremarkable; likely volume related -responded well to volume repletion -echo without acute findings; LVEF 45-50% Hypertension metoprolol on hold, presumably due to above will resume at lower dose and monitor for response Dementia with psychotic features resumed on all psychiatric medicine as taken on [facility] psych Full code Lovenox Patient will require ongoing hospitalization pending safe placement Quality Stroke Does the patient have a stroke diagnosis?: No VTE Prior VTE?: No VTE Risk Level:: Medical - moderate - high VTE Device Contraindication: Treatment Not Indicated VTE Drug Contraindication: N/A - Med Ordered
[2024-04-11] MEDS: Metoprolol Succinate ER 25 MG TAB.ER.24H PO (16:51)
[2024-04-11] MEDS: risperiDONE 2 MG TABLET PO (20:42)
[2024-04-12 03:40] VITALS: BP 97/53; PULSE 92; RESP 16; TEMP 36; O2SAT 97
[2024-04-12 07:12] VITALS: BP 118/57; PULSE 77; RESP 20; TEMP 36.4; O2SAT 92
[2024-04-12] MEDS: Memantine HCl 5 MG TABLET PO ×2 (07:32→20:44)
[2024-04-12] MEDS: Metoprolol Succinate ER 25 MG TAB.ER.24H PO (07:32)
[2024-04-12] MEDS: 0.9 % Sodium Chloride Flush 3 ML SYRINGE IVFLUSH (07:33)
--- NOTE | 2024-04-12 07:40 | PC.NURSE ---
ok to d/c iv access for patient per provider.
--- NOTE | 2024-04-12 10:43 | PC.NURSE ---
Pt very steady on feet, A&Ox3, made low fall risk.
[2024-04-12 11:45] VITALS: BP 119/62; PULSE 81; RESP 20; TEMP 36.5; O2SAT 98
[2024-04-12] MEDS: Enoxaparin Sodium 40 MG/0.4 ML SYRINGE SUBCUT (11:53)
--- NOTE | 2024-04-12 14:38 | MHC.CM.PN ---
[facility] SEARCH WILL CONTINUE PENDING OR [employer] [facility] APPROVAL
--- NOTE | 2024-04-12 16:14 | HO.PM.IMPN ---
Subjective Subjective Date of Service: 04/12/24 Interval History: Seen and examined this morning Follow-up for placement No overnight events No specific complaints this morning Review of Systems Review of Systems: Yes all other systems are reviewed and are negative Constitutional Constitutional: Denies chills and Denies fever(s) Cardiovascular Cardiovascular: Denies chest pain and Denies dyspnea Respiratory Respiratory: Denies dyspnea Gastrointestinal Gastrointestinal: Denies abdominal pain Physical Exam Vital Signs: Vital Signs: Last Vital Signs Temp 97.7 F 04/12/24 11:45 Pulse 81 04/12/24 11:45 Resp 20 04/12/24 11:45 BP 119/62 04/12/24 11:45 Pulse Ox 98 04/12/24 11:45 O2 Del Method Room Air 04/12/24 11:45 O2 Flow Rate 2 04/09/24 15:48 BMI result Body Mass Index 20.3 Const: General: cooperative, comfortable, alert and awake Nutritional Appearance: thin Resp: Effort & Inspection: normal respiratory effort, able to speak in complete sentences, no respiratory distress and no use of accessory muscles Cardio: Rate: regular rate GI: Inspection: No distended Palpation (GI): Soft to palpation and nontender Neuro: General: moves all extremities and CN's II-XI intact bilaterally Extrem: General: Yes no pedal edema Objective Data Active Medications Al Hydroxide/Mg Hydroxide (Magnesium Hydrox/Alum Hydrox 30 Ml Oral.Susp) 30 ml PO Q4H PRN PRN Reason: Heartburn Last Admin: 04/10/24 14:16 Dose: 30 ml Documented By: ALEJANDRA Bisacodyl (Bisacodyl 10 Mg Supp.Rect) 10 mg [place] BEDTIME PRN PRN Reason: Constipation Enoxaparin Sodium (Enoxaparin Sodium 40 Mg/0.4 Ml Syringe) 40 mg SUBCUT Q24H [facility] Last Admin: 04/12/24 11:53 Dose: 40 mg Documented By: JN Memantine (Memantine Hcl 5 Mg Tablet) 5 mg PO BID [facility] Last Admin: 04/12/24 07:32 Dose: 5 mg Documented By: JN Metoprolol Succinate (Metoprolol Succinate Er 25 Mg Tab.Er.24h) 25 mg PO DAILY [facility]; Protocol Last Admin: 04/12/24 07:32 Dose: 25 mg Documented By: JN Risperidone (Risperidone 2 Mg Tablet) 2 mg PO BEDTIME [facility] Last Admin: 04/11/24 20:42 Dose: 2 mg Documented By: JOSÉ ANTONIO Trazodone HCl (Trazodone Hcl 50 Mg Tablet) 50 mg PO BEDTIME MRX1 PRN PRN Reason: Insomnia Last Admin: 04/08/24 21:52 Dose: 50 mg Documented By: SUPPLEK Labs 04/11/24 05:22 04/11/24 05:22 Assessment and Plan (1) Syncope: Status: Acute Plan 79-year-old female admitted to [facility] psych 02/13/2024 with diagnosis of dementia with psychotic features. Was awaiting placement. Call to floor for questionable syncopal episode. Patient awake confused but at baseline. EKG with no acute findings. Syncope no acute issues on telemetry workup unremarkable; likely volume related responded well to volume repletion echo without acute findings; LVEF 45-50% Hypertension metoprolol initially on hold, due to above HR increasing, will resume at lower dose and monitor for response Dementia with psychotic features resumed on all psychiatric medicine as taken on [facility] psych Full code Lovenox Patient will require ongoing hospitalization pending safe placement Quality Stroke Does the patient have a stroke diagnosis?: No VTE Prior VTE?: No VTE Risk Level:: Medical - moderate - high VTE Device Contraindication: Treatment Not Indicated VTE Drug Contraindication: N/A - Med Ordered
[2024-04-12 16:59] VITALS: BP 120/61; PULSE 99; RESP 12; TEMP 36.7; O2SAT 94
[2024-04-12 19:14] VITALS: BP 154/70; PULSE 95; RESP 18; TEMP 36.2; O2SAT 96
[2024-04-12] MEDS: risperiDONE 2 MG TABLET PO (20:44)
[2024-04-13 03:54] VITALS: BP 135/72; PULSE 84; RESP 18; TEMP 36; O2SAT 95
[2024-04-13 07:23] VITALS: BP 112/61; PULSE 80; RESP 16; TEMP 36.2; O2SAT 96
[2024-04-13 08:36] VITALS: BP 112/60
[2024-04-13] MEDS: Metoprolol Succinate ER 25 MG TAB.ER.24H PO (08:36)
[2024-04-13] MEDS: Memantine HCl 5 MG TABLET PO ×2 (08:36→20:32)
[2024-04-13] MEDS: Enoxaparin Sodium 40 MG/0.4 ML SYRINGE SUBCUT (12:00)
--- NOTE | 2024-04-13 13:16 | HO.PM.IMPN ---
Subjective Subjective Date of Service: 04/13/24 Interval History: Seen and examined this morning No overnight events No specific complaints Review of Systems Review of Systems: Yes all other systems are reviewed and are negative Constitutional Constitutional: Denies fever(s) ENT Ears, Nose, Mouth, and Throat: Denies dizziness Cardiovascular Cardiovascular: Denies chest pain and Denies dyspnea Respiratory Respiratory: Denies dyspnea Gastrointestinal Gastrointestinal: Denies abdominal pain Neurologic Neurologic: Denies dizziness Physical Exam Vital Signs: Vital Signs: Last Vital Signs Temp 97.1 F 04/13/24 07:23 Pulse 80 04/13/24 07:23 Resp 16 04/13/24 07:23 BP 112/60 04/13/24 08:36 Pulse Ox 96 04/13/24 07:23 O2 Del Method Room Air 04/13/24 07:23 O2 Flow Rate 2 04/09/24 15:48 BMI result Body Mass Index 20.3 Const: General: cooperative, comfortable, alert and awake Nutritional Appearance: thin Resp: Effort & Inspection: normal respiratory effort, able to speak in complete sentences, no respiratory distress and no use of accessory muscles Cardio: Rate: regular rate GI: Inspection: No distended Palpation (GI): Soft to palpation and nontender Neuro: General: moves all extremities and CN's II-XI intact bilaterally Extrem: General: Yes no pedal edema Objective Data Active Medications Al Hydroxide/Mg Hydroxide (Magnesium Hydrox/Alum Hydrox 30 Ml Oral.Susp) 30 ml PO Q4H PRN PRN Reason: Heartburn Last Admin: 04/10/24 14:16 Dose: 30 ml Documented By: ALEJANDRA Bisacodyl (Bisacodyl 10 Mg Supp.Rect) 10 mg [place] BEDTIME PRN PRN Reason: Constipation Enoxaparin Sodium (Enoxaparin Sodium 40 Mg/0.4 Ml Syringe) 40 mg SUBCUT Q24H [facility] Last Admin: 04/13/24 12:00 Dose: 40 mg Documented By: XENA Memantine (Memantine Hcl 5 Mg Tablet) 5 mg PO BID [facility] Last Admin: 04/13/24 08:36 Dose: 5 mg Documented By: XENA Metoprolol Succinate (Metoprolol Succinate Er 25 Mg Tab.Er.24h) 25 mg PO DAILY [facility]; Protocol Last Admin: 04/13/24 08:36 Dose: 25 mg Documented By: XENA Risperidone (Risperidone 2 Mg Tablet) 2 mg PO BEDTIME [facility] Last Admin: 04/12/24 20:44 Dose: 2 mg Documented By: JOSÉ ANTONIO Trazodone HCl (Trazodone Hcl 50 Mg Tablet) 50 mg PO BEDTIME MRX1 PRN PRN Reason: Insomnia Last Admin: 04/08/24 21:52 Dose: 50 mg Documented By: SUPPLEK Labs 04/11/24 05:22 04/11/24 05:22 Assessment and Plan (1) Major neurocognitive disorder: Status: Acute Plan 79-year-old female admitted to [facility] psych 02/13/2024 with diagnosis of dementia with psychotic features. Was awaiting placement. Call to floor for questionable syncopal episode. Patient awake confused but at baseline. EKG with no acute findings. Syncope no acute issues on telemetry workup unremarkable; likely volume related responded well to volume repletion echo without acute findings; LVEF 45-50% Hypertension metoprolol initially on hold, due to above HR increasing, will resume at lower dose and monitor for response Dementia with psychotic features resumed on all psychiatric medicine as taken on [facility] psych Full code Lovenox Patient will require ongoing hospitalization pending safe placement Quality Stroke Does the patient have a stroke diagnosis?: No VTE Prior VTE?: No VTE Risk Level:: Medical - moderate - high VTE Device Contraindication: Treatment Not Indicated VTE Drug Contraindication: N/A - Med Ordered
[2024-04-13 15:41] VITALS: BP 123/72; PULSE 81; RESP 16; TEMP 36.2; O2SAT 96
[2024-04-13 19:54] VITALS: BP 143/82; PULSE 93; RESP 18; TEMP 37.2; O2SAT 96
[2024-04-13] MEDS: risperiDONE 2 MG TABLET PO (20:32)
[2024-04-14 03:44] VITALS: BP 119/57; PULSE 93; RESP 16; TEMP 36.5; O2SAT 94
[2024-04-14 08:00] VITALS: BP 157/76; PULSE 88; RESP 12; TEMP 36.2; O2SAT 97
[2024-04-14] MEDS: Memantine HCl 5 MG TABLET PO ×2 (08:31→20:55)
[2024-04-14] MEDS: Metoprolol Succinate ER 25 MG TAB.ER.24H PO (08:31)
[2024-04-14] MEDS: Enoxaparin Sodium 40 MG/0.4 ML SYRINGE SUBCUT (13:12)
--- NOTE | 2024-04-14 13:19 | P.PNIM_ITS ---
Subjective Subjective Date of Service: 04/14/24 Interval History: Seen and examined this morning Follow-up for placement No overnight events No specific complaints today Awake, alert, ambulating in room Review of Systems Review of Systems: Yes all other systems are reviewed and are negative Constitutional Constitutional: Denies fever(s) Cardiovascular Cardiovascular: Denies chest pain Gastrointestinal Gastrointestinal: Denies abdominal pain Physical Exam 2 Vital Signs: Vital Signs: Last Vital Signs Temp 97.2 F 04/14/24 08:00 Pulse 88 04/14/24 08:00 Resp 12 04/14/24 08:00 BP 157/76 H 04/14/24 08:00 Pulse Ox 97 04/14/24 08:00 O2 Del Method Room Air 04/14/24 08:00 O2 Flow Rate 2 04/09/24 15:48 BMI result Body Mass Index 20.3 Const: General: cooperative, comfortable, alert and awake Nutritional Appearance: thin Resp: Effort & Inspection: normal respiratory effort, able to speak in complete sentences, no respiratory distress and no use of accessory muscles Cardio: Rate: regular rate GI: Inspection: No distended Palpation (GI): Soft to palpation and nontender Neuro: General: moves all extremities and CN's II-XI intact bilaterally Extrem: General: Yes no pedal edema Objective Data Active Medications Acetaminophen (Acetaminophen 325 Mg Tablet) 650 mg PO Q6H PRN PRN Reason: Pain, Mild (Pain Scale 1-3) Al Hydroxide/Mg Hydroxide (Magnesium Hydrox/Alum Hydrox 30 Ml Oral.Susp) 30 ml PO Q4H PRN PRN Reason: Heartburn Last Admin: 04/10/24 14:16 Dose: 30 ml Documented By: ALEJANDRA Bisacodyl (Bisacodyl 10 Mg Supp.Rect) 10 mg [place] BEDTIME PRN PRN Reason: Constipation Enoxaparin Sodium (Enoxaparin Sodium 40 Mg/0.4 Ml Syringe) 40 mg SUBCUT Q24H [facility] Last Admin: 04/14/24 13:12 Dose: 40 mg Documented By: IDALIA Memantine (Memantine Hcl 5 Mg Tablet) 5 mg PO BID [facility] Last Admin: 04/14/24 08:31 Dose: 5 mg Documented By: IDALIA Metoprolol Succinate (Metoprolol Succinate Er 25 Mg Tab.Er.24h) 25 mg PO DAILY [facility]; Protocol Last Admin: 04/14/24 08:31 Dose: 25 mg Documented By: IDALIA Risperidone (Risperidone 2 Mg Tablet) 2 mg PO BEDTIME [facility] Last Admin: 04/13/24 20:32 Dose: 2 mg Documented By: JOSÉ ANTONIO Trazodone HCl (Trazodone Hcl 50 Mg Tablet) 50 mg PO BEDTIME MRX1 PRN PRN Reason: Insomnia Last Admin: 04/08/24 21:52 Dose: 50 mg Documented By: SUPPLEK Labs 04/11/24 05:22 04/11/24 05:22 Assessment and Plan (1) Major neurocognitive disorder: Status: Acute Plan 79-year-old female admitted to [facility] psych 02/13/2024 with diagnosis of dementia with psychotic features. Was awaiting placement. Call to floor for questionable syncopal episode. Patient awake confused but at baseline. EKG with no acute findings. Syncope no acute issues on telemetry workup unremarkable; likely volume related responded well to volume repletion echo without acute findings; LVEF 45-50% Hypertension metoprolol initially on hold, due to above HR increasing, will resume at lower dose and monitor for response Dementia with psychotic features resumed on all psychiatric medicine as taken on [facility] Full code Lovenox Patient will require ongoing hospitalization pending safe placement Quality Stroke Does the patient have a stroke diagnosis?: No VTE Prior VTE?: No VTE Risk Level:: Medical - moderate - high VTE Device Contraindication: Treatment Not Indicated VTE Drug Contraindication: N/A - Med Ordered
[2024-04-14] MEDS: Acetaminophen 325 MG TABLET 650 MG PO (13:46)
[2024-04-14 16:01] VITALS: BP 139/74; PULSE 96; RESP 12; TEMP 36.6; O2SAT 95
[2024-04-14 19:22] VITALS: BP 131/69; PULSE 89; RESP 14; TEMP 37.1; O2SAT 97
[2024-04-14] MEDS: risperiDONE 2 MG TABLET PO (20:55)
[2024-04-15 03:43] VITALS: BP 142/80; PULSE 94; RESP 16; TEMP 36.7; O2SAT 96
[2024-04-15 07:43] VITALS: BP 121/65; PULSE 86; RESP 16; TEMP 36.7; O2SAT 96
[2024-04-15] MEDS: Metoprolol Succinate ER 25 MG TAB.ER.24H PO (08:21)
[2024-04-15] MEDS: Memantine HCl 5 MG TABLET PO ×2 (08:21→21:32)
[2024-04-15] MEDS: Enoxaparin Sodium 40 MG/0.4 ML SYRINGE SUBCUT (11:17)
--- NOTE | 2024-04-15 11:26 | P.PNIM_ITS ---
Subjective Subjective Date of Service: 04/15/24 Interval History: Seen and examined this morning Follow-up for placement No overnight events No specific complaints today Awake, alert, ambulating in room Review of Systems Review of Systems: Yes all other systems are reviewed and are negative Constitutional Constitutional: Denies fever(s) Cardiovascular Cardiovascular: Denies chest pain Gastrointestinal Gastrointestinal: Denies abdominal pain Physical Exam 2 Vital Signs: Vital Signs: Last Vital Signs Temp 98.0 F 04/15/24 07:43 Pulse 86 04/15/24 07:43 Resp 16 04/15/24 07:43 BP 121/65 04/15/24 07:43 Pulse Ox 96 04/15/24 07:43 O2 Del Method Room Air 04/15/24 07:43 O2 Flow Rate 2 04/09/24 15:48 BMI result Body Mass Index 20.3 Appearing in no acute distress lung sounds are clear to auscultation heart regular rate rhythm, clear S1, S2 positive bowel sounds, abdomen is soft, nontender neuro patient is alert, confused Objective Data Active Medications Acetaminophen (Acetaminophen 325 Mg Tablet) 650 mg PO Q6H PRN PRN Reason: Pain, Mild (Pain Scale 1-3) Last Admin: 04/14/24 13:46 Dose: 650 mg Documented By: IDALIA Al Hydroxide/Mg Hydroxide (Magnesium Hydrox/Alum Hydrox 30 Ml Oral.Susp) 30 ml PO Q4H PRN PRN Reason: Heartburn Last Admin: 04/10/24 14:16 Dose: 30 ml Documented By: ALEJANDRA Bisacodyl (Bisacodyl 10 Mg Supp.Rect) 10 mg [place] BEDTIME PRN PRN Reason: Constipation Enoxaparin Sodium (Enoxaparin Sodium 40 Mg/0.4 Ml Syringe) 40 mg SUBCUT Q24H [facility] Last Admin: 04/15/24 11:17 Dose: 40 mg Documented By: ELZBIETA Memantine (Memantine Hcl 5 Mg Tablet) 5 mg PO BID [facility] Last Admin: 04/15/24 08:21 Dose: 5 mg Documented By: ELZBIETA Metoprolol Succinate (Metoprolol Succinate Er 25 Mg Tab.Er.24h) 25 mg PO DAILY [facility]; Protocol Last Admin: 04/15/24 08:21 Dose: 25 mg Documented By: ELZBIETA Risperidone (Risperidone 2 Mg Tablet) 2 mg PO BEDTIME [facility] Last Admin: 04/14/24 20:55 Dose: 2 mg Documented By: RYAN Trazodone HCl (Trazodone Hcl 50 Mg Tablet) 50 mg PO BEDTIME MRX1 PRN PRN Reason: Insomnia Last Admin: 04/08/24 21:52 Dose: 50 mg Documented By: KAMILAK Labs 04/11/24 05:22 04/11/24 05:22 Assessment and Plan (1) HTN (hypertension): Status: Acute (2) Syncope: Status: Acute (3) Dementia: Status: Acute Plan 79-year-old female admitted to [facility] psych 02/13/2024 with diagnosis of dementia with psychotic features. Was awaiting placement. Call to floor for questionable syncopal episode. Patient awake confused but at baseline. EKG with no acute findings. Syncope no acute issues on telemetry workup unremarkable; likely volume related responded well to volume repletion echo without acute findings; LVEF 45-50% Hypertension metoprolol initially on hold, due to above HR increasing, will resume at lower dose and monitor for response Dementia with psychotic features resumed on all psychiatric medicine as taken on [facility] psych Full code Lovenox Patient will require ongoing hospitalization pending safe placement Quality Stroke Does the patient have a stroke diagnosis?: No VTE Prior VTE?: No VTE Risk Level:: Medical - moderate - high VTE Device Contraindication: Treatment Not Indicated VTE Drug Contraindication: N/A - Med Ordered
[2024-04-15] MEDS: Acetaminophen 325 MG TABLET 650 MG PO (14:58)
[2024-04-15 15:52] VITALS: BP 108/57; PULSE 101; RESP 20; TEMP 36.6; O2SAT 95
--- NOTE | 2024-04-15 18:35 | PC.NURSE ---
Nirmal Frances is reporting pain with urination that started yesterday 04/15. MD Forbes notified at 3p.
[2024-04-15 20:00] VITALS: BP 152/76; PULSE 101; RESP 20; TEMP 36.4; O2SAT 96
[2024-04-15] MEDS: risperiDONE 2 MG TABLET PO (21:32)
[2024-04-16 04:00] VITALS: BP 127/72; PULSE 85; RESP 18; TEMP 36.7; O2SAT 96
[2024-04-16 07:36] VITALS: BP 128/67; PULSE 92; RESP 16; TEMP 36.7; O2SAT 96
[2024-04-16] MEDS: Metoprolol Succinate ER 25 MG TAB.ER.24H PO (07:41)
[2024-04-16] MEDS: Memantine HCl 5 MG TABLET PO ×2 (07:42→20:48)
[2024-04-16] MEDS: Acetaminophen 325 MG TABLET 650 MG PO (08:38)
--- NOTE | 2024-04-16 10:21 | HO.PM.IMPN ---
Subjective Subjective Date of Service: 04/16/24 Review of Systems Follow up placement alert but confused no complaints Physical Exam Vital Signs: Vital Signs: Last Vital Signs Temp 98.1 F 04/16/24 07:36 Pulse 92 04/16/24 07:36 Resp 16 04/16/24 07:36 BP 128/67 04/16/24 07:36 Pulse Ox 96 04/16/24 07:36 O2 Del Method Room Air 04/16/24 07:36 O2 Flow Rate 2 04/09/24 15:48 BMI result Body Mass Index 20.3 Appearing in no acute distress lung sounds are clear to auscultation heart regular rate rhythm, clear S1, S2 positive bowel sounds, abdomen is soft, nontender neuro patient is alert, confused Objective Data Active Medications Acetaminophen (Acetaminophen 325 Mg Tablet) 650 mg PO Q6H PRN PRN Reason: Pain, Mild (Pain Scale 1-3) Last Admin: 04/16/24 08:38 Dose: 650 mg Documented By: RUSH Al Hydroxide/Mg Hydroxide (Magnesium Hydrox/Alum Hydrox 30 Ml Oral.Susp) 30 ml PO Q4H PRN PRN Reason: Heartburn Last Admin: 04/10/24 14:16 Dose: 30 ml Documented By: ALEJANDRA Bisacodyl (Bisacodyl 10 Mg Supp.Rect) 10 mg [place] BEDTIME PRN PRN Reason: Constipation Enoxaparin Sodium (Enoxaparin Sodium 40 Mg/0.4 Ml Syringe) 40 mg SUBCUT Q24H [facility] Last Admin: 04/15/24 11:17 Dose: 40 mg Documented By: ELZBIETA Memantine (Memantine Hcl 5 Mg Tablet) 5 mg PO BID [facility] Last Admin: 04/16/24 07:42 Dose: 5 mg Documented By: RUSH Metoprolol Succinate (Metoprolol Succinate Er 25 Mg Tab.Er.24h) 25 mg PO DAILY [facility]; Protocol Last Admin: 04/16/24 07:41 Dose: 25 mg Documented By: RUSH Risperidone (Risperidone 2 Mg Tablet) 2 mg PO BEDTIME [facility] Last Admin: 04/15/24 21:32 Dose: 2 mg Documented By: KENYATTA Trazodone HCl (Trazodone Hcl 50 Mg Tablet) 50 mg PO BEDTIME MRX1 PRN PRN Reason: Insomnia Last Admin: 04/08/24 21:52 Dose: 50 mg Documented By: KAMILAK Labs 04/11/24 05:22 04/11/24 05:22 Assessment and Plan (1) HTN (hypertension): Status: Acute (2) Syncope: Status: Acute (3) Dementia: Status: Acute Plan 79-year-old female admitted to [facility] 02/13/2024 with diagnosis of dementia with psychotic features. Was awaiting placement. Call to floor for questionable syncopal episode. Patient awake confused but at baseline. EKG with no acute findings. Syncope no acute issues on telemetry workup unremarkable; likely volume related responded well to volume repletion echo without acute findings; LVEF 45-50% Hypertension metoprolol initially on hold, due to above HR increasing, will resume at lower dose and monitor for response Dementia with psychotic features resumed on all psychiatric medicine as taken on [facility] psych Full code Lovenox Patient will require ongoing hospitalization pending safe placement Quality Stroke Does the patient have a stroke diagnosis?: No VTE Prior VTE?: No VTE Risk Level:: Medical - moderate - high VTE Device Contraindication: Treatment Not Indicated VTE Drug Contraindication: N/A - Med Ordered
[2024-04-16] MEDS: Enoxaparin Sodium 40 MG/0.4 ML SYRINGE SUBCUT (11:40)
[2024-04-16 15:50] VITALS: BP 141/75; PULSE 93; RESP 20; TEMP 36.7; O2SAT 97
[2024-04-16 19:22] VITALS: BP 150/82; PULSE 96; RESP 20; TEMP 36.9; O2SAT 96
[2024-04-16] MEDS: risperiDONE 2 MG TABLET PO (20:48)
[2024-04-17 03:38] VITALS: BP 149/65; PULSE 89; RESP 18; TEMP 36.3; O2SAT 95
[2024-04-17] MEDS: Metoprolol Succinate ER 25 MG TAB.ER.24H PO (07:13)
[2024-04-17] MEDS: Memantine HCl 5 MG TABLET PO ×2 (07:13→20:02)
[2024-04-17 07:50] VITALS: BP 127/60; PULSE 88; RESP 18; TEMP 36.6; O2SAT 96
--- NOTE | 2024-04-17 09:46 | HO.PM.IMPN ---
Subjective Subjective Date of Service: 04/17/24 Review of Systems Follow up placement alert but confused no complaints Physical Exam Vital Signs: Vital Signs: Last Vital Signs Temp 97.8 F 04/17/24 07:50 Pulse 88 04/17/24 07:50 Resp 18 04/17/24 07:50 BP 127/60 04/17/24 07:50 Pulse Ox 96 04/17/24 07:50 O2 Del Method Room Air 04/17/24 07:50 O2 Flow Rate 2 04/17/24 03:38 BMI result Body Mass Index 20.3 Appearing in no acute distress LSCTA heart regular rate rhythm, clear S1, S2 positive bowel sounds, abdomen is soft, nontender neuro patient is alert x3, no focal deficits Objective Data Active Medications Acetaminophen (Acetaminophen 325 Mg Tablet) 650 mg PO Q6H PRN PRN Reason: Pain, Mild (Pain Scale 1-3) Last Admin: 04/16/24 08:38 Dose: 650 mg Documented By: RUSH Al Hydroxide/Mg Hydroxide (Magnesium Hydrox/Alum Hydrox 30 Ml Oral.Susp) 30 ml PO Q4H PRN PRN Reason: Heartburn Last Admin: 04/10/24 14:16 Dose: 30 ml Documented By: ALEJANDRA Bisacodyl (Bisacodyl 10 Mg Supp.Rect) 10 mg [place] BEDTIME PRN PRN Reason: Constipation Enoxaparin Sodium (Enoxaparin Sodium 40 Mg/0.4 Ml Syringe) 40 mg SUBCUT Q24H [facility] Last Admin: 04/16/24 11:40 Dose: 40 mg Documented By: RUSH Memantine (Memantine Hcl 5 Mg Tablet) 5 mg PO BID [facility] Last Admin: 04/17/24 07:13 Dose: 5 mg Documented By: RUSH Metoprolol Succinate (Metoprolol Succinate Er 25 Mg Tab.Er.24h) 25 mg PO DAILY [facility]; Protocol Last Admin: 04/17/24 07:13 Dose: 25 mg Documented By: RUSH Risperidone (Risperidone 2 Mg Tablet) 2 mg PO BEDTIME [facility] Last Admin: 04/16/24 20:48 Dose: 2 mg Documented By: LYSVenessa Trazodone HCl (Trazodone Hcl 50 Mg Tablet) 50 mg PO BEDTIME MRX1 PRN PRN Reason: Insomnia Last Admin: 09/30/24 21:52 Dose: 50 mg Documented By: MICHELL Labs 04/11/24 05:22 04/11/24 05:22 Assessment and Plan (1) HTN (hypertension): Status: Acute (2) Syncope: Status: Acute (3) Dementia: Status: Acute Plan 79-year-old female admitted to [facility] psych 02/13/2024 with diagnosis of dementia with psychotic features. Was awaiting placement. Call to floor for questionable syncopal episode. Patient awake confused but at baseline. EKG with no acute findings. Syncope no acute issues on telemetry workup unremarkable; likely volume related responded well to volume repletion echo without acute findings; LVEF 45-50% OOB to chair and ambulating with assist check labs weekly Hypertension metoprolol initially on hold, due to above, restarted at lower dose Dementia with psychotic features resumed on all psychiatric medicine as taken on [facility] psych Full code Attending Dr. Bassem Soliz Patient will require ongoing hospitalization pending safe placement Quality Stroke Does the patient have a stroke diagnosis?: No VTE Prior VTE?: No VTE Risk Level:: Medical - moderate - high VTE Device Contraindication: Treatment Not Indicated VTE Drug Contraindication: N/A - Med Ordered
[2024-04-17] MEDS: Enoxaparin Sodium 40 MG/0.4 ML SYRINGE SUBCUT (12:04)
[2024-04-17 15:05] VITALS: BP 127/61; PULSE 91; RESP 18; TEMP 36.2; O2SAT 96
--- NOTE | 2024-04-17 15:30 | MHC.CM.PN ---
spoke with pts daughter james [phone] and imformed her that [facility] will no longer be covering pts hospital stay
[2024-04-17 19:15] VITALS: BP 133/81; PULSE 90; RESP 18; TEMP 36.6; O2SAT 96
[2024-04-17] MEDS: risperiDONE 2 MG TABLET PO (20:02)
[2024-04-18 04:00] VITALS: BP 108/55; PULSE 80; RESP 16; TEMP 36.1; O2SAT 93
[2024-04-18 08:00] VITALS: BP 134/73; PULSE 81; RESP 16; TEMP 36.3; O2SAT 96
[2024-04-18] MEDS: Metoprolol Succinate ER 25 MG TAB.ER.24H PO (08:39)
[2024-04-18] MEDS: Memantine HCl 5 MG TABLET PO ×2 (08:39→19:30)
[2024-04-18] MEDS: Enoxaparin Sodium 40 MG/0.4 ML SYRINGE SUBCUT (11:33)
--- NOTE | 2024-04-18 11:47 | MHC.CM.PN ---
PT AWAITING MH FOR LTC SNF PLACEMENT REFERRAL WILL BE EXPANDED ONCE MH IS PENDING
[2024-04-18 15:04] VITALS: BP 110/58; PULSE 95; RESP 17; TEMP 36.2; O2SAT 97
--- NOTE | 2024-04-18 15:50 | HO.PM.IMPN ---
Subjective Subjective Date of Service: 04/18/24 Interval History: seen and examined this morning follow up for placement no overnight events awake, alert and ambulating in room Review of Systems Review of Systems: Yes all other systems are reviewed and are negative Constitutional Constitutional: Denies chills and Denies fever(s) Physical Exam Vital Signs: Vital Signs: Last Vital Signs Temp 97.2 F 04/18/24 15:04 Pulse 95 04/18/24 15:04 Resp 17 04/18/24 15:04 BP 110/58 L 04/18/24 15:04 Pulse Ox 97 04/18/24 15:04 O2 Del Method Room Air 04/18/24 15:04 O2 Flow Rate 2 04/17/24 03:38 BMI result Body Mass Index 20.3 Const: General: cooperative, comfortable, alert and awake Nutritional Appearance: thin Resp: Effort & Inspection: normal respiratory effort, able to speak in complete sentences, no respiratory distress and no use of accessory muscles Cardio: Rate: regular rate GI: Inspection: No distended Palpation (GI): Soft to palpation and nontender Neuro: General: moves all extremities and CN's II-XI intact bilaterally Extrem: General: Yes no pedal edema Objective Data Active Medications Acetaminophen (Acetaminophen 325 Mg Tablet) 650 mg PO Q6H PRN PRN Reason: Pain, Mild (Pain Scale 1-3) Last Admin: 04/16/24 08:38 Dose: 650 mg Documented By: RUSH Al Hydroxide/Mg Hydroxide (Magnesium Hydrox/Alum Hydrox 30 Ml Oral.Susp) 30 ml PO Q4H PRN PRN Reason: Heartburn Last Admin: 04/10/24 14:16 Dose: 30 ml Documented By: ALEJANDRA Bisacodyl (Bisacodyl 10 Mg Supp.Rect) 10 mg [place] BEDTIME PRN PRN Reason: Constipation Enoxaparin Sodium (Enoxaparin Sodium 40 Mg/0.4 Ml Syringe) 40 mg SUBCUT Q24H [facility] Last Admin: 04/18/24 11:33 Dose: 40 mg Documented By: RUSH Memantine (Memantine Hcl 5 Mg Tablet) 5 mg PO BID [facility] Last Admin: 04/18/24 08:39 Dose: 5 mg Documented By: RUSH Metoprolol Succinate (Metoprolol Succinate Er 25 Mg Tab.Er.24h) 25 mg PO DAILY [facility]; Protocol Last Admin: 04/18/24 08:39 Dose: 25 mg Documented By: DABA Risperidone (Risperidone 2 Mg Tablet) 2 mg PO BEDTIME [facility] Last Admin: 04/17/24 20:02 Dose: 2 mg Documented By: LYSZ Trazodone HCl (Trazodone Hcl 50 Mg Tablet) 50 mg PO BEDTIME MRX1 PRN PRN Reason: Insomnia Last Admin: 04/08/24 21:52 Dose: 50 mg Documented By: SUPPLEK Labs 04/11/24 05:22 04/11/24 05:22 Assessment and Plan (1) Dementia: Status: Acute Plan 79-year-old female admitted to [facility] 02/13/2024 with diagnosis of dementia with psychotic features. Was awaiting placement. Call to floor for questionable syncopal episode. Patient awake confused but at baseline. EKG with no acute findings. Syncope no acute issues on telemetry workup unremarkable; likely volume related responded well to volume repletion echo without acute findings; LVEF 45-50% OOB to chair and ambulating with assist check labs weekly Hypertension metoprolol initially on hold, due to above, restarted at lower dose Dementia with psychotic features resumed on all psychiatric medicine as taken on [facility] Full code Attending Dr. Bassem Soliz Patient will require ongoing hospitalization pending safe placement Quality Stroke Does the patient have a stroke diagnosis?: No VTE Prior VTE?: No VTE Risk Level:: Medical - moderate - high VTE Device Contraindication: Treatment Not Indicated VTE Drug Contraindication: N/A - Med Ordered
[2024-04-18] MEDS: risperiDONE 2 MG TABLET PO (19:30)
[2024-04-18 19:49] VITALS: BP 151/76; PULSE 100; RESP 17; TEMP 36.2; O2SAT 96
[2024-04-19 04:00] VITALS: BP 100/56; PULSE 83; RESP 18; TEMP 36.3; O2SAT 94
[2024-04-19 06:39] LABS: Hematocrit 38.8 % (37.0-47.0); Hemoglobin 12.9 g/dl (12.0-16.0); Mean Corpuscular HGB Conc 33.2 g/dl (31.0-35.0); Mean Corpuscular Hemoglobin 30.4 pg (27.0-33.0); Mean Corpuscular Volume 91.5 fL (80.0-98.0); Platelet Count 221 X10*3/uL (160-400); Red Blood Count 4.24 X10*6/uL (4.20-5.50); Red Cell Distribution Width 12.9 % (11.0-16.0); White Blood Count 3.4 X10*3/uL (4.8-10.8)
[2024-04-19 06:52] LABS: Anion Gap 12 (12-20); Blood Urea Nitrogen 25 mg/dL (9-16); Calcium 9.8 mg/dL (8.4-10.2); Carbon Dioxide 27 mmol/L (22-29); Chloride 107 mmol/L (96-108); Creatinine Clr Calc Pharmacy 50.3; Estimated Glomerular Filt Rate > 60; Glucose Random 87 mg/dL (60-115); Potassium 4.5 mmol/L (3.3-5.1); Sodium 141 mmol/L (135-145)
[2024-04-19 07:45] VITALS: BP 124/57; PULSE 84; RESP 16; TEMP 36.2; O2SAT 96
[2024-04-19] MEDS: Memantine HCl 5 MG TABLET PO ×2 (08:40→21:09)
[2024-04-19] MEDS: Metoprolol Succinate ER 25 MG TAB.ER.24H PO (08:40)
[2024-04-19] MEDS: Enoxaparin Sodium 40 MG/0.4 ML SYRINGE SUBCUT (12:43)
--- NOTE | 2024-04-19 13:13 | MHC.CM.PN ---
Pt's affirmed HCP uploaded to [facility], hard copy to chart. Per [employer]- in petition patient has 54K in liquid assets she will not qualify for @ this time. Financial counselors notified. D/C planning will need to pivot to private pay facility. Kateryna Saleh ([email or web address]) and cellphone: #[phone]
--- NOTE | 2024-04-19 14:11 | MHC.CM.PN ---
spoke with jose a torres pt improvement and increasing indepence in care ,,pt is over assests for eligibilty for [facility] phone number given to qamar in [facility] pts conservator appt today is gokul [phone] who jose a said she will call
[2024-04-19 15:17] VITALS: BP 138/78; PULSE 88; RESP 18; TEMP 36.1; O2SAT 99
--- NOTE | 2024-04-19 15:49 | HO.PM.IMPN ---
Subjective Subjective Date of Service: 04/19/24 Interval History: Seen and examined this morning Follow-up for placement No overnight events No specific complaints this morning Review of Systems Review of Systems: Yes all other systems are reviewed and are negative Constitutional Constitutional: Denies chills and Denies fever(s) Cardiovascular Cardiovascular: Denies chest pain Physical Exam Vital Signs: Vital Signs: Last Vital Signs Temp 96.9 F 04/19/24 15:17 Pulse 88 04/19/24 15:17 Resp 18 04/19/24 15:17 BP 138/78 04/19/24 15:17 Pulse Ox 99 04/19/24 15:17 O2 Del Method Room Air 04/19/24 15:17 O2 Flow Rate 2 04/17/24 03:38 BMI result Body Mass Index 20.3 Const: General: cooperative, comfortable, alert and awake Nutritional Appearance: thin Resp: Effort & Inspection: normal respiratory effort, able to speak in complete sentences, no respiratory distress and no use of accessory muscles Cardio: Rate: regular rate GI: Inspection: No distended Palpation (GI): Soft to palpation and nontender Neuro: General: moves all extremities and CN's II-XI intact bilaterally Extrem: General: Yes no pedal edema Objective Data Active Medications Acetaminophen (Acetaminophen 325 Mg Tablet) 650 mg PO Q6H PRN PRN Reason: Pain, Mild (Pain Scale 1-3) Last Admin: 04/16/24 08:38 Dose: 650 mg Documented By: RUSH Al Hydroxide/Mg Hydroxide (Magnesium Hydrox/Alum Hydrox 30 Ml Oral.Susp) 30 ml PO Q4H PRN PRN Reason: Heartburn Last Admin: 04/10/24 14:16 Dose: 30 ml Documented By: ALEJANDRA Bisacodyl (Bisacodyl 10 Mg Supp.Rect) 10 mg [place] BEDTIME PRN PRN Reason: Constipation Enoxaparin Sodium (Enoxaparin Sodium 40 Mg/0.4 Ml Syringe) 40 mg SUBCUT Q24H [facility] Last Admin: 04/19/24 12:43 Dose: 40 mg Documented By: IDALIA Memantine (Memantine Hcl 5 Mg Tablet) 5 mg PO BID [facility] Last Admin: 04/19/24 08:40 Dose: 5 mg Documented By: IDALIA Metoprolol Succinate (Metoprolol Succinate Er 25 Mg Tab.Er.24h) 25 mg PO DAILY [facility]; Protocol Last Admin: 04/19/24 08:40 Dose: 25 mg Documented By: IDALIA Risperidone (Risperidone 2 Mg Tablet) 2 mg PO BEDTIME [facility] Last Admin: 04/18/24 19:30 Dose: 2 mg Documented By: COTEMA Trazodone HCl (Trazodone Hcl 50 Mg Tablet) 50 mg PO BEDTIME MRX1 PRN PRN Reason: Insomnia Last Admin: 04/08/24 21:52 Dose: 50 mg Documented By: SUPPLEK Labs 04/19/24 05:45 04/19/24 05:45 Labs: Laboratory Results - last 24 hr 04/19/24 05:45 MCV 91.5 MCH 30.4 MCHC 33.2 RDW 12.9 Plt Count 221 MPV 9.0 L Absolute Nucleated RBC 0.000 Nucleated RBC % (auto) 0.0 Anion Gap 12 Estim Creat Clear Calc 50.3 Estimated GFR > 60 Random Glucose 87 Calcium 9.8 Assessment and Plan (1) Dementia: Status: Acute Plan 79-year-old female admitted to [facility] 02/13/2024 with diagnosis of dementia with psychotic features. Was awaiting placement. Call to floor for questionable syncopal episode. Patient awake confused but at baseline. EKG with no acute findings. Syncope no acute issues on telemetry workup unremarkable; likely volume related responded well to volume repletion echo without acute findings; LVEF 45-50% OOB to chair and ambulating with assist check labs weekly Hypertension metoprolol initially on hold, due to above, restarted at lower dose Dementia with psychotic features resumed on all psychiatric medicine as taken on [facility] psych Full code Attending Dr. Bassem Soliz Patient will require ongoing hospitalization pending safe placement Quality Stroke Does the patient have a stroke diagnosis?: No VTE Prior VTE?: No VTE Risk Level:: Medical - moderate - high VTE Device Contraindication: Treatment Not Indicated VTE Drug Contraindication: N/A - Med Ordered
[2024-04-19 19:12] VITALS: BP 130/70; PULSE 91; RESP 18; TEMP 36.2; O2SAT 97
[2024-04-19] MEDS: risperiDONE 2 MG TABLET PO (21:09)
[2024-04-20 03:54] VITALS: BP 120/62; PULSE 85; RESP 18; TEMP 36; O2SAT 97
[2024-04-20 07:48] VITALS: BP 140/81; PULSE 85; RESP 16; TEMP 36.7; O2SAT 96
[2024-04-20] MEDS: Metoprolol Succinate ER 25 MG TAB.ER.24H PO (08:33)
[2024-04-20] MEDS: Memantine HCl 5 MG TABLET PO ×2 (08:34→20:33)
--- NOTE | 2024-04-20 08:35 | HO.PM.IMPN ---
Subjective Subjective Date of Service: 04/20/24 Interval History: Seen and examined this morning Follow-up for placement No overnight events No specific complaints this morning Review of Systems Review of Systems: Yes all other systems are reviewed and are negative Constitutional Constitutional: Denies chills and Denies fever(s) Cardiovascular Cardiovascular: Denies chest pain Physical Exam Vital Signs: Vital Signs: Last Vital Signs Temp 98.1 F 04/20/24 07:48 Pulse 85 04/20/24 07:48 Resp 16 04/20/24 07:48 BP 140/81 H 04/20/24 07:48 Pulse Ox 96 04/20/24 07:48 O2 Del Method Room Air 04/20/24 07:48 O2 Flow Rate 2 04/17/24 03:38 BMI result Body Mass Index 20.3 alert and confused Objective Data Active Medications Acetaminophen (Acetaminophen 325 Mg Tablet) 650 mg PO Q6H PRN PRN Reason: Pain, Mild (Pain Scale 1-3) Last Admin: 04/16/24 08:38 Dose: 650 mg Documented By: RUSH Al Hydroxide/Mg Hydroxide (Magnesium Hydrox/Alum Hydrox 30 Ml Oral.Susp) 30 ml PO Q4H PRN PRN Reason: Heartburn Last Admin: 04/10/24 14:16 Dose: 30 ml Documented By: ALEJANDRA Bisacodyl (Bisacodyl 10 Mg Supp.Rect) 10 mg [place] BEDTIME PRN PRN Reason: Constipation Enoxaparin Sodium (Enoxaparin Sodium 40 Mg/0.4 Ml Syringe) 40 mg SUBCUT Q24H [facility] Last Admin: 04/19/24 12:43 Dose: 40 mg Documented By: IDALIA Memantine (Memantine Hcl 5 Mg Tablet) 5 mg PO BID [facility] Last Admin: 04/20/24 08:34 Dose: 5 mg Documented By: TATUM Metoprolol Succinate (Metoprolol Succinate Er 25 Mg Tab.Er.24h) 25 mg PO DAILY [facility]; Protocol Last Admin: 04/20/24 08:33 Dose: 25 mg Documented By: TATUM Risperidone (Risperidone 2 Mg Tablet) 2 mg PO BEDTIME [facility] Last Admin: 04/19/24 21:09 Dose: 2 mg Documented By: ODRISM Trazodone HCl (Trazodone Hcl 50 Mg Tablet) 50 mg PO BEDTIME MRX1 PRN PRN Reason: Insomnia Last Admin: 04/08/24 21:52 Dose: 50 mg Documented By: KAMILAK Labs 04/19/24 05:45 04/19/24 05:45 Assessment and Plan (1) Dementia: Status: Acute Plan 79-year-old female admitted to [facility] psych 02/13/2024 with diagnosis of dementia with psychotic features. Was awaiting placement. Call to floor for questionable syncopal episode. Patient awake confused but at baseline. EKG with no acute findings. Syncope no acute issues on telemetry workup unremarkable; likely volume related responded well to volume repletion echo without acute findings; LVEF 45-50% OOB to chair and ambulating with assist check labs weekly Hypertension metoprolol initially on hold, due to above, restarted at lower dose Dementia with psychotic features resumed on all psychiatric medicine as taken on [facility] psych Full code Attending Dr. Carol Soliz Patient will require ongoing hospitalization pending safe placement Quality Stroke Does the patient have a stroke diagnosis?: No VTE Prior VTE?: No VTE Risk Level:: Medical - moderate - high VTE Device Contraindication: Treatment Not Indicated VTE Drug Contraindication: N/A - Med Ordered
[2024-04-20] MEDS: Enoxaparin Sodium 40 MG/0.4 ML SYRINGE SUBCUT (11:41)
[2024-04-20 15:41] VITALS: BP 129/68; PULSE 82; RESP 16; TEMP 36.9; O2SAT 95
[2024-04-20 19:50] VITALS: BP 135/73; PULSE 88; RESP 18; TEMP 36.2; O2SAT 95
[2024-04-20] MEDS: risperiDONE 2 MG TABLET PO (20:33)
[2024-04-21 03:39] VITALS: BP 104/53; PULSE 70; RESP 18; TEMP 36.3; O2SAT 96
--- NOTE | 2024-04-21 07:20 | P.PNIM_ITS ---
Subjective Subjective Date of Service: 04/21/24 Interval History: Seen and examined this morning Follow-up for placement No overnight events No specific complaints this morning Review of Systems Review of Systems: Yes all other systems are reviewed and are negative Constitutional Constitutional: Denies chills and Denies fever(s) Cardiovascular Cardiovascular: Denies chest pain Physical Exam 2 Vital Signs: Vital Signs: Last Vital Signs Temp 97.3 F 04/21/24 03:39 Pulse 70 04/21/24 03:39 Resp 18 04/21/24 03:39 BP 104/53 L 04/21/24 03:39 Pulse Ox 96 04/21/24 03:39 O2 Del Method Room Air 04/21/24 03:39 O2 Flow Rate 2 04/17/24 03:38 BMI result Body Mass Index 20.3 alert and confused Objective Data Active Medications Acetaminophen (Acetaminophen 325 Mg Tablet) 650 mg PO Q6H PRN PRN Reason: Pain, Mild (Pain Scale 1-3) Last Admin: 04/16/24 08:38 Dose: 650 mg Documented By: RUSH Al Hydroxide/Mg Hydroxide (Magnesium Hydrox/Alum Hydrox 30 Ml Oral.Susp) 30 ml PO Q4H PRN PRN Reason: Heartburn Last Admin: 04/10/24 14:16 Dose: 30 ml Documented By: ALEJANDRA Bisacodyl (Bisacodyl 10 Mg Supp.Rect) 10 mg [place] BEDTIME PRN PRN Reason: Constipation Enoxaparin Sodium (Enoxaparin Sodium 40 Mg/0.4 Ml Syringe) 40 mg SUBCUT Q24H [facility] Last Admin: 04/20/24 11:41 Dose: 40 mg Documented By: TATUM Memantine (Memantine Hcl 5 Mg Tablet) 5 mg PO BID [facility] Last Admin: 04/20/24 20:33 Dose: 5 mg Documented By: MIKE Metoprolol Succinate (Metoprolol Succinate Er 25 Mg Tab.Er.24h) 25 mg PO DAILY [facility]; Protocol Last Admin: 04/20/24 08:33 Dose: 25 mg Documented By: TATUM Risperidone (Risperidone 2 Mg Tablet) 2 mg PO BEDTIME [facility] Last Admin: 04/20/24 20:33 Dose: 2 mg Documented By: MIKE Trazodone HCl (Trazodone Hcl 50 Mg Tablet) 50 mg PO BEDTIME MRX1 PRN PRN Reason: Insomnia Last Admin: 04/08/24 21:52 Dose: 50 mg Documented By: KAMILAK Labs 04/19/24 05:45 04/19/24 05:45 Assessment and Plan (1) Dementia: Status: Acute Plan 79-year-old female admitted to [facility] psych 02/13/2024 with diagnosis of dementia with psychotic features. Was awaiting placement. Call to floor for questionable syncopal episode. Patient awake confused but at baseline. EKG with no acute findings. Syncope no acute issues on telemetry workup unremarkable; likely volume related responded well to volume repletion echo without acute findings; LVEF 45-50% OOB to chair and ambulating with assist check labs weekly Hypertension metoprolol initially on hold, due to above, restarted at lower dose Dementia with psychotic features resumed on all psychiatric medicine as taken on [facility] psych Full code Attending Dr. Carol Soliz Patient will require ongoing hospitalization pending safe placement Quality Stroke Does the patient have a stroke diagnosis?: No VTE Prior VTE?: No VTE Risk Level:: Medical - moderate - high VTE Device Contraindication: Treatment Not Indicated VTE Drug Contraindication: N/A - Med Ordered
[2024-04-21 07:48] VITALS: BP 101/59; PULSE 75; RESP 12; TEMP 36.2; O2SAT 94
[2024-04-21] MEDS: Memantine HCl 5 MG TABLET PO ×2 (08:53→20:01)
[2024-04-21] MEDS: Metoprolol Succinate ER 25 MG TAB.ER.24H PO (08:54)
[2024-04-21] MEDS: Enoxaparin Sodium 40 MG/0.4 ML SYRINGE SUBCUT (12:02)
[2024-04-21 14:56] VITALS: BP 132/72; PULSE 81; RESP 18; TEMP 36.2; O2SAT 95
[2024-04-21 19:02] VITALS: BP 109/60; PULSE 74; RESP 16; TEMP 36.3; O2SAT 94
[2024-04-21] MEDS: risperiDONE 2 MG TABLET PO (20:01)
[2024-04-22 03:36] VITALS: BP 109/53; PULSE 72; RESP 16; TEMP 36.7; O2SAT 95
--- NOTE | 2024-04-22 07:15 | P.PNIM_ITS ---
Subjective Subjective Date of Service: 04/22/24 Interval History: Seen and examined this morning Follow-up for placement No overnight events No specific complaints this morning Review of Systems Review of Systems: Yes all other systems are reviewed and are negative Constitutional Constitutional: Denies chills and Denies fever(s) Cardiovascular Cardiovascular: Denies chest pain Physical Exam 2 Vital Signs: Vital Signs: Last Vital Signs Temp 98.1 F 04/22/24 03:36 Pulse 72 04/22/24 03:36 Resp 16 04/22/24 03:36 BP 109/53 L 04/22/24 03:36 Pulse Ox 95 04/22/24 03:36 O2 Del Method Room Air 04/22/24 03:36 O2 Flow Rate 2 04/17/24 03:38 BMI result Body Mass Index 20.3 Appearing in no acute distress lung sounds are clear to auscultation heart regular rate rhythm, clear S1, S2 positive bowel sounds, abdomen is soft, nontender neuro patient is alert x3, no focal deficits Objective Data Active Medications Acetaminophen (Acetaminophen 325 Mg Tablet) 650 mg PO Q6H PRN PRN Reason: Pain, Mild (Pain Scale 1-3) Last Admin: 04/16/24 08:38 Dose: 650 mg Documented By: RUSH Al Hydroxide/Mg Hydroxide (Magnesium Hydrox/Alum Hydrox 30 Ml Oral.Susp) 30 ml PO Q4H PRN PRN Reason: Heartburn Last Admin: 04/10/24 14:16 Dose: 30 ml Documented By: ALEJANDRA Bisacodyl (Bisacodyl 10 Mg Supp.Rect) 10 mg [place] BEDTIME PRN PRN Reason: Constipation Enoxaparin Sodium (Enoxaparin Sodium 40 Mg/0.4 Ml Syringe) 40 mg SUBCUT Q24H [facility] Last Admin: 04/21/24 12:02 Dose: 40 mg Documented By: ELZBIETA Memantine (Memantine Hcl 5 Mg Tablet) 5 mg PO BID [facility] Last Admin: 04/21/24 20:01 Dose: 5 mg Documented By: MIKE Metoprolol Succinate (Metoprolol Succinate Er 25 Mg Tab.Er.24h) 25 mg PO DAILY [facility]; Protocol Last Admin: 04/21/24 08:54 Dose: 25 mg Documented By: ELZBIETA Risperidone (Risperidone 2 Mg Tablet) 2 mg PO BEDTIME [facility] Last Admin: 04/21/24 20:01 Dose: 2 mg Documented By: ODRISM Trazodone HCl (Trazodone Hcl 50 Mg Tablet) 50 mg PO BEDTIME MRX1 PRN PRN Reason: Insomnia Last Admin: 04/08/24 21:52 Dose: 50 mg Documented By: SUPPLEK Labs 04/19/24 05:45 04/19/24 05:45 Assessment and Plan (1) Dementia: Status: Acute Plan 79-year-old female admitted to [facility] psych 02/13/2024 with diagnosis of dementia with psychotic features. Was awaiting placement. Call to floor for questionable syncopal episode. Patient awake confused but at baseline. EKG with no acute findings. Syncope no acute issues on telemetry workup unremarkable; likely volume related responded well to volume repletion echo without acute findings; LVEF 45-50% OOB to chair and ambulating with assist check labs weekly Hypertension metoprolol initially on hold, due to above, restarted at lower dose Dementia with psychotic features resumed on all psychiatric medicine as taken on [facility] Full code Attending Dr. Caorl Soliz Patient will require ongoing hospitalization pending safe placement Quality Stroke Does the patient have a stroke diagnosis?: No VTE Prior VTE?: No VTE Risk Level:: Medical - moderate - high VTE Device Contraindication: Treatment Not Indicated VTE Drug Contraindication: N/A - Med Ordered
[2024-04-22 07:44] VITALS: BP 137/79; PULSE 90; RESP 16; TEMP 36.6; O2SAT 95
[2024-04-22] MEDS: Memantine HCl 5 MG TABLET PO ×2 (08:24→19:58)
[2024-04-22] MEDS: Metoprolol Succinate ER 25 MG TAB.ER.24H PO (08:24)
[2024-04-22] MEDS: Enoxaparin Sodium 40 MG/0.4 ML SYRINGE SUBCUT (11:05)
[2024-04-22 15:14] VITALS: BP 138/71; PULSE 84; RESP 16; TEMP 36.1; O2SAT 97
[2024-04-22 19:02] VITALS: BP 138/68; PULSE 83; RESP 16; TEMP 36; O2SAT 96
[2024-04-22] MEDS: risperiDONE 2 MG TABLET PO (19:58)
[2024-04-23 03:23] VITALS: BP 112/58; PULSE 81; RESP 16; TEMP 36.3; O2SAT 98
--- NOTE | 2024-04-23 07:45 | HO.PM.IMPN ---
Subjective Subjective Date of Service: 04/23/24 Interval History: Seen and examined this morning Follow-up for placement No overnight events No specific complaints this morning Review of Systems Review of Systems: Yes all other systems are reviewed and are negative Constitutional Constitutional: Denies chills and Denies fever(s) Cardiovascular Cardiovascular: Denies chest pain Physical Exam Vital Signs: Vital Signs: Last Vital Signs Temp 97.4 F 04/23/24 03:23 Pulse 81 04/23/24 03:23 Resp 16 04/23/24 03:23 BP 112/58 L 04/23/24 03:23 Pulse Ox 98 04/23/24 03:23 O2 Del Method Room Air 04/23/24 03:23 O2 Flow Rate 2 04/17/24 03:38 BMI result Body Mass Index 20.3 Appearing in no acute distress lung sounds are clear to auscultation heart regular rate rhythm, clear S1, S2 positive bowel sounds, abdomen is soft, nontender neuro patient is alert x3, no focal deficits Objective Data Active Medications Acetaminophen (Acetaminophen 325 Mg Tablet) 650 mg PO Q6H PRN PRN Reason: Pain, Mild (Pain Scale 1-3) Last Admin: 04/16/24 08:38 Dose: 650 mg Documented By: RUSH Al Hydroxide/Mg Hydroxide (Magnesium Hydrox/Alum Hydrox 30 Ml Oral.Susp) 30 ml PO Q4H PRN PRN Reason: Heartburn Last Admin: 04/10/24 14:16 Dose: 30 ml Documented By: ALEJANDRA Bisacodyl (Bisacodyl 10 Mg Supp.Rect) 10 mg [place] BEDTIME PRN PRN Reason: Constipation Enoxaparin Sodium (Enoxaparin Sodium 40 Mg/0.4 Ml Syringe) 40 mg SUBCUT Q24H [facility] Last Admin: 04/22/24 11:05 Dose: 40 mg Documented By: XENA Memantine (Memantine Hcl 5 Mg Tablet) 5 mg PO BID [facility] Last Admin: 04/22/24 19:58 Dose: 5 mg Documented By: TIFFANY Metoprolol Succinate (Metoprolol Succinate Er 25 Mg Tab.Er.24h) 25 mg PO DAILY [facility]; Protocol Last Admin: 04/22/24 08:24 Dose: 25 mg Documented By: COTEMA Risperidone (Risperidone 2 Mg Tablet) 2 mg PO BEDTIME [facility] Last Admin: 04/22/24 19:58 Dose: 2 mg Documented By: TIFFANY Trazodone HCl (Trazodone Hcl 50 Mg Tablet) 50 mg PO BEDTIME MRX1 PRN PRN Reason: Insomnia Last Admin: 04/08/24 21:52 Dose: 50 mg Documented By: SUPPLEK Labs 04/19/24 05:45 04/19/24 05:45 Assessment and Plan (1) Dementia: Status: Acute Plan 79-year-old female admitted to [facility] 02/13/2024 with diagnosis of dementia with psychotic features. Was awaiting placement. Call to floor for questionable syncopal episode. Patient awake confused but at baseline. EKG with no acute findings. Syncope. Resolved no acute issues on telemetry workup unremarkable; likely volume related responded well to volume repletion echo without acute findings; LVEF 45-50% OOB to chair and ambulating with assist check labs weekly Hypertension metoprolol restarted at lower dose Dementia with psychotic features resumed on all psychiatric medicine as taken on [facility] re-eval for capacity Full code Attending Dr. Bassem Soliz Patient will require ongoing hospitalization pending safe placement Quality Stroke Does the patient have a stroke diagnosis?: No VTE Prior VTE?: No VTE Risk Level:: Medical - moderate - high VTE Device Contraindication: Treatment Not Indicated VTE Drug Contraindication: N/A - Med Ordered
[2024-04-23 08:00] VITALS: BP 130/68; PULSE 99; RESP 99; TEMP 37; O2SAT 95
[2024-04-23 09:00] VITALS: BP 130/68; PULSE 99; O2SAT 95
[2024-04-23] MEDS: Metoprolol Succinate ER 25 MG TAB.ER.24H PO (09:49)
[2024-04-23] MEDS: Memantine HCl 5 MG TABLET PO ×2 (09:50→21:23)
[2024-04-23] MEDS: Enoxaparin Sodium 40 MG/0.4 ML SYRINGE SUBCUT (12:21)
[2024-04-23 15:39] VITALS: BP 128/58; PULSE 90; RESP 18; TEMP 36.8; O2SAT 96
[2024-04-23 20:00] VITALS: BP 135/64; PULSE 64; RESP 20; TEMP 36.3; O2SAT 94
[2024-04-23] MEDS: risperiDONE 2 MG TABLET PO (21:23)
[2024-04-24 03:31] VITALS: BP 129/69; PULSE 97; RESP 18; TEMP 36.3; O2SAT 96
--- NOTE | 2024-04-24 07:25 | P.PNIM_ITS ---
Subjective Subjective Date of Service: 04/24/24 Interval History: Seen and examined this morning Follow-up for placement No overnight events No specific complaints this morning Review of Systems Review of Systems: Yes all other systems are reviewed and are negative Constitutional Constitutional: Denies chills and Denies fever(s) Cardiovascular Cardiovascular: Denies chest pain Physical Exam 2 Vital Signs: Vital Signs: Last Vital Signs Temp 97.4 F 04/24/24 03:31 Pulse 97 04/24/24 03:31 Resp 18 04/24/24 03:31 BP 129/69 04/24/24 03:31 Pulse Ox 96 04/24/24 03:31 O2 Del Method Room Air 04/24/24 03:31 O2 Flow Rate 2 04/17/24 03:38 BMI result Body Mass Index 20.3 Appearing in no acute distress lung sounds are clear to auscultation heart regular rate rhythm, clear S1, S2 positive bowel sounds, abdomen is soft, nontender neuro patient is alert x3, no focal deficits Objective Data Active Medications Acetaminophen (Acetaminophen 325 Mg Tablet) 650 mg PO Q6H PRN PRN Reason: Pain, Mild (Pain Scale 1-3) Last Admin: 04/16/24 08:38 Dose: 650 mg Documented By: RUSH Al Hydroxide/Mg Hydroxide (Magnesium Hydrox/Alum Hydrox 30 Ml Oral.Susp) 30 ml PO Q4H PRN PRN Reason: Heartburn Last Admin: 04/10/24 14:16 Dose: 30 ml Documented By: ALEJANDRA Bisacodyl (Bisacodyl 10 Mg Supp.Rect) 10 mg [place] BEDTIME PRN PRN Reason: Constipation Enoxaparin Sodium (Enoxaparin Sodium 40 Mg/0.4 Ml Syringe) 40 mg SUBCUT Q24H [facility] Last Admin: 04/23/24 12:21 Dose: 40 mg Documented By: THO Memantine (Memantine Hcl 5 Mg Tablet) 5 mg PO BID [facility] Last Admin: 04/23/24 21:23 Dose: 5 mg Documented By: LACI Metoprolol Succinate (Metoprolol Succinate Er 25 Mg Tab.Er.24h) 25 mg PO DAILY [facility]; Protocol Last Admin: 04/23/24 09:49 Dose: 25 mg Documented By: THO Risperidone (Risperidone 2 Mg Tablet) 2 mg PO BEDTIME [facility] Last Admin: 04/23/24 21:23 Dose: 2 mg Documented By: LACI Trazodone HCl (Trazodone Hcl 50 Mg Tablet) 50 mg PO BEDTIME MRX1 PRN PRN Reason: Insomnia Last Admin: 04/08/24 21:52 Dose: 50 mg Documented By: SUPPLEK Labs 04/19/24 05:45 04/19/24 05:45 Assessment and Plan (1) Dementia: Status: Acute Plan 79-year-old female admitted to [facility] 02/13/2024 with diagnosis of dementia with psychotic features. Was awaiting placement. Call to floor for questionable syncopal episode. Patient awake confused but at baseline. EKG with no acute findings. Syncope. Resolved no acute issues on telemetry workup unremarkable; likely volume related responded well to volume repletion echo without acute findings; LVEF 45-50% OOB to chair and ambulating check labs weekly Hypertension metoprolol restarted at lower dose Dementia with psychotic features resumed on all psychiatric medicine as taken on [facility] re-eval for capacity pending Full code Attending Dr. Bassem Soliz Patient will require ongoing hospitalization pending safe placement Quality Stroke Does the patient have a stroke diagnosis?: No VTE Prior VTE?: No VTE Risk Level:: Medical - moderate - high VTE Device Contraindication: Treatment Not Indicated VTE Drug Contraindication: N/A - Med Ordered
[2024-04-24 07:55] VITALS: BP 116/73; PULSE 81; RESP 14; TEMP 36.9; O2SAT 94
[2024-04-24] MEDS: Metoprolol Succinate ER 25 MG TAB.ER.24H PO (08:09)
[2024-04-24] MEDS: Memantine HCl 5 MG TABLET PO ×2 (08:09→20:38)
--- NOTE | 2024-04-24 14:59 | MHC.CM.PN ---
MECHELLE FROM [facility] CAME TO SEE PT LOOKING FOR A NEW PSYCH EVAL WHICH WAS ORDERED TODAY PT IS READY FOR DC
[2024-04-24 15:35] VITALS: BP 140/76; PULSE 84; RESP 16; TEMP 36.7; O2SAT 96
--- NOTE | 2024-04-24 19:04 | PC.NURSE ---
Pt is pleasant and alert and oriented to person and place, able to make needs known effectively and rings call gustafson appropriately. Pt is tolerating meds whole with water. Pt ambulating frequently around the unit, conversing with staff. All needs met at this time all safety measures in place.
[2024-04-24 20:00] VITALS: PULSE 102; RESP 18; TEMP 37.1; O2SAT 96
[2024-04-24 20:30] VITALS: BP 134/66
[2024-04-24] MEDS: risperiDONE 2 MG TABLET PO (20:38)
[2024-04-24] MEDS: Acetaminophen 325 MG TABLET 650 MG PO (21:58)
[2024-04-25 03:14] VITALS: BP 115/63; PULSE 68; RESP 18; TEMP 36.9; O2SAT 96
[2024-04-25 07:08] VITALS: BP 147/70; PULSE 83; RESP 18; TEMP 36.6; O2SAT 98
[2024-04-25] MEDS: Memantine HCl 5 MG TABLET PO ×2 (09:16→20:12)
[2024-04-25] MEDS: Metoprolol Succinate ER 25 MG TAB.ER.24H PO (09:16)
[2024-04-25 15:28] VITALS: BP 147/81; PULSE 87; RESP 20; TEMP 36.7; O2SAT 95
--- NOTE | 2024-04-25 16:10 | HO.PM.IMPN ---
Subjective Subjective Date of Service: 04/25/24 Interval History: Seen and examined this morning Follow-up for placement No overnight events No specific complaints this morning Review of Systems Review of Systems: Yes all other systems are reviewed and are negative Constitutional Constitutional: Denies chills and Denies fever(s) Cardiovascular Cardiovascular: Denies chest pain and Denies dyspnea Respiratory Respiratory: Denies dyspnea Gastrointestinal Gastrointestinal: Denies abdominal pain Physical Exam Vital Signs: Vital Signs: Last Vital Signs Temp 98.1 F 04/25/24 15:28 Pulse 87 04/25/24 15:28 Resp 20 04/25/24 15:28 BP 147/81 H 04/25/24 15:28 Pulse Ox 95 04/25/24 15:28 O2 Del Method Room Air 04/25/24 15:28 O2 Flow Rate 2 04/17/24 03:38 BMI result Body Mass Index 20.3 Const: General: cooperative, comfortable, alert and awake Nutritional Appearance: thin Resp: Effort & Inspection: normal respiratory effort, able to speak in complete sentences, no respiratory distress and no use of accessory muscles Cardio: Rate: regular rate GI: Inspection: No distended Palpation (GI): Soft to palpation and nontender Neuro: General: moves all extremities and CN's II-XI intact bilaterally Extrem: General: Yes no pedal edema Objective Data Active Medications Acetaminophen (Acetaminophen 325 Mg Tablet) 650 mg PO Q6H PRN PRN Reason: Pain, Mild (Pain Scale 1-3) Last Admin: 04/24/24 21:58 Dose: 650 mg Documented By: LACI Al Hydroxide/Mg Hydroxide (Magnesium Hydrox/Alum Hydrox 30 Ml Oral.Susp) 30 ml PO Q4H PRN PRN Reason: Heartburn Last Admin: 04/10/24 14:16 Dose: 30 ml Documented By: ALEJANDRA Bisacodyl (Bisacodyl 10 Mg Supp.Rect) 10 mg [place] BEDTIME PRN PRN Reason: Constipation Memantine (Memantine Hcl 5 Mg Tablet) 5 mg PO BID [facility] Last Admin: 04/25/24 09:16 Dose: 5 mg Documented By: TATUM Metoprolol Succinate (Metoprolol Succinate Er 25 Mg Tab.Er.24h) 25 mg PO DAILY [facility]; Protocol Last Admin: 04/25/24 09:16 Dose: 25 mg Documented By: HO.GRAZIC Risperidone (Risperidone 2 Mg Tablet) 2 mg PO BEDTIME [facility] Last Admin: 04/24/24 20:38 Dose: 2 mg Documented By: LACI Trazodone HCl (Trazodone Hcl 50 Mg Tablet) 50 mg PO BEDTIME MRX1 PRN PRN Reason: Insomnia Last Admin: 04/08/24 21:52 Dose: 50 mg Documented By: SUPPLEK Labs 04/19/24 05:45 04/19/24 05:45 Assessment and Plan (1) Dementia: Status: Acute Plan 79-year-old female admitted to [facility] psych 02/13/2024 with diagnosis of dementia with psychotic features. Was awaiting placement. Call to floor for questionable syncopal episode. Patient awake confused but at baseline. EKG with no acute findings. Syncope. Resolved no acute issues on telemetry workup unremarkable; likely volume related responded well to volume repletion echo without acute findings; LVEF 45-50% OOB to chair and ambulating check labs weekly Hypertension metoprolol restarted at lower dose Dementia with psychotic features continue risperidone, [place] affirmed HCP invoked had moca on psych, scored low due to dementia Full code Attending Dr. Bassem Soliz Patient will require ongoing hospitalization pending safe placement Quality Stroke Does the patient have a stroke diagnosis?: No VTE Prior VTE?: No VTE Risk Level:: Medical - moderate - high VTE Device Contraindication: Treatment Not Indicated VTE Drug Contraindication: N/A - Med Ordered
[2024-04-25 19:34] VITALS: BP 137/63; PULSE 79; RESP 20; TEMP 36.6; O2SAT 95
[2024-04-25] MEDS: risperiDONE 2 MG TABLET PO (20:12)
[2024-04-26 03:27] VITALS: BP 109/57; PULSE 75; RESP 16; TEMP 36.1; O2SAT 96
[2024-04-26 07:51] VITALS: BP 106/53; PULSE 96; RESP 18; TEMP 36.7; O2SAT 95
[2024-04-26] MEDS: Metoprolol Succinate ER 25 MG TAB.ER.24H PO (09:12)
[2024-04-26] MEDS: Memantine HCl 5 MG TABLET PO ×2 (09:12→20:19)
--- NOTE | 2024-04-26 12:20 | P.PNIM_ITS ---
Subjective Subjective Date of Service: 04/26/24 Interval History: Seen and examined this morning Follow-up for placement Patient awake alert with no specific complaints Review of Systems Review of Systems: Yes all other systems are reviewed and are negative Constitutional Constitutional: Denies fever(s) Physical Exam 2 Vital Signs: Vital Signs: Last Vital Signs Temp 98.1 F 04/26/24 07:51 Pulse 96 04/26/24 07:51 Resp 18 04/26/24 07:51 BP 106/53 L 04/26/24 07:51 Pulse Ox 95 04/26/24 07:51 O2 Del Method Room Air 04/26/24 07:51 O2 Flow Rate 2 04/17/24 03:38 BMI result Body Mass Index 20.3 Const: General: cooperative, comfortable, alert and awake Nutritional Appearance: thin Resp: Effort & Inspection: normal respiratory effort, able to speak in complete sentences, no respiratory distress and no use of accessory muscles Cardio: Rate: regular rate GI: Inspection: No distended Palpation (GI): Soft to palpation and nontender Neuro: General: moves all extremities and CN's II-XI intact bilaterally Extrem: General: Yes no pedal edema Objective Data Active Medications Acetaminophen (Acetaminophen 325 Mg Tablet) 650 mg PO Q6H PRN PRN Reason: Pain, Mild (Pain Scale 1-3) Last Admin: 04/24/24 21:58 Dose: 650 mg Documented By: LACI Al Hydroxide/Mg Hydroxide (Magnesium Hydrox/Alum Hydrox 30 Ml Oral.Susp) 30 ml PO Q4H PRN PRN Reason: Heartburn Last Admin: 04/10/24 14:16 Dose: 30 ml Documented By: ALEJANDRA Bisacodyl (Bisacodyl 10 Mg Supp.Rect) 10 mg [place] BEDTIME PRN PRN Reason: Constipation Memantine (Memantine Hcl 5 Mg Tablet) 5 mg PO BID [facility] BEDS AT [facility] Last Admin: 04/26/24 09:12 Dose: 5 mg Documented By: LACI Metoprolol Succinate (Metoprolol Succinate Er 25 Mg Tab.Er.24h) 25 mg PO DAILY [facility] 234 BEDS AT [facility]; Protocol Last Admin: 04/26/24 09:12 Dose: 25 mg Documented By: LACI Risperidone (Risperidone 2 Mg Tablet) 2 mg PO BEDTIME [facility]S [facility]CLUDE 234 BEDS AT [facility] Last Admin: 04/25/24 20:12 Dose: 2 mg Documented By: LACI Trazodone HCl (Trazodone Hcl 50 Mg Tablet) 50 mg PO BEDTIME MRX1 PRN PRN Reason: Insomnia Last Admin: 04/08/24 21:52 Dose: 50 mg Documented By: KAMILAK Labs 04/19/24 05:45 04/19/24 05:45 Assessment and Plan (1) Dementia: Status: Acute (2) HTN (hypertension): Status: Acute Plan 79-year-old female admitted to [facility] 02/13/2024 with diagnosis of dementia with psychotic features. Was awaiting placement. Call to floor for questionable syncopal episode. Patient awake confused but at baseline. EKG with no acute findings. Syncope. Resolved no acute issues on telemetry workup unremarkable; likely volume related responded well to volume repletion echo without acute findings; LVEF 45-50% OOB to chair and ambulating check labs weekly Hypertension metoprolol restarted at lower dose Dementia with psychotic features continue risperidone, [place] affirmed HCP invoked had moca on psych floor, scored low due to dementia Full code Attending Dr. Bassem Soliz Patient will require ongoing hospitalization pending safe placement due to dementia requiring shelter level of care Quality Stroke Does the patient have a stroke diagnosis?: No VTE Prior VTE?: No VTE Risk Level:: Medical - moderate - high VTE Device Contraindication: Treatment Not Indicated VTE Drug Contraindication: N/A - Med Ordered
[2024-04-26 15:36] VITALS: BP 145/83; PULSE 95; RESP 18; TEMP 36.9; O2SAT 95
[2024-04-26 19:16] VITALS: BP 127/82; PULSE 86; RESP 16; TEMP 36.2; O2SAT 96
[2024-04-26] MEDS: risperiDONE 2 MG TABLET PO (20:19)
[2024-04-27 03:20] VITALS: BP 106/55; PULSE 82; RESP 16; TEMP 36.3; O2SAT 96
[2024-04-27 07:28] VITALS: BP 130/65; PULSE 80; RESP 16; TEMP 36.3; O2SAT 96
[2024-04-27] MEDS: Memantine HCl 5 MG TABLET PO ×2 (08:25→20:30)
[2024-04-27] MEDS: Metoprolol Succinate ER 25 MG TAB.ER.24H PO (08:25)
--- NOTE | 2024-04-27 12:07 | HO.PM.IMPN ---
Subjective Subjective Date of Service: 04/27/24 Interval History: Seen and examined this morning Follow-up for placement Observed ambulating in the hallway. No overnight events. No specific complaints today Review of Systems Review of Systems: Yes all other systems are reviewed and are negative Constitutional Constitutional: Denies chills and Denies fever(s) Cardiovascular Cardiovascular: Denies chest pain and Denies dyspnea Respiratory Respiratory: Denies cough and Denies dyspnea Gastrointestinal Gastrointestinal: Denies abdominal pain Physical Exam Vital Signs: Vital Signs: Last Vital Signs Temp 97.3 F 04/27/24 07:28 Pulse 80 04/27/24 07:28 Resp 16 04/27/24 07:28 BP 130/65 04/27/24 07:28 Pulse Ox 96 04/27/24 07:28 O2 Del Method Room Air 04/27/24 07:28 O2 Flow Rate 2 04/17/24 03:38 BMI result Body Mass Index 20.3 Const: General: cooperative, comfortable, alert and awake Nutritional Appearance: thin Resp: Effort & Inspection: normal respiratory effort, able to speak in complete sentences, no respiratory distress and no use of accessory muscles Cardio: Rate: regular rate GI: Inspection: No distended Palpation (GI): Soft to palpation and nontender Neuro: General: moves all extremities and CN's II-XI intact bilaterally Extrem: General: Yes no pedal edema Objective Data Active Medications Acetaminophen (Acetaminophen 325 Mg Tablet) 650 mg PO Q6H PRN PRN Reason: Pain, Mild (Pain Scale 1-3) Last Admin: 04/24/24 21:58 Dose: 650 mg Documented By: LACI Al Hydroxide/Mg Hydroxide (Magnesium Hydrox/Alum Hydrox 30 Ml Oral.Susp) 30 ml PO Q4H PRN PRN Reason: Heartburn Last Admin: 04/10/24 14:16 Dose: 30 ml Documented By: ALEJANDRA Bisacodyl (Bisacodyl 10 Mg Supp.Rect) 10 mg [place] BEDTIME PRN PRN Reason: Constipation Memantine (Memantine Hcl 5 Mg Tablet) 5 mg PO BID [facility] Last Admin: 04/27/24 08:25 Dose: 5 mg Documented By: IDALIA Metoprolol Succinate (Metoprolol Succinate Er 25 Mg Tab.Er.24h) 25 mg PO DAILY [facility]; Protocol Last Admin: 04/27/24 08:25 Dose: 25 mg Documented By: IDALIA Risperidone (Risperidone 2 Mg Tablet) 2 mg PO BEDTIME [facility] Last Admin: 04/26/24 20:19 Dose: 2 mg Documented By: SIMON Trazodone HCl (Trazodone Hcl 50 Mg Tablet) 50 mg PO BEDTIME MRX1 PRN PRN Reason: Insomnia Last Admin: 04/08/24 21:52 Dose: 50 mg Documented By: SUPPLEK Labs 04/19/24 05:45 04/19/24 05:45 Assessment and Plan (1) Dementia: Status: Acute Plan 79-year-old female admitted to [facility] psych 02/13/2024 with diagnosis of dementia with psychotic features. Was awaiting placement. Call to floor for questionable syncopal episode. Patient awake confused but at baseline. EKG with no acute findings. Syncope. Resolved no acute issues on telemetry workup unremarkable; likely volume related responded well to volume repletion echo without acute findings; LVEF 45-50% OOB to chair and ambulating check labs weekly Hypertension metoprolol restarted at lower dose Dementia with psychotic features continue risperidone, [place] affirmed HCP invoked had moca on psych floor, scored low due to dementia Full code DVT ppx - frequent ambulation Patient will require ongoing hospitalization pending safe placement due to dementia requiring [facility] level of care Quality Stroke Does the patient have a stroke diagnosis?: No VTE Prior VTE?: No VTE Risk Level:: Medical - moderate - high VTE Device Contraindication: Treatment Not Indicated VTE Drug Contraindication: N/A - Med Ordered
[2024-04-27 15:22] VITALS: BP 126/75; PULSE 95; RESP 18; TEMP 36.4; O2SAT 96
[2024-04-27 19:21] VITALS: BP 129/61; PULSE 77; RESP 16; TEMP 36.6; O2SAT 97
[2024-04-27] MEDS: risperiDONE 2 MG TABLET PO (20:30)
[2024-04-28 03:41] VITALS: BP 95/55; PULSE 66; RESP 16; TEMP 36.3; O2SAT 97
[2024-04-28 07:40] VITALS: BP 122/69; PULSE 104; RESP 18; TEMP 36.4; O2SAT 95
[2024-04-28] MEDS: Memantine HCl 5 MG TABLET PO ×2 (08:24→20:48)
[2024-04-28] MEDS: Metoprolol Succinate ER 25 MG TAB.ER.24H PO (08:24)
--- NOTE | 2024-04-28 12:35 | P.PNIM_ITS ---
Subjective Subjective Date of Service: 04/28/24 Interval History: Seen and examined this morning Follow-up for placement, dementia Getting in the hallway with no acute distress. No specific complaints. asking about a new apartment Review of Systems Review of Systems: Yes all other systems are reviewed and are negative Constitutional Constitutional: Denies chills and Denies fever(s) Cardiovascular Cardiovascular: Denies chest pain, Denies palpitations and Denies dyspnea Respiratory Respiratory: Denies cough and Denies dyspnea Endocrine Endocrine: Denies palpitations Physical Exam 2 Vital Signs: Vital Signs: Last Vital Signs Temp 97.5 F 04/28/24 07:40 Pulse 104 H 04/28/24 07:40 Resp 18 04/28/24 07:40 BP 122/69 04/28/24 07:40 Pulse Ox 95 04/28/24 07:40 O2 Del Method Room Air 04/28/24 07:40 O2 Flow Rate 2 04/17/24 03:38 BMI result Body Mass Index 20.3 Const: General: cooperative, comfortable, alert and awake Nutritional Appearance: thin Resp: Effort & Inspection: normal respiratory effort, able to speak in complete sentences, no respiratory distress and no use of accessory muscles Cardio: Rate: regular rate GI: Inspection: No distended Palpation (GI): Soft to palpation and nontender Neuro: General: moves all extremities and CN's II-XI intact bilaterally Extrem: General: Yes no pedal edema Objective Data Active Medications Acetaminophen (Acetaminophen 325 Mg Tablet) 650 mg PO Q6H PRN PRN Reason: Pain, Mild (Pain Scale 1-3) Last Admin: 04/24/24 21:58 Dose: 650 mg Documented By: LACI Al Hydroxide/Mg Hydroxide (Magnesium Hydrox/Alum Hydrox 30 Ml Oral.Susp) 30 ml PO Q4H PRN PRN Reason: Heartburn Last Admin: 04/10/24 14:16 Dose: 30 ml Documented By: ALEJANDRA Bisacodyl (Bisacodyl 10 Mg Supp.Rect) 10 mg [place] BEDTIME PRN PRN Reason: Constipation Memantine (Memantine Hcl 5 Mg Tablet) 5 mg PO BID [facility] Last Admin: 04/28/24 08:24 Dose: 5 mg Documented By: COTEMA Metoprolol Succinate (Metoprolol Succinate Er 25 Mg Tab.Er.24h) 25 mg PO DAILY [facility]; Protocol Last Admin: 04/28/24 08:24 Dose: 25 mg Documented By: COTEMA Risperidone (Risperidone 2 Mg Tablet) 2 mg PO BEDTIME [facility] Last Admin: 04/27/24 20:30 Dose: 2 mg Documented By: CASTILM Trazodone HCl (Trazodone Hcl 50 Mg Tablet) 50 mg PO BEDTIME MRX1 PRN PRN Reason: Insomnia Last Admin: 04/08/24 21:52 Dose: 50 mg Documented By: SUPPLEK Labs 04/19/24 05:45 04/19/24 05:45 Assessment and Plan (1) Dementia: Status: Acute Plan 79-year-old female admitted to [facility] 02/13/2024 with diagnosis of dementia with psychotic features. Was awaiting placement. Call to floor for questionable syncopal episode. Patient awake confused but at baseline. EKG with no acute findings. Syncope. Resolved no acute issues on telemetry workup unremarkable; likely volume related responded well to volume repletion echo without acute findings; LVEF 45-50% OOB to chair and ambulating check labs weekly Hypertension metoprolol restarted at lower dose Dementia with psychotic features continue risperidone, [place] affirmed HCP invoked had moca on psych floor, scored low due to dementia Full code DVT ppx - frequent ambulation Patient will require ongoing hospitalization pending safe placement due to dementia requiring custodial level of care Quality Stroke Does the patient have a stroke diagnosis?: No VTE Prior VTE?: No VTE Risk Level:: Medical - moderate - high VTE Device Contraindication: Treatment Not Indicated VTE Drug Contraindication: N/A - Med Ordered
[2024-04-28 16:00] VITALS: BP 156/89; PULSE 90; RESP 18; TEMP 36.7; O2SAT 98
[2024-04-28 19:42] VITALS: BP 134/69; PULSE 89; RESP 18; TEMP 36.3; O2SAT 94
[2024-04-28] MEDS: risperiDONE 2 MG TABLET PO (20:48)
[2024-04-29 03:28] VITALS: BP 113/56; PULSE 74; RESP 16; TEMP 36.2; O2SAT 97
[2024-04-29 07:41] VITALS: BP 137/85; PULSE 92; RESP 18; TEMP 36.2; O2SAT 95
[2024-04-29] MEDS: Memantine HCl 5 MG TABLET PO ×2 (07:57→20:19)
[2024-04-29] MEDS: Metoprolol Succinate ER 25 MG TAB.ER.24H PO (07:57)
--- NOTE | 2024-04-29 08:34 | P.PNIM_ITS ---
Subjective Subjective Date of Service: 04/29/24 Interval History: Follow-up for placement, dementia Getting in the hallway with no acute distress. No specific complaints. asking about a new apartment Review of Systems Review of Systems: Yes all other systems are reviewed and are negative Constitutional Constitutional: Denies chills and Denies fever(s) Cardiovascular Cardiovascular: Denies chest pain, Denies palpitations and Denies dyspnea Respiratory Respiratory: Denies cough and Denies dyspnea Endocrine Endocrine: Denies palpitations Physical Exam 2 Vital Signs: Vital Signs: Last Vital Signs Temp 97.2 F 04/29/24 07:41 Pulse 92 04/29/24 07:41 Resp 18 04/29/24 07:41 BP 137/85 04/29/24 07:41 Pulse Ox 95 04/29/24 07:41 O2 Del Method Room Air 04/29/24 07:41 O2 Flow Rate 2 04/17/24 03:38 BMI result Body Mass Index 20.3 Appearing in no acute distress neuro patient is alert x3, no focal deficits Objective Data Active Medications Acetaminophen (Acetaminophen 325 Mg Tablet) 650 mg PO Q6H PRN PRN Reason: Pain, Mild (Pain Scale 1-3) Last Admin: 04/24/24 21:58 Dose: 650 mg Documented By: LACI Al Hydroxide/Mg Hydroxide (Magnesium Hydrox/Alum Hydrox 30 Ml Oral.Susp) 30 ml PO Q4H PRN PRN Reason: Heartburn Last Admin: 04/10/24 14:16 Dose: 30 ml Documented By: ALEJANDRA Bisacodyl (Bisacodyl 10 Mg Supp.Rect) [address] BEDTIME PRN PRN Reason: Constipation Memantine (Memantine Hcl 5 Mg Tablet) 5 mg PO BID [facility] Last Admin: 04/29/24 07:57 Dose: 5 mg Documented By: KENNETH Metoprolol Succinate (Metoprolol Succinate Er 25 Mg Tab.Er.24h) 25 mg PO DAILY [facility]; Protocol Last Admin: 04/29/24 07:57 Dose: 25 mg Documented By: KENNETH Risperidone (Risperidone 2 Mg Tablet) 2 mg PO BEDTIME [facility] Last Admin: 04/28/24 20:48 Dose: 2 mg Documented By: LACI Trazodone HCl (Trazodone Hcl 50 Mg Tablet) 50 mg PO BEDTIME MRX1 PRN PRN Reason: Insomnia Last Admin: 04/08/24 21:52 Dose: 50 mg Documented By: KAMILAK Labs 04/19/24 05:45 04/19/24 05:45 Assessment and Plan (1) Dementia: Status: Acute Plan 79-year-old female admitted to [facility] 02/13/2024 with diagnosis of dementia with psychotic features. Was awaiting placement. Call to floor for questionable syncopal episode. Patient awake confused but at baseline. EKG with no acute findings. Syncope. Resolved no acute issues on telemetry workup unremarkable; likely volume related responded well to volume repletion echo without acute findings; LVEF 45-50% OOB to chair and ambulating check labs weekly Hypertension metoprolol restarted at lower dose Dementia with psychotic features continue risperidone, [place] affirmed HCP invoked had moca on psych floor, scored low due to dementia Full code Attending Dr. Luevano DVT ppx - frequent ambulation Patient will require ongoing hospitalization pending safe placement due to dementia requiring assisted level of care Quality Stroke Does the patient have a stroke diagnosis?: No VTE Prior VTE?: No VTE Risk Level:: Medical - moderate - high VTE Device Contraindication: Treatment Not Indicated VTE Drug Contraindication: N/A - Med Ordered
[2024-04-29 16:00] VITALS: BP 156/78; PULSE 82; RESP 18; TEMP 36.6; O2SAT 96
[2024-04-29 19:15] VITALS: BP 138/71; PULSE 84; RESP 17; TEMP 36.4; O2SAT 97
[2024-04-29] MEDS: Acetaminophen 325 MG TABLET 650 MG PO (19:23)
[2024-04-29] MEDS: risperiDONE 2 MG TABLET PO (20:19)
[2024-04-30 03:57] VITALS: BP 115/60; PULSE 67; RESP 18; TEMP 36.1; O2SAT 96
--- NOTE | 2024-04-30 07:18 | HO.PM.IMPN ---
Subjective Subjective Date of Service: 04/30/24 Interval History: Follow-up for placement, dementia Getting in the hallway with no acute distress. No specific complaints. asking about a new apartment Review of Systems Review of Systems: Yes all other systems are reviewed and are negative Constitutional Constitutional: Denies chills and Denies fever(s) Cardiovascular Cardiovascular: Denies chest pain, Denies palpitations and Denies dyspnea Respiratory Respiratory: Denies cough and Denies dyspnea Endocrine Endocrine: Denies palpitations Physical Exam Vital Signs: Vital Signs: Last Vital Signs Temp 97.0 F 04/30/24 03:57 Pulse 67 04/30/24 03:57 Resp 18 04/30/24 03:57 BP 115/60 04/30/24 03:57 Pulse Ox 96 04/30/24 03:57 O2 Del Method Room Air 04/30/24 03:57 O2 Flow Rate 2 04/17/24 03:38 BMI result Body Mass Index 20.3 alert and intermittently confused Objective Data Active Medications Acetaminophen (Acetaminophen 325 Mg Tablet) 650 mg PO Q6H PRN PRN Reason: Pain, Mild (Pain Scale 1-3) Last Admin: 04/29/24 19:23 Dose: 650 mg Documented By: ABDI Al Hydroxide/Mg Hydroxide (Magnesium Hydrox/Alum Hydrox 30 Ml Oral.Susp) 30 ml PO Q4H PRN PRN Reason: Heartburn Last Admin: 04/10/24 14:16 Dose: 30 ml Documented By: ALEJANDRA Bisacodyl (Bisacodyl 10 Mg Supp.Rect) 10 mg [place] BEDTIME PRN PRN Reason: Constipation Memantine (Memantine Hcl 5 Mg Tablet) 5 mg PO BID [facility] Last Admin: 04/29/24 20:19 Dose: 5 mg Documented By: ABDI Metoprolol Succinate (Metoprolol Succinate Er 25 Mg Tab.Er.24h) 25 mg PO DAILY [facility]; Protocol Last Admin: 04/29/24 07:57 Dose: 25 mg Documented By: KENNETH Risperidone (Risperidone 2 Mg Tablet) 2 mg PO BEDTIME [facility] Last Admin: 04/29/24 20:19 Dose: 2 mg Documented By: ABDI Trazodone HCl (Trazodone Hcl 50 Mg Tablet) 50 mg PO BEDTIME MRX1 PRN PRN Reason: Insomnia Last Admin: 09/30/24 21:52 Dose: 50 mg Documented By: MICHELL Labs 04/30/24 07:33 04/30/24 07:33 Assessment and Plan (1) Dementia: Status: Acute Plan 79-year-old female admitted to [facility] 02/13/2024 with diagnosis of dementia with psychotic features. Was awaiting placement. Call to floor for questionable syncopal episode. Patient awake confused but at baseline. EKG with no acute findings. Syncope. Resolved no acute issues on telemetry workup unremarkable; likely volume related responded well to volume repletion echo without acute findings; LVEF 45-50% OOB to chair and ambulating check labs weekly Hypertension metoprolol restarted at lower dose Dementia with psychotic features continue risperidone, [place] affirmed HCP invoked had moca on psych floor, scored low due to dementia Full code Attending Dr. Luevano DVT ppx - frequent ambulation Patient will require ongoing hospitalization pending safe placement due to dementia requiring snf level of care Quality Stroke Does the patient have a stroke diagnosis?: No VTE Prior VTE?: No VTE Risk Level:: Medical - moderate - high VTE Device Contraindication: Treatment Not Indicated VTE Drug Contraindication: N/A - Med Ordered
[2024-04-30 08:00] VITALS: BP 123/66; PULSE 98; RESP 12; TEMP 36.6; O2SAT 95
[2024-04-30 08:03] LABS: Hematocrit 39.2 % (37.0-47.0); Mean Corpuscular HGB Conc 33.2 g/dl (31.0-35.0); Mean Corpuscular Hemoglobin 30.3 pg (27.0-33.0); Mean Corpuscular Volume 91.4 fL (80.0-98.0); Platelet Count 212 X10*3/uL (160-400); Red Blood Count 4.29 X10*6/uL (4.20-5.50); Red Cell Distribution Width 13.1 % (11.0-16.0); White Blood Count 3.7 X10*3/uL (4.8-10.8)
[2024-04-30 08:15] LABS: Anion Gap 11 (12-20); Blood Urea Nitrogen 18 mg/dL (9-16); Calcium 9.8 mg/dL (8.4-10.2); Carbon Dioxide 27 mmol/L (22-29); Chloride 110 mmol/L (96-108); Estimated Glomerular Filt Rate > 60; Glucose Random 86 mg/dL (60-115); Potassium 4.5 mmol/L (3.3-5.1); Sodium 143 mmol/L (135-145)
[2024-04-30] MEDS: Memantine HCl 5 MG TABLET PO ×2 (08:32→19:46)
[2024-04-30] MEDS: Metoprolol Succinate ER 25 MG TAB.ER.24H PO (08:32)
[2024-04-30 15:46] VITALS: BP 144/72; PULSE 90; RESP 12; TEMP 36.6; O2SAT 97
[2024-04-30] MEDS: risperiDONE 2 MG TABLET PO (19:46)
[2024-04-30 20:00] VITALS: PULSE 91; RESP 18; TEMP 36.6; O2SAT 95
[2024-04-30 20:34] VITALS: BP 145/76
[2024-05-01 07:31] VITALS: BP 130/76; PULSE 79; RESP 16; TEMP 36.7; O2SAT 93
[2024-05-01] MEDS: Metoprolol Succinate ER 25 MG TAB.ER.24H PO (08:12)
[2024-05-01] MEDS: Memantine HCl 5 MG TABLET PO ×2 (08:12→20:19)
--- NOTE | 2024-05-01 11:31 | MHC.CM.PN ---
[facility] will be here at 9:30 05/02 to do pasaar level 2 screeing [facility] is still waiting for a few more verifications to complete necessary financial piece ,[facility] has accepted pt pending finacial and pasaar completion
--- NOTE | 2024-05-01 11:52 | P.PNIM_ITS ---
Subjective Subjective Date of Service: 05/01/24 Interval History: no complaints ambulatory Review of Systems Review of Systems: Yes all other systems are reviewed and are negative Physical Exam 2 Vital Signs: Vital Signs: Last Vital Signs Temp 98.1 F 05/01/24 07:31 Pulse 79 05/01/24 07:31 Resp 16 05/01/24 07:31 BP 130/76 05/01/24 07:31 Pulse Ox 93 05/01/24 07:31 O2 Del Method Room Air 05/01/24 07:31 O2 Flow Rate 2 04/17/24 03:38 BMI result Body Mass Index 20.3 gen: NAD lungs: normal resp effort CV: RRR no murmurs neuro: somewhat confused Objective Data Active Medications Acetaminophen (Acetaminophen 325 Mg Tablet) 650 mg PO Q6H PRN PRN Reason: Pain, Mild (Pain Scale 1-3) Last Admin: 04/29/24 19:23 Dose: 650 mg Documented By: ABID Al Hydroxide/Mg Hydroxide (Magnesium Hydrox/Alum Hydrox 30 Ml Oral.Susp) 30 ml PO Q4H PRN PRN Reason: Heartburn Last Admin: 04/10/24 14:16 Dose: 30 ml Documented By: ALEJANDRA Bisacodyl (Bisacodyl 10 Mg Supp.Rect) 10 mg [place] BEDTIME PRN PRN Reason: Constipation Memantine (Memantine Hcl 5 Mg Tablet) 5 mg PO BID [facility] Last Admin: 05/01/24 08:12 Dose: 5 mg Documented By: REX Metoprolol Succinate (Metoprolol Succinate Er 25 Mg Tab.Er.24h) 25 mg PO DAILY [facility]; Protocol Last Admin: 05/01/24 08:12 Dose: 25 mg Documented By: REX Risperidone (Risperidone 2 Mg Tablet) 2 mg PO BEDTIME [facility] Last Admin: 04/30/24 19:46 Dose: 2 mg Documented By: ABDI Trazodone HCl (Trazodone Hcl 50 Mg Tablet) 50 mg PO BEDTIME MRX1 PRN PRN Reason: Insomnia Last Admin: 04/08/24 21:52 Dose: 50 mg Documented By: MICHELL Labs 04/30/24 07:33 04/30/24 07:33 Assessment and Plan (1) Dementia: Status: Acute Plan 79yo F admitted to [facility] 02/13/24 for dementia with psychosis, was awaiting placement when had questionable syncopal episode and transferred to hospitalist service syncope - resolved; no EKG changes; workup unremarkable; responded to volume repletion; TTE with LVEF 45-50%; ambulating without issues; weekly labs OK HTN - continue metoprolol succinate which was restarted at lower dose dementia with psychotic features - continue risperidone + memantine; court-affirmed HCP invoked; low MOCA score VTE ppx - ambulation dispo - LTC In my clinical judgment, the patient requires continued inpatient hospitalization for the following reasons: placement Total time managing care of this patient today: 25 minutes. Quality Stroke Does the patient have a stroke diagnosis?: No VTE Prior VTE?: No VTE Risk Level:: Medical - moderate - high VTE Device Contraindication: Treatment Not Indicated VTE Drug Contraindication: N/A - Med Ordered
[2024-05-01 15:26] VITALS: BP 152/85; PULSE 86; RESP 16; TEMP 36.9; O2SAT 97
[2024-05-01] MEDS: risperiDONE 2 MG TABLET PO (20:19)
[2024-05-01 23:22] VITALS: BP 111/55; PULSE 68; RESP 14; TEMP 36; O2SAT 96
[2024-05-02 07:49] VITALS: BP 119/67; PULSE 100; RESP 18; TEMP 36.2; O2SAT 97
[2024-05-02] MEDS: Metoprolol Succinate ER 25 MG TAB.ER.24H PO (08:14)
[2024-05-02] MEDS: Memantine HCl 5 MG TABLET PO ×2 (08:14→20:34)
--- NOTE | 2024-05-02 09:10 | P.PNIM_ITS ---
Subjective Subjective Date of Service: 05/02/24 Interval History: no complaints; ambulatory; somewhat confused Review of Systems Review of Systems: Yes all other systems are reviewed and are negative Physical Exam 2 Vital Signs: Vital Signs: Last Vital Signs Temp 97.1 F 05/02/24 07:49 Pulse 100 05/02/24 07:49 Resp 18 05/02/24 07:49 BP 119/67 05/02/24 07:49 Pulse Ox 97 05/02/24 07:49 O2 Del Method Room Air 05/02/24 07:49 O2 Flow Rate 2 04/17/24 03:38 BMI result Body Mass Index 20.3 gen: NAD lungs: normal resp effort CV: RRR no murmurs neuro: oriented to self + place Objective Data Active Medications Acetaminophen (Acetaminophen 325 Mg Tablet) 650 mg PO Q6H PRN PRN Reason: Pain, Mild (Pain Scale 1-3) Last Admin: 04/29/24 19:23 Dose: 650 mg Documented By: ABDI Al Hydroxide/Mg Hydroxide (Magnesium Hydrox/Alum Hydrox 30 Ml Oral.Susp) 30 ml PO Q4H PRN PRN Reason: Heartburn Last Admin: 04/10/24 14:16 Dose: 30 ml Documented By: ALEJANDRA Bisacodyl (Bisacodyl 10 Mg Supp.Rect) 10 mg [place] BEDTIME PRN PRN Reason: Constipation Memantine (Memantine Hcl 5 Mg Tablet) 5 mg PO BID [facility] Last Admin: 05/02/24 08:14 Dose: 5 mg Documented By: REX Metoprolol Succinate (Metoprolol Succinate Er 25 Mg Tab.Er.24h) 25 mg PO DAILY [facility]; Protocol Last Admin: 05/02/24 08:14 Dose: 25 mg Documented By: REX Risperidone (Risperidone 2 Mg Tablet) 2 mg PO BEDTIME [facility] Last Admin: 05/01/24 20:19 Dose: 2 mg Documented By: AUGIE Trazodone HCl (Trazodone Hcl 50 Mg Tablet) 50 mg PO BEDTIME MRX1 PRN PRN Reason: Insomnia Last Admin: 04/08/24 21:52 Dose: 50 mg Documented By: MICHELL Labs 04/30/24 07:33 04/30/24 07:33 Assessment and Plan (1) Dementia: Status: Acute Plan 79yo F admitted to geriatric psychiatry 02/13/24 for dementia with psychosis, was awaiting placement when had questionable syncopal episode and transferred to hospitalist service 04/08/24 syncope - resolved; no EKG changes; workup unremarkable; responded to volume repletion; TTE with LVEF 45-50%; ambulating without issues; last lab check 04/30 without issues HTN - continue metoprolol succinate, which was restarted at lower dose dementia with psychotic features - continue risperidone + memantine; low MOCA score; court-affirmed HCP invoked VTE ppx - ambulation dispo - LTC In my clinical judgment, the patient requires continued inpatient hospitalization for the following reasons: placement Total time managing care of this patient today: 25 minutes. Quality Stroke Does the patient have a stroke diagnosis?: No VTE Prior VTE?: No VTE Risk Level:: Medical - moderate - high VTE Device Contraindication: Treatment Not Indicated VTE Drug Contraindication: N/A - Med Ordered
[2024-05-02 15:17] VITALS: BP 136/70; PULSE 83; RESP 16; TEMP 36.6; O2SAT 97
--- NOTE | 2024-05-02 16:13 | MHC.CM.PN ---
[facility] IS ACCEPTING PT FOR TOMORROW NURSE TO NURSE REPORT NEEDS TO BE CALLED TO [phone] BLS TRANSPORT BOOKED WITH [facility] FOR 1200 HOURS PTS DAUGHTER, TANVIR, WILL MEET HER AT THE SNF TO ASSIST WITH TRANSITION
[2024-05-02] MEDS: LORazepam 0.5 MG TABLET PO (16:42)
[2024-05-02] MEDS: risperiDONE 2 MG TABLET PO (20:34)
[2024-05-02 23:20] VITALS: BP 124/69; PULSE 87; RESP 16; TEMP 36.3; O2SAT 96
[2024-05-03 07:25] VITALS: BP 140/68; PULSE 100; RESP 16; TEMP 36.3; O2SAT 95
[2024-05-03] MEDS: Metoprolol Succinate ER 25 MG TAB.ER.24H PO (08:01)
[2024-05-03] MEDS: Memantine HCl 5 MG TABLET PO (08:01)
--- NOTE | 2024-05-03 09:01 | MHC.CM.PN ---
[facility] IS PREPARED TO ACCEPT PT TODAY CM SPOKE TO PTS DAUGHTER/HCP, TANVIR, WHO WILL MEET HER AT THE SNF TRANSPORT BOOKED FOR 1200 HOURS WITH YASMIN
--- NOTE | 2024-05-03 09:03 | P.PNIM_ITS ---
Subjective Subjective Date of Service: 05/03/24 Interval History: No new issues, doing well otherwise Review of Systems Review of Systems: Yes all other systems are reviewed and are negative Physical Exam 2 Vital Signs: Vital Signs: Last Vital Signs Temp 97.4 F 05/03/24 07:25 Pulse 100 05/03/24 07:25 Resp 16 05/03/24 07:25 BP 140/68 H 05/03/24 07:25 Pulse Ox 95 05/03/24 07:25 O2 Del Method Room Air 05/03/24 07:25 O2 Flow Rate 2 04/17/24 03:38 BMI result Body Mass Index 20.3 General: oriented to self, place, no acute distress Resp: CTA bilateral CVS: S1,S2,RRR GI: +BS, NT, no distention Skin: No rash Neuro: motor grossly intact Psych: appropriate affect Objective Data Active Medications Acetaminophen (Acetaminophen 325 Mg Tablet) 650 mg PO Q6H PRN PRN Reason: Pain, Mild (Pain Scale 1-3) Last Admin: 04/29/24 19:23 Dose: 650 mg Documented By: ABDI Al Hydroxide/Mg Hydroxide (Magnesium Hydrox/Alum Hydrox 30 Ml Oral.Susp) 30 ml PO Q4H PRN PRN Reason: Heartburn Last Admin: 04/10/24 14:16 Dose: 30 ml Documented By: ALEJANDRA Bisacodyl (Bisacodyl 10 Mg Supp.Rect) 10 mg [place] BEDTIME PRN PRN Reason: Constipation Memantine (Memantine Hcl 5 Mg Tablet) 5 mg PO BID [facility] Last Admin: 05/03/24 08:01 Dose: 5 mg Documented By: MARIELY Metoprolol Succinate (Metoprolol Succinate Er 25 Mg Tab.Er.24h) 25 mg PO DAILY [facility]; Protocol Last Admin: 05/03/24 08:01 Dose: 25 mg Documented By: MARIELY Risperidone (Risperidone 2 Mg Tablet) 2 mg PO BEDTIME [facility] Last Admin: 05/02/24 20:34 Dose: 2 mg Documented By: AUGIE Trazodone HCl (Trazodone Hcl 50 Mg Tablet) 50 mg PO BEDTIME MRX1 PRN PRN Reason: Insomnia Last Admin: 04/08/24 21:52 Dose: 50 mg Documented By: MICHELL Labs 04/30/24 07:33 04/30/24 07:33 Assessment and Plan (1) Dementia: Status: Acute Plan 79yo F admitted to geriatric psychiatry 02/13/24 for dementia with psychosis, was awaiting placement when had questionable syncopal episode and transferred to hospitalist service 04/08/24 syncope - resolved; no EKG changes; workup unremarkable; responded to volume repletion; TTE with LVEF 45-50%; ambulating without issues; last lab check 04/30 without issues HTN - continue metoprolol succinate, which was restarted at lower dose dementia with psychotic features - continue risperidone + memantine; low MOCA score; court-affirmed HCP invoked VTE ppx - ambulation dispo - LTC Need for inpt: [facility] placement Total time managing care of this patient today: 25 minutes. Quality Stroke Does the patient have a stroke diagnosis?: No VTE Prior VTE?: No VTE Risk Level:: Medical - moderate - high VTE Device Contraindication: Treatment Not Indicated VTE Drug Contraindication: N/A - Med Ordered
--- NOTE | 2024-05-03 09:12 | P.DS_ITS ---
DS: Providers Provider Date of Service: 05/03/24 Date of admission: 04/08/24 10:02 Primary care physician: Fritz Meza MD DS: Diagnosis Discharge Diagnosis (1) Dementia: Status: Acute DS: Summary Hospital Course Hospital Course: Chief Complaint: syncope 79-year-old female, living in the community referred from the emergency room of another hospital since a neighbor called 911 apparently she was trying to get into and others people's cars and she was disorganized. She was rushed to the emergency room, she was diagnosed with a UTI and treated and she had been chemically restrained in the emergency room several times. Was admitted to [facility] pending safe placement. Called to [facility] for rapid response question syncope versus chest pain. Patient was confused but apparently at baseline. Initial evaluation was essentially unremarkable. Att empted to sit patient up.. Complaining of extreme dizziness.. Returned to supine position. Given such she will be transferred to telemetry for further workup Hospital course: A 79-year-old female was admitted to geriatric psychiatry on 02/13/24 for dementia with psychosis and was awaiting placement when she experienced a questionable syncopal episode, leading to a transfer to the hospitalist service on 04/08/24. Her syncope workup was unremarkable, with no EKG changes, and she responded well to IV fluids. An echocardiogram showed an LVEF of 45-50%, and she has been a mbulating without issues. Lab results have been unremarkable. The patient has remained in the hospital for an extended period due to the need for permanent placement, as she is unable to live alone because of advanced dementia. A healthcare proxy has been activated. HTN--contgrolled on metoprolol succinate 25 mg daily, reduced from home dose of 100 mg daily dementia with psychotic features - continue risperidone + memantine; low MOCA score; court-affirmed HCP was invoked Time Attestation Discharge Coordination Time (in mins): 45 Quality: Safe Use of Opioids Does Pt have an Active Cancer Diagnosis on the Problem List?: No Quality: Stroke Does the patient have a stroke diagnosis?: No Physical Exam Vital Signs: Vital Signs: Last Vital Signs Temp 97.4 F 05/03/24 07:25 Pulse 100 05/03/24 07:25 Resp 16 05/03/24 07:25 BP 140/68 H 05/03/24 07:25 Pulse Ox 95 05/03/24 07:25 O2 Del Method Room Air 05/03/24 07:25 O2 Flow Rate 2 04/17/24 03:38 BMI result Body Mass Index 20.3 General: oriented to self, place, no acute distress Resp: CTA bilateral CVS: S1,S2,RRR GI: +BS, NT, no distention Skin: No rash Neuro: motor grossly intact Psych: appropriate affect Discharge Plan Discharge Anticipated Discharge Date/Time: 05/03/24 09:19 Patient Disposition: Xfer SNF Discharge Diagnosis: Dementia, HTN, Referrals: [facility] [Outside] Fritz Meza MD [Primary Care Provider] - 1 Week Discharge Medications: New metoprolol succinate 25 mg Tablet Extended Release 24 Hr 25 mg PO DAILY Qty: 30 0RF Protocol: Hold for SBP/HR < HOLD for SBP < : 90 HOLD for HR < : 60 Continued loratadine 10 mg Tablet 10 mg PO DAILY Qty: 30 0RF trazodone 50 mg Tablet 50 mg PO BEDTIME MRX1 PRN (Reason: Insomnia) 30 Days Qty: 30 0RF risperidone 2 mg Tablet 2 mg PO BEDTIME 30 Days Qty: 30 0RF bisacodyl [Gentle Laxative (bisacodyl)] 10 mg Suppository 10 mg [place] BEDTIME PRN (Reason: Constipation) Qty: 30 0RF memantine 5 mg Tablet 5 mg PO BID 30 Days Qty: 60 0RF Discontinued metoprolol succinate 100 mg tablet extended release 24 hr 100 mg PO DAILY 30 Days Qty: 30 0RF Discharge Orders: Discharge Order (Routine); Ordered 05/03/24 Ordered By: Benedict Medina Diet: Advance to usual diet Activity on Discharge: As tolerated Stand Alone Forms: Patient Portal Discharge page Print Language: Polish Care Plan Goals: residential placement for dementia Health Concerns: dementia, HTN Plan of Treatment: continue all usual medication for residential placement Assessment: see above
--- NOTE | 2024-05-03 12:38 | PC.NURSE ---
Pt d/c to [facility] at ~1230. Report called to KRISTEL
== END 2024-05-03 12:38 | disposition skilled nursing facility (03) | DRG 312 ==
LOC: HO.IMC 04-10 08:39 → HO.S3 04-10 14:54
PROVIDERS: Nurse Practitioner Acute Care; Physician Assistant Medical; Admitting Provider Hospitalist; PCP Internal Medicine; Visit Provider Internal Medicine
DX: R55 Syncope and collapse (principal); F03.92 Unspecified dementia, unspecified severity, with psychotic disturbance; I10 Essential (primary) hypertension; Z75.1 Person awaiting admission to adequate facility elsewhere; Z79.899 Other long term (current) drug therapy
CPT/HCPCS: 36415; 71045; 80048; 80053; 82565; 85025; 85027; 85379; 93306; 94799; 97161; J1650; Q9957

== ENCOUNTER 2024-04-08 10:02 | Outpatient (BNV) | payer MEDICARE, SELFPAY | END 2024-04-08 12:00 | PROVIDERS: Admitting Provider Hospitalist; Visit Provider Internal Medicine Cardiovascular Disease | DX: R55 Syncope and collapse (principal); R93.1 Abnormal findings on diagnostic imaging of heart and coronary circulation | CPT/HCPCS: 93306 ==